=== PATIENT | female | born 1985 | race Caucasian/White ===

== ENCOUNTER 2020-10-01 13:55 | Emergency (ER) | payer OTHER, SELFPAY ==
[2020-10-01 14:04] VITALS: BP 128/82; BP 140/82; PULSE 55; PULSE 62; RESP 16; TEMP 35.9; O2SAT 95; O2SAT 99; BMI 20.3
--- NOTE | 2020-10-01 14:16 | ED.GENADULT ---
HPI - General Adult General Chief complaint: ETOH/Substance Use Stated complaint: OVERDOSE Time Seen by Provider: 10/01/20 14:10 Source: patient and EMS Mode of arrival: EMS Limitations: no limitations History of Present Illness HPI narrative: 35-year-old female came in by ambulance for evaluation of overdose. 35-year-old female with known history of IV drug abuser, patient used 4 bags of heroin last night IV, felt nauseous and started vomiting, patient was found in the street vomiting brought to the emergency department. Patient's think she is vomiting because something she has injected in her IV. Related Data Allergies Allergy/AdvReac Type Severity Reaction Status Date / Time Penicillins [PENICILLINS] Allergy Mild THROAT Unverified 11/21/19 18:32 DANIEL Review of Systems Review of Systems: All other systems are reviewed and are negative Constitutional: Reports as per HPI and Reports no additional constitutional complaints Eyes: Reports as per HPI and Reports no additional eye complaints Reports system reviewed and no additional complaints, except as documented Cardiovascular: Reports as per HPI and Reports no additional cardiovascular complaints Respiratory: Reports as per HPI and Reports no additional respiratory complaints Gastrointestinal: Reports as per HPI and Reports no additional gastrointestinal complaints Genitourinary: Reports no additional female genitourinary complaints Musculoskeletal: Reports no additional musculoskeletal complaints Skin/Breast: Reports system reviewed and no additional complaints, except as docu Psychiatric: Reports no additional psychiatric complaints Endocrine: Reports no additional endocrine complaints Hematologic/Lymphatic: Reports no additional hematologic/lymphatic complaints Allergic/Immunologic: Reports no additional allergic/immunologic complaints Reports system reviewed and no additional complaints, except as documented and Reports Abnormal speech present [facility] Social History Social History Advance Directives: No Advance Directives Information Provided: Yes Physical Exam Vital Signs: Vital Signs: Last Vital Signs Temp 96.7 F L 10/01/20 14:04 Pulse 55 10/01/20 14:04 Resp 16 10/01/20 14:04 BP 128/82 10/01/20 14:04 Pulse Ox 99 10/01/20 14:04 Body Mass Index 20.3 Vital signs have been reviewed as appeared to be correct. Blood pressure normal. Heart rate normal. Respiration rate normal. Temperature normal. Oxygen saturation normal. Appearance: Alert. Oriented X3. No acute distress. Head: Normal external exam. Normocephalic. Atraumatic. No Andrews signs noted. No raccoon eyes noted Eyes: PERRLA. EOMI. Conjunctiva and sclera normal. Eyelids normal. ENT: TM's Normal. Pharynx normal. Uvula midline. Moist mucous membranes. No trismus noted. No drooling noted. No muffled voice noted. Neck: Normal inspection. Neck supple. FROM. No adenopathy. Thyroid Normal. No meningeal signs. No neck mass noted. CVS: Normal heart rate and rhythm. Heart sound normal. No murmurs noted. Pulses normal throughout. Respiratory: No respiratory distress. Painless inspiration. Breath sounds normal. No wheezes/rales/rhonchi noted. Chest nontender. No accessory muscle usage noted or decreased air movement noted. Abdomen: Soft and nontender. Bowel sounds normal in all 4 quadrants. No distention noted. No organomegaly noted. No visible injury noted. Back: No CVA tenderness. Full range of motion noted. Skin: Skin warm and dry. Normal skin color. Normal skin turgor. No rashes/lesions/lacerations noted. Extremities: No lower extremity edema. Extremities exhibit normal range of motion. Extremities nontender. Neuro: Oriented X 3. No motor deficit. No sensory deficit. Reflexes normal. Course Course Course Narrative: Assessment and plan. IV drug abuser came in with nausea and vomiting, no abdominal pain, patient refuse labs or IV access to give fluids and hydration and control her symptoms, patient was given sublingual 1 dose of Zofran and felt better able to tolerate p.o. intake. Will discharge. Discharge Plan Discharge Clinical Impression: Substance abuse Patient Disposition: Home, Self-Care Instructions: Polysubstance Abuse (ED) Additional Instructions: Follow-up with your PCP in 1 week.
[2020-10-01] MEDS: Ondansetron ODT 4 MG TAB.RAPDIS TRANSLINGU (14:28)
--- NOTE | 2020-10-01 16:00 | PC.NURSE ---
Patient reporting she does not want to leave she still feels sick. MD reports let patient sleep some more before attempting another D/C.
[2020-10-01 17:45] VITALS: BP 119/65; PULSE 75; RESP 16; O2SAT 99
--- NOTE | 2020-10-01 17:52 | MHC.RECOVSUP ---
? Reason for consult [facility] Support [facility] Identified substance use concern: Heroin - Withdrawal - Seeking ATS (detox) - Support ? Intervention: o ATS bed search started 5:20pm/completed 5;45pm o Community resources provided o Harm reduction discussion ? Plan: <del>o</del> <del>Referral</del> <del>to</del> <del>[facility]</del> <del>o</del> <del>Bed</del> <del>search</del> <del>in</del> <del>progress</del> <del>to</del> <del>o</del> <del>Follow</del> <del>up</del> <del>tomorrow</del> <del>o</del> <del>Patient</del> <del>awaiting</del> <del>crisis</del> <del>evaluation</del> o Patient to follow up with [facility] after discharge ? Additional information: Patient is seeking detox.. There was no beds anywhere.. Was able to find space for patient at the living room.. Patient was suggest to call [facility] in the morning for assistance to go to detox..
[2020-10-01 17:55] VITALS: BP 104/67; PULSE 90; RESP 16; TEMP 37.2; O2SAT 97
== END 2020-10-01 18:28 | disposition home or self-care (01) ==
PROVIDERS: Emergency Provider Emergency Medicine
DX: T40.1X1A Poisoning by heroin, accidental (unintentional), initial encounter (principal); R11.2 Nausea with vomiting, unspecified; F11.10 Opioid abuse, uncomplicated; Y92.9 Unspecified place or not applicable
CPT/HCPCS: 99284

== ENCOUNTER 2020-12-12 11:32 | Inpatient (IN) | payer OTHER, SELFPAY ==
--- NOTE | ~2020-12-12 | XR_ITS ---
EXAMINATION: XR KNEE, RIGHT CLINICAL INFORMATION: Pain and swelling COMPARISON: None TECHNIQUE: Four views of the right knee. FINDINGS: Bone alignment is normal. No fracture or dislocation is seen. Joint spaces are normal. There is a joint effusion. Soft tissues are otherwise normal. XR/XR knee RT 4V IMPRESSION: Joint effusion otherwise unremarkable exam.
[2020-12-12 12:25] VITALS: BP 98/67; PULSE 70; RESP 16; TEMP 37; O2SAT 98; BMI 21.9
--- NOTE | 2020-12-12 13:20 | ED.EXTPRO ---
HPI - Extremity Problem General Chief complaint: Extremity Problem Stated complaint: R Knee Pain No Injury Time Seen by Provider: 12/12/20 13:18 History of Present Illness HPI Narrative: Patient is a 35-year-old female with a history of IV heroin abuse. Presents today with having pain to the right knee. No trauma. The pain is worse with movement. Patient denies any fever chills. Just used heroin prior to arrival. No coughing or congestion or upper respiratory symptoms no diaphoresis. Related Data Allergies Allergy/AdvReac Type Severity Reaction Status Date / Time Penicillins [PENICILLINS] Allergy Mild THROAT Unverified 11/21/19 18:32 SWELLS Review of Systems Review of Systems: No fever No chills Positive heroin abuse Positive pain to the right knee PMFSH Past Medical History Attestation statement: The following information was validated with the patient. Medical History Hepatitis C Social History Social History Advance Directives: No Advance Directives Information Provided: No Patient : No Physical Exam Vital Signs: Vital Signs: Last Vital Signs Temp 98.6 F 12/12/20 12:25 Pulse 70 12/12/20 12:25 Resp 16 12/12/20 12:25 BP 98/67 12/12/20 12:25 Pulse Ox 98 12/12/20 12:25 Body Mass Index 21.9 Appearance: Alert. Oriented X3. No acute distress. Eyes: Pupils equal, round and reactive to light. ENT: Pharynx normal. Neck: Normal inspection. Neck supple. No lymph nodes noted. No crepitus CVS: Normal heart rate and rhythm. Pulses normal. Normal S1 and S2 Respiratory: No respiratory distress. Breath sounds normal. No Wheezing. No rales Abdomen: Soft and nontender. No rigidity. No distention. good BS x4 Skin: Skin warm and dry. Normal skin color. Normal skin turgor. Extremities: Extremity casey of the right knee showed large amount of joint effusion. There is no redness. Pulses is 2+. Sensation over the foot intact. Skin grossly intact. Neuro: Oriented X 3. No motor deficit. No sensory deficit. Moving all extermities. No slurred speech MDM - Extremity (Nontraumatic) MDM Narrative Medical decision making narrative: Given history of IV drug use will go ahead and tap the joint fluid. We will go ahead and get labs. Monitor carefully. Patient's knee was tapped. Over 40 cc of purulence material was removed. The tap material showed 52,000 polys. The finding was discussed with Orthopedic along with having a white count of [address] Lema wants patient to be admitted for washout tomorrow. Did not want antibiotic at this time. Patient is to be admitted to the orthopedic service. Lab Data Result diagrams: 12/12/20 14:00 12/12/20 14:00 Labs: Lab Results 12/12/20 12/12/20 12/12/20 Range/Units 14:00 14:00 14:00 WBC 14.0 H (4.8-10.8) X10*3/uL RBC 4.86 (4.20-5.50) X10*6/uL Hgb 12.8 (12.0-16.0) g/dl Hct 40.1 (37-47) % MCV 82.5 (80-98) fL MCH 26.3 L (27.0-33.0) pg MCHC 31.9 (31.0-35.0) g/dl RDW 14.4 (11.0-16.0) % Plt Count 225 (160-400) X10*3/uL MPV 11.1 (9.4-12.3) fL Immature Gran % (Auto) 0.4 (0.0-0.4) % Neut % (Auto) 75.3 H (45-73) % Lymph % (Auto) 18.1 L (20-40) % Doddridge % (Auto) 5.9 (2-11) % Eos % (Auto) 0.1 (0-4) % Baso % (Auto) 0.2 (0-2) % Lymph # (Auto) 2.5 (1.2-4.9) X10*3/uL Doddridge # (Auto) 0.8 (0.1-1.2) X10*3/uL Eos # (Auto) 0.0 (0.0-0.4) X10*3/uL Baso # (Auto) 0.0 (0.0-0.2) X10*3/uL Abs Immat Gran (auto) 0.06 H (0.00-0.03) X10*3/uL Absolute Neuts (auto) 10.6 H (2.0-8.3) X10*3/uL Absolute Nucleated RBC 0.000 (0.0-0.012) X10*3/uL Nucleated RBC % (auto) 0.0 (0.0-0.2) /100WBC ESR (0-20) MM/HR Sodium 137 (135-145) mmol/L Potassium 4.5 (3.3-5.1) mmol/L Chloride 99 (96-108) mmol/L Carbon Dioxide 30 H (22-29) mmol/L Anion Gap 13 (12-20) BUN 15 (9-16) mg/dL Creatinine 0.80 (0.5-1.4) mg/dL Estim Creat Clear Calc 77.6 Estimated GFR > 60 Random Glucose 113 (60-115) mg/dL Lactic Acid 1.1 (0.5-2.0) mmol/L Calcium 10.0 (8.4-10.2) mg/dL C-Reactive Protein (< or = 0.50) mg/dL Beta HCG, Quant < 2 mIU/mL Synovial Source Synovial WBC X10*3/uL Synovial RBC X10*6/uL Synovial Neutrophils % Synovial Lymphocytes % Synovial Monocytes % Synovial Basophils % Synovial Eosinophils % Synovial Other Cells 12/12/20 12/12/20 12/12/20 Range/Units 14:00 14:00 14:40 WBC (4.8-10.8) X10*3/uL RBC (4.20-5.50) X10*6/uL Hgb (12.0-16.0) g/dl Hct (37-47) % MCV (80-98) fL MCH (27.0-33.0) pg MCHC (31.0-35.0) g/dl RDW (11.0-16.0) % Plt Count (160-400) X10*3/uL MPV (9.4-12.3) fL Immature Gran % (Auto) (0.0-0.4) % Neut % (Auto) (45-73) % Lymph % (Auto) (20-40) % Doddridge % (Auto) (2-11) % Eos % (Auto) (0-4) % Baso % (Auto) (0-2) % Lymph # (Auto) (1.2-4.9) X10*3/uL Doddridge # (Auto) (0.1-1.2) X10*3/uL Eos # (Auto) (0.0-0.4) X10*3/uL Baso # (Auto) (0.0-0.2) X10*3/uL Abs Immat Gran (auto) (0.00-0.03) X10*3/uL Absolute Neuts (auto) (2.0-8.3) X10*3/uL Absolute Nucleated RBC (0.0-0.012) X10*3/uL Nucleated RBC % (auto) (0.0-0.2) /100WBC ESR 65 H (0-20) MM/HR Sodium (135-145) mmol/L Potassium (3.3-5.1) mmol/L Chloride (96-108) mmol/L Carbon Dioxide (22-29) mmol/L Anion Gap (12-20) BUN (9-16) mg/dL Creatinine (0.5-1.4) mg/dL Estim Creat Clear Calc Estimated GFR Random Glucose (60-115) mg/dL Lactic Acid (0.5-2.0) mmol/L Calcium (8.4-10.2) mg/dL C-Reactive Protein (< or = 0.50) mg/dL Beta HCG, Quant Cancelled mIU/mL Synovial Source right knee Synovial WBC 52.290 X10*3/uL Synovial RBC < 0.002 X10*6/uL Synovial Neutrophils 68 % Synovial Lymphocytes 1 % Synovial Monocytes 31 % Synovial Basophils 0 % Synovial Eosinophils 0 % Synovial Other Cells 0 12/12/20 12/12/20 Range/Units 15:16 15:16 WBC (4.8-10.8) X10*3/uL RBC (4.20-5.50) X10*6/uL Hgb (12.0-16.0) g/dl Hct (37-47) % MCV (80-98) fL MCH (27.0-33.0) pg MCHC (31.0-35.0) g/dl RDW (11.0-16.0) % Plt Count (160-400) X10*3/uL MPV (9.4-12.3) fL Immature Gran % (Auto) (0.0-0.4) % Neut % (Auto) (45-73) % Lymph % (Auto) (20-40) % Doddridge % (Auto) (2-11) % Eos % (Auto) (0-4) % Baso % (Auto) (0-2) % Lymph # (Auto) (1.2-4.9) X10*3/uL Doddridge # (Auto) (0.1-1.2) X10*3/uL Eos # (Auto) (0.0-0.4) X10*3/uL Baso # (Auto) (0.0-0.2) X10*3/uL Abs Immat Gran (auto) (0.00-0.03) X10*3/uL Absolute Neuts (auto) (2.0-8.3) X10*3/uL Absolute Nucleated RBC (0.0-0.012) X10*3/uL Nucleated RBC % (auto) (0.0-0.2) /100WBC ESR (0-20) MM/HR Sodium (135-145) mmol/L Potassium (3.3-5.1) mmol/L Chloride (96-108) mmol/L Carbon Dioxide (22-29) mmol/L Anion Gap (12-20) BUN (9-16) mg/dL Creatinine (0.5-1.4) mg/dL Estim Creat Clear Calc Estimated GFR Random Glucose (60-115) mg/dL Lactic Acid 1.4 (0.5-2.0) mmol/L Calcium (8.4-10.2) mg/dL C-Reactive Protein 5.33 H (< or = 0.50) mg/dL Beta HCG, Quant mIU/mL Synovial Source Synovial WBC X10*3/uL Synovial RBC X10*6/uL Synovial Neutrophils % Synovial Lymphocytes % Synovial Monocytes % Synovial Basophils % Synovial Eosinophils % Synovial Other Cells Procedures Joint Aspiration/Injection Joint Asp./Inject. 1: Time Out Performed: Yes Side of body: right Joint Aspirated: knee Ultrasound Guidance: No Skin Prep: Povidone-Iodine1% Needle Size Used: 18G Fluid Obtained: turbid Total fluid obtained (mL): 40 Patient Tolerated Procedure: well and no complications Complications: none Discharge Plan Discharge Clinical Impression: Septic joint Patient Disposition: Admitted As Inpatient
[2020-12-12 14:05] LABS: MANUAL DIFF FLAG NO
[2020-12-12 14:06] LABS: Basophils Percent Auto 0.2 % (0-2); Eosinophils Percent Auto 0.1 % (0-4); Hematocrit 40.1 % (37-47); Hemoglobin 12.8 g/dl (12.0-16.0); Imm Gran Abs Auto 0.06 X10*3/uL (0.00-0.03); Imm Gran Pct Auto 0.4 % (0.0-0.4); Lymphocytes Absolute Auto 2.5 X10*3/uL (1.2-4.9); Lymphocytes Percent Auto 18.1 % (20-40); Mean Corpuscular HGB Conc 31.9 g/dl (31.0-35.0); Mean Corpuscular Hemoglobin 26.3 pg (27.0-33.0); Mean Corpuscular Volume 82.5 fL (80-98); Mean Platelet Volume 11.1 fL (9.4-12.3); Monocytes Absolute Auto 0.8 X10*3/uL (0.1-1.2); Monocytes Percent Auto 5.9 % (2-11); Neutrophils Absolute Auto 10.6 X10*3/uL (2.0-8.3); Neutrophils Percent Auto 75.3 % (45-73); Platelet Count 225 X10*3/uL (160-400); Red Blood Count 4.86 X10*6/uL (4.20-5.50); Red Cell Distribution Width 14.4 % (11.0-16.0)
[2020-12-12 14:19] LABS: Lactic Acid 1.1 mmol/L (0.5-2.0)
[2020-12-12 14:23] LABS: Anion Gap 13 (12-20); Blood Urea Nitrogen 15 mg/dL (9-16); Carbon Dioxide 30 mmol/L (22-29); Chloride 99 mmol/L (96-108); Creatinine Clr Calc Pharmacy 77.6; Estimated Glomerular Filt Rate > 60; Glucose Random 113 mg/dL (60-115); Potassium 4.5 mmol/L (3.3-5.1); Sodium 137 mmol/L (135-145)
[2020-12-12 14:35] LABS: HCG Quantitative < 2 mIU/mL
[2020-12-12 14:51] LABS: Source Synovial Fluid right knee
[2020-12-12 15:14] LABS: MN% 17.4 %; PMN% 82.6 %
[2020-12-12 15:31] LABS: RBC Synovial Fluid < 0.002 X10*6/uL
[2020-12-12 15:36] LABS: C Reactive Protein 5.33 mg/dL (< or = 0.50)
[2020-12-12 15:38] LABS: Lactic Acid 1.4 mmol/L (0.5-2.0)
[2020-12-12 15:40] LABS: Neutrophils Synovial Fluid 68 %
[2020-12-12 15:41] LABS: BF Shift QC OK YES; Basophils Synovial Fluid 0 %; Eosinophils Synovial Fluid 0 %; Lymphocytes Synovial Fluid 1 %; Man Diluent Bkgrd OK YES; Monocytes Synovial Fluid 31 %; Other Cells Synovial Fluid 0
[2020-12-12 15:47] LABS: Erythrocyte Sedimentation Rate 65 MM/HR (0-20)
--- NOTE | 2020-12-12 17:10 | PC.NURSE ---
pt c/o pain to the right knee, she denies trauma. pt states the pain is worse with movement. she denies any fever/chills/headache/dizziness/sob. no other symptoms reported. pt is an iv drug user and states she used heroin prior to arrival to the ed. Pt's right knee red, edematous, and tender to touch. Dr. Blanton at bedside.
--- NOTE | 2020-12-12 18:13 | PM.HPOR ---
History of Present Illness History of Present Illness Date of Service: 12/12/20 Chief complaint: Right Knee septic joint Narrative: Maggie Rosa is a 35 year old female who presented to the emergency department today for right knee pain. Patient has a history of IV heroin use. The last time that she used IV heroin was this morning. She states that she woke up with right knee pain that progressively got worse. While in the emergency department x-rays were obtained and were negative for any acute fracture dislocation. A right knee aspiration was performed and sent for analysis. Synovial white blood cell count was 52.290 and PMN's 68. Negative for crystals. Orthopedics was then consulted for further evaluation and treatment. Review of Systems Review of Systems: Yes all other systems are reviewed and are negative PMFSH Past Medical History Medical History Hepatitis C Social History Social History Advance Directives: No Advance Directives Information Provided: No Patient : No Meds Allergies Allergy/AdvReac Type Severity Reaction Status Date / Time Penicillins [PENICILLINS] Allergy Mild THROAT Unverified 11/21/19 18:32 SWELLS Physical Exam Vital Signs: Vital Signs: Last Vital Signs Temp 98.6 F 12/12/20 12:25 Pulse 70 12/12/20 12:25 Resp 16 12/12/20 12:25 BP 98/67 12/12/20 12:25 Pulse Ox 98 12/12/20 12:25 Body Mass Index 21.9 Const: General: cooperative, healthy appearing and no acute distress Resp: Effort & Inspection: normal respiratory effort and able to speak in complete sentences Cardio: Rate: regular rate Peripheral pulses: Peripheral pulses 2+ throughout GI: Palpation (GI): Soft to palpation Skin: Lesions: no lesions Rashes: no rashes Extrem: Other: Right knee mild edema. No ecchymosis or erythema. Patient is able to flex and extend the knee with mild discomfort. She is able to perform a straight leg raise. Tenderness to palpation of all anatomical landmarks about the right knee. Sensation is intact. Pedal pulse intact. Results Labs Result Diagrams: 12/12/20 14:00 12/12/20 14:00 Labs: Abnormal lab results 12/12/20 12/12/20 12/12/20 Range/Units 14:00 14:00 14:00 WBC 14.0 H (4.8-10.8) X10*3/uL MCH 26.3 L (27.0-33.0) pg Neut % (Auto) 75.3 H (45-73) % Lymph % (Auto) 18.1 L (20-40) % Abs Immat Gran (auto) 0.06 H (0.00-0.03) X10*3/uL Absolute Neuts (auto) 10.6 H (2.0-8.3) X10*3/uL ESR 65 H (0-20) MM/HR Carbon Dioxide 30 H (22-29) mmol/L C-Reactive Protein (< or = 0.50) mg/dL 12/12/20 Range/Units 15:16 WBC (4.8-10.8) X10*3/uL MCH (27.0-33.0) pg Neut % (Auto) (45-73) % Lymph % (Auto) (20-40) % Abs Immat Gran (auto) (0.00-0.03) X10*3/uL Absolute Neuts (auto) (2.0-8.3) X10*3/uL ESR (0-20) MM/HR Carbon Dioxide (22-29) mmol/L C-Reactive Protein 5.33 H (< or = 0.50) mg/dL H & H 12/12/20 Range/Units 14:00 Hgb 12.8 (12.0-16.0) g/dl Hct 40.1 (37-47) % All other labs normal. Assessment and Plan (1) Septic joint: Status: Acute Maggie Rosa is a 35 year old female who presented to the emergency department today for right knee pain. Patient has a history of IV heroin use. The last time that she used IV heroin was this morning. She states that she woke up with right knee pain that progressively got worse. While in the emergency department x-rays were obtained and were negative for any acute fracture dislocation. A right knee aspiration was performed and sent for analysis. Synovial white blood cell count was 52.290 and PMN's 68. Negative for crystals. Orthopedics was then consulted for further evaluation and treatment in which the orthopedic service has admitted the patient to the hospital. I discussed the case with Dr. Escalera explained the extent of a septic right knee to the patient and options available which include surgical intervention. I explained the procedure in detail along with the length of recovery and rehab course. I explained the risk, benefits and alternatives. Risk including, but not limited to infection, blood clots, bleeding,and nerve/tissue damage to surrounding areas. I answered all their questions and with their understanding they have consented to move forward with a right knee arthroscopic I&D, med clearance obtained and the patient will be NPO after midnight. Patient is tentatively on the OR schedule for 9:00 a.m. tomorrow morning for washout. Quality Stroke Does the patient have a stroke diagnosis?: No VTE Prior VTE?: No VTE Risk Level:: Surgical - high VTE Device Contraindication: N/A - Device Ordered VTE Drug Contraindication: N/A - Med Ordered Procedures Date of Service Date of Service: 12/12/20
[2020-12-12 19:20] VITALS: BP 103/63; PULSE 86; RESP 12; O2SAT 94
--- NOTE | 2020-12-12 19:33 | PC.NURSE ---
nurse to nurse report given to Yadira BA
[2020-12-12 19:51] VITALS: BMI 21.9
[2020-12-12 20:00] VITALS: BP 123/76; PULSE 100; RESP 18; TEMP 36.6; O2SAT 95
[2020-12-12] MEDS: Dextrose 5 % and 0.45 % NaCl 1,000 ML 80 ML IVCONT (21:16)
[2020-12-12] MEDS: Docusate Sodium 100 MG CAPSULE PO (21:17)
[2020-12-12] MEDS: oxyCODONE HCl ER 10 MG TAB.ER.12H PO (21:17)
[2020-12-12] MEDS: 0.9 % Sodium Chloride Flush 3 ML SYRINGE IVFLUSH (21:19)
[2020-12-12 23:32] VITALS: BP 115/58; PULSE 85; RESP 17; TEMP 37.2; O2SAT 95
[2020-12-13] VITALS (17 sets, daily range): BP systolic 100–139; BP diastolic 55–95; PULSE 68–89; RESP 16–20; TEMP 36.1–36.9; O2SAT 92–100
[2020-12-13 05:57] LABS: MANUAL DIFF FLAG NO
[2020-12-13 06:28] LABS: Basophils Percent Auto 0.2 % (0-2); Eosinophils Absolute Auto 0.1 X10*3/uL (0.0-0.4); Eosinophils Percent Auto 0.4 % (0-4); Hematocrit 35.9 % (37-47); Hemoglobin 11.6 g/dl (12.0-16.0); Imm Gran Abs Auto 0.03 X10*3/uL (0.00-0.03); Imm Gran Pct Auto 0.3 % (0.0-0.4); Lymphocytes Absolute Auto 3.7 X10*3/uL (1.2-4.9); Lymphocytes Percent Auto 31.8 % (20-40); Mean Corpuscular HGB Conc 32.3 g/dl (31.0-35.0); Mean Corpuscular Hemoglobin 26.6 pg (27.0-33.0); Mean Corpuscular Volume 82.3 fL (80-98); Mean Platelet Volume 11.6 fL (9.4-12.3); Monocytes Absolute Auto 1.3 X10*3/uL (0.1-1.2); Monocytes Percent Auto 10.9 % (2-11); Neutrophils Absolute Auto 6.6 X10*3/uL (2.0-8.3); Neutrophils Percent Auto 56.4 % (45-73); Platelet Count 209 X10*3/uL (160-400); Red Blood Count 4.36 X10*6/uL (4.20-5.50); Red Cell Distribution Width 14.5 % (11.0-16.0); White Blood Count 11.6 X10*3/uL (4.8-10.8)
[2020-12-13 06:43] LABS: Anion Gap 11 (12-20); Blood Urea Nitrogen 14 mg/dL (9-16); Calcium 9.1 mg/dL (8.4-10.2); Carbon Dioxide 26 mmol/L (22-29); Chloride 105 mmol/L (96-108); Creatinine Clr Calc Pharmacy 83.9; Estimated Glomerular Filt Rate > 60; Glucose Fasting 122 mg/dL (60-99); Potassium 4.3 mmol/L (3.3-5.1); Sodium 138 mmol/L (135-145)
[2020-12-13] MEDS: Docusate Sodium 100 MG CAPSULE PO ×2 (08:43→22:03)
[2020-12-13] MEDS: Dextrose 5 % and 0.45 % NaCl 1,000 ML 80 ML IVCONT (08:43)
[2020-12-13] MEDS: oxyCODONE HCl ER 10 MG TAB.ER.12H PO ×2 (08:43→22:03)
[2020-12-13] MEDS: HYDROmorphone HCl 0.5 MG/0.5 ML SYRINGE 0.25 MG IVPUSH ×2 (08:58→15:48)
--- NOTE | 2020-12-13 09:14 | MHC.SHP ---
Pre-Procedural Eval Section A Date of Service: 12/13/20 The patient is an INPATIENT: Yes Changes since office visit: No Cold of Flu in the past 2 weeks, No New Medical Problems, No Changes in Medication and No Patient answered all questions The History & Physical has been completed within 30 days and I have reviewed it.: Yes Section B Chief Complaint: Right Knee septic joint Allergies: Allergies Allergy/AdvReac Type Severity Reaction Status Date / Time Penicillins [PENICILLINS] Allergy Mild THROAT Unverified 11/21/19 18:32 DANIEL Plan I have reviewed the history and physical and performed a pertinent physical examination on my patient. No changes have occurred unless specified.
[2020-12-13 09:32] LABS: COVID-19 Test Negative (Negative)
--- NOTE | 2020-12-13 10:11 | MHC.CM.PN ---
CM ATTEMPTED TO SEE PT WHO WAS OFF UNIT
--- NOTE | 2020-12-13 10:31 | PM.IMCN ---
History of Present Illness Data of Consult Service Date: 12/13/20 Requesting physician: Nancy Gonzalez Primary Care Provider: None Physician HPI Reason for consult: Routine medical management This is a 35-year-old female presents to the emergency department with right knee pain. The pain started yesterday and got progressively worse throughout the day. She presented to the emergency department and had aspiration of right knee joint done which was concerning for infection. She was admitted to the orthopedic service for septic arthritis. The plan is for her to go to the OR this morning for washout. She reports to me that she feels like she is withdrawing, feels sweaty, shaky, anxious. She denies any abdominal pain or diarrhea at this time. She uses 1-2 bundles of heroin daily with her yet last use prior to coming to the emergency room. She has been on both methadone and Suboxone in the past. She reports ongoing pain in her right knee. Review of Systems Review of Systems: Yes all other systems are reviewed and are negative Constitutional: Constitutional: Denies chills and Denies fever(s) Cardiovascular: Cardiovascular: Denies chest pain Respiratory: Respiratory: Denies cough Gastrointestinal: Gastrointestinal: Denies abdominal pain [facility] Medical History Hepatitis C Functional capacity: independent ambulation Pertinent family history: no known h/o CAD Social History Household Members: None Housing: Homeless Do you presently have visiting nurse or other home services: No Patient Tobacco Use Status: Current everyday Tobacco user Tobacco use type: Cigarette Cigarette Packs Per Day: 1 Cigarettes Per Day: 20.0 Substance Use Type: Heroin Meds Allergies Allergy/AdvReac Type Severity Reaction Status Date / Time Penicillins [PENICILLINS] Allergy Mild THROAT Verified 12/13/20 11:08 SWELLS Active Medications: Current Medications Acetaminophen (Acetaminophen 325 Mg Tablet) 650 mg PO Q6H PRN PRN Reason: Pain, Mild (Pain Scale 1-3) Docusate Sodium (Docusate Sodium 100 Mg Capsule) 100 mg PO BID [facility] Last Admin: 12/13/20 08:43 Dose: 100 mg Documented by: Hydromorphone HCl (Hydromorphone Hcl 0.5 Mg/0.5 Ml Syringe) 0.25 mg IVPUSH Q4H PRN; Protocol PRN Reason: Pain, Severe (Pain Scale 7-10) Last Admin: 12/13/20 08:58 Dose: 0.25 mg Documented by: Dextrose/Sodium Chloride (D51/2ns) 1,000 mls @ 80 mls/hr IVCONT .[id number] [facility] Last Infusion: 12/13/20 09:57 Dose: 0 mls/hr Documented by: Nicotine (Nicotine 21 Mg Patch.Td24) 21 mg TRANSDERMA DAILY [facility] Last Admin: 12/13/20 09:02 Dose: Not Given Documented by: Ondansetron HCl (Ondansetron Hcl 4 Mg/2 Ml Vial) 4 mg IVPUSH Q8H PRN PRN Reason: Nausea and Vomiting Oxycodone HCl (Oxycodone Hcl Immed Release 5 Mg Tablet) 10 mg PO Q4H PRN PRN Reason: Pain, Moderate (Pain Scale 4-6 Oxycodone HCl (Oxycodone Hcl Er 10 Mg Tab.Er.12h) 10 mg PO BID [facility] Last Admin: 12/13/20 08:43 Dose: 10 mg Documented by: Sodium Chloride (0.9 % Sodium Chloride Flush 3 Ml Syringe) 3 ml IVFLUSH QSHIFT [facility] Last Admin: 12/13/20 07:03 Dose: Not Given Documented by: Physical Exam Vital Signs and Narrative: Vital Signs: Last Vital Signs Temp 98.3 F 12/13/20 08:00 Pulse 83 12/13/20 08:00 Resp 17 12/13/20 08:58 BP 115/70 12/13/20 08:00 Pulse Ox 96 12/13/20 08:00 Body Mass Index 21.9 Const: General: alert, awake and ill appearing Nutritional Appearance: thin Orientation/consciousness: patient oriented x3 HENMT: Head: Yes normocephalic and Yes atraumatic Eyes: Sclerae: sclerae normal Chest: Chest palpation & inspection: normal inspection of the chest Resp: Effort & Inspection: normal respiratory effort and no respiratory distress Auscultation: clear to auscultation bilaterally Cardio: Rate: regular rate Rhythm: regular rhythm GI: Palpation (GI): Soft to palpation and nontender Neuro: General: patient oriented x3 Cranial nerves: Yes CN's II-XII intact bilaterally and Yes Bilaterally intact EOM present Extrem: Other: right knee wrapped in wayne bandage Results Labs CBC and Chem 7: 12/13/20 05:35 12/13/20 05:35 Labs: Laboratory Results - last 24 hr 12/12/20 12/12/20 12/12/20 14:00 14:00 14:00 MCV 82.5 MCH 26.3 L MCHC 31.9 RDW 14.4 Plt Count 225 MPV 11.1 Immature Gran % (Auto) 0.4 Neut % (Auto) 75.3 H Lymph % (Auto) 18.1 L [place] % (Auto) 5.9 Eos % (Auto) 0.1 Baso % (Auto) 0.2 Lymph # (Auto) 2.5 [place] # (Auto) 0.8 Eos # (Auto) 0.0 Baso # (Auto) 0.0 Abs Immat Gran (auto) 0.06 H Absolute Neuts (auto) 10.6 H Absolute Nucleated RBC 0.000 Nucleated RBC % (auto) 0.0 ESR Anion Gap 13 Estim Creat Clear Calc 77.6 Estimated GFR > 60 Random Glucose 113 Fasting Glucose Lactic Acid 1.1 Calcium 10.0 C-Reactive Protein Beta HCG, Quant < 2 Synovial Source Synovial WBC Synovial RBC Synovial Neutrophils Synovial Lymphocytes Synovial Monocytes Synovial Basophils Synovial Eosinophils Synovial Other Cells COVID-19 (FRED) [employer] 12/12/20 12/12/20 12/12/20 14:00 14:00 14:40 MCV MCH MCHC RDW Plt Count MPV Immature Gran % (Auto) Neut % (Auto) Lymph % (Auto) [place] % (Auto) Eos % (Auto) Baso % (Auto) Lymph # (Auto) [place] # (Auto) Eos # (Auto) Baso # (Auto) Abs Immat Gran (auto) Absolute Neuts (auto) Absolute Nucleated RBC Nucleated RBC % (auto) ESR 65 H Anion Gap Estim Creat Clear Calc Estimated GFR Random Glucose Fasting Glucose Lactic Acid Calcium C-Reactive Protein Beta HCG, Quant Cancelled Synovial Source right knee Synovial WBC 52.290 Synovial RBC < 0.002 Synovial Neutrophils 68 Synovial Lymphocytes 1 Synovial Monocytes 31 Synovial Basophils 0 Synovial Eosinophils 0 Synovial Other Cells 0 COVID-19 (FRED) COVID-19 [employer] 12/12/20 12/12/20 12/13/20 15:16 15:16 05:35 MCV 82.3 MCH 26.6 L MCHC 32.3 RDW 14.5 Plt Count 209 MPV 11.6 Immature Gran % (Auto) 0.3 Neut % (Auto) 56.4 Lymph % (Auto) 31.8 [place] % (Auto) 10.9 Eos % (Auto) 0.4 Baso % (Auto) 0.2 Lymph # (Auto) 3.7 [place] # (Auto) 1.3 H Eos # (Auto) 0.1 Baso # (Auto) 0.0 Abs Immat Gran (auto) 0.03 Absolute Neuts (auto) 6.6 Absolute Nucleated RBC 0.000 Nucleated RBC % (auto) 0.0 ESR Anion Gap Estim Creat Clear Calc Estimated GFR Random Glucose Fasting Glucose Lactic Acid 1.4 Calcium C-Reactive Protein 5.33 H Beta HCG, Quant Synovial Source Synovial WBC Synovial RBC Synovial Neutrophils Synovial Lymphocytes Synovial Monocytes Synovial Basophils Synovial Eosinophils Synovial Other Cells COVID-19 (FRED) COVID-19 [employer] 12/13/20 12/13/20 05:35 09:07 MCV MCH MCHC RDW Plt Count MPV Immature Gran % (Auto) Neut % (Auto) Lymph % (Auto) [place] % (Auto) Eos % (Auto) Baso % (Auto) Lymph # (Auto) [place] # (Auto) Eos # (Auto) Baso # (Auto) Abs Immat Gran (auto) Absolute Neuts (auto) Absolute Nucleated RBC Nucleated RBC % (auto) ESR Anion Gap 11 L Estim Creat Clear Calc 83.9 Estimated GFR > 60 Random Glucose Fasting Glucose 122 H Lactic Acid Calcium 9.1 D C-Reactive Protein Beta HCG, Quant Synovial Source Synovial WBC Synovial RBC Synovial Neutrophils Synovial Lymphocytes Synovial Monocytes Synovial Basophils Synovial Eosinophils Synovial Other Cells COVID-19 (FRED) Negative COVID-19 Clin Com See Note Imaging Radiologist's Impressions: Impressions Knee X-Ray 12/12/20 12:49 IMPRESSION: Joint effusion otherwise unremarkable exam. Assessment and Plan (1) Septic joint: Status: Acute (2) Opiate dependence: Status: Acute (3) Tobacco dependence: Status: Acute This is a 35-year-old female with history of OUD who presents to the ED with right knee pain found to have septic joint admitted to the orthopedic service for further management Right knee septic joint Plan for OR wash out this am IV abx per orthopedic team Blood cultures pending OUD Receiving pain medication for knee will add prn clonidine, atarax addiction medicine consult Tobacco dependence Smoking cessation advised NRT Thank you for allowing us to participate in the care of this patient. We will follow along with you Attending-Dr. Oakley
--- NOTE | 2020-12-13 10:34 | P.BOP_ITS ---
Brief Operative Note Date of Service: 12/13/20 Pre-op diagnosis: septic right knee Post-op diagnosis: same Procedure: arthroscopic lavage right knee Surgeon: Adrian Lema MD Anesthesia: GETA and local Was an Victorian Literature Professor used for this Procedure?: No Estimated blood loss (mL): 5 Tourniquet time (min): 29 IV fluids (mL): 600 Pathology: other Condition: stable Disposition: PACU
--- NOTE | 2020-12-13 10:34 | P.CONAN_ITS ---
FORM[facility]LY [facility], [facility] Active Problems Active Problems: All Active Problems (Updated 12/12/20 @ 16:38 by Joy Blanton MD) Septic joint (Acute) Past Medical History Medical History Hepatitis C Social History Social History Household Members: None Housing: Homeless Do you presently have visiting nurse or other home services: No Patient Tobacco Use Status: Current everyday Tobacco user Tobacco use type: Cigarette Cigarette Packs Per Day: 1 Cigarettes Per Day: 20.0 Substance Use Type: Heroin Meds Allergies Allergy/AdvReac Type Severity Reaction Status Date / Time Penicillins [PENICILLINS] Allergy Mild THROAT Unverified 11/21/19 18:32 SWELLS Active Medications: Current Medications Acetaminophen (Acetaminophen 325 Mg Tablet) 650 mg PO Q6H PRN PRN Reason: Pain, Mild (Pain Scale 1-3) Docusate Sodium (Docusate Sodium 100 Mg Capsule) 100 mg PO BID [facility] Last Admin: 12/13/20 08:43 Dose: 100 mg Documented by: Hydromorphone HCl (Hydromorphone Hcl 0.5 Mg/0.5 Ml Syringe) 0.25 mg IVPUSH Q4H PRN; Protocol PRN Reason: Pain, Severe (Pain Scale 7-10) Last Admin: 12/13/20 08:58 Dose: 0.25 mg Documented by: Dextrose/Sodium Chloride (D51/2ns) 1,000 mls @ 80 mls/hr IVCONT .[id number] [facility] Last Infusion: 12/13/20 09:57 Dose: 0 mls/hr Documented by: Nicotine (Nicotine 21 Mg Patch.Td24) 21 mg TRANSDERMA DAILY [facility] Last Admin: 12/13/20 09:02 Dose: Not Given Documented by: Ondansetron HCl (Ondansetron Hcl 4 Mg/2 Ml Vial) 4 mg IVPUSH Q8H PRN PRN Reason: Nausea and Vomiting Oxycodone HCl (Oxycodone Hcl Immed Release 5 Mg Tablet) 10 mg PO Q4H PRN PRN Reason: Pain, Moderate (Pain Scale 4-6 Oxycodone HCl (Oxycodone Hcl Er 10 Mg Tab.Er.12h) 10 mg PO BID [facility] Last Admin: 12/13/20 08:43 Dose: 10 mg Documented by: Sodium Chloride (0.9 % Sodium Chloride Flush 3 Ml Syringe) 3 ml IVFLUSH QSHIFT [facility] Last Admin: 12/13/20 07:03 Dose: Not Given Documented by: Exam Exam Date and Time: December 13, 2020 1034 Height,Weight and Vital Signs: Height 5 ft 2 in Weight 54.3 kg Last Vital Signs Temp 98.3 F 12/13/20 08:00 Pulse 83 12/13/20 08:00 Resp 17 12/13/20 08:58 BP 115/70 12/13/20 08:00 Pulse Ox 96 12/13/20 08:00 Pertinent Lab Results Pertinent Lab Results: Laboratory Tests 12/12/20 12/12/20 12/12/20 14:00 14:00 14:00 WBC 14.0 H RBC 4.86 Hgb 12.8 Hct 40.1 MCV 82.5 MCH 26.3 L MCHC 31.9 RDW 14.4 Plt Count 225 MPV 11.1 Immature Gran % (Auto) 0.4 Neut % (Auto) 75.3 H Lymph % (Auto) 18.1 L [place] % (Auto) 5.9 Eos % (Auto) 0.1 Baso % (Auto) 0.2 Lymph # (Auto) 2.5 [place] # (Auto) 0.8 Eos # (Auto) 0.0 Baso # (Auto) 0.0 Abs Immat Gran (auto) 0.06 H Absolute Neuts (auto) 10.6 H Absolute Nucleated RBC 0.000 Nucleated RBC % (auto) 0.0 ESR Sodium 137 Potassium 4.5 Chloride 99 Carbon Dioxide 30 H Anion Gap 13 BUN 15 Creatinine 0.80 Estim Creat Clear Calc 77.6 Estimated GFR > 60 Random Glucose 113 Fasting Glucose Lactic Acid 1.1 Calcium 10.0 C-Reactive Protein Beta HCG, Quant < 2 Synovial Source Synovial WBC Synovial RBC Synovial Neutrophils Synovial Lymphocytes Synovial Monocytes Synovial Basophils Synovial Eosinophils Synovial Other Cells COVID-19 (FRED) COVID-19 Clin Com 12/12/20 12/12/20 12/12/20 14:00 14:00 14:40 WBC RBC Hgb Hct MCV MCH MCHC RDW Plt Count MPV Immature Gran % (Auto) Neut % (Auto) Lymph % (Auto) [place] % (Auto) Eos % (Auto) Baso % (Auto) Lymph # (Auto) [place] # (Auto) Eos # (Auto) Baso # (Auto) Abs Immat Gran (auto) Absolute Neuts (auto) Absolute Nucleated RBC Nucleated RBC % (auto) ESR 65 H Sodium Potassium Chloride Carbon Dioxide Anion Gap BUN Creatinine Estim Creat Clear Calc Estimated GFR Random Glucose Fasting Glucose Lactic Acid Calcium C-Reactive Protein Beta HCG, Quant Cancelled Synovial Source right knee Synovial WBC 52.290 Synovial RBC < 0.002 Synovial Neutrophils 68 Synovial Lymphocytes 1 Synovial Monocytes 31 Synovial Basophils 0 Synovial Eosinophils 0 Synovial Other Cells 0 COVID-19 (FRED) COVID-19 [employer] 12/12/20 12/12/20 12/13/20 15:16 15:16 05:35 WBC 11.6 H RBC 4.36 Hgb 11.6 L Hct 35.9 L MCV 82.3 MCH 26.6 L MCHC 32.3 RDW 14.5 Plt Count 209 MPV 11.6 Immature Gran % (Auto) 0.3 Neut % (Auto) 56.4 Lymph % (Auto) 31.8 [place] % (Auto) 10.9 Eos % (Auto) 0.4 Baso % (Auto) 0.2 Lymph # (Auto) 3.7 [place] # (Auto) 1.3 H Eos # (Auto) 0.1 Baso # (Auto) 0.0 Abs Immat Gran (auto) 0.03 Absolute Neuts (auto) 6.6 Absolute Nucleated RBC 0.000 Nucleated RBC % (auto) 0.0 ESR Sodium Potassium Chloride Carbon Dioxide Anion Gap BUN Creatinine Estim Creat Clear Calc Estimated GFR Random Glucose Fasting Glucose Lactic Acid 1.4 Calcium C-Reactive Protein 5.33 H Beta HCG, Quant Synovial Source Synovial WBC Synovial RBC Synovial Neutrophils Synovial Lymphocytes Synovial Monocytes Synovial Basophils Synovial Eosinophils Synovial Other Cells COVID-19 (FRED) COVID-19 [employer] 12/13/20 12/13/20 05:35 09:07 WBC RBC Hgb Hct MCV MCH MCHC RDW Plt Count MPV Immature Gran % (Auto) Neut % (Auto) Lymph % (Auto) [place] % (Auto) Eos % (Auto) Baso % (Auto) Lymph # (Auto) [place] # (Auto) Eos # (Auto) Baso # (Auto) Abs Immat Gran (auto) Absolute Neuts (auto) Absolute Nucleated RBC Nucleated RBC % (auto) ESR Sodium 138 Potassium 4.3 Chloride 105 Carbon Dioxide 26 Anion Gap 11 L BUN 14 Creatinine 0.74 Estim Creat Clear Calc 83.9 Estimated GFR > 60 Random Glucose Fasting Glucose 122 H Lactic Acid Calcium 9.1 D C-Reactive Protein Beta HCG, Quant Synovial Source Synovial WBC Synovial RBC Synovial Neutrophils Synovial Lymphocytes Synovial Monocytes Synovial Basophils Synovial Eosinophils Synovial Other Cells COVID-19 (FRED) Negative COVID-19 Clin Com See Note Airway Mallampati Class: II TM Dist: >3cm Neck ROM: Full
[2020-12-13 11:11] LABS: Source Synovial Fluid right knee
[2020-12-13] MEDS: HYDROmorphone HCl 0.5 MG/0.5 ML SYRINGE IVPUSH ×2 (11:17→11:27)
[2020-12-13] MEDS: Lactated Ringers 1,000 ML 100 ML IVCONT (11:45)
[2020-12-13 11:52] LABS: BF Shift QC OK YES; Lymphocytes Synovial Fluid 5 %; MN% 15.7 %; Man Diluent Bkgrd OK YES; Monocytes Synovial Fluid 2 %; Neutrophils Synovial Fluid 92 %; PMN% 84.3 %
[2020-12-13] MEDS: oxyCODONE HCl Immed Release 5 MG TABLET 10 MG PO ×2 (12:28→18:37)
[2020-12-13] MEDS: hydrOXYzine HCL 25 MG TABLET PO ×2 (12:28→18:37)
[2020-12-13] MEDS: Acetaminophen 325 MG TABLET 650 MG PO (12:28)
[2020-12-13] MEDS: cloNIDine HCL 0.1 MG TABLET PO (15:48)
--- NOTE | 2020-12-13 17:40 | MHC.RECOVSUP ---
Recovery Support note: Patient is a 35 year old Latvian speaking female who presented to [facility] ED due to knee swelling and was medically admitted. This teletypewriter installer met with patient in to discuss her substance use and withdrawal. Patient reports using two bundles daily and that she is experiencing withdrawal symptoms at this time including sweating, body aches and feeling uncomfortable. Patient reports the pain medications have not helped to treat the withdrawal. Discussed methadone with patient. Patient is interested in starting methadone while in the hospital if possible. Patient reports she was previously established with a local clinic for methadone maintenance however states it was a long time ago. Patient reports she does not have an ID at this time or any form of identification that includes a picture. Explained to patient that an ID is necessary for all methadone programs and that she will be unable to continue with methadone maintenance after discharge without an ID. Patient acknowledged. Discussed case with Aviva Hernández NP.
[2020-12-13] MEDS: ceFAZolin Sodium/Dextrose,Iso 2 GM/50 ML PIGGYBACK IV (18:36)
[2020-12-14] VITALS (8 sets, daily range): BP systolic 98–120; BP diastolic 55–65; PULSE 68–84; RESP 16–18; TEMP 36.3–37.4; O2SAT 96–98
--- NOTE | 2020-12-14 | ECG_ITS ---
Test Reason : methadone titration Blood Pressure : / mmHG Vent. Rate : 075 BPM Atrial Rate : 075 BPM P-R Int : 144 ms QRS Dur : 082 ms QT Int : 378 ms P-R-T Axes : 033 060 013 degrees QTc Int : 422 ms Normal sinus rhythm Normal ECG No previous ECGs available Referred By: Aviva Hernández Electronically Signed By:TREVOR VAUGHN MD
[2020-12-14] MEDS: Dextrose 5 % and 0.45 % NaCl 1,000 ML 80 ML IVCONT ×2 (00:37→13:21)
[2020-12-14] MEDS: ceFAZolin Sodium/Dextrose,Iso 2 GM/50 ML PIGGYBACK IV ×2 (01:35→10:35)
[2020-12-14] MEDS: oxyCODONE HCl Immed Release 5 MG TABLET 10 MG PO ×4 (01:40→15:11)
[2020-12-14] MEDS: cloNIDine HCL 0.1 MG TABLET PO ×2 (01:44→15:12)
[2020-12-14] MEDS: hydrOXYzine HCL 25 MG TABLET PO ×2 (04:04→11:15)
[2020-12-14] MEDS: HYDROmorphone HCl 0.5 MG/0.5 ML SYRINGE 0.25 MG IVPUSH ×3 (04:04→13:21)
[2020-12-14 05:30] LABS: MANUAL DIFF FLAG NO
[2020-12-14 05:33] LABS: Basophils Percent Auto 0.1 % (0-2); Eosinophils Percent Auto 0.1 % (0-4); Hemoglobin 11.4 g/dl (12.0-16.0); Imm Gran Abs Auto 0.04 X10*3/uL (0.00-0.03); Imm Gran Pct Auto 0.3 % (0.0-0.4); Lymphocytes Absolute Auto 3.1 X10*3/uL (1.2-4.9); Lymphocytes Percent Auto 25.1 % (20-40); Mean Corpuscular HGB Conc 32.6 g/dl (31.0-35.0); Mean Corpuscular Hemoglobin 26.5 pg (27.0-33.0); Mean Corpuscular Volume 81.4 fL (80-98); Mean Platelet Volume 11.6 fL (9.4-12.3); Monocytes Absolute Auto 0.9 X10*3/uL (0.1-1.2); Monocytes Percent Auto 7.2 % (2-11); Neutrophils Absolute Auto 8.2 X10*3/uL (2.0-8.3); Neutrophils Percent Auto 67.2 % (45-73); Platelet Count 207 X10*3/uL (160-400); Red Cell Distribution Width 14.4 % (11.0-16.0); White Blood Count 12.1 X10*3/uL (4.8-10.8)
[2020-12-14 05:50] LABS: Anion Gap 11 (12-20); Blood Urea Nitrogen 11 mg/dL (9-16); Calcium 8.8 mg/dL (8.4-10.2); Carbon Dioxide 24 mmol/L (22-29); Chloride 110 mmol/L (96-108); Creatinine Clr Calc Pharmacy 95.5; Estimated Glomerular Filt Rate > 60; Glucose Fasting 153 mg/dL (60-99); Potassium 3.6 mmol/L (3.3-5.1); Sodium 141 mmol/L (135-145)
[2020-12-14] MEDS: Docusate Sodium 100 MG CAPSULE PO (08:55)
[2020-12-14] MEDS: oxyCODONE HCl ER 10 MG TAB.ER.12H PO (08:56)
--- NOTE | 2020-12-14 09:26 | HO.ADDICTCON ---
History of Present Illness Date of Service: 12/14/2020 Chief Complaint: Right Knee septic joint Reason for Consult: OUD --acute withdrawal Requesting physician: Jane Lee Discussed with referring provider: Yes Sources of Information: patient interviewed and chart reviewed HPI Narrative: Patient is a 35 year old female currently medically admitted with septic arthritis Reporting active opioid use and requesting medications for withdrawal Patient seen in room 354, awake, alert and engaged in interview. Visibly experiencing withdrawal sx--diaphoretic, chills, restless, anxious, yawning. Also reporting nausea, loose stools She reports using 2 bundles of heroin QD IV. She has been using on and off for over 10 years She does report history of MOUD --both methadone and suboxone Reports it has been a few years since any type of treatment admission, including ATS Denies any history of OD Currently experiencing homelessness Requesting assistance with admission to [facility] archanaing d/c from [facility] Review of Systems Review of Systems as reported in HPI Diagnostics Vital Signs (24Hr): Vital Signs - 24 hr 12/13/20 10:56 12/13/20 11:00 12/13/20 11:05 Temperature 98.3 F Pulse Rate 85 81 81 Respiratory Rate 17 16 16 Blood Pressure 122/73 115/70 128/66 Pulse Oximetry 100 92 92 12/13/20 11:10 12/13/20 11:16 12/13/20 11:17 Temperature Pulse Rate 74 82 Respiratory Rate 16 16 16 Blood Pressure 127/95 H 134/88 Pulse Oximetry 96 97 12/13/20 11:23 12/13/20 11:26 12/13/20 11:27 Temperature 98.0 F Pulse Rate 72 82 Respiratory Rate 16 16 16 Blood Pressure 132/87 139/89 Pulse Oximetry 12/13/20 11:32 12/13/20 11:39 12/13/20 15:02 Temperature 97.4 F 97.0 F Pulse Rate 79 68 78 Respiratory Rate 16 18 16 Blood Pressure 126/74 139/92 H 119/63 Pulse Oximetry 100 97 100 12/13/20 15:48 12/13/20 19:14 12/14/20 00:00 Temperature 97.1 F 98.5 F Pulse Rate 89 78 Respiratory Rate 17 18 17 Blood Pressure 100/55 L 100/55 L Pulse Oximetry 96 98 12/14/20 01:44 12/14/20 04:00 12/14/20 07:23 Temperature 97.5 F 97.4 F Pulse Rate 78 69 68 Respiratory Rate 17 18 Blood Pressure 100/55 L 111/58 L 98/57 L Pulse Oximetry 97 98 12/14/20 08:56 Temperature Pulse Rate Respiratory Rate 16 Blood Pressure Pulse Oximetry Body Mass Index 21.9 Labs Results: 12/14/20 05:18 12/14/20 05:18 Labs: Laboratory Results - last 48 hr 12/12/20 12/12/20 12/12/20 14:00 14:00 14:00 WBC 14.0 H RBC 4.86 Hgb 12.8 Hct 40.1 MCV 82.5 MCH 26.3 L MCHC 31.9 RDW 14.4 Plt Count 225 MPV 11.1 Immature Gran % (Auto) 0.4 Neut % (Auto) 75.3 H Lymph % (Auto) 18.1 L Dillon % (Auto) 5.9 Eos % (Auto) 0.1 Baso % (Auto) 0.2 Lymph # (Auto) 2.5 Dillon # (Auto) 0.8 Eos # (Auto) 0.0 Baso # (Auto) 0.0 Abs Immat Gran (auto) 0.06 H Absolute Neuts (auto) 10.6 H Absolute Nucleated RBC 0.000 Nucleated RBC % (auto) 0.0 ESR Sodium 137 Potassium 4.5 Chloride 99 Carbon Dioxide 30 H Anion Gap 13 BUN 15 Creatinine 0.80 Estim Creat Clear Calc 77.6 Estimated GFR > 60 Random Glucose 113 Fasting Glucose Lactic Acid 1.1 Calcium 10.0 C-Reactive Protein Beta HCG, Quant < 2 Synovial Source Synovial WBC Synovial RBC Synovial Neutrophils Synovial Lymphocytes Synovial Monocytes Synovial Basophils Synovial Eosinophils Synovial Other Cells COVID-19 (FRED) COVID-19 Clin Com 12/12/20 12/12/20 12/12/20 14:00 14:00 14:40 WBC RBC Hgb Hct MCV MCH MCHC RDW Plt Count MPV Immature Gran % (Auto) Neut % (Auto) Lymph % (Auto) Dillon % (Auto) Eos % (Auto) Baso % (Auto) Lymph # (Auto) Dillon # (Auto) Eos # (Auto) Baso # (Auto) Abs Immat Gran (auto) Absolute Neuts (auto) Absolute Nucleated RBC Nucleated RBC % (auto) ESR 65 H Sodium Potassium Chloride Carbon Dioxide Anion Gap BUN Creatinine Estim Creat Clear Calc Estimated GFR Random Glucose Fasting Glucose Lactic Acid Calcium C-Reactive Protein Beta HCG, Quant Cancelled Synovial Source right knee Synovial WBC 52.290 Synovial RBC < 0.002 Synovial Neutrophils 68 Synovial Lymphocytes 1 Synovial Monocytes 31 Synovial Basophils 0 Synovial Eosinophils 0 Synovial Other Cells 0 COVID-19 (FRED) COVID-19 Clin Com 12/12/20 12/12/20 12/13/20 15:16 15:16 05:35 WBC 11.6 H RBC 4.36 Hgb 11.6 L Hct 35.9 L MCV 82.3 MCH 26.6 L MCHC 32.3 RDW 14.5 Plt Count 209 MPV 11.6 Immature Gran % (Auto) 0.3 Neut % (Auto) 56.4 Lymph % (Auto) 31.8 Dillon % (Auto) 10.9 Eos % (Auto) 0.4 Baso % (Auto) 0.2 Lymph # (Auto) 3.7 Dillon # (Auto) 1.3 H Eos # (Auto) 0.1 Baso # (Auto) 0.0 Abs Immat Gran (auto) 0.03 Absolute Neuts (auto) 6.6 Absolute Nucleated RBC 0.000 Nucleated RBC % (auto) 0.0 ESR Sodium Potassium Chloride Carbon Dioxide Anion Gap BUN Creatinine Estim Creat Clear Calc Estimated GFR Random Glucose Fasting Glucose Lactic Acid 1.4 Calcium C-Reactive Protein 5.33 H Beta HCG, Quant Synovial Source Synovial WBC Synovial RBC Synovial Neutrophils Synovial Lymphocytes Synovial Monocytes Synovial Basophils Synovial Eosinophils Synovial Other Cells COVID-19 (FRED) COVID-19 Clin Com 12/13/20 12/13/20 12/13/20 05:35 09:07 10:45 WBC RBC Hgb Hct MCV MCH MCHC RDW Plt Count MPV Immature Gran % (Auto) Neut % (Auto) Lymph % (Auto) Dillon % (Auto) Eos % (Auto) Baso % (Auto) Lymph # (Auto) Dillon # (Auto) Eos # (Auto) Baso # (Auto) Abs Immat Gran (auto) Absolute Neuts (auto) Absolute Nucleated RBC Nucleated RBC % (auto) ESR Sodium 138 Potassium 4.3 Chloride 105 Carbon Dioxide 26 Anion Gap 11 L BUN 14 Creatinine 0.74 Estim Creat Clear Calc 83.9 Estimated GFR > 60 Random Glucose Fasting Glucose 122 H Lactic Acid Calcium 9.1 D C-Reactive Protein Beta HCG, Quant Synovial Source right knee Synovial WBC 54.760 Synovial RBC 0.030 Synovial Neutrophils 92 Synovial Lymphocytes 5 Synovial Monocytes 2 Synovial Basophils Synovial Eosinophils Synovial Other Cells COVID-19 (FRED) Negative COVID-19 Clin Com See Note 12/14/20 12/14/20 05:18 05:18 WBC 12.1 H RBC 4.30 Hgb 11.4 L Hct 35.0 L MCV 81.4 MCH 26.5 L MCHC 32.6 RDW 14.4 Plt Count 207 MPV 11.6 Immature Gran % (Auto) 0.3 Neut % (Auto) 67.2 Lymph % (Auto) 25.1 Dillon % (Auto) 7.2 Eos % (Auto) 0.1 Baso % (Auto) 0.1 Lymph # (Auto) 3.1 Dillon # (Auto) 0.9 Eos # (Auto) 0.0 Baso # (Auto) 0.0 Abs Immat Gran (auto) 0.04 H Absolute Neuts (auto) 8.2 Absolute Nucleated RBC 0.000 Nucleated RBC % (auto) 0.0 ESR Sodium 141 Potassium 3.6 Chloride 110 H Carbon Dioxide 24 Anion Gap 11 L BUN 11 Creatinine 0.65 Estim Creat Clear Calc 95.5 Estimated GFR > 60 Random Glucose Fasting Glucose 153 H Lactic Acid Calcium 8.8 C-Reactive Protein Beta HCG, Quant Synovial Source Synovial WBC Synovial RBC Synovial Neutrophils Synovial Lymphocytes Synovial Monocytes Synovial Basophils Synovial Eosinophils Synovial Other Cells COVID-19 (FRED) COVID-19 Clin Com Imaging Radiology Impressions: ITS Impressions Knee X-Ray 12/12/20 12:49 IMPRESSION: Joint effusion otherwise unremarkable exam. Mental Status Exam Mental Status Exam Patient Appearance: Perspiring Patient Orientation: Person, Place, Time and Situation Level of Consciousness: Awake and Appropriate Patient Behavior: Appropriate Mood Description: Calm Affect Description: Anxious Patient Cognition Impaired: No Speech Pattern: Clear Thought Process: Intact and Goal Oriented Thought Content: positive for Intact Judgement: Fair Medications Medications Current Medications Acetaminophen (Acetaminophen 325 Mg Tablet) 650 mg PO Q6H PRN PRN Reason: Pain, Mild (Pain Scale 1-3) Last Admin: 12/13/20 12:28 Dose: 650 mg Documented by: Clonidine HCl (Clonidine Hcl 0.1 Mg Tablet) 0.1 mg PO BID PRN; Protocol PRN Reason: withdrawal Last Admin: 12/14/20 01:44 Dose: 0.1 mg Documented by: Docusate Sodium (Docusate Sodium 100 Mg Capsule) 100 mg PO BID [facility] Last Admin: 12/14/20 08:55 Dose: 100 mg Documented by: Hydromorphone HCl (Hydromorphone Hcl 0.5 Mg/0.5 Ml Syringe) 0.25 mg IVPUSH Q4H PRN; Protocol PRN Reason: Pain, Severe (Pain Scale 7-10) Last Admin: 12/14/20 08:56 Dose: 0.25 mg Documented by: Hydromorphone HCl (Hydromorphone Hcl 0.5 Mg/0.5 Ml Syringe) 0.5 mg IVPUSH Q5M PRN; Protocol PRN Reason: Pain, Severe (Pain Scale 7-10) Last Admin: 12/13/20 11:27 Dose: 0.5 mg Documented by: Hydroxyzine HCl (Hydroxyzine Hcl 25 Mg Tablet) 25 mg PO Q6H PRN PRN Reason: withdrawal Last Admin: 12/14/20 04:04 Dose: 25 mg Documented by: Dextrose/Sodium Chloride (D51/2ns) 1,000 mls @ 80 mls/hr IVCONT .[id number] [facility] Last Admin: 12/14/20 08:45 Dose: Not Given Documented by: Cefazolin Sodium/Dextrose (Ancef) 2 gm in 50 mls @ 100 mls/hr IV Q8H [facility] Last Infusion: 12/14/20 02:06 Dose: Infused Documented by: Methadone HCl (Methadone Hcl 20 Mg/2 Ml Oral.Conc) 30 mg PO DAILY [facility] Nicotine (Nicotine 21 Mg Patch.Td24) 21 mg TRANSDERMA DAILY [facility] Last Admin: 12/14/20 08:55 Dose: Not Given Documented by: Ondansetron HCl (Ondansetron Hcl 4 Mg/2 Ml Vial) 4 mg IVPUSH Q8H PRN PRN Reason: Nausea and Vomiting Ondansetron HCl (Ondansetron Hcl 4 Mg/2 Ml Vial) 4 mg IVPUSH ONCE PRN PRN Reason: Nausea and Vomiting Oxycodone HCl (Oxycodone Hcl Immed Release 5 Mg Tablet) 10 mg PO Q4H PRN PRN Reason: Pain, Moderate (Pain Scale 4-6 Last Admin: 12/14/20 05:45 Dose: 10 mg Documented by: Oxycodone HCl (Oxycodone Hcl Er 10 Mg Tab.Er.12h) 10 mg PO BID [facility] Last Admin: 12/14/20 08:56 Dose: 10 mg Documented by: Sodium Chloride (0.9 % Sodium Chloride Flush 3 Ml Syringe) 3 ml IVFLUSH QSHIFT [facility] Last Admin: 12/14/20 08:45 Dose: Not Given Documented by: Allergies Allergies Allergy/AdvReac Type Severity Reaction Status Date / Time Penicillins [PENICILLINS] Allergy Mild THROAT Verified 12/13/20 11:08 [place] Assessment & Plan Assessment & Plan (1) Opioid use disorder: Status: Acute Code(s): F11.90 - Opioid use, unspecified, uncomplicated Assessment and Plan: methadone 30mg QD started will re-assess in AM and titrate as necessary please continue to manage pain as necessary monitor for over-sedation recovery support team to follow up in AM and assist with CSS referral if patient still interested in this baseline EKG ordered Greater than 50% of the session was spent on counseling and/or coordination of care PMFSH Past Medical History Medical History Hepatitis C Social History Social History Household Members: None Housing: Homeless Do you presently have visiting nurse or other home services: No Patient Tobacco Use Status: Current everyday Tobacco user Tobacco use type: Cigarette Cigarette Packs Per Day: 1 Cigarettes Per Day: 20.0 Substance Use Type: Heroin
--- NOTE | 2020-12-14 09:32 | P.PNOP_ITS ---
Subjective Subjective Date of Service: 12/14/20 Principal diagnosis: right septic knee Interval history: Feels improved from pre op but still with pain. 10 year history or IVDU Physical Exam Vital Signs: Vital Signs: Last Vital Signs Temp 97.4 F 12/14/20 07:23 Pulse 68 12/14/20 07:23 Resp 16 12/14/20 08:56 BP 98/57 L 12/14/20 07:23 Pulse Ox 98 12/14/20 07:23 Body Mass Index 21.9 Extrem: Other: dressing c/d/i SILT Able to straight leg raise Procedures Date of Service Date of Service: 12/14/20 Progress Note: A&P Assessment and plan (1) Septic joint: Status: Acute Assessment and Plan: POD#1 s/p right knee lavage Walking as tolerated with crutches PRN today Continue IV abx D/c tomorrow on PO abs cultures pending Will start Methadone today (2) Opiate dependence: Status: Acute Fall Risk Details Current Medications: Current Medications Acetaminophen (Acetaminophen 325 Mg Tablet) 650 mg PO Q6H PRN PRN Reason: Pain, Mild (Pain Scale 1-3) Last Admin: 12/13/20 12:28 Dose: 650 mg Documented by: Clonidine HCl (Clonidine Hcl 0.1 Mg Tablet) 0.1 mg PO BID PRN; Protocol PRN Reason: withdrawal Last Admin: 12/14/20 01:44 Dose: 0.1 mg Documented by: Docusate Sodium (Docusate Sodium 100 Mg Capsule) 100 mg PO BID [facility] Last Admin: 12/14/20 08:55 Dose: 100 mg Documented by: Hydromorphone HCl (Hydromorphone Hcl 0.5 Mg/0.5 Ml Syringe) 0.25 mg IVPUSH Q4H PRN; Protocol PRN Reason: Pain, Severe (Pain Scale 7-10) Last Admin: 12/14/20 08:56 Dose: 0.25 mg Documented by: Hydromorphone HCl (Hydromorphone Hcl 0.5 Mg/0.5 Ml Syringe) 0.5 mg IVPUSH Q5M PRN; Protocol PRN Reason: Pain, Severe (Pain Scale 7-10) Last Admin: 12/13/20 11:27 Dose: 0.5 mg Documented by: Hydroxyzine HCl (Hydroxyzine Hcl 25 Mg Tablet) 25 mg PO Q6H PRN PRN Reason: withdrawal Last Admin: 12/14/20 04:04 Dose: 25 mg Documented by: Dextrose/Sodium Chloride (D51/2ns) 1,000 mls @ 80 mls/hr IVCONT .[id number] [facility] Last Admin: 12/14/20 08:45 Dose: Not Given Documented by: Cefazolin Sodium/Dextrose (Ancef) 2 gm in 50 mls @ 100 mls/hr IV Q8H [facility] Last Infusion: 12/14/20 02:06 Dose: Infused Documented by: Methadone HCl (Methadone Hcl 20 Mg/2 Ml Oral.Conc) 30 mg PO DAILY [facility] Nicotine (Nicotine 21 Mg Patch.Td24) 21 mg TRANSDERMA DAILY [facility] Last Admin: 12/14/20 08:55 Dose: Not Given Documented by: Ondansetron HCl (Ondansetron Hcl 4 Mg/2 Ml Vial) 4 mg IVPUSH Q8H PRN PRN Reason: Nausea and Vomiting Ondansetron HCl (Ondansetron Hcl 4 Mg/2 Ml Vial) 4 mg IVPUSH ONCE PRN PRN Reason: Nausea and Vomiting Oxycodone HCl (Oxycodone Hcl Immed Release 5 Mg Tablet) 10 mg PO Q4H PRN PRN Reason: Pain, Moderate (Pain Scale 4-6 Last Admin: 12/14/20 05:45 Dose: 10 mg Documented by: Oxycodone HCl (Oxycodone Hcl Er 10 Mg Tab.Er.12h) 10 mg PO BID [facility] Last Admin: 12/14/20 08:56 Dose: 10 mg Documented by: Sodium Chloride (0.9 % Sodium Chloride Flush 3 Ml Syringe) 3 ml IVFLUSH QSHIFT [facility] Last Admin: 12/14/20 08:45 Dose: Not Given Documented by: Time Spent With Patient Time: Total time spent is greater than 50% in coordination of care (as documented) at patient's floor/unit and/or counseling patient: Time with patient: less than 15 minutes Quality Stroke Does the patient have a stroke diagnosis?: No VTE Prior VTE?: No VTE Risk Level:: Surgical - high VTE Device Contraindication: N/A - Device Ordered VTE Drug Contraindication: N/A - Med Ordered
[2020-12-14] MEDS: methADONE HCl 20 MG/2 ML ORAL.CONC 30 MG PO (09:34)
--- NOTE | 2020-12-14 09:42 | PM.IMPN ---
Progress Note: A&P (1) Opioid use disorder: Status: Acute (2) Tobacco dependence: Status: Acute Assessment and Plan: This is a 35-year-old female with history of OUD who presents to the ED with right knee pain found to have septic joint admitted to the orthopedic service for further management Right knee septic joint status post lavage IV abx per orthopedic team Blood cultures neg after 24hrs Drug abuse Receiving pain medication for knee will add prn clonidine, atarax addiction medicine started Methadone Tobacco dependence Smoking cessation advised NRT No acute medical complaints, will sign off. Attending Dr. Oakley Subjective Subjective Date of Service: 12/14/20 Review of Systems Follow up septic knee / status post Still having some pain Appetite good Physical Exam Vital Signs: Vital Signs: Last Vital Signs Temp 97.4 F 12/14/20 07:23 Pulse 68 12/14/20 07:23 Resp 16 12/14/20 08:56 BP 98/57 L 12/14/20 07:23 Pulse Ox 98 12/14/20 07:23 Body Mass Index 21.9 Appearing in no acute distress lung sounds are clear to auscultation heart regular rate rhythm, clear S1, S2 positive bowel sounds, abdomen is soft, nontender neuro patient is alert x3, no focal deficits Objective Data Current Medications Acetaminophen (Acetaminophen 325 Mg Tablet) 650 mg PO Q6H PRN PRN Reason: Pain, Mild (Pain Scale 1-3) Last Admin: 12/13/20 12:28 Dose: 650 mg Documented by: Clonidine HCl (Clonidine Hcl 0.1 Mg Tablet) 0.1 mg PO BID PRN; Protocol PRN Reason: withdrawal Last Admin: 12/14/20 01:44 Dose: 0.1 mg Documented by: Docusate Sodium (Docusate Sodium 100 Mg Capsule) 100 mg PO BID [facility] Last Admin: 12/14/20 08:55 Dose: 100 mg Documented by: Hydromorphone HCl (Hydromorphone Hcl 0.5 Mg/0.5 Ml Syringe) 0.25 mg IVPUSH Q4H PRN; Protocol PRN Reason: Pain, Severe (Pain Scale 7-10) Last Admin: 12/14/20 08:56 Dose: 0.25 mg Documented by: Hydromorphone HCl (Hydromorphone Hcl 0.5 Mg/0.5 Ml Syringe) 0.5 mg IVPUSH Q5M PRN; Protocol PRN Reason: Pain, Severe (Pain Scale 7-10) Last Admin: 12/13/20 11:27 Dose: 0.5 mg Documented by: Hydroxyzine HCl (Hydroxyzine Hcl 25 Mg Tablet) 25 mg PO Q6H PRN PRN Reason: withdrawal Last Admin: 12/14/20 04:04 Dose: 25 mg Documented by: Dextrose/Sodium Chloride (D51/2ns) 1,000 mls @ 80 mls/hr IVCONT .[id number] [facility] Last Admin: 12/14/20 08:45 Dose: Not Given Documented by: Cefazolin Sodium/Dextrose (Ancef) 2 gm in 50 mls @ 100 mls/hr IV Q8H [facility] Last Infusion: 12/14/20 02:06 Dose: Infused Documented by: Methadone HCl (Methadone Hcl 20 Mg/2 Ml Oral.Conc) 30 mg PO DAILY [facility] Last Admin: 12/14/20 09:34 Dose: 30 mg Documented by: Nicotine (Nicotine 21 Mg Patch.Td24) 21 mg TRANSDERMA DAILY [facility] Last Admin: 12/14/20 08:55 Dose: Not Given Documented by: Ondansetron HCl (Ondansetron Hcl 4 Mg/2 Ml Vial) 4 mg IVPUSH Q8H PRN PRN Reason: Nausea and Vomiting Ondansetron HCl (Ondansetron Hcl 4 Mg/2 Ml Vial) 4 mg IVPUSH ONCE PRN PRN Reason: Nausea and Vomiting Oxycodone HCl (Oxycodone Hcl Immed Release 5 Mg Tablet) 10 mg PO Q4H PRN PRN Reason: Pain, Moderate (Pain Scale 4-6 Last Admin: 12/14/20 05:45 Dose: 10 mg Documented by: Oxycodone HCl (Oxycodone Hcl Er 10 Mg Tab.Er.12h) 10 mg PO BID [facility] Last Admin: 12/14/20 08:56 Dose: 10 mg Documented by: Sodium Chloride (0.9 % Sodium Chloride Flush 3 Ml Syringe) 3 ml IVFLUSH QSHIFT [facility] Last Admin: 12/14/20 08:45 Dose: Not Given Documented by: Labs CBC & Chem 7: 12/14/20 05:18 12/14/20 05:18 Labs: Laboratory Results - last 24 hr 12/13/20 12/14/2012/14/21 10:45 05:18 05:18 MCV 81.4 MCH 26.5 L MCHC 32.6 RDW 14.4 Plt Count 207 MPV 11.6 Immature Gran % (Auto) 0.3 Neut % (Auto) 67.2 Lymph % (Auto) 25.1 Green % (Auto) 7.2 Eos % (Auto) 0.1 Baso % (Auto) 0.1 Lymph # (Auto) 3.1 Green # (Auto) 0.9 Eos # (Auto) 0.0 Baso # (Auto) 0.0 Abs Immat Gran (auto) 0.04 H Absolute Neuts (auto) 8.2 Absolute Nucleated RBC 0.000 Nucleated RBC % (auto) 0.0 Anion Gap 11 L Estim Creat Clear Calc 95.5 Estimated GFR > 60 Fasting Glucose 153 H Calcium 8.8 Synovial Source right knee Synovial WBC 54.760 Synovial RBC 0.030 Synovial Neutrophils 92 Synovial Lymphocytes 5 Synovial Monocytes 2 Microbiology Microbiology Results: Microbiology 12/13/20 10:45 Knee,Right Gram Stain - Final 12/13/20 10:45 Knee,Right Anaerobic Culture - Preliminary Culture in progress. 12/13/20 10:45 Knee,Right Joint Fluid Culture - Preliminary Culture in progress. 12/12/20 15:16 Blood - Venous Blood Culture - Preliminary No growth after 24 hours. 12/12/20 14:00 Blood - Venous Blood Culture - Preliminary No growth after 24 hours. 12/12/20 14:40 Knee aspirate Gram Stain - Final 12/12/20 14:40 Knee aspirate Anaerobic Culture - Preliminary No growth to date. 12/12/20 14:40 Knee aspirate Gross Specimen Examination - Final 12/12/20 14:40 Knee aspirate Fluid Crystals - Final 12/12/20 14:40 Knee aspirate Joint Fluid Culture - Preliminary No growth after 1 day Quality Stroke Does the patient have a stroke diagnosis?: No VTE Prior VTE?: No VTE Risk Level:: Surgical - high VTE Device Contraindication: N/A - Device Ordered VTE Drug Contraindication: N/A - Med Ordered
--- NOTE | 2020-12-14 10:17 | MHC.CM.PN ---
PATIENT IDENTIFIES HOMELESS AND STAYS ON THE STREET SHE STATES THAT SHE DOES NOT HAVE ANY ID, AND CANNOT GET INTO A HALFWAY. THIS REVENUE INSPECTOR TO ATTEMPT TO SECURE A HALFWAY PLACEMENT IF PATIENT WANTS THIS AT TIME OF DISCHARGE. NO PCP NO OUTSIDE SERVICES. PLAN IS FOR DISCHARGE TOMORROW (12/15/20)
--- NOTE | 2020-12-14 13:54 | MHC.CM.PN ---
Addendum entered by Alaina Ornelas 12/14/20 14:01: NO ANSWER AT [facility] ([phone]) TWO ATTEMPTS MADE TO SPEAK WITH STAFF MEMBER Original Note: CALL TO [facility] IN [place] ([phone]) IT IS A [facility] AND NOT FOR WOMEN ONLY. CALL TO [facility] @ [phone] - NO ANSWER AFTER THREE ATTEMPTS. CALL TO [facility] NUM[facility] ([phone]) AND NO ANSWER. CASE MANAGEMENT TO CONTINUE TO FOLLOW FOR DC PLAN.
--- NOTE | 2020-12-14 15:38 | MHC.CM.PN ---
PATIENT LEAVING AMA.
--- NOTE | 2020-12-14 16:09 | PC.NURSE ---
Patient expressed wanting to leave AMA. DR. Lema made aware and said patient was fine to leave AMA. Patient given risks of leaving AMA and verbally understood risks. AMA paperwork signed and leaving unaccompanied paperwork signed. IV removed.
--- NOTE | 2020-12-25 14:48 | P.OP_ITS ---
Operative Note Operative Note Date of Service: 12/13/20 Narrative: Pre-op diagnosis: septic right knee Post-op diagnosis: same Procedure: arthroscopic lavage right knee Surgeon: Adrian Lema MD Anesthesia: GETA and local Was an Valve And Regulator Repairer used for this Procedure?: No Estimated blood loss (mL): 5 Tourniquet time (min): 29 IV fluids (mL): 600 Pathology: other Condition: stable Disposition: PACU Procedure in detail: Patient brought the operating room placed supine on the operative table and prepped and draped in standard sterile fashion. A time-out was called to identify proper site proper procedure and proper surgeon and IV antibiotics per weight were administered. I began by insufflating the tourniquet turned 50 mm mercury. A stab incision was then made anterolaterally and my blunt trocar was placed into the patellofemoral joint. I then placed my 30 degree arthroscope and irrigated the knee. A sacha incision was made super 0 medially and I began clearing out the cloudy appearing fluid. There was synovitis and debris but this suprapatellar pouch was otherwise clean and the cartilaginous surfaces appeared on touched. I descended into the medial compartment where I made a medial portal under direct visualization. I examined the medial and lateral and notch and there was no cartilage destruction but there was cloudy appearing joint fluid and synovitis. I used a combination of shaver and cautery to remove as much as was possible arthroscopically. I then irrigated for approximately 10 minutes both lavage and with a shaver. Once I was satisfied that not complete debridement and irrigation had been performed I removed all instrumentation and closed the portals with nylon. Patient was then placed in sterile dressing extubated brought to recovery room stable condition there were no known complications
== END 2020-12-14 15:30 | disposition left against medical advice (07) | DRG 344 ==
LOC: HO.ED 16:38 → HO.EDOVER 16:47 → HO.S3 18:57
PROVIDERS: Orthopaedic Surgery; Physician Assistant Medical; Admitting Provider Physician Assistant; Emergency Provider Emergency Medicine Emergency Medical Services; Visit Provider Physician Assistant
PROC: 3E1U48Z Irrigation of Joints using Irrigating Substance, Percutaneous Endoscopic Approach (ICD-10-PCS; CPT 29870; principal; 2020-12-13 09:00)
DX: M00.9 Pyogenic arthritis, unspecified (principal); F11.23 Opioid dependence with withdrawal; F17.210 Nicotine dependence, cigarettes, uncomplicated; Z20.822 Contact with and (suspected) exposure to COVID-19; Z71.6 Tobacco abuse counseling; Z23 Encounter for immunization; Z88.0 Allergy status to penicillin; Z59.01 Sheltered homelessness
CPT/HCPCS: 36415; 73564; 80048; 83605; 84702; 85025; 85652; 86140; 87040; 87071; 87073; 87077; 87147; 87186; 87205; 87635; 89051; 89060; 90686; 93005; 99024; 99285; J0171; J0690; J1100; J1170; J1885; J2405; J3010

== ENCOUNTER 2020-12-23 17:34 | Emergency (ER) | payer OTHER, SELFPAY ==
[2020-12-23 17:46] VITALS: BP 147/74; PULSE 115; RESP 18; TEMP 38.9; O2SAT 97; BMI 21.9
== END 2020-12-23 18:48 | disposition left against medical advice (07) ==
LOC: HO.ED 18:43
PROVIDERS: Emergency Provider Emergency Medicine
DX: M25.561 Pain in right knee (principal)
CPT/HCPCS: 99281; 99282

== ENCOUNTER 2021-07-29 20:25 | Emergency (ER) | payer OTHER, SELFPAY ==
[2021-07-29 20:45] VITALS: BP 120/81; PULSE 108; RESP 18; TEMP 36.9; O2SAT 100; BMI 21.0
[2021-07-29 22:00] LABS: MANUAL DIFF FLAG NO
[2021-07-29 22:03] LABS: Basophils Percent Auto 0.3 % (0-2); Eosinophils Absolute Auto 0.2 X10*3/uL (0.0-0.4); Eosinophils Percent Auto 1.6 % (0-4); Hematocrit 36.7 % (37.0-47.0); Hemoglobin 11.9 g/dl (12.0-16.0); Imm Gran Abs Auto 0.08 X10*3/uL (0.00-0.03); Imm Gran Pct Auto 0.5 % (0.0-0.4); Lymphocytes Absolute Auto 3.7 X10*3/uL (1.2-4.9); Lymphocytes Percent Auto 25.2 % (20-40); Mean Corpuscular HGB Conc 32.4 g/dl (31.0-35.0); Mean Corpuscular Hemoglobin 26.6 pg (27.0-33.0); Mean Corpuscular Volume 81.9 fL (80.0-98.0); Mean Platelet Volume 11.3 fL (9.4-12.3); Monocytes Absolute Auto 1.2 X10*3/uL (0.1-1.2); Monocytes Percent Auto 8.2 % (2-11); Neutrophils Absolute Auto 9.5 x10*3/uL (2.0-8.3); Neutrophils Percent Auto 64.2 % (45-73); Platelet Count 229 X10*3/uL (160-400); Red Blood Count 4.48 X10*6/uL (4.20-5.50); Red Cell Distribution Width 14.8 % (11.0-16.0); White Blood Count 14.8 X10*3/uL (4.8-10.8)
[2021-07-29 22:19] LABS: Anion Gap 12 (12-20); Blood Urea Nitrogen 11 mg/dL (9-16); Calcium 9.2 mg/dL (8.4-10.2); Carbon Dioxide 27 mmol/L (22-29); Chloride 102 mmol/L (96-108); Estimated Glomerular Filt Rate > 60; Glucose Random 101 mg/dL (60-115); Potassium 4.1 mmol/L (3.3-5.1); Sodium 137 mmol/L (135-145)
== END 2021-07-29 23:36 | disposition left against medical advice (07) ==
PROVIDERS: Emergency Provider Emergency Medicine
DX: L02.413 Cutaneous abscess of right upper limb (principal); F17.200 Nicotine dependence, unspecified, uncomplicated; F11.20 Opioid dependence, uncomplicated
CPT/HCPCS: 36415; 80048; 85025; 99283

== ENCOUNTER 2022-05-08 07:03 | Emergency (ER) | payer OTHER, SELFPAY ==
[2022-05-08 07:12] VITALS: BP 113/68; PULSE 89; RESP 18; TEMP 36.9; O2SAT 98; BMI 20.1
--- NOTE | 2022-05-08 08:17 | ED_ITS ---
HPI - General Adult General Chief complaint: Skin/Abscess/Foreign Body Stated complaint: both hands swollen Time Seen by Provider: 05/08/22 07:54 Source: patient Mode of arrival: ambulatory Limitations: no limitations History of Present Illness HPI narrative: 36-year-old female extensive history of IV heroin abuse presented with bilateral wrist pain. Patient with history of skin abscess and skin infection due to patient's chronic condition of IV drug abuse, had a recent use into the veins in her breast, now complaining bilateral pain in the wrist with ulcerative lesions on both wrist. No fever, no chills, patient now is asking for detox place. No CP, and no SOB. Related Data Previous Rx's Medication Instructions Recorded sulfamethoxazole 800 1 tab PO BID 14 days #28 tabs 12/15/20 mg-trimethoprim 160 mg tablet (Bactrim DS) doxycycline hyclate 100 mg tablet 100 mg PO BID #20 tabs 05/08/22 Allergies Allergy/AdvReac Type Severity Reaction Status Date / Time Penicillins [PENICILLINS] Allergy Mild THROAT Verified 07/29/21 20:45 DANIEL Review of Systems Review of Systems: All other systems are reviewed and are negative Constitutional: Reports as per HPI and Reports no additional constitutional com plaints Eyes: Reports as per HPI and Reports no additional eye complaints Reports system reviewed and no additional complaints, except as documented Cardiovascular: Reports as per HPI and Reports no additional cardiovascular complaints Respiratory: Reports as per HPI and Reports no additional respiratory complaints Gastrointestinal: Reports as per HPI and Reports no additional gastrointestinal complaints Genitourinary: Reports no additional female genitourinary complaints Musculoskeletal: Reports no additional musculoskeletal complaints Skin/Breast: Reports system reviewed and no additional complaints, except as docu Psychiatric: Reports no additional psychiatric complaints Endocrine: Reports no additional endocrine complaints Hematologic/Lymphatic: Reports no additional hematologic/lymphatic complaints Allergic/Immunologic: Reports no additional allergic/immunologic complaints Reports system reviewed and no additional complaints, except as documented and Reports Abnormal speech present [facility] Past Medical History Medical History Hepatitis C Social History Social History Household Members: None Housing: Homeless Do you presently have visiting nurse or other home services: No Patient Tobacco Use Status: Current everyday Tobacco user Tobacco use type: Cigarette Cigarette Packs Per Day: 1 Cigarettes Per Day: 20.0 Substance Use Type: Heroin Advance Directives: No Advance Directives Information Provided: No service: No Current occupational status: unemployed Physical Exam ED Vital Signs: Vital Signs - 24 hr 05/08/22 07:12 05/08/22 12:36 Temperature 98.5 F 98.7 F Pulse Rate 89 91 Respiratory Rate 18 16 Blood Pressure 113/68 118/82 Pulse Oximetry 98 98 Oxygen Delivery Method Room Air Room Air BMI result Body Mass Index 20.1 Vital signs have been reviewed as appeared to be correct. Blood pressure norm al. Heart rate normal. Respiration rate normal. Temperature normal. Oxygen saturation normal. Appearance: Alert. Oriented X3. No acute distress. Head: Normal external exam. Normocephalic. Atraumatic. No Andrews signs noted. No raccoon eyes noted Eyes: PERRLA. EOMI. Conjunctiva and sclera normal. Eyelids normal. ENT: TM's Normal. Pharynx normal. Uvula midline. Moist mucous membranes. No trismus noted. No drooling noted. No muffled voice noted. Neck: Normal inspection. Neck supple. FROM. No adenopathy. Thyroid Normal. No meningeal signs. No neck mass noted. CVS: Normal heart rate and rhythm. Heart sound normal. No murmurs noted. Pulses normal throughout. Respiratory: No respiratory distress. Painless inspiration. Breath sounds normal. No wheezes/rales/rhonchi noted. Chest nontender. No accessory muscle usage noted or decreased air movement noted. Abdomen: Soft and nontender. Bowel sounds normal in all 4 quadrants. No distention noted. No organomegaly noted. No visible injury noted. Back: No CVA tenderness. Full range of motion noted. Skin: Skin warm and dry. Normal skin color. Normal skin turgor. No rashes/lesions/lacerations noted. Extremities: Bilateral ulcerative lesions on both rest with no fluctuation, no abscess, no drainage, mild tenderness to touch, no palpable foreign body. Neuro: Oriented X 3. Cranial nerve exam: II-XII are grossly intact No motor deficit. No sensory deficit. Reflexes normal. Course Course Course Narrative: 36-year-old female IV drug abuser came in with bilateral infected ulcerative lesion to both rest with no abscess, no sirs criteria, will start the patient on doxycycline, consult care team to help for detox. Reevaluation(s) Reevaluation #1: Patient was accepted to a detox or rehab in [facility]. Time: 15:08 Medications Administered Discontinued Medications Generic Name Dose Route Start Last Admin Trade Name Nicole PRN Reason Stop Dose Admin Doxycycline Monohydrate 100 mg 05/08/22 08:27 05/08/22 08:34 Doxycycline Monohydrate 100 Mg Capsule PO 05/08/22 08:28 100 mg ONCE ONE Administration Medical Decision Making Differential Diagnosis Differential Diagnoses: The differential diagnosis associated with the pr esentation includes (Cellulitis, abscess, drug detox.) Lab Data Labs: Lab Results 05/08/22 05/08/22 05/08/22 Range/Units 08:18 08:18 08:18 Urine Color Dark Yellow Urine Appearance Cloudy Urine pH 6.5 (5.0-9.0) Ur Specific [place] >= 1.030 H (1.005-1.025) Urine Protein 30 (1+) H (Neg-Trace) mg/dL Urine Glucose (UA) Negative (Negative) mg/dL Urine Ketones Trace (Negative) mg/dL Urine Blood Negative (Negative) Urine Nitrite Negative (Negative) Ur Leukocyte Esterase Negative (Negative) Urine RBC 3-5 H (0-2) /HPF Urine WBC 0-5 (0-5) /HPF Ur Squamous Epith Cells 11-20 (0-2) /HPF Calcium Oxalate Crystal Present Other Crystals Present Urine Bacteria None Seen (None Seen) Hyaline Casts 0-2 (0-2) /LPF Urine Test NEGATIVE (NEGATIVE) Urine Opiates Screen POSITIVE H (Not Detect) Urine Fentanyl Screen POSITIVE H (Not Detect) Ur Barbiturates Screen Not Detected (Not Detect) Ur Phencyclidine Scrn Not Detected (Not Detect) Ur Amphetamines Screen Not Detected (Not Detect) U Benzodiazepines Scrn Not Detected (Not Detect) Urine Cocaine Screen POSITIVE H (Not Detect) U Marijuana (THC) Screen POSITIVE H (Not Detect) COVID-19 (FRED) (Negative) COVID-19 Clin Com 05/08/22 Range/Units 08:39 Urine Color Urine Appearance Urine pH (5.0-9.0) Ur Specific [place] (1.005-1.025) Urine Protein (Neg-Trace) mg/dL Urine Glucose (UA) (Negative) mg/dL Urine Ketones (Negative) mg/dL Urine Blood (Negative) Urine Nitrite (Negative) Ur Leukocyte Esterase (Negative) Urine RBC (0-2) /HPF Urine WBC (0-5) /HPF Ur Squamous Epith Cells (0-2) /HPF Calcium Oxalate Crystal Other Crystals Urine Bacteria (None Seen) Hyaline Casts (0-2) /LPF Urine Test (NEGATIVE) Urine Opiates Screen (Not Detect) Urine Fentanyl Screen (Not Detect) Ur Barbiturates Screen (Not Detect) Ur Phencyclidine Scrn (Not Detect) Ur Amphetamines Screen (Not Detect) U Benzodiazepines Scrn (Not Detect) Urine Cocaine Screen (Not Detect) U Marijuana (THC) Screen (Not Detect) COVID-19 (FRED) Negative (Negative) COVID-19 Clin Com See Note Chronic Conditions Patient?s care impacted by: Other (Substance use disorder.) Social Determinants Patient?s care significantly limited by Social Determinants of Health including: Inadequate housing and Low income Discharge Plan Discharge Clinical Impression: Cellulitis Patient Disposition: Home, Self-Care Instructions: Cellulitis (ED) Prescriptions: New doxycycline hyclate 100 mg tablet 100 mg PO BID Qty: 20 0RF No Action sulfamethoxazole-trimethoprim [Bactrim DS] 800-160 mg tablet 1 tab PO BID 14 Days Qty: 28 0RF
[2022-05-08 08:32] LABS: Appearance Urine Cloudy; Color Urine Dark Yellow; Glucose Urine UA Negative (Negative); Leukocyte Esterase Urine Negative (Negative); Nitrite Urine Negative (Negative); PH 6.5 (5.0-9.0); Specific Gravity - Urine >= 1.030 (1.005-1.025); UMIC TRIGGER UACC YES; Urine Blood Negative (Negative); Urine Ketones Trace mg/dL (Negative); Urine Protein 30 (1+) mg/dL (Neg-Trace)
[2022-05-08] MEDS: Doxycycline Monohydrate 100 MG CAPSULE PO (08:34)
--- NOTE | 2022-05-08 08:34 | PC.NURSE ---
BENJY wounds to hands/wrists, placed xerofoam and non-stick pad. wrapped with wayne wraps, educated pt on keeping these wounds dry and clean. pts belongings locked in decon as she reported having drug paraphenalia in her back pac including broken pipes and needles. reached out to [facility] for for detox placement.
[2022-05-08 08:39] LABS: Amphetamine Screen Urine Not Detected (Not Detect); Barbiturates, Urine Not Detected (Not Detect); Benzodiazepines Screen Urine Not Detected (Not Detect); Cannabinoid Screen Urine POSITIVE (Not Detect); Cocaine Screen Urine POSITIVE (Not Detect); Fentanyl, urine POSITIVE (Not Detect); Opiate Screen Urine POSITIVE (Not Detect); Phencyclidine Screen Urine Not Detected (Not Detect)
[2022-05-08 08:42] LABS: Bacteria Urine None Seen (None Seen); Calcium Oxalate Crystals Urine Present; Hyaline Casts Urine 0-2 /LPF (0-2); Other Crystals Urine Present; WBC Urine 0-5 /HPF (0-5)
[2022-05-08 09:02] LABS: COVID-19 Test Negative (Negative); IDNOW Serial# 16C4AD1C
--- NOTE | 2022-05-08 09:23 | MHC.RECOVRN ---
Met with pt in [facility]. Pt somnolent but able to tell me she is interested in [facility]. Per RN, pt to be sent with PO antibiotic.
[2022-05-08 11:04] LABS: UPreg QC Valid YES; Urine Pregnancy NEGATIVE (NEGATIVE)
[2022-05-08 12:36] VITALS: BP 118/82; PULSE 91; RESP 16; TEMP 37.1; O2SAT 98
--- NOTE | 2022-05-08 13:33 | MHC.RECOVRN ---
Pt accepted to [facility] pending phone intake. Pt on phone with student records coordinator, falling asleep, unable to complete. T/w will assist phone call around 2PM.
--- NOTE | 2022-05-08 13:45 | PC.NURSE ---
PT AWAKE, EATING LUNCH.
--- NOTE | 2022-05-08 14:45 | MHC.RECOVRN ---
Completed phone intake with [facility]. Accepted and will be transported via [facility].
== END 2022-05-08 15:54 | disposition home or self-care (01) ==
PROVIDERS: Emergency Provider Emergency Medicine
DX: L03.113 Cellulitis of right upper limb (principal); L03.114 Cellulitis of left upper limb; F11.10 Opioid abuse, uncomplicated; Z79.899 Other long term (current) drug therapy; F17.210 Nicotine dependence, cigarettes, uncomplicated; Z71.6 Tobacco abuse counseling; Z20.822 Contact with and (suspected) exposure to COVID-19; Z20.828 Contact with and (suspected) exposure to other viral communicable diseases
CPT/HCPCS: 80307; 81001; 81025; 87635; 99283

== ENCOUNTER 2022-08-24 05:51 | Inpatient (IN) | payer MEDICAID, SELFPAY ==
[2022-08-24] VITALS (11 sets, daily range): BP systolic 104–138; BP diastolic 54–84; PULSE 81–110; RESP 16–28; TEMP 36.2–39.1; O2SAT 92–98; BMI 21.0
--- NOTE | 2022-08-24 | ECG_ITS ---
Test Reason : ABD PAIN AFTER DRUG USE Blood Pressure : / mmHG Vent. Rate : 104 BPM Atrial Rate : 104 BPM P-R Int : 126 ms QRS Dur : 070 ms QT Int : 320 ms P-R-T Axes : 048 051 002 degrees QTc Int : 420 ms Sinus tachycardia Left atrial enlargement Cannot rule out Anterior infarct , age undetermined T wave abnormality, consider inferolateral ischemia Abnormal ECG When compared with ECG of 14-DEC-2020 09:57, T wave inversion now evident in Lateral leads Referred By: Generic ED Physician Electronically Signed By:BARTOLO CHAIREZ
--- NOTE | ~2022-08-24 | MR_ITS ---
EXAMINATION: MR LUMBAR SPINE WITHOUT CONTRAST CLINICAL INFORMATION: Bacteremic with back pain COMPARISON: Lumbar spine radiographs 07/27/2012 TECHNIQUE: Limited MRI of the lumbar spine was obtained utilizing only localizer and sagittal sequences without axial sequences performed. Patient was unable to tolerate the examination to completion. FINDINGS: Normal lumbar lordosis is preserved. No significant spondylolisthesis. Vertebral body heights are maintained. There is no suspicious osseous lesion. The intervertebral disc space heights are normal. No findings to suggest discitis osteomyelitis. No epidural abscess. No marrow edema associated with the facet joints. The conus medullaris terminates at the level of L1. The distal spinal cord is normal in appearance. Trace annular disc bulge at L4-L5. No significant spinal canal or neural foraminal stenosis at any level. No significant abnormalities of the paraspinal musculature. Limited evaluation of the intra-abdominal structures without significant abnormalities. MR/MR lumbar spine wo con IMPRESSION: The patient was unable to tolerate the exam to completion and only sagittal sequences were obtained. No findings to suggest discitis-osteomyelitis. No epidural abscess. No marrow edema associated with the facet joints. No significant spinal canal or neural foraminal stenosis at any level.
--- NOTE | ~2022-08-24 | XR_ITS ---
EXAMINATION: XR CHEST CLINICAL INFORMATION: Post right chest tube placement COMPARISON: Previous chest x-ray yesterday TECHNIQUE: Frontal view of the chest was obtained. FINDINGS: The cardiac and mediastinal contours are stable. There is a large right pleural effusion. This is slightly decreased in size from yesterday's exam. There is atelectasis or airspace disease in the right lung base. There is a new right lateral pigtail chest tube. There is no pneumothorax. The left lung is clear. There is no left pleural effusion. Bony structures are unremarkable. XR/XR chest 1V IMPRESSION: New right lateral pigtail chest tube. Moderate to large right pleural effusion minimally decreased in size from yesterday's exam.
--- NOTE | ~2022-08-24 | XR_ITS ---
EXAMINATION: XR CHEST CLINICAL INFORMATION: SOB COMPARISON: None available. TECHNIQUE: Frontal view of the chest was obtained. FINDINGS: The lungs are hypoexpanded with mild blunting of right CP angle question pleural effusion versus thickening. No acute consolidation seen. Mild increase interstitial markings are seen in bilateral parietal region, question interstitial pneumonitis. No gross bony abnormality. XR/XR chest 1V IMPRESSION: 1. Mild blunting of right CP angle question pleural effusion versus thickening. 2. Mild increase interstitial markings in bilateral perihilar region, question interstitial pneumonitis.
--- NOTE | ~2022-08-24 | CT_ITS ---
EXAMINATION: CT ANGIOGRAM OF THE CHEST WITH AND WITHOUT CONTRAST (CT PULMONARY ANGIOGRAM FOR PE) CLINICAL INFORMATION: Reason for Exam fever, cp, sob, r.o pe COMPARISON: Chest radiograph earlier today TECHNIQUE: Prior to contrast administration, noncontrast localization images were obtained. Subsequently, multidetector volumetric imaging was performed from the thoracic inlet to below the diaphragms following the administration of 65 mL Omnipaque 350 intravenous contrast. No contrast reaction reported Sagittal, coronal, and MIP oblique sagittal reformatted images were obtained on the CT workstation, uploaded to PACS, and reviewed. This CT examination was performed using dose optimization techniques as appropriate, variously including the following: *Automated exposure control *Adjustment of mA and/or kV according to patient size (this includes techniques or standardized protocols for targeted exams where dose is matched to indication/reason for exam; i.e. extremities or head) *Use of iterative reconstruction technique Total exam dose-length product 170 mGy-cm FINDINGS: QUALITY OF STUDY/CONTRAST BOLUS: The bolus is adequate but significant motion artifact is present limiting diagnostic quality PULMONARY ARTERIES: No central or large segmental pulmonary emboli. THORACIC AORTA: No aneurysm. LUNGS AND PLEURA: A small right pleural effusion is present along with right lower lobe infiltrate/atelectasis. MEDIASTINUM: Heart size upper limits of normal. No pericardial effusion. There is a prominent right infrahilar lymph node present 1.2 x 1.9 x 1.7 cm. No gross hilar or mediastinal lymphadenopathy. No evidence of septal bowing or right heart strain. CORONARY ARTERY CALCIFICATION: None visualized on this study. CHEST WALL/AXILLA: No axillary or internal mammary lymphadenopathy. OSSEOUS STRUCTURES: No acute or suspicious osseous abnormality. UPPER ABDOMEN: I suspect the liver is enlarged and there is decreased attenuation consistent with hepatic steatosis. There is mild prominence of the spleen. No reflux of contrast into the hepatic veins to suggest elevated right heart pressures. CT/CT angio chest PE protocol IMPRESSION: 1. No evidence of pulmonary emboli. 2. Right lower lobe infiltrate/atelectasis with small right pleural effusion with prominent right infrahilar lymph node, probably reactive. Findings would be compatible with pneumonia. 3. Probable enlarged fatty liver and mild splenomegaly. VTE: negative
--- NOTE | ~2022-08-24 | XR_ITS ---
XR/XR chest 1V IMPRESSION: 1. Small right hydropneumothorax, previously there was a moderate sized pleural effusion. 2. Right basilar atelectasis. EXAMINATION: XR CHEST CLINICAL INFORMATION: Shortness of breath, chest tube COMPARISON: Chest x-ray on 09/02/2022 TECHNIQUE: Frontal view of the chest was obtained. FINDINGS: There is a right lower chest pigtail catheter in position. There is a small hydropneumothorax, previously there was a moderate sized pleural effusion. The cardiac mediastinal silhouette is stable. There is linear atelectasis of the right lung base.
--- NOTE | ~2022-08-24 | US_ITS ---
EXAMINATION: Ultrasound drain thoracentesis with imaging CLINICAL INFORMATION: Right pleural effusion COMPARISON: Previous chest x-ray from yesterday and chest CTA 08/24/2022 TECHNIQUE: Procedure and risks and benefits including bleeding infection and pneumothorax were discussed with the patient and informed consent was obtained. The right posterior lateral chest was prepped and draped in the usual sterile fashion. The skin and soft tissues were anesthetized with 1% lidocaine plain. Using ultrasound guidance and a 4 Iranian one-step system, access to the right pleural effusion was obtained. Scant clear yellow/slightly serosanguineous fluid was aspirated. Findings were discussed with Dr. Crisostomo. Over an 035 guidewire and following serial dilatation a 10.2 Iranian pigtail chest tube was placed. This was attached to a Pleur-evac. Diagnostic specimen was sent as requested by the ordering physician. FINDINGS: There is a large complex multiloculated right pleural effusion with multiple septations. US/US drain thoracentesis w image IMPRESSION: Ultrasound-guided right 10.2 Iranian chest tube placement.
--- NOTE | ~2022-08-24 | XR_ITS ---
EXAMINATION: XR CHEST CLINICAL INFORMATION: Right-sided rib cage pain. COMPARISON: 08/24/2022 chest radiograph. TECHNIQUE: Frontal view of the chest was obtained. FINDINGS: Interval development of moderate right pleural effusion. The left lung is clear. The heart and mediastinal structures are unremarkable. XR/XR chest 1V IMPRESSION: Moderate right pleural effusion representing significant interval increase from the previous study.
--- NOTE | 2022-08-24 06:26 | MHC.EDTECH ---
Patient was changed into hospital attire, EKG obtained pt placed on strain technician,Labs,covid,and blood cultures drawn. Patient's belongings placed into decon. Call pina within reach
[2022-08-24 06:28] LABS: Hematocrit 38.3 % (37.0-47.0); Hemoglobin 12.2 g/dl (12.0-16.0); Mean Corpuscular HGB Conc 31.9 g/dl (31.0-35.0); Mean Corpuscular Hemoglobin 26.8 pg (27.0-33.0); Mean Platelet Volume 10.5 fL (9.4-12.3); Platelet Count 218 X10*3/uL (160-400); Red Blood Count 4.56 X10*6/uL (4.20-5.50); Red Cell Distribution Width 14.6 % (11.0-16.0); White Blood Count 20.5 X10*3/uL (4.8-10.8)
--- NOTE | 2022-08-24 06:28 | PC.NURSE ---
patient received in the ER patient complaining of having right sided pain in the abdomen patient stated the pain was a 6/10 patient is a substance abuser patient also has Hep C patient is homeless and patient was able to have all labs to be drawn security was called to come and do the property belongings patient is a frequent flyer patient is AAOX4 patient has a allergy to PCN patient is a difficult stick so saline lock was not administered doctor is aware patient was able to tolerate a EKG and patient was placed on the monitor patient is waiting to be seen by the doctor patient will continue to be monitored for safety until further care.
--- NOTE | 2022-08-24 06:30 | PC.NURSE ---
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 Notified JESENIA strickland. Pt placed on O2 due to stating in the low 90's.
[2022-08-24 06:38] LABS: Lactic Acid 1.8 mmol/L (0.5-2.0)
[2022-08-24 06:42] LABS: COVID-19 Test Negative (Negative); IDNOW Serial# BCCEAD1C
[2022-08-24 06:43] LABS: Alanine Aminotransferase 31 U/L (0-31); Albumin Level 3.6 g/dL (3.5-5.0); Alkaline Phosphatase 98 U/L (39-117); Anion Gap 13 (12-20); Aspartate Amino Transferase 24 U/L (5-31); Bilirubin Total 0.6 mg/dL (0.0-1.0); Blood Urea Nitrogen 14 mg/dL (9-16); Calcium 9.8 mg/dL (8.4-10.2); Carbon Dioxide 27 mmol/L (22-29); Chloride 98 mmol/L (96-108); Creatinine Clr Calc Pharmacy 77.1; Estimated Glomerular Filt Rate > 60; Glucose Random 196 mg/dL (60-115); Lipase 5 U/L (8-78); Potassium 3.9 mmol/L (3.3-5.1); Sodium 134 mmol/L (135-145); Total Protein 8.1 g/dL (6.5-8.0)
--- NOTE | 2022-08-24 06:45 | ED_ITS ---
HPI - SOB/Dyspnea General Chief Complaint: Abdominal Pain Stated Complaint: abd pain Time Seen by Provider: 08/24/22 06:32 Source: patient Mode of arrival: ambulatory Limitations: no limitations History of Present Illness HPI Narrative: 37-year-old female with a history of polysubstance use presents to the ER with complaints of shortness of breath for 2 days with cough and subjective fevers and chills. Patient also complaining of chest discomfort with coughing and breathing. Patient denies abdominal pain, nausea, vomiting, diarrhea, leg swelling, leg pain, neck pain, headache, skin rash. Patient uses heroin and cocaine daily. Patient injects. Patient is interested in detox resources Related Data Home Medications Medication Instructions Recorded Confirmed No Known Home Meds 08/24/22 08/24/22 Allergies Allergy/AdvReac Type Severity Reaction Status Date / Time Penicillins [PENICILLINS] Allergy Mild THROAT Verified 07/29/21 20:45 DANIEL Review of Systems Review of Systems: Yes all other systems are reviewed and are negative Constitutional: Constitutional: Reports no additional constitutional complaints, Denies body ache(s), Reports chills, Reports fever(s), Denies headache(s) and Denies weakness Eyes: Eyes: Reports no additional eye complaints and Denies change in vision ENT: Reports system reviewed and no additional complaints, except as documented, Denies dizziness, Denies headache(s), Denies nasal congestion, Denies nasal discharge and Denies neck pain Cardiovascular: Cardiovascular: Reports no additional cardiovascular complaints, Reports chest pain, Denies leg edema and Reports dyspnea Respiratory: Respiratory: Reports no additional respiratory complaints, Reports cough and Reports dyspnea Gastrointestinal: Gastrointestinal: Reports no additional gastrointestinal complaints, Denies abdominal pain, Denies diarrhea, Denies nausea and Denies vomiting Genitourinary: Genitourinary: Reports no additional female genitourinary complaints and Denies urinary incontinence Musculoskeletal: Musculoskeletal: Reports no additional musculoskeletal complaints, Denies back pain, Denies arthralgias, Denies joint swelling, Denies neck pain, Denies numbness and Denies tingling Integumentary/Breasts: Skin/Breast: Reports system reviewed and no additional complaints, except as docu and Denies rash Neurologic: Reports system reviewed and no additional complaints, except as documented, Denies Abnormal speech present, Denies dizziness, Denies headache(s), Denies numbness, Denies tingling and Denies weakness PMF Past Medical History Attestation statement: The following information was validated with the patient. Source: old records reviewed and nursing notes reviewed Medical History (Updated 08/24/22 @ 10:38 by MARY Ohara) Hepatitis C Opioid use disorder Tobacco dependence Social History Social History Household Members: None Housing: Homeless Do you presently have visiting nurse or other home services: No Alcohol intake: current Alcohol intake frequency: holidays/special occasions only Patient Tobacco Use Status: Current everyday Tobacco user Tobacco use type: Cigarette Cigarette Packs Per Day: 1 Cigarettes Per Day: 20.0 Smoked in Last 30 Days: Yes Use of substances other than those prescribed or required for medical reasons: Yes Substance Use Type: Heroin and IV Drugs Substance Use Frequency: Chronic Longstanding Last Used Substance: Just Prior to Admission Any prior treatment program specific to substance use: No Advance Directives: No Advance Directives Information Provided: Yes Patient : No service: No Current occupational status: unemployed Physical Exam Vital Signs: Vital Signs: Last Vital Signs Temp 100.8 F H 08/24/22 13:19 Pulse 100 08/24/22 12:00 Resp 28 H 08/24/22 12:00 BP 123/71 08/24/22 12:00 Pulse Ox 94 08/24/22 12:00 O2 Del Method Nasal Cannula 08/24/22 12:00 O2 Flow Rate 2 08/24/22 12:00 BMI result Body Mass Index 21.0 Const: Other: Restless, anxious, and pain Disheveled appears General: alert Orientation/consciousness: patient oriented x3 Limitations: no limitations HEENT: Head: Yes normal to inspection Ears: hearing grossly normal bilaterally General nose exam: Normal external nose present Face and sinus: Yes normal facial exam Mouth: Normal oral and palatal mucosa present Throat: Yes posterior oropharynx normal Eyes: General: appearance normal, both eyes and all related structures Pupils: Equal, round and reactive pupils present Neck: Neck: Yes normal visual inspection Chest: Other: Chest discomfort to palpation Chest palpation & inspection: normal inspection of the chest Resp: Other: Tachypneic, diminished breath sounds bilateral Cardio: Rate: regular rate Rhythm: regular rhythm Peripheral pulses: Peripheral pulses 2+ throughout GI: Inspection: Yes normal to inspection Palpation (GI): Soft to palpation and nontender Auscultation: normal bowel sounds Back/Spine/Pelvis: Thoracic/Lumbar Spine: thoracic and lumbar spine normal to inspection Skin: General skin exam: no rashes or lesions noted Neuro: General: patient oriented x3, no focal motor deficits and normal sensation to monofilament Cranial nerves: Yes Equal, round and reactive pupils present Cognition (Neuro): normal cognition Speech: No Abnormal speech present Gait exam (Neuro): Normal gait present Motor exam (neuro): 5/5 motor strength present throughout Extrem: General: Yes normal to inspection, Yes no pedal edema and Yes no calf tenderness Course Course Course Narrative: CTA consistent with pneumonia. Plan for admission as patient has leukocytosis, meeting SIRS criteria Medications Administered Generic Name Dose Route Start Last Admin Trade Name Freq PRN Reason Stop Dose Admin Acetaminophen 650 mg 08/24/22 10:25 08/24/22 11:55 Acetaminophen 325 Mg Tablet PO 650 mg Q6H PRN Administration Pain, Mild, fever Enoxaparin Sodium 40 mg 08/24/22 10:30 08/24/22 11:55 Enoxaparin Sodium 40 Mg/0.4 Ml Syringe SUBCUT 40 mg Q24H GILDARDO Administration Methylprednisolone Sodium Succinate 40 mg 08/24/22 10:45 08/24/22 11:55 Methylprednisolone Sod Succ 40 Mg/Ml Vial IVPUSH 40 mg Q12H GILDARDO Administration Nicotine 21 mg 08/24/22 10:30 08/24/22 11:55 Nicotine 21 Mg Patch.Td24 TRANSDERMA 21 mg DAILY GILDARDO Administration Discontinued Medications Generic Name Dose Route Start Last Admin Trade Name Freq PRN Reason Stop Dose Admin Vancomycin HCl 1,250 mg/ 250 mls @ 166.667 mls/hr 08/24/22 06:41 08/24/22 10:47 Sodium Chloride IV 08/24/22 08:10 Infused ONCE ONE Infusion Cefepime HCl 2 gm/ Sodium 50 mls @ 100 mls/hr 08/24/22 06:41 08/24/22 08:04 Chloride IV 08/24/22 07:10 Infused ONCE ONE Infusion Sodium Chloride 1,000 mls @ 999 mls/hr 08/24/22 06:42 08/24/22 08:17 Ns IV 08/24/22 07:42 Infused .Q1H1M STA Infusion Iohexol 65 ml 08/24/22 08:56 08/24/22 08:57 Iohexol 350 Mg/Ml 100 Ml Infus..Btl IV 08/24/22 08:57 65 ml ONCE ONE Administration Ketorolac Tromethamine 30 mg 08/24/22 06:39 08/24/22 07:06 Ketorolac Tromethamine 30 Mg/Ml Vial IVPUSH 08/24/22 06:40 30 mg ONCE ONE Administration Lorazepam 1 mg 08/24/22 06:39 08/24/22 07:06 Lorazepam 2 Mg/Ml Vial IVPUSH 08/24/22 06:40 1 mg STAT STA Administration Methadone HCl 20 mg 08/24/22 06:39 08/24/22 07:06 Methadone Hcl 20 Mg/2 Ml Oral.Conc PO 08/24/22 06:40 20 mg ONCE ONE Administration Morphine Sulfate 4 mg 08/24/22 10:23 08/24/22 11:55 Morphine Sulfate 4 Mg/Ml Cartridge IVPUSH 08/24/22 10:24 4 mg ONCE ONE Administration Protocol Medical Decision Making Medical Decision Making [facility] Narrative: 0640-This is a 37-year-old female with a history of polysubstance abuse who presents to the ER with complaints of shortness of breath, cough, subjective fevers and chills and chest pain for 2 days. On arrival patient is tachypneic, tachycardic, febrile Patient will need labs including blood cultures lactic acid, chest x-ray, EKG, COVID screen At this time infection is suspected. Antibiotics ordered. Fluids ordered. Patient is interested in detox resources and so I will give her 20 mg of methadone Anticipate admission Differential Diagnosis Differential Diagnoses: The differential diagnosis associated with the presentation includes Endocarditis, pneumonia, PE Consult Healthcare Provider Management of the patient was discussed with: Hospitalist Spoke to Dr. Marie who accepted admission Lab Data [facility] Lab Attestation statement: I reviewed the patient's lab results. 08/24/22 06:20 08/24/22 06:20 Labs: Lab Results 08/24/22 08/24/22 08/24/22 Range/Units 06:16 06:20 06:20 WBC 20.5 H (4.8-10.8) X10*3/uL RBC 4.56 (4.20-5.50) X10*6/uL Hgb 12.2 (12.0-16.0) g/dl Hct 38.3 (37.0-47.0) % MCV 84.0 (80.0-98.0) fL MCH 26.8 L (27.0-33.0) pg MCHC 31.9 (31.0-35.0) g/dl RDW 14.6 (11.0-16.0) % Plt Count 218 (160-400) X10*3/uL MPV 10.5 (9.4-12.3) fL Absolute Nucleated RBC 0.000 (0.0-0.012) X10*3/uL Nucleated RBC % (auto) 0.0 (0.0-0.2) /100WBC Sodium 134 L (135-145) mmol/L Potassium 3.9 (3.3-5.1) mmol/L Chloride 98 (96-108) mmol/L Carbon Dioxide 27 (22-29) mmol/L Anion Gap 13 (12-20) BUN 14 (9-16) mg/dL Creatinine 0.79 (0.5-1.4) mg/dL Estim Creat Clear Calc 77.1 Estimated GFR > 60 Random Glucose 196 H (60-115) mg/dL Lactic Acid (0.5-2.0) mmol/L Calcium 9.8 D (8.4-10.2) mg/dL Total Bilirubin 0.6 (0.0-1.0) mg/dL AST 24 (5-31) U/L ALT 31 (0-31) U/L Alkaline Phosphatase 98 (39-117) U/L Total Creatine Kinase 31 (26-140) U/L Troponin I High Sens (<3.5-17.0) ng/L Total Protein 8.1 H (6.5-8.0) g/dL Albumin 3.6 (3.5-5.0) g/dL Lipase 5 L (8-78) U/L Beta HCG, Quant mIU/mL COVID-19 (FRED) Negative (Negative) COVID-19 Clin Com See Note 08/24/22 08/24/22 08/24/22 Range/Units 06:22 06:22 07:50 WBC (4.8-10.8) X10*3/uL RBC (4.20-5.50) X10*6/uL Hgb (12.0-16.0) g/dl Hct (37.0-47.0) % MCV (80.0-98.0) fL MCH (27.0-33.0) pg MCHC (31.0-35.0) g/dl RDW (11.0-16.0) % Plt Count (160-400) X10*3/uL MPV (9.4-12.3) fL Absolute Nucleated RBC (0.0-0.012) X10*3/uL Nucleated RBC % (auto) (0.0-0.2) /100WBC Sodium (135-145) mmol/L Potassium (3.3-5.1) mmol/L Chloride (96-108) mmol/L Carbon Dioxide (22-29) mmol/L Anion Gap (12-20) BUN (9-16) mg/dL Creatinine (0.5-1.4) mg/dL Estim Creat Clear Calc Estimated GFR Random Glucose (60-115) mg/dL Lactic Acid 1.8 (0.5-2.0) mmol/L Calcium (8.4-10.2) mg/dL Total Bilirubin (0.0-1.0) mg/dL AST (5-31) U/L ALT (0-31) U/L Alkaline Phosphatase (39-117) U/L Total Creatine Kinase (26-140) U/L Troponin I High Sens < 2.7 (<3.5-17.0) ng/L Total Protein (6.5-8.0) g/dL Albumin (3.5-5.0) g/dL Lipase (8-78) U/L Beta HCG, Quant < 2 mIU/mL COVID-19 (FRED) (Negative) COVID-19 Clin Com Independent Interpretation I performed an independent interpretation of an: EKG and Plain X-Ray Interpretation: I independently reviewed the x-ray and agree with the radiologist's report I independently reviewed the EKG which showed sinus tachycardia with a rate of 104, normal CT, normal QRS, nonspecific ST changes in leads 3, V5 and V6 Radiology Impression Discussion of test interpretation with radiology: I have reviewed the radio logist's reading. Radiologist Impression: [address] [address] XRay Report Signed Patient: Maggie Rosa MR#: [id number] : 1985 Acct:[id number] Age/Sex: 37 / F ADM Date: 08/24/22 Loc: HO.ED Attending Dr: Ordering Physician: Kwabena Grande MD Date of Service: 08/24/22 Procedure(s): XR chest 1V Accession Number(s): [id number] cc: Kwabena Grande MD~ EXAMINATION: XR CHEST CLINICAL INFORMATION: SOB COMPARISON: None available. TECHNIQUE: Frontal view of the chest was obtained. FINDINGS: The lungs are hypoexpanded with mild blunting of right CP angle question pleural effusion versus thickening. No acute consolidation seen. Mild increase interstitial markings are seen in bilateral parietal region, question interstitial pneumonitis. No gross bony abnormality. XR/XR chest 1V IMPRESSION: 1.? Mild blunting of right CP angle question pleural effusion versus thickening. 2.? Mild increase interstitial markings in bilateral perihilar region, question interstitial pneumonitis. ? [place] [address] CT Scan Report Signed Patient: Maggie Rosa MR#: [id number] : 1985 Acct:[id number] Age/Sex: 37 / F ADM Date: 08/24/22 Loc: .ED Attending Dr: Ordering Physician: Shruthi Veloz NP Date of Service: 08/24/22 Procedure(s): CT angio chest PE protocol Accession Number(s): [id number] cc: Shruthi Veloz NP~ EXAMINATION: CT ANGIOGRAM OF THE CHEST WITH AND WITHOUT CONTRAST (CT PULMONARY ANGIOGRAM FOR PE) CLINICAL INFORMATION: Reason for Exam fever, cp, sob, r.o pe COMPARISON: Chest radiograph earlier today? ? TECHNIQUE: Prior to contrast administration, noncontrast localization images were obtained. ? Subsequently, multidetector volumetric imaging was performed from the thoracic inlet to below the diaphragms following the administration of 65 mL Omnipaque 350 intravenous contrast. No contrast reaction reported Sagittal, coronal, and MIP oblique sagittal reformatted images were obtained on the CT workstation, uploaded to PACS, and reviewed. This CT examination was performed using dose optimization techniques as appropriate, variously including the following: *Automated exposure control *Adjustment of mA and/or kV according to patient size (this includes techniques or standardized protocols for targeted exams where dose is matched to indication/reason for exam; i.e. extremities or head) *Use of iterative reconstruction technique Total exam dose-length product 170 mGy-cm FINDINGS: QUALITY OF STUDY/CONTRAST BOLUS: The bolus is adequate but significant motion artifact is present limiting diagnostic quality PULMONARY ARTERIES: No central or large segmental pulmonary emboli.? THORACIC AORTA: No aneurysm. LUNGS AND PLEURA: A small right pleural effusion is present along with right lower lobe infiltrate/atelectasis. MEDIASTINUM: Heart size upper limits of normal.? No pericardial effusion. There is a prominent right infrahilar lymph node present 1.2 x 1.9 x 1.7 cm. No gross hilar or mediastinal lymphadenopathy.? No evidence of septal bowing or right heart strain. CORONARY ARTERY CALCIFICATION: None visualized on this study. CHEST WALL/AXILLA: No axillary or internal mammary lymphadenopathy. OSSEOUS STRUCTURES: No acute or suspicious osseous abnormality.? UPPER ABDOMEN: I suspect the liver is enlarged and there is decreased attenuation consistent with hepatic steatosis. There is mild prominence of the spleen.? No reflux of contrast into the hepatic veins to suggest elevated right heart pressures. CT/CT angio chest PE protocol IMPRESSION: 1.? No evidence of pulmonary emboli. 2.? Right lower lobe infiltrate/atelectasis with small right pleural effusion with prominent right infrahilar lymph node, probably reactive. Findings would be compatible with pneumonia. 3.? Probable enlarged fatty liver and mild splenomegaly. ? VTE: negative Discharge Plan Discharge Clinical Impression: Pneumonia, Leukocytosis Patient Disposition: Admitted As Inpatient Interventions: Admission Worksheet (ED) Last Done: 08/24/22 13:38 Discharge Date/Time: 08/24/22 13:39
[2022-08-24] MEDS: 0.9 % Sodium Chloride 1,000 ML 999 ML IV (07:06)
[2022-08-24] MEDS: cefEPime HCl 2 GM in 0.9 % Sodium Chloride 50 ML IV ×2 (07:06→17:14)
[2022-08-24] MEDS: methADONE HCl 20 MG/2 ML ORAL.CONC PO (07:06)
[2022-08-24] MEDS: LORazepam 2 MG/ML VIAL 1 MG IVPUSH (07:06)
[2022-08-24] MEDS: Ketorolac Tromethamine 30 MG/ML VIAL IVPUSH ×2 (07:06→21:27)
[2022-08-24 07:07] LABS: Troponin-I High Sensitivity < 2.7 ng/L (<3.5-17.0)
--- NOTE | 2022-08-24 07:17 | PC.NURSE ---
ultrasound iv obtained via provider, medicated per the mar.
[2022-08-24] MEDS: vancomycin HCL 1,250 MG in 0.9 % Sodium Chloride 250 ML 166.67 MG IV (08:11)
--- NOTE | 2022-08-24 08:20 | PC.NURSE ---
pt appears more comfortable, sleeping in bed. room air - 98%. awaiting ct scan
[2022-08-24 08:21] LABS: HCG Quantitative < 2 mIU/mL
[2022-08-24] MEDS: iohexoL 350 MG/ML 100 ML INFUS..BTL 65 ML IV (08:57)
--- NOTE | 2022-08-24 09:31 | PHA.MEDREC ---
Pharmacy Consult ? Medication Reconciliation Pharmacy has completed the medication reconciliation. Patient was very hard to arouse
--- NOTE | 2022-08-24 10:31 | PM.IMHP ---
History of Present Illness Date of Service: 08/24/22 Attending physician on admission: Kem Marie Chief Complaint: sob, cough 37-year-old female with history of polysubstance abuse, history septic joint who is a current everyday smoker presented to the ED earlier today for evaluation of shortness of breath and productive cough ongoing for 2 days. She also reports subjective fevers and chills. She has limited historian at the time of my interview and history is obtained from ED staff and note. Her last IV heroin use was early this morning prior to arrival, patient febrile to 100.7, tachycardic to 110, and tachypneic to 28 on exam. Blood pressure is soft but no hypotension. There is no hypoxia. There is a leukocytosis of 20.5. Renal function normal, electrolyte levels normal except for mild hyponatremia of 134. Glucose 196. Lactic acid normal at 1.8. Hepatic function normal. CXR shows mild blunting of the right costophrenic angle question pleural effusion versus thickening and there are also mild increased interstitial markings in bilateral perihilar region with question of interstitial pneumonitis. CTA chest was negative for any PE but did show right lower lobe infiltrate versus atelectasis with small right pleural effusion with prominent right infrahilar lymph node likely reactive. In the ED, treated with IV cefepime and vancomycin as well as 1 L IVF, 1 mg Ativan, 30 mg ketorolac, and initiated on 20 mg methadone. Patient is desiring detox. Review of Systems Review of Systems: Yes Unobtainable due to mental condition [facility] Medical History (Updated 08/24/22 @ 10:38 by MARY Ohara) Hepatitis C Opioid use disorder Tobacco dependence Social History Household Members: None Housing: Homeless Do you presently have visiting nurse or other home services: No Alcohol intake: current Alcohol intake frequency: holidays/special occasions only Patient Tobacco Use Status: Current everyday Tobacco user Tobacco use type: Cigarette Cigarette Packs Per Day: 1 Cigarettes Per Day: 20.0 Smoked in Last 30 Days: Yes Use of substances other than those prescribed or required for medical reasons: Yes Substance Use Type: Heroin and IV Drugs Substance Use Frequency: Chronic Longstanding Last Used Substance: Just Prior to Admission Any prior treatment program specific to substance use: No Advance Directives: No Advance Directives Information Provided: Yes Patient : No service: No Current occupational status: unemployed Meds Allergies Allergy/AdvReac Type Severity Reaction Status Date / Time Penicillins [PENICILLINS] Allergy Mild THROAT Verified 07/29/21 20:45 SWELLS Active Medications: Current Medications Acetaminophen (Acetaminophen 325 Mg Tablet) 650 mg PO Q6H PRN PRN Reason: Pain, Mild, fever Docusate Sodium (Docusate Sodium 100 Mg Capsule) 100 mg PO BID GILDARDO Enoxaparin Sodium (Enoxaparin Sodium 40 Mg/0.4 Ml Syringe) 40 mg SUBCUT Q24H GILDARDO Cefepime HCl 2 gm/ Sodium (Chloride) 50 mls @ 100 mls/hr IV Q8H GILDARDO Nicotine (Nicotine 21 Mg Patch.Td24) 21 mg TRANSDERMA DAILY GILDARDO Ondansetron HCl (Ondansetron Hcl 4 Mg/2 Ml Vial) 4 mg IVPUSH Q8H PRN PRN Reason: Nausea and Vomiting Pharmacy Consult (Consult Rx Perform Med Rec) 1 each MISCELLANE ONCE PRN PRN Reason: Consult order Pharmacy Consult (Consult Rx Vancomycin Dosing) 1 each MISCELLANE DAILY PRN PRN Reason: Consult order Sodium Chloride (0.9 % Sodium Chloride Flush 3 Ml Syringe) 3 ml IVFLUSH QSHIFT [facility] Home Medications Medication Instructions Recorded Confirmed Last Taken Type No Known Home Meds 08/24/22 08/24/22 Unknown History Physical Exam Vital Signs and Narrative: Vital Signs: Last Vital Signs Temp 97.7 F 08/24/22 06:17 Pulse 99 08/24/22 08:35 Resp 18 08/24/22 08:35 BP 106/54 L 08/24/22 08:35 Pulse Ox 97 08/24/22 08:35 O2 Del Method Room Air 08/24/22 08:35 O2 Flow Rate 2 08/24/22 07:53 BMI result Body Mass Index 21.0 Constitutional - somnolent but arousable, No apparent distress Eyes - PERRLA, EOMI Cardiovascular - S1S2, RRR, No edema Respiratory - Normal lung expansion, mild respiratory distress with increased work of breathing, expiratory wheezing bilaterally, rhonchi RLL Gastrointestinal - NT / ND; +BS; No rebound or guarding Extremities - no calf tenderness bilaterally, no swelling Skin - Warm/Dry. Track alves BUE, primarily left forearm. No surrounding erythema, fluctuance, induration Neurological - somnolent but arousable, oriented x3, unable to participate in further neuro exam Psychological - Appropriate affect Results Labs 08/24/22 06:20 08/24/22 06:20 Labs: Laboratory Results - last 24 hr 08/24/22 08/24/22 08/24/22 06:16 06:20 06:20 MCV 84.0 MCH 26.8 L MCHC 31.9 RDW 14.6 Plt Count 218 MPV 10.5 Absolute Nucleated RBC 0.000 Nucleated RBC % (auto) 0.0 Anion Gap 13 Estim Creat Clear Calc 77.1 Estimated GFR > 60 Random Glucose 196 H Lactic Acid Calcium 9.8 D Total Bilirubin 0.6 AST 24 ALT 31 Alkaline Phosphatase 98 Total Creatine Kinase 31 Troponin I High Sens Total Protein 8.1 H Albumin 3.6 Lipase 5 L Beta HCG, Quant COVID-19 (FRED) Negative COVID-19 Clin Com See Note 08/24/22 08/24/22 08/24/22 06:22 06:22 07:50 MCV MCH MCHC RDW Plt Count MPV Absolute Nucleated RBC Nucleated RBC % (auto) Anion Gap Estim Creat Clear Calc Estimated GFR Random Glucose Lactic Acid 1.8 Calcium Total Bilirubin AST ALT Alkaline Phosphatase Total Creatine Kinase Troponin I High Sens < 2.7 Total Protein Albumin Lipase Beta HCG, Quant < 2 COVID-19 (FRED) COVID-19 Clin Com Imaging Radiologist's Impressions: Impressions Chest X-Ray 08/24/22 06:34 IMPRESSION: 1. Mild blunting of right CP angle question pleural effusion versus thickening. 2. Mild increase interstitial markings in bilateral perihilar region, question interstitial pneumonitis. Chest CTA 08/24/22 08:55 IMPRESSION: 1. No evidence of pulmonary emboli. 2. Right lower lobe infiltrate/atelectasis with small right pleural effusion with prominent right infrahilar lymph node, probably reactive. Findings would be compatible with pneumonia. 3. Probable enlarged fatty liver and mild splenomegaly. VTE: negative Assessment and Plan (1) Pneumonia: Status: Acute (2) Sepsis: Status: Acute Plan 37-year-old female with history of polysubstance abuse, history septic joint who is a current everyday smoker admitted for RLL pneumonia with sepsis. #Acute RLL pneumonia with sepsis -WBC 20.5, febrile to 100.7, tachycardic to 110, tachypneic to 28. Lactic acid normal. No severe sepsis/shock -CTA chest showing right lower lobe pneumonia with right-sided pleural effusion. Reactive right infrahilar lymphnode. Increased interstitial markings in bilateral parahilar region with question of interstitial pneumonitis -IV cefepime and vancomycin -IV methylprednisolone 40 mg b.i.d. -albuterol p.r.n. -Sputum culture, Legionella antigen, strep antigen -Follow CBC #Acute toxic metabolic encephalopathy -likely r/t infection as well as substance use -Monitor mentation -aspiration precautions #Polysubstance abuse- IV heroin, cocaine, oxycodone -Methadone 20mg initiated -Addiction med consult -tox screen #Nicotine dependence -Patches for NRT DVT prophylaxis-Lovenox Full code Patient requires inpatient stay at least 2 midnights for management of pneumonia with sepsis and acute toxic metabolic encephalopathy requiring close monitoring of mentation and vitals to prevent decompensation as well as management with IV antibiotics. Time Spent With Patient Time: Total time managing care of this patient today ____ minutes. Quality Stroke Does the patient have a stroke diagnosis?: No VTE Prior VTE?: No VTE Risk Level:: Medical - moderate - high VTE Device Contraindication: Treatment Not Indicated VTE Drug Contraindication: N/A - Med Ordered
[2022-08-24] MEDS: Enoxaparin Sodium 40 MG/0.4 ML SYRINGE SUBCUT (11:55)
[2022-08-24] MEDS: Morphine Sulfate 4 MG/ML CARTRIDGE IVPUSH ×2 (11:55→14:48)
[2022-08-24] MEDS: methylPREDNISolone Sod Succ 40 MG/ML VIAL IVPUSH ×2 (11:55→21:16)
[2022-08-24] MEDS: Nicotine 21 MG PATCH.TD24 TRANSDERMA (11:55)
[2022-08-24] MEDS: Acetaminophen 325 MG TABLET 650 MG PO ×2 (11:55→18:15)
--- NOTE | 2022-08-24 12:12 | PC.NURSE ---
pt medicated with tylenol for the fever, continues resting in bed
[2022-08-24] MEDS: Ibuprofen 600 MG TABLET PO (14:48)
[2022-08-24] MEDS: Acetaminophen 325 MG TABLET PO (14:48)
--- NOTE | 2022-08-24 16:58 | HO.ADDICT_ITS ---
History of Present Illness Date of Service: 08/24/22 Chief Complaint: sepsis, pneumonia Reason for Consult: substance use Sources of Information: patient interviewed and chart reviewed HPI Narrative: Patient is a 37 year old female medically admitted with pneumonia and sepsis. Consult requested as patient reports using opiates and cocaine--methadone 20mg administered in ED. Patient seen in room 471 with master control operator. Sitting up in bed, very drowsy, but able to participate in interview. She reports using 1-2 bundles of heroin/fentatanyl IV QD. Denies any history of overdose Reports she was in [facility] facility [facility] one month ago. History of Hepatitis C, denies HIV Expreiencing homelessness Denies any withdrawal sx, and does not appear to be experiencing any. Eyes closing frequently during interview. Discussed medications for OUD, patient states she wants to transition to suboxone with the goal of getting Sublocade. Reviewed process for transitioning over while taking methadone, patient agreeable. Review of Systems Constitutional: Reports as per HPI and Reports no additional constitutional complaints Diagnostics Vital Signs (24Hr): Vital Signs - 24 hr 08/24/22 06:01 08/24/22 06:17 08/24/22 07:53 Temperature 100.7 F H 97.7 F Pulse Rate 107 H 110 H 99 Respiratory Rate 16 20 18 Blood Pressure 125/80 138/84 104/55 L Pulse Oximetry 92 94 97 Oxygen Delivery Method Room Air Room Air Nasal Cannula Oxygen Flow Rate 2 08/24/22 08:20 08/24/22 08:35 08/24/22 12:00 Temperature 102.3 F H Pulse Rate 99 100 Respiratory Rate 18 28 H Blood Pressure 106/54 L 123/71 Pulse Oximetry 98 97 94 Oxygen Delivery Method Room Air Room Air Nasal Cannula Oxygen Flow Rate 2 08/24/22 13:19 08/24/22 15:21 Temperature 100.8 F H 98.0 F Pulse Rate 87 Respiratory Rate 18 Blood Pressure 112/58 L Pulse Oximetry 93 Oxygen Delivery Method Nasal Cannula Oxygen Flow Rate 2 BMI result Body Mass Index 21.0 Labs 08/24/22 06:20 08/24/22 06:20 Labs: Laboratory Results - last 48 hr 08/24/22 08/24/22 08/24/22 06:16 06:20 06:20 WBC 20.5 H RBC 4.56 Hgb 12.2 Hct 38.3 MCV 84.0 MCH 26.8 L MCHC 31.9 RDW 14.6 Plt Count 218 MPV 10.5 Absolute Nucleated RBC 0.000 Nucleated RBC % (auto) 0.0 Sodium 134 L Potassium 3.9 Chloride 98 Carbon Dioxide 27 Anion Gap 13 BUN 14 Creatinine 0.79 Estim Creat Clear Calc 77.1 Estimated GFR > 60 Random Glucose 196 H Lactic Acid Calcium 9.8 D Total Bilirubin 0.6 AST 24 ALT 31 Alkaline Phosphatase 98 Total Creatine Kinase 31 Troponin I High Sens Total Protein 8.1 H Albumin 3.6 Lipase 5 L Beta HCG, Quant COVID-19 ([facility]ED) Negative COVID-19 Clin Com See Note 08/24/22 08/24/22 08/24/22 06:22 06:22 07:50 WBC RBC Hgb Hct MCV MCH MCHC RDW Plt Count MPV Absolute Nucleated RBC Nucleated RBC % (auto) Sodium Potassium Chloride Carbon Dioxide Anion Gap BUN Creatinine Estim Creat Clear Calc Estimated GFR Random Glucose Lactic Acid 1.8 Calcium Total Bilirubin AST ALT Alkaline Phosphatase Total Creatine Kinase Troponin I High Sens < 2.7 Total Protein Albumin Lipase Beta HCG, Quant < 2 COVID-19 ([facility]) COVID-19 Clin Com Imaging Radiology Impressions: ITS Impressions Chest X-Ray 08/24/22 06:34 IMPRESSION: 1. Mild blunting of right CP angle question pleural effusion versus thickening. 2. Mild increase interstitial markings in bilateral perihilar region, question interstitial pneumonitis. Chest CTA 08/24/22 08:55 IMPRESSION: 1. No evidence of pulmonary emboli. 2. Right lower lobe infiltrate/atelectasis with small right pleural effusion with prominent right infrahilar lymph node, probably reactive. Findings would be compatible with pneumonia. 3. Probable enlarged fatty liver and mild splenomegaly. VTE: negative Mental Status Exam Mental Status Exam Patient Appearance: Disheveled Level of Consciousness: Drowsy Patient Behavior: Cooperative Judgement: Fair Medications Medications Current Medications Acetaminophen (Acetaminophen 325 Mg Tablet) 650 mg PO Q6H PRN PRN Reason: Pain, Mild, fever Last Admin: 08/24/22 11:55 Dose: 650 mg Albuterol Sulfate (Albuterol Sulfate (0.083%) 2.5 Mg/3 Ml Vial.Neb) 2.5 mg INHALE Q4H PRN PRN Reason: shortness of breath/wheezing Docusate Sodium (Docusate Sodium 100 Mg Capsule) 100 mg PO BID [facility] Enoxaparin Sodium (Enoxaparin Sodium 40 Mg/0.4 Ml Syringe) 40 mg SUBCUT Q24H [facility] Last Admin: 08/24/22 11:55 Dose: 40 mg Cefepime HCl 2 gm/ Sodium (Chloride) 50 mls @ 100 mls/hr IV Q8H [facility] Vancomycin HCl 1,000 mg/ (Sodium Chloride) 270 mls @ 270 mls/hr IV Q12H [facility] Methadone HCl (Methadone Hcl 20 Mg/2 Ml Oral.Conc) 10 mg PO DAILY PRN PRN Reason: Opiate Withdrawal Methylprednisolone Sodium Succinate (Methylprednisolone Sod Succ 40 Mg/Ml Vial) 40 mg IVPUSH Q12H [facility] Last Admin: 08/24/22 11:55 Dose: 40 mg Nicotine (Nicotine 21 Mg Patch.Td24) 21 mg TRANSDERMA DAILY [facility] Last Admin: 08/24/22 11:55 Dose: 21 mg Ondansetron HCl (Ondansetron Hcl 4 Mg/2 Ml Vial) 4 mg IVPUSH Q8H PRN PRN Reason: Nausea and Vomiting Pharmacy Consult (Consult Rx Perform Med Rec) 1 each MISCELLANE ONCE PRN PRN Reason: Consult order Pharmacy Consult (Consult Rx Vancomycin Dosing) 1 each MISCELLANE DAILY PRN PRN Reason: Consult order Sodium Chloride (0.9 % Sodium Chloride Flush 3 Ml Syringe) 3 ml IVFLUSH QSHIFT [facility] Allergies Allergies Allergy/AdvReac Type Severity Reaction Status Date / Time Penicillins [PENICILLINS] Allergy Mild THROAT Verified 07/29/21 20:45 [facility] Assessment & Plan Assessment & Plan (1) Opioid use disorder: Status: Acute Code(s): F11.90 - Opioid use, unspecified, uncomplicated Assessment and Plan: * methadone 10mg PRN ordered as patient was quite drowsy during interview * will follow up in the morning and adjust dosing --morning dose of 20mg ordered * HIV screen Total time managing care of this patient today __30__ minutes. PMFSH Past Medical History Medical History (Updated 08/24/22 @ 10:38 by MARY Ohara) Hepatitis C Opioid use disorder Tobacco dependence Social History Social History Household Members: None Housing: Homeless Do you presently have visiting nurse or other home services: No Alcohol intake: current Alcohol intake frequency: holidays/special occasions only Patient Tobacco Use Status: Current everyday Tobacco user Tobacco use type: Cigarette Cigarette Packs Per Day: 1 Cigarettes Per Day: 20.0 Smoked in Last 30 Days: Yes Patient Interested in Nicotine Replacement: Yes Use of substances other than those prescribed or required for medical reasons: Yes Substance Use Type: Crack/Cocaine and Heroin Substance Use Frequency: Chronic Longstanding Last Used Substance: Just Prior to Admission Currently Displaying Signs/Symptoms of Drug Intoxication Withdrawal: No Any prior treatment program specific to substance use: Yes ([facility]) Have you been hit, kicked, punched, or otherwise hurt by someone within the past year? If so, by whom?: No Do you feel safe in your current relationship?: Yes Is there a partner from a previous relationship who is making you feel unsafe now?: No Are you made to feel afraid or neglected: No Advance Directives: No Advance Directives Information Provided: Yes Do you have thoughts of harming others: None Do you have a plan to hurt others: No Plan Recently lost weight without trying: Yes How much weight loss: 2-13 pounds Eating poorly because of decreased appetite: Yes Nutrition screen score: 4 Patient : No : No Poor oral hygiene: No service: No Current occupational status: unemployed
[2022-08-24] MEDS: 0.9 % Sodium Chloride Flush 3 ML SYRINGE IVFLUSH ×2 (17:14→20:52)
[2022-08-24] MEDS: vancomycin HCL 1,000 MG in 0.9 % Sodium Chloride 250 ML 270 MG IV (20:51)
[2022-08-24] MEDS: Docusate Sodium 100 MG CAPSULE PO (20:51)
[2022-08-24 23:12] LABS: Appearance Urine Clear; Color Urine Yellow; Glucose Urine UA >=1000 mg/dL (Negative); Leukocyte Esterase Urine Negative (Negative); Nitrite Urine Negative (Negative); PH 6.5 (5.0-9.0); Specific Gravity - Urine >= 1.030 (1.005-1.025); UMIC TRIGGER UACC YES; Urine Blood Negative (Negative); Urine Ketones Negative (Negative); Urine Protein Negative (Neg-Trace)
[2022-08-24 23:45] LABS: Bacteria Urine None Seen (None Seen); RBC Urine 0-2 /HPF (0-2); Squamous Epithelial Cell Urine 0-2 /HPF (0-2); WBC Urine 0-5 /HPF (0-5)
[2022-08-24 23:46] LABS: UPreg QC Valid YES; Urine Pregnancy NEGATIVE (NEGATIVE)
[2022-08-24 23:59] LABS: Amphetamine Screen Urine Not Detected (Not Detect); Barbiturates, Urine Not Detected (Not Detect); Benzodiazepines Screen Urine Not Detected (Not Detect); Cannabinoid Screen Urine Not Detected (Not Detect); Cocaine Screen Urine POSITIVE (Not Detect); Fentanyl, urine POSITIVE (Not Detect); Opiate Screen Urine POSITIVE (Not Detect); Phencyclidine Screen Urine Not Detected (Not Detect)
[2022-08-25] VITALS (7 sets, daily range): BP systolic 113–128; BP diastolic 60–79; PULSE 77–97; RESP 14–20; TEMP 36.2–37.1; O2SAT 93–97
[2022-08-25] MEDS: cefEPime HCl 2 GM in 0.9 % Sodium Chloride 50 ML IV ×3 (00:54→17:58)
[2022-08-25] MEDS: Acetaminophen 325 MG TABLET 650 MG PO (05:53)
[2022-08-25 06:32] LABS: Basophils Absolute Auto 0.1 X10*3/uL (0.0-0.2); Basophils Percent Auto 0.3 % (0-2); Hematocrit 38.7 % (37.0-47.0); Hemoglobin 12.1 g/dl (12.0-16.0); Imm Gran Abs Auto 0.82 X10*3/uL (0.00-0.03); Imm Gran Pct Auto 2.3 % (0.0-0.4); Lymphocytes Absolute Auto 1.5 X10*3/uL (1.2-4.9); Lymphocytes Percent Auto 4.1 % (20-40); MANUAL DIFF FLAG SCAN; Mean Corpuscular HGB Conc 31.3 g/dl (31.0-35.0); Mean Corpuscular Hemoglobin 26.5 pg (27.0-33.0); Mean Corpuscular Volume 84.9 fL (80.0-98.0); Mean Platelet Volume 11.2 fL (9.4-12.3); Monocytes Absolute Auto 1.6 X10*3/uL (0.1-1.2); Monocytes Percent Auto 4.3 % (2-11); Neutrophils Absolute Auto 32.4 x10*3/uL (2.0-8.3); Platelet Count 240 X10*3/uL (160-400); Red Blood Count 4.56 X10*6/uL (4.20-5.50); SCAN SMEAR FLAG 1
[2022-08-25 06:44] LABS: Vancomycin Random 5.9 mcg/mL (15-20)
[2022-08-25 06:46] LABS: Anion Gap 12 (12-20); Blood Urea Nitrogen 14 mg/dL (9-16); Calcium 10.6 mg/dL (8.4-10.2); Carbon Dioxide 25 mmol/L (22-29); Chloride 105 mmol/L (96-108); Estimated Glomerular Filt Rate > 60; Glucose Random 270 mg/dL (60-115); Potassium 3.9 mmol/L (3.3-5.1); Sodium 138 mmol/L (135-145)
--- NOTE | 2022-08-25 07:02 | HE.PHANOTE ---
RE: VANCO patients level came back this morning at 5.9 mg/L. Patient recieved a load of 1250 mg and 1 dose of 1000 mg at this time. Level is very low. Changed dose to 1000 mg Q8H as 1250 mg Q12H would have been higher than 20 mg/kg. Next draw is 04/28 @0600
[2022-08-25 07:09] LABS: White Blood Count 36.4 X10*3/uL (4.8-10.8)
[2022-08-25 07:13] LABS: SLIDE REVIEW VERIFIED
[2022-08-25] MEDS: methADONE HCl 20 MG/2 ML ORAL.CONC PO (09:03)
[2022-08-25] MEDS: Docusate Sodium 100 MG CAPSULE PO (09:03)
[2022-08-25] MEDS: vancomycin HCL 1,000 MG in 0.9 % Sodium Chloride 250 ML 270 MG IV ×2 (09:05→16:35)
[2022-08-25] MEDS: 0.9 % Sodium Chloride Flush 3 ML SYRINGE IVFLUSH ×2 (09:06→17:58)
[2022-08-25] MEDS: methylPREDNISolone Sod Succ 40 MG/ML VIAL IVPUSH ×2 (09:45→23:09)
--- NOTE | 2022-08-25 10:39 | HO.PM.IMPN ---
Subjective Subjective Date of Service: 08/25/22 Interval History: seen and examined this morning follow up for sepsis, pneumonia reporting sweats, pleuritic pain, productive cough no sob Review of Systems Review of Systems: Yes all other systems are reviewed and are negative Constitutional Constitutional: Reports chills ENT Ears, Nose, Mouth, and Throat: Denies dizziness Respiratory Respiratory: Reports cough, Denies hemoptysis, Reports pain on inspiration and Reports pain with cough Gastrointestinal Gastrointestinal: Denies abdominal pain Neurologic Neurologic: Denies dizziness Physical Exam Vital Signs: Vital Signs: Last Vital Signs Temp 98.5 F 08/25/22 07:03 Pulse 97 08/25/22 07:03 Resp 20 08/25/22 07:03 BP 113/60 08/25/22 07:03 Pulse Ox 93 08/25/22 07:03 O2 Del Method Nasal Cannula 08/25/22 07:03 O2 Flow Rate 2 08/25/22 07:03 BMI result Body Mass Index 21.0 Const: General: comfortable, no acute distress, alert and awake Nutritional Appearance: average body habitus Orientation/consciousness: patient oriented x3 Resp: Other: decreased respiratory effort Effort & Inspection: no respiratory distress and no use of accessory muscles Cardio: Rate: regular rate Heart sounds: S1 normal heart sound present and S2 normal heart sound present GI: Inspection: No distended Palpation (GI): Soft to palpation and nontender Neuro: General: patient oriented x3, moves all extremities and CN's II-XI intact bilaterally Extrem: General: Yes no pedal edema Objective Data Active Medications Acetaminophen (Acetaminophen 325 Mg Tablet) 650 mg PO Q6H PRN PRN Reason: Pain, Mild, fever Last Admin: 08/25/22 05:53 Dose: 650 mg Documented By: RAMO Albuterol Sulfate (Albuterol Sulfate (0.083%) 2.5 Mg/3 Ml Vial.Neb) 2.5 mg INHALE Q4H PRN PRN Reason: shortness of breath/wheezing Docusate Sodium (Docusate Sodium 100 Mg Capsule) 100 mg PO BID [facility] Last Admin: 08/25/22 09:03 Dose: 100 mg Documented By: GUILLE Enoxaparin Sodium (Enoxaparin Sodium 40 Mg/0.4 Ml Syringe) 40 mg SUBCUT Q24H [facility] Last Admin: 08/25/22 09:04 Dose: Not Given Documented By: GUILLE Non-Admin Reason: Patient Refused Cefepime HCl 2 gm/ Sodium (Chloride) 50 mls @ 100 mls/hr IV Q8H [facility] Last Infusion: 08/25/22 09:45 Dose: 0 mls/hr Documented By: GUILLE Vancomycin HCl 1,000 mg/ (Sodium Chloride) 270 mls @ 270 mls/hr IV Q8H [facility] Last Infusion: 08/25/22 09:45 Dose: 270 mls/hr Documented By: GUILLE Methadone HCl (Methadone Hcl 20 Mg/2 Ml Oral.Conc) 10 mg PO DAILY PRN PRN Reason: Opiate Withdrawal Methadone HCl (Methadone Hcl 20 Mg/2 Ml Oral.Conc) 20 mg PO DAILY [facility] Last Admin: 08/25/22 09:03 Dose: 20 mg Documented By: GUILLE Methylprednisolone Sodium Succinate (Methylprednisolone Sod Succ 40 Mg/Ml Vial) 40 mg IVPUSH Q12H [facility] Last Admin: 08/25/22 09:45 Dose: 40 mg Documented By: GUILLE Nicotine (Nicotine 21 Mg Patch.Td24) 21 mg TRANSDERMA DAILY [facility] Last Admin: 08/25/22 09:04 Dose: Not Given Documented By: GUILLE Non-Admin Reason: Patient Refused Ondansetron HCl (Ondansetron Hcl 4 Mg/2 Ml Vial) 4 mg IVPUSH Q8H PRN PRN Reason: Nausea and Vomiting Pharmacy Consult (Consult Rx Perform Med Rec) 1 each MISCELLANE ONCE PRN PRN Reason: Consult order Pharmacy Consult (Consult Rx Vancomycin Dosing) 1 each MISCELLANE DAILY PRN PRN Reason: Consult order Sodium Chloride (0.9 % Sodium Chloride Flush 3 Ml Syringe) 3 ml IVFLUSH QSHIFT [facility] Last Admin: 08/25/22 09:06 Dose: 3 ml Documented By: GUILLE Labs 08/25/22 06:09 08/25/22 06:09 Labs: Laboratory Results - last 24 hr 08/24/22 08/24/22 08/24/22 22:50 22:50 22:50 MCV MCH MCHC RDW Plt Count MPV Immature Gran % (Auto) Neut % (Auto) Lymph % (Auto) [place] % (Auto) Eos % (Auto) Baso % (Auto) Lymph # (Auto) [place] # (Auto) Eos # (Auto) Baso # (Auto) Abs Immat Gran (auto) Absolute Neuts (auto) Absolute Nucleated RBC Nucleated RBC % (auto) Smear Tech's Comments Anion Gap Estim Creat Clear Calc Estimated GFR Random Glucose Calcium Urine Color Yellow Urine Appearance Clear Urine pH 6.5 Ur Specific [place] >= 1.030 H Urine Protein Negative Urine Glucose (UA) >=1000 H Urine Ketones Negative Urine Blood Negative Urine Nitrite Negative Ur Leukocyte Esterase Negative Urine RBC 0-2 Urine WBC 0-5 Ur Squamous Epith Cells 0-2 Urine Bacteria None Seen Hyaline Casts 6-10 Urine Test NEGATIVE Random Vancomycin Urine Opiates Screen POSITIVE H Urine Fentanyl Screen POSITIVE H Ur Barbiturates Screen Not Detected Ur Phencyclidine Scrn Not Detected Ur Amphetamines Screen Not Detected U Benzodiazepines Scrn Not Detected Urine Cocaine Screen POSITIVE H U Marijuana (THC) Screen Not Detected 08/25/22 08/25/22 08/25/22 06:09 06:09 06:09 MCV 84.9 MCH 26.5 L MCHC 31.3 RDW 15.0 Plt Count 240 MPV 11.2 Immature Gran % (Auto) 2.3 H Neut % (Auto) 89.0 H Lymph % (Auto) 4.1 L [place] % (Auto) 4.3 Eos % (Auto) 0.0 Baso % (Auto) 0.3 Lymph # (Auto) 1.5 [place] # (Auto) 1.6 H Eos # (Auto) 0.0 Baso # (Auto) 0.1 Abs Immat Gran (auto) 0.82 H Absolute Neuts (auto) 32.4 H Absolute Nucleated RBC 0.000 Nucleated RBC % (auto) 0.0 Smear Tech's Comments VERIFIED Anion Gap 12 Estim Creat Clear Calc 78.0 Estimated GFR > 60 Random Glucose 270 H Calcium 10.6 H D Urine Color Urine Appearance Urine pH Ur Specific [place] Urine Protein Urine Glucose (UA) Urine Ketones Urine Blood Urine Nitrite Ur Leukocyte Esterase Urine RBC Urine WBC Ur Squamous Epith Cells Urine Bacteria Hyaline Casts Urine Test Random Vancomycin 5.9 L Urine Opiates Screen Urine Fentanyl Screen Ur Barbiturates Screen Ur Phencyclidine Scrn Ur Amphetamines Screen U Benzodiazepines Scrn Urine Cocaine Screen U Marijuana (THC) Screen Microbiology Microbiology Results: Microbiology 08/24/22 06:21 Blood Culture - Preliminary Blood - Venous Prelim: GPC Gram Stain only 08/24/22 06:19 Blood Culture - Preliminary Blood - Venous Prelim: GPC Gram Stain only 08/24/22 21:10 Gram Stain - Final Sputum - Expectorated Assessment and Plan (1) Sepsis: Status: Acute (2) Pneumonia: Status: Acute (3) Bacteremia: Status: Acute Plan 37-year-old female with history of polysubstance abuse, history septic joint who is a current everyday smoker admitted for RLL pneumonia with sepsis. Sepsis secondary to RLL pneumonia and GPC bacteremia met criteria with WBC 20.5, tachycardia to 110, tachypneia to 28. Lactic acid normal. No severe sepsis. wbc trending up to 36.4 likely in part related to steroids CTA chest showing RLL pneumonia with right-sided pleural effusion. Reactive right infrahilar lymph node. Increased interstitial markings in bilateral parahilar region with question of interstitial pneumonitis blood cultures growing 2/2 GPC - follow final culture results, repeat Blood cultures in am -continue IV cefepime and vancomycin -IV solu-medrol 40 mg b.i.d. -albuterol p.r.n. -Sputum culture, Legionella antigen, strep antigen pending -ID consult pending Acute respiratory failure with hypoxia r/t above pneumonia wean oxygen as tolerated Acute toxic metabolic encephalopathy likely r/t infection as well as substance use. resolved, awake and alert this am Polysubstance abuse tox screen + for cocaine, fentanyl, optiates h/o HCV, HIV screen pending seen by addiction medicine, started on methadone Nicotine dependence NRT replacement smoking cessation advised DVT prophylaxis-Lovenox attending - dr. stevenson Full code Patient requires inpatient stay at least 2 midnights for management of pneumonia with sepsis and acute toxic metabolic encephalopathy requiring close monitoring of mentation and vitals to prevent decompensation as well as management with IV antibiotics. Time Spent With Patient Time: Total time managing care of this patient today ____ minutes. Quality Stroke Does the patient have a stroke diagnosis?: No VTE Prior VTE?: No VTE Risk Level:: Medical - moderate - high VTE Device Contraindication: Treatment Not Indicated VTE Drug Contraindication: N/A - Med Ordered
--- NOTE | 2022-08-25 11:21 | MHC.RECOVRN ---
Addendum entered by Aury Perez RN 08/25/22 15:23: This card writer hand returned to check in on patient, sedation improved. Pt awake, alert, sitting up in recliner. Pt reports mild cold/hot flashes, pt states unclear if its withdrawal or infection. Pt states no withdrawal, no cravings currently. Pt reports would like to be able to request MTD PRN tonite, if starts to feel withdrawal. Reviewed with Provider Aviva Hernández. Original Note: This card writer hand met with patient, patient was asleep in dim lit room when entered the room. Pt awake to verbal stimulation, sedated, eyes mostly closed during assessment. This card writer hand asked about MTD dose. Pt reports feels tired. Pt reminded that [facility] offered to shower/bathe, this card writer hand provided hygiene products and new socks. Pt agreeable. Results reviewed with Provider Aviva Hernández.
--- NOTE | 2022-08-25 14:25 | MHC.CM.PN ---
Pt admitted with sepsis, pneumonia. Pt reports being homeless for the past [address] She states she has no one, and her mom is , and her dad shot himself months ago. Pt does not have a PCP. This CM provided resources for the pt on PCP, shelters, 413 cares, and pt states she would like help with finding a homeless half-way.
[2022-08-25] MEDS: methADONE HCl 20 MG/2 ML ORAL.CONC 10 MG PO (15:44)
--- NOTE | 2022-08-25 16:39 | P.PNADD_ITS ---
Subjective Subjective Date of Service: 08/25/22 Reason For Visit: sepsis, pneumonia Interim History: Patient seen in follow up Awake, alert and engaged in interview today. Appearing weak, gordon when speaking. Reporting generalized body aches, some anxiety. Denies GI sx. Received methadone 20mg this morning, finds it helpful and would like to increase dose. Discussed transition to buprenorphine, patient would still like to move forward with this. Nervous about precipitated withdrawal. Educated patient regarding low dose cross titration and minimal risk of precipitated withdrawal. Patient verbalized understanding. Review of Systems Constitutional: Reports as per HPI Mental Status Exam Mental Status Exam Patient Appearance: Well Grooomed and Fatigued Patient Orientation: Person, Place, Time and Situation Level of Consciousness: Awake, Appropriate, Alert and Lethargic Diagnostics Vital Signs (24Hr): Vital Signs - 24 hr 08/24/22 19:39 08/24/22 22:45 08/24/22 22:52 Temperature 98.7 F 97.2 F 97.3 F Pulse Rate 89 81 82 Respiratory Rate 18 20 20 Blood Pressure 107/56 L 116/66 116/66 Pulse Oximetry 98 95 95 Oxygen Delivery Method Room Air Nasal Cannula Nasal Cannula Oxygen Flow Rate 2 2 08/25/22 03:15 08/25/22 04:00 08/25/22 07:03 Temperature 97.7 F 97.7 F 98.5 F Pulse Rate 79 79 97 Respiratory Rate 14 16 20 Blood Pressure 116/68 116/68 113/60 Pulse Oximetry 95 95 93 Oxygen Delivery Method Nasal Cannula Nasal Cannula Nasal Cannula Oxygen Flow Rate 2 08/25/22 11:38 08/25/22 11:41 08/25/22 15:44 Temperature 97.2 F 97.2 F 98.7 F Pulse Rate 77 77 89 Respiratory Rate 20 20 18 Blood Pressure 114/68 114/68 124/70 Pulse Oximetry 93 93 97 Oxygen Delivery Method Nasal Cannula Nasal Cannula Nasal Cannula Oxygen Flow Rate 2 2 2 BMI result Body Mass Index 21.0 Labs 08/25/22 06:09 08/25/22 06:09 Labs: Laboratory Results - last 48 hr 08/24/22 08/24/22 08/24/22 06:16 06:20 06:20 WBC 20.5 H RBC 4.56 Hgb 12.2 Hct 38.3 MCV 84.0 MCH 26.8 L MCHC 31.9 RDW 14.6 Plt Count 218 MPV 10.5 Immature Gran % (Auto) Neut % (Auto) Lymph % (Auto) [place] % (Auto) Eos % (Auto) Baso % (Auto) Lymph # (Auto) [place] # (Auto) Eos # (Auto) Baso # (Auto) Abs Immat Gran (auto) Absolute Neuts (auto) Absolute Nucleated RBC 0.000 Nucleated RBC % (auto) 0.0 Smear Tech's Comments Sodium 134 L Potassium 3.9 Chloride 98 Carbon Dioxide 27 Anion Gap 13 BUN 14 Creatinine 0.79 Estim Creat Clear Calc 77.1 Estimated GFR > 60 Random Glucose 196 H Lactic Acid Calcium 9.8 D Total Bilirubin 0.6 AST 24 ALT 31 Alkaline Phosphatase 98 Total Creatine Kinase 31 Troponin I High Sens Total Protein 8.1 H Albumin 3.6 Lipase 5 L Beta HCG, Quant Urine Color Urine Appearance Urine pH Ur Specific [place] Urine Protein Urine Glucose (UA) Urine Ketones Urine Blood Urine Nitrite Ur Leukocyte Esterase Urine RBC Urine WBC Ur Squamous Epith Cells Urine Bacteria Hyaline Casts Urine Test Random Vancomycin Urine Opiates Screen Urine Fentanyl Screen Ur Barbiturates Screen Ur Phencyclidine Scrn Ur Amphetamines Screen U Benzodiazepines Scrn Urine Cocaine Screen U Marijuana (THC) Screen COVID-19 (FRED) Negative COVID-19 Clin Com See Note 08/24/22 08/24/22 08/24/22 06:22 06:22 07:50 WBC RBC Hgb Hct MCV MCH MCHC RDW Plt Count MPV Immature Gran % (Auto) Neut % (Auto) Lymph % (Auto) [place] % (Auto) Eos % (Auto) Baso % (Auto) Lymph # (Auto) [place] # (Auto) Eos # (Auto) Baso # (Auto) Abs Immat Gran (auto) Absolute Neuts (auto) Absolute Nucleated RBC Nucleated RBC % (auto) Smear Tech's Comments Sodium Potassium Chloride Carbon Dioxide Anion Gap BUN Creatinine Estim Creat Clear Calc Estimated GFR Random Glucose Lactic Acid 1.8 Calcium Total Bilirubin AST ALT Alkaline Phosphatase Total Creatine Kinase Troponin I High Sens < 2.7 Total Protein Albumin Lipase Beta HCG, Quant < 2 Urine Color Urine Appearance Urine pH Ur Specific [place] Urine Protein Urine Glucose (UA) Urine Ketones Urine Blood Urine Nitrite Ur Leukocyte Esterase Urine RBC Urine WBC Ur Squamous Epith Cells Urine Bacteria Hyaline Casts Urine Test Random Vancomycin Urine Opiates Screen Urine Fentanyl Screen Ur Barbiturates Screen Ur Phencyclidine Scrn Ur Amphetamines Screen U Benzodiazepines Scrn Urine Cocaine Screen U Marijuana (THC) Screen COVID-19 (FRED) COVID-19 [facility] Com 08/24/22 08/24/22 08/24/22 22:50 22:50 22:50 WBC RBC Hgb Hct MCV MCH MCHC RDW Plt Count MPV Immature Gran % (Auto) Neut % (Auto) Lymph % (Auto) [place] % (Auto) Eos % (Auto) Baso % (Auto) Lymph # (Auto) [place] # (Auto) Eos # (Auto) Baso # (Auto) Abs Immat Gran (auto) Absolute Neuts (auto) Absolute Nucleated RBC Nucleated RBC % (auto) Smear Tech's Comments Sodium Potassium Chloride Carbon Dioxide Anion Gap BUN Creatinine Estim Creat Clear Calc Estimated GFR Random Glucose Lactic Acid Calcium Total Bilirubin AST ALT Alkaline Phosphatase Total Creatine Kinase Troponin I High Sens Total Protein Albumin Lipase Beta HCG, Quant Urine Color Yellow Urine Appearance Clear Urine pH 6.5 Ur Specific [place] >= 1.030 H Urine Protein Negative Urine Glucose (UA) >=1000 H Urine Ketones Negative Urine Blood Negative Urine Nitrite Negative Ur Leukocyte Esterase Negative Urine RBC 0-2 Urine WBC 0-5 Ur Squamous Epith Cells 0-2 Urine Bacteria None Seen Hyaline Casts 6-10 Urine Test NEGATIVE Random Vancomycin Urine Opiates Screen POSITIVE H Urine Fentanyl Screen POSITIVE H Ur Barbiturates Screen Not Detected Ur Phencyclidine Scrn Not Detected Ur Amphetamines Screen Not Detected U Benzodiazepines Scrn Not Detected Urine Cocaine Screen POSITIVE H U Marijuana (THC) Screen Not Detected COVID-19 (FRED) COVID-19 [facility] 08/25/22 08/25/22 08/25/22 06:09 06:09 06:09 WBC 36.4 H* RBC 4.56 Hgb 12.1 Hct 38.7 MCV 84.9 MCH 26.5 L MCHC 31.3 RDW 15.0 Plt Count 240 MPV 11.2 Immature Gran % (Auto) 2.3 H Neut % (Auto) 89.0 H Lymph % (Auto) 4.1 L [place] % (Auto) 4.3 Eos % (Auto) 0.0 Baso % (Auto) 0.3 Lymph # (Auto) 1.5 [place] # (Auto) 1.6 H Eos # (Auto) 0.0 Baso # (Auto) 0.1 Abs Immat Gran (auto) 0.82 H Absolute Neuts (auto) 32.4 H Absolute Nucleated RBC 0.000 Nucleated RBC % (auto) 0.0 Smear Tech's Comments VERIFIED Sodium 138 Potassium 3.9 Chloride 105 Carbon Dioxide 25 Anion Gap 12 BUN 14 Creatinine 0.78 Estim Creat Clear Calc 78.0 Estimated GFR > 60 Random Glucose 270 H Lactic Acid Calcium 10.6 H D Total Bilirubin AST ALT Alkaline Phosphatase Total Creatine Kinase Troponin I High Sens Total Protein Albumin Lipase Beta HCG, Quant Urine Color Urine Appearance Urine pH Ur Specific [place] Urine Protein Urine Glucose (UA) Urine Ketones Urine Blood Urine Nitrite Ur Leukocyte Esterase Urine RBC Urine WBC Ur Squamous Epith Cells Urine Bacteria Hyaline Casts Urine Test Random Vancomycin 5.9 L Urine Opiates Screen Urine Fentanyl Screen Ur Barbiturates Screen Ur Phencyclidine Scrn Ur Amphetamines Screen U Benzodiazepines Scrn Urine Cocaine Screen U Marijuana (THC) Screen COVID-19 (FRED) COVID-19 Clin Com Imaging Radiology Impressions: ITS Impressions Chest X-Ray 08/24/22 06:34 IMPRESSION: 1. Mild blunting of right CP angle question pleural effusion versus thickening. 2. Mild increase interstitial markings in bilateral perihilar region, question interstitial pneumonitis. Chest CTA 08/24/22 08:55 IMPRESSION: 1. No evidence of pulmonary emboli. 2. Right lower lobe infiltrate/atelectasis with small right pleural effusion with prominent right infrahilar lymph node, probably reactive. Findings would be compatible with pneumonia. 3. Probable enlarged fatty liver and mild splenomegaly. VTE: negative Medications Medications Current Medications Acetaminophen (Acetaminophen 325 Mg Tablet) 650 mg PO Q6H PRN PRN Reason: Pain, Mild, fever Last Admin: 08/25/22 05:53 Dose: 650 mg Albuterol Sulfate (Albuterol Sulfate (0.083%) 2.5 Mg/3 Ml Vial.Neb) 2.5 mg INHALE Q4H PRN PRN Reason: shortness of breath/wheezing Buprenorphine/Naloxone (Buprenorphine/Naloxone 2/0.5mg Film) 0.25 film SUBLINGUAL ONCE ONE Stop: 08/26/22 13:01 Docusate Sodium (Docusate Sodium 100 Mg Capsule) 100 mg PO BID GILDARDO Last Admin: 08/25/22 09:03 Dose: 100 mg Enoxaparin Sodium (Enoxaparin Sodium 40 Mg/0.4 Ml Syringe) 40 mg SUBCUT Q24H [facility] Last Admin: 08/25/22 09:04 Dose: Not Given Cefepime HCl 2 gm/ Sodium (Chloride) 50 mls @ 100 mls/hr IV Q8H [facility] Last Infusion: 08/25/22 09:45 Dose: Infused Vancomycin HCl 1,000 mg/ (Sodium Chloride) 270 mls @ 270 mls/hr IV Q8H [facility] Last Admin: 08/25/22 16:35 Dose: 270 mls/hr Methadone HCl (Methadone Hcl 20 Mg/2 Ml Oral.Conc) 10 mg PO DAILY PRN PRN Reason: Opiate Withdrawal Last Admin: 08/25/22 15:44 Dose: 10 mg Methadone HCl (Methadone Hcl 20 Mg/2 Ml Oral.Conc) 30 mg PO DAILY [facility] Methylprednisolone Sodium Succinate (Methylprednisolone Sod Succ 40 Mg/Ml Vial) 40 mg IVPUSH Q12H [facility] Last Admin: 08/25/22 09:45 Dose: 40 mg Nicotine (Nicotine 21 Mg Patch.Td24) 21 mg TRANSDERMA DAILY [facility] Last Admin: 08/25/22 09:04 Dose: Not Given Ondansetron HCl (Ondansetron Hcl 4 Mg/2 Ml Vial) 4 mg IVPUSH Q8H PRN PRN Reason: Nausea and Vomiting Pharmacy Consult (Consult Rx Perform Med Rec) 1 each MISCELLANE ONCE PRN PRN Reason: Consult order Pharmacy Consult (Consult Rx Vancomycin Dosing) 1 each MISCELLANE DAILY PRN PRN Reason: Consult order Sodium Chloride (0.9 % Sodium Chloride Flush 3 Ml Syringe) 3 ml IVFLUSH QSHIFT [facility] Last Admin: 08/25/22 09:06 Dose: 3 ml Allergies Allergies Allergy/AdvReac Type Severity Reaction Status Date / Time Penicillins [PENICILLINS] Allergy Mild THROAT Verified 07/29/21 20:45 [facility] Assessment & Plan Assessment & Plan (1) Opioid use disorder: Status: Acute Code(s): F11.90 - Opioid use, unspecified, uncomplicated Assessment and Plan: * methadone increased to 30mg QD tomorrow AM 08/26 * suboxone 0.5mg (/ film) tomorrow as well. * will continue to follow and enter additional suboxone dosing for the wkend and next week. Total time managing care of this patient today _25___ minutes.
[2022-08-25] MEDS: Ketorolac Tromethamine 30 MG/ML VIAL IVPUSH (19:39)
[2022-08-26] VITALS (8 sets, daily range): BP systolic 120–141; BP diastolic 62–93; PULSE 53–87; RESP 18–20; TEMP 36–37.1; O2SAT 92–99
[2022-08-26] MEDS: vancomycin HCL 1,000 MG in 0.9 % Sodium Chloride 250 ML 270 MG IV (00:24)
[2022-08-26] MEDS: 0.9 % Sodium Chloride Flush 3 ML SYRINGE IVFLUSH ×4 (00:25→22:17)
[2022-08-26] MEDS: Acetaminophen 325 MG TABLET 650 MG PO (00:34)
[2022-08-26] MEDS: cefEPime HCl 2 GM in 0.9 % Sodium Chloride 50 ML IV ×2 (01:33→10:42)
[2022-08-26 05:51] LABS: HIV AB/AG Nonreactive (Nonreactive); HIV Num 1 0.07 S/CO (0.00-0.99)
[2022-08-26 06:36] LABS: Basophils Absolute Auto 0.1 X10*3/uL (0.0-0.2); Basophils Percent Auto 0.2 % (0-2); Hematocrit 32.8 % (37.0-47.0); Hemoglobin 10.5 g/dl (12.0-16.0); Imm Gran Abs Auto 0.24 X10*3/uL (0.00-0.03); Lymphocytes Absolute Auto 1.5 X10*3/uL (1.2-4.9); Lymphocytes Percent Auto 5.8 % (20-40); MANUAL DIFF FLAG SCAN; Mean Corpuscular Hemoglobin 26.6 pg (27.0-33.0); Mean Platelet Volume 11.4 fL (9.4-12.3); Monocytes Absolute Auto 0.7 X10*3/uL (0.1-1.2); Monocytes Percent Auto 2.8 % (2-11); Neutrophils Absolute Auto 22.6 x10*3/uL (2.0-8.3); Neutrophils Percent Auto 90.2 % (45-73); Platelet Count 271 X10*3/uL (160-400); Red Blood Count 3.95 X10*6/uL (4.20-5.50); SCAN SMEAR FLAG 1
[2022-08-26 06:48] LABS: Vancomycin Random 13.3 mcg/mL (15-20)
[2022-08-26 06:51] LABS: Anion Gap 10 (12-20); Blood Urea Nitrogen 18 mg/dL (9-16); Calcium 9.5 mg/dL (8.4-10.2); Carbon Dioxide 25 mmol/L (22-29); Chloride 106 mmol/L (96-108); Creatinine Clr Calc Pharmacy 98.2; Estimated Glomerular Filt Rate > 60; Glucose Random 262 mg/dL (60-115); Potassium 4.2 mmol/L (3.3-5.1); Sodium 137 mmol/L (135-145)
[2022-08-26 07:02] LABS: SLIDE REVIEW VERIFIED
[2022-08-26] MEDS: vancomycin HCL 1,250 MG in 0.9 % Sodium Chloride 250 ML 166.67 MG IV ×3 (08:16→23:15)
[2022-08-26] MEDS: methADONE HCl 20 MG/2 ML ORAL.CONC 30 MG PO (08:16)
--- NOTE | 2022-08-26 10:30 | MHC.CM.PN ---
Per ROUNDS discussion, Patient is not yet medically cleared for dc (final cultures are pending). R/T Patient's drug history and likely need for LT IVABT, [facility] SNF may be the only option in this area for dc. CM will follow.
[2022-08-26] MEDS: methylPREDNISolone Sod Succ 40 MG/ML VIAL IVPUSH ×2 (10:42→22:17)
--- NOTE | 2022-08-26 12:56 | HO.PM.IMPN ---
Subjective Subjective Date of Service: 08/26/22 Interval History: pt seen and examined at bedside. no cute complaint. no overnight events. sob improving. cough improving. no cp, no abd pain, no n/v, no urinary symptoms. Physical Exam Vital Signs: Vital Signs: Last Vital Signs Temp 98.3 F 08/26/22 11:12 Pulse 79 08/26/22 11:12 Resp 20 08/26/22 11:12 BP 128/73 08/26/22 11:12 Pulse Ox 92 08/26/22 11:12 O2 Del Method Room Air 08/26/22 11:12 O2 Flow Rate 2 08/26/22 07:06 BMI result Body Mass Index 21.0 Const: Other: alert and oriented x3 Resp: Other: mild crackles in the right lower lobe Cardio: Other: normal rate and rhythm GI: Other: abdomen is soft, nontender Extrem: Other: normal appearing, no pedal edema Objective Data Active Medications Acetaminophen (Acetaminophen 325 Mg Tablet) 650 mg PO Q6H PRN PRN Reason: Pain, Mild, fever Last Admin: 08/26/22 00:34 Dose: 650 mg Documented By: MANN Albuterol Sulfate (Albuterol Sulfate (0.083%) 2.5 Mg/3 Ml Vial.Neb) 2.5 mg INHALE Q4H PRN PRN Reason: shortness of breath/wheezing Buprenorphine/Naloxone (Buprenorphine/Naloxone 2/0.5mg Film) 0.25 film SUBLINGUAL ONCE ONE Stop: 08/26/22 13:01 Docusate Sodium (Docusate Sodium 100 Mg Capsule) 100 mg PO BID [facility] Last Admin: 08/26/22 07:58 Dose: Not Given Documented By: SANTIAGO Non-Admin Reason: Patient Refused Enoxaparin Sodium (Enoxaparin Sodium 40 Mg/0.4 Ml Syringe) 40 mg SUBCUT Q24H [facility] Last Admin: 08/26/22 07:58 Dose: Not Given Documented By: SANTIAGO Non-Admin Reason: Patient Refused Cefepime HCl 2 gm/ Sodium (Chloride) 50 mls @ 100 mls/hr IV Q8H [facility] Last Infusion: 08/26/22 11:37 Dose: 0 mls/hr Documented By: SANTIAGO Vancomycin HCl 1,250 mg/ (Sodium Chloride) 250 mls @ 166.667 mls/hr IV Q8H [facility] Last Infusion: 08/26/22 10:48 Dose: 0 mls/hr Documented By: SANTIAGO Methadone HCl (Methadone Hcl 20 Mg/2 Ml Oral.Conc) 10 mg PO DAILY PRN PRN Reason: Opiate Withdrawal Last Admin: 08/25/22 15:44 Dose: 10 mg Documented By: GUTIERREZ Methadone HCl (Methadone Hcl 20 Mg/2 Ml Oral.Conc) 30 mg PO DAILY [facility] Last Admin: 08/26/22 08:16 Dose: 30 mg Documented By: SANTIAGO Methylprednisolone Sodium Succinate (Methylprednisolone Sod Succ 40 Mg/Ml Vial) 40 mg IVPUSH Q12H [facility] Last Admin: 08/26/22 10:42 Dose: 40 mg Documented By: SANTIAGO Nicotine (Nicotine 21 Mg Patch.Td24) 21 mg TRANSDERMA DAILY [facility] Last Admin: 08/26/22 07:58 Dose: Not Given Documented By: SANTIAGO Non-Admin Reason: Patient Refused Ondansetron HCl (Ondansetron Hcl 4 Mg/2 Ml Vial) 4 mg IVPUSH Q8H PRN PRN Reason: Nausea and Vomiting Pharmacy Consult (Consult Rx Perform Med Rec) 1 each MISCELLANE ONCE PRN PRN Reason: Consult order Pharmacy Consult (Consult Rx Vancomycin Dosing) 1 each MISCELLANE DAILY PRN PRN Reason: Consult order Sodium Chloride (0.9 % Sodium Chloride Flush 3 Ml Syringe) 3 ml IVFLUSH QSHIFT [facility] Last Admin: 08/26/22 08:16 Dose: 3 ml Documented By: SANTIAGO Labs 08/26/22 06:19 08/26/22 06:19 Labs: Laboratory Results - last 24 hr 08/24/22 08/25/22 08/26/22 07:50 06:09 06:19 MCV MCH MCHC RDW Plt Count MPV Immature Gran % (Auto) Neut % (Auto) Lymph % (Auto) [place] % (Auto) Eos % (Auto) Baso % (Auto) Lymph # (Auto) [place] # (Auto) Eos # (Auto) Baso # (Auto) Abs Immat Gran (auto) Absolute Neuts (auto) Absolute Nucleated RBC Nucleated RBC % (auto) Smear Tech's Comments Smear Path Review SEE NOTE Anion Gap Estim Creat Clear Calc Estimated GFR Random Glucose Calcium Random Vancomycin 13.3 L HIV 1&2 Ab/P24 Ag 4thGn Nonreactive 08/26/22 08/26/22 06:19 06:19 MCV 83.0 MCH 26.6 L MCHC 32.0 RDW 15.0 Plt Count 271 MPV 11.4 Immature Gran % (Auto) 1.0 H Neut % (Auto) 90.2 H Lymph % (Auto) 5.8 L [place] % (Auto) 2.8 Eos % (Auto) 0.0 Baso % (Auto) 0.2 Lymph # (Auto) 1.5 [place] # (Auto) 0.7 Eos # (Auto) 0.0 Baso # (Auto) 0.1 Abs Immat Gran (auto) 0.24 H Absolute Neuts (auto) 22.6 H Absolute Nucleated RBC 0.000 Nucleated RBC % (auto) 0.0 Smear Tech's Comments VERIFIED Smear Path Review Anion Gap 10 L Estim Creat Clear Calc 98.2 Estimated GFR > 60 Random Glucose 262 H Calcium 9.5 D Random Vancomycin HIV 1&2 Ab/P24 Ag 4thGn Microbiology Microbiology Results: Microbiology 08/24/22 06:21 Blood Culture - Preliminary Blood - Venous Staphylococcus aureus 08/24/22 06:19 Blood Culture - Preliminary Blood - Venous Staphylococcus aureus 08/24/22 21:10 Gram Stain - Final Sputum - Expectorated Sputum Culture - Preliminary Assessment and Plan (1) Sepsis: Status: Acute (2) Pneumonia: Status: Acute (3) Opioid use disorder: Status: Acute (4) Leukocytosis: Status: Acute Plan 37-year-old female with history of polysubstance abuse, history septic joint who is a current everyday smoker admitted for RLL pneumonia with sepsis. # Sepsis secondary to RLL pneumonia and GPC bacteremia - resolving - WBC remains elevated likely due to steroids. No hypotension, no tachycardia or tachypnea - Secondary to right lower lobe pneumonia question of interstitial pneumonitis - blood cultures growing 2/2 GPC - pending final cultures - continue IV cefepime and vancomycin - IV solu-medrol 40 mg b.i.d. - albuterol p.r.n. - Sputum culture, Legionella antigen, strep antigen pending - ID consulted # Acute respiratory failure with hypoxia - improveing, on 2L of O2 at this time - r/t above pneumonia - wean oxygen off as tolerated # Acute toxic metabolic encephalopathy - likely r/t infection as well as substance use. resolved # Polysubstance abuse - tox screen + for cocaine, fentanyl, optiates - h/o HCV, HIV screen pending - seen by addiction medicine, started on methadone # Nicotine dependence - NRT replacement - smoking cessation advised DVT prophylaxis-Lovenox Full code Patient requires inpatient stay at least 2 midnights for management of pneumonia with sepsis and acute toxic metabolic encephalopathy requiring close monitoring of mentation and vitals to prevent decompensation as well as management with IV antibiotics. Time Spent With Patient Time: Total time managing care of this patient today ____ minutes. Quality Stroke Does the patient have a stroke diagnosis?: No VTE Prior VTE?: No VTE Risk Level:: Medical - moderate - high VTE Device Contraindication: Treatment Not Indicated VTE Drug Contraindication: N/A - Med Ordered
[2022-08-26] MEDS: Buprenorphine/Naloxone 2/0.5mg FILM 0.25 FILM SUBLINGUAL (13:17)
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
[2022-08-26] MEDS: Ketorolac Tromethamine 15 MG/ML VIAL IVPUSH (14:36)
[2022-08-26] MEDS: methADONE HCl 20 MG/2 ML ORAL.CONC 10 MG PO (15:07)
--- NOTE | 2022-08-26 17:15 | W.PM.IDCN ---
History of Present Illness Data of Consult Service Date: 08/26/22 Requesting physician: Flavio Edmond Primary Care Provider: Unknown Physician HPI Reason for consult: sepsis,MRSA possible She presents with weakness and fever and chills and mild abdominal discomfort for last two days. She has staph aureus blood cultures. She has had MRSA right knee in past. Review of Systems Review of Systems: Yes all other systems are reviewed and are negative PMFSH Past Medical History Medical History Hepatitis C Opiate dependence Opioid use disorder Tobacco dependence Family History Family history: reviewed and not pertinent Social History Social History Household Members: None Housing: Homeless Do you presently have visiting nurse or other home services: No Alcohol intake: current Alcohol intake frequency: holidays/special occasions only Patient Tobacco Use Status: Current everyday Tobacco user Tobacco use type: Cigarette Cigarette Packs Per Day: 1 Cigarettes Per Day: 20.0 Smoked in Last 30 Days: Yes Patient Interested in Nicotine Replacement: Yes Use of substances other than those prescribed or required for medical reasons: Yes Substance Use Type: Crack/Cocaine and Heroin Substance Use Frequency: Chronic Longstanding Last Used Substance: Just Prior to Admission Currently Displaying Signs/Symptoms of Drug Intoxication Withdrawal: No Any prior treatment program specific to substance use: Yes ([facility]) Have you been hit, kicked, punched, or otherwise hurt by someone within the past year? If so, by whom?: No Do you feel safe in your current relationship?: Yes Is there a partner from a previous relationship who is making you feel unsafe now?: No Are you made to feel afraid or neglected: No Advance Directives: No Advance Directives Information Provided: Yes Do you have thoughts of harming others: None Do you have a plan to hurt others: No Plan Recently lost weight without trying: Yes How much weight loss: 2-13 pounds Eating poorly because of decreased appetite: Yes Nutrition screen score: 4 Patient : No : No Poor oral hygiene: No service: No Current occupational status: unemployed Meds Allergies Allergy/AdvReac Type Severity Reaction Status Date / Time Penicillins [PENICILLINS] Allergy Mild THROAT Verified 07/29/21 20:45 SWELLS Active Medications: Current Medications Acetaminophen (Acetaminophen 325 Mg Tablet) 650 mg PO Q6H PRN PRN Reason: Pain, Mild, fever Last Admin: 08/26/22 00:34 Dose: 650 mg Albuterol Sulfate (Albuterol Sulfate (0.083%) 2.5 Mg/3 Ml Vial.Neb) 2.5 mg INHALE Q4H PRN PRN Reason: shortness of breath/wheezing Docusate Sodium (Docusate Sodium 100 Mg Capsule) 100 mg PO BID [facility] Last Admin: 08/26/22 07:58 Dose: Not Given Enoxaparin Sodium (Enoxaparin Sodium 40 Mg/0.4 Ml Syringe) 40 mg SUBCUT Q24H [facility] Last Admin: 08/26/22 07:58 Dose: Not Given Cefepime HCl 2 gm/ Sodium (Chloride) 50 mls @ 100 mls/hr IV Q8H [facility] Last Infusion: 08/26/22 11:37 Dose: Infused Vancomycin HCl 1,250 mg/ (Sodium Chloride) 250 mls @ 166.667 mls/hr IV Q8H [facility] Last Admin: 08/26/22 15:52 Dose: 166.67 mls/hr Methadone HCl (Methadone Hcl 20 Mg/2 Ml Oral.Conc) 10 mg PO DAILY PRN PRN Reason: Opiate Withdrawal Last Admin: 08/26/22 15:07 Dose: 10 mg Methadone HCl (Methadone Hcl 20 Mg/2 Ml Oral.Conc) 45 mg PO DAILY [facility] Methylprednisolone Sodium Succinate (Methylprednisolone Sod Succ 40 Mg/Ml Vial) 40 mg IVPUSH Q12H [facility] Last Admin: 08/26/22 10:42 Dose: 40 mg Nicotine (Nicotine 21 Mg Patch.Td24) 21 mg TRANSDERMA DAILY [facility] Last Admin: 08/26/22 07:58 Dose: Not Given Ondansetron HCl (Ondansetron Hcl 4 Mg/2 Ml Vial) 4 mg IVPUSH Q8H PRN PRN Reason: Nausea and Vomiting Pharmacy Consult (Consult Rx Perform Med Rec) 1 each MISCELLANE ONCE PRN PRN Reason: Consult order Pharmacy Consult (Consult Rx Vancomycin Dosing) 1 each MISCELLANE DAILY PRN PRN Reason: Consult order Sodium Chloride (0.9 % Sodium Chloride Flush 3 Ml Syringe) 3 ml IVFLUSH QSHIFT [facility] Last Admin: 08/26/22 14:37 Dose: 3 ml Home Medications Medication Instructions Recorded Confirmed Last Taken Type No Known Home Meds 08/24/22 08/24/22 Unknown History Physical Exam Vital Signs: Vital Signs: Last Vital Signs Temp 98.6 F 08/26/22 15:24 Pulse 73 08/26/22 15:24 Resp 18 08/26/22 15:24 BP 138/87 08/26/22 15:24 Pulse Ox 97 08/26/22 15:24 O2 Del Method Nasal Cannula 08/26/22 15:24 O2 Flow Rate 2 08/26/22 15:24 BMI result Body Mass Index 21.0 Const: General: cooperative HEENT: Head: Yes normal to inspection Face and sinus: Yes normal facial exam Mouth: Normal oral and palatal mucosa present Teeth and gingiva: dentition normal Eyes: General: appearance normal, both eyes and all related structures Pupils: Equal, round and reactive pupils present Resp: Effort & Inspection: normal respiratory effort Cardio: Other: 2/6 JV Rate: regular rate Rhythm: regular rhythm GI: Palpation (GI): Soft to palpation and nontender : General: Yes no CVA tenderness Back/Spine/Pelvis: Back: no CVA tenderness Skin: General skin exam: no rashes or lesions noted Neuro: General: moves all extremities Cranial nerves: Yes Equal, round and reactive pupils present Extrem: General: Yes normal to inspection Psych: Appearance: grossly normal Results Labs 08/26/22 06:19 08/26/22 06:19 Labs: Short CBC 08/26/22 Range/Units 06:19 WBC 25.0 H (4.8-10.8) X10*3/uL Hgb 10.5 L (12.0-16.0) g/dl Hct 32.8 L (37.0-47.0) % Plt Count 271 (160-400) X10*3/uL BMP 08/26/22 06:19 Sodium 137 Potassium 4.2 Chloride 106 Carbon Dioxide 25 BUN 18 H Creatinine 0.62 Calcium 9.5 D Microbiology Microbiology Results: Microbiology 08/24/22 06:21 Blood - Venous Blood Culture - Preliminary Staphylococcus aureus 08/24/22 06:19 Blood - Venous Blood Culture - Preliminary Staphylococcus aureus 08/24/22 21:10 Sputum - Expectorated Gram Stain - Final 08/24/22 21:10 Sputum - Expectorated Sputum Culture - Preliminary Assessment and Plan (1) Bacteremia: Status: Acute She has possible MRSA bacteremia Back pain may represent spine infection. She has Hepatitis C Plan Check HIV Vancomycin Check echo. MRI LS spine evaluate osteomyelitis. Time Spent With Patient Time: Total time managing care of this patient today ____ minutes.
[2022-08-26] MEDS: Morphine Sulfate 2 MG/ML CARTRIDGE IVPUSH (17:31)
[2022-08-26] MEDS: Docusate Sodium 100 MG CAPSULE PO (22:17)
[2022-08-27 03:07] VITALS: BP 138/79; PULSE 77; RESP 18; TEMP 37.1; O2SAT 97
[2022-08-27 07:21] VITALS: BP 143/83; PULSE 89; RESP 20; TEMP 37.2; O2SAT 95
[2022-08-27] MEDS: vancomycin HCL 1,250 MG in 0.9 % Sodium Chloride 250 ML 166.67 MG IV (07:48)
[2022-08-27] MEDS: 0.9 % Sodium Chloride Flush 3 ML SYRINGE IVFLUSH ×3 (07:49→21:58)
[2022-08-27 08:55] LABS: Creatinine Clr Calc Pharmacy 103.2; Estimated Glomerular Filt Rate > 60
[2022-08-27] MEDS: Acetaminophen 325 MG TABLET 650 MG PO (08:57)
[2022-08-27] MEDS: methADONE HCl 20 MG/2 ML ORAL.CONC 45 MG PO (08:58)
[2022-08-27] MEDS: Docusate Sodium 100 MG CAPSULE PO ×2 (08:59→21:57)
--- NOTE | 2022-08-27 11:12 | MHC.RECOVRN ---
Met with pt in 471 to assess for withdrawal and discuss MOUD plan. Pt laying in bed, eyes closed, wakes to voice, easily engages in conversation. Pt reports precipitated withdrawal occurred yesterday after Suboxone administration. Pt reports prior to Suboxone, was feeling well with methadone dose. Pt received 45 mg methadone this morning, denies withdrawal symptoms at this time. Pt would like to continue methadone and be connected to an OTP. Pt has EBT card with photo which will be accepted as ID for OTP. Plan to continue methadone and refer to OTP once dispo is finalized.
--- NOTE | 2022-08-27 11:16 | P.PNIM_ITS ---
Subjective Subjective Date of Service: 08/27/22 Interval History: Patient seen and examined at bedside. patient has been complaining of back pain since yesterday afternoon. She feels that he may be related to her laying in bed. No overnight events. Reports no nausea or vomiting, no abdominal pain, improving shortness of breath and cough, no overnight events Physical Exam Vital Signs: Vital Signs: Last Vital Signs Temp 98.9 F 08/27/22 07:21 Pulse 89 08/27/22 07:21 Resp 20 08/27/22 07:21 BP 143/83 H 08/27/22 07:21 Pulse Ox 95 08/27/22 07:21 O2 Del Method Nasal Cannula 08/27/22 07:21 O2 Flow Rate 2 08/27/22 07:21 BMI result Body Mass Index 21.0 Const: Other: Patient awake alert oriented x3 Resp: Other: Normal respiratory rate and effort Cardio: Other: Regular rate and rhythm GI: Other: Abdomen is soft, nontender no rebound or guarding Extrem: Other: Lower extremity edema No tenderness on back exam Objective Data Active Medications Acetaminophen (Acetaminophen 325 Mg Tablet) 650 mg PO Q6H PRN PRN Reason: Pain, Mild, fever Last Admin: 08/27/22 08:57 Dose: 650 mg Documented By: SIDNEY Albuterol Sulfate (Albuterol Sulfate (0.083%) 2.5 Mg/3 Ml Vial.Neb) 2.5 mg INHALE Q4H PRN PRN Reason: shortness of breath/wheezing Docusate Sodium (Docusate Sodium 100 Mg Capsule) 100 mg PO BID [facility] Last Admin: 08/27/22 08:59 Dose: 100 mg Documented By: SIDNEY Enoxaparin Sodium (Enoxaparin Sodium 40 Mg/0.4 Ml Syringe) 40 mg SUBCUT Q24H [facility] Last Admin: 08/27/22 10:59 Dose: Not Given Documented By: SIDNEY Non-Admin Reason: Patient Refused Vancomycin HCl 1,250 mg/ (Sodium Chloride) 250 mls @ 166.667 mls/hr IV Q8H [facility] Last Infusion: 08/27/22 09:36 Dose: 0 mls/hr Documented By: SIDNEY Methadone HCl (Methadone Hcl 20 Mg/2 Ml Oral.Conc) 10 mg PO DAILY PRN PRN Reason: Opiate Withdrawal Last Admin: 08/26/22 15:07 Dose: 10 mg Documented By: COTCHEYANNE Methadone HCl (Methadone Hcl 20 Mg/2 Ml Oral.Conc) 45 mg PO DAILY [facility] Last Admin: 08/27/22 08:58 Dose: 45 mg Documented By: SIDNEY Methylprednisolone Sodium Succinate (Methylprednisolone Sod Succ 40 Mg/Ml Vial) 40 mg IVPUSH Q12H [facility] Last Admin: 08/26/22 22:17 Dose: 40 mg Documented By: GILDA Nicotine (Nicotine 21 Mg Patch.Td24) 21 mg TRANSDERMA DAILY [facility] Last Admin: 08/27/22 08:59 Dose: Not Given Documented By: SIDNEY Non-Admin Reason: Patient Refused Ondansetron HCl (Ondansetron Hcl 4 Mg/2 Ml Vial) 4 mg IVPUSH Q8H PRN PRN Reason: Nausea and Vomiting Pharmacy Consult (Consult Rx Perform Med Rec) 1 each MISCELLANE ONCE PRN PRN Reason: Consult order Pharmacy Consult (Consult Rx Vancomycin Dosing) 1 each MISCELLANE DAILY PRN PRN Reason: Consult order Sodium Chloride (0.9 % Sodium Chloride Flush 3 Ml Syringe) 3 ml IVFLUSH QSHIFT [facility] Last Admin: 08/27/22 07:49 Dose: 3 ml Documented By: SIDNEY Labs 08/26/22 06:19 08/27/22 07:57 Labs: Laboratory Results - last 24 hr 08/25/22 08/27/22 06:09 07:57 Smear Path Review SEE NOTE Estim Creat Clear Calc 103.2 Estimated GFR > 60 Microbiology Microbiology Results: Microbiology 08/24/22 21:10 Gram Stain - Final Sputum - Expectorated Sputum Culture - Preliminary Streptococcus pyogenes (Grp A) 08/24/22 06:21 Blood Culture - Final Blood - Venous Methicillin Res Staph Aureus 08/24/22 06:19 Blood Culture - Final Blood - Venous Methicillin Res Staph Aureus Assessment and Plan (1) Back pain: Status: Acute (2) Bacteremia: Status: Acute (3) Pneumonia: Status: Acute (4) Sepsis: Status: Acute Plan 37-year-old female with history of polysubstance abuse, history septic joint who is a current everyday smoker admitted for RLL pneumonia with sepsis. # Sepsis secondary to RLL pneumonia and GPC bacteremia - sepsis resolving - continues to have leukocytosis. - Secondary to right lower lobe pneumonia question of interstitial pneumonitis - now with back pain- concerning for Osteomyelitis - Blood cultures growing MRSA, Sputum cultures shows strep pyogenes - continue IV cefepime and vancomycin - IV solu-medrol 40 mg b.i.d. - ID consulted - recommending HIV and MRI of LS - ordered # Acute respiratory failure with hypoxia - improving, on 2L of O2 at this time - r/t above pneumonia - wean oxygen off as tolerated # Acute toxic metabolic encephalopathy -resolved - likely r/t infection as well as substance use. resolved # Polysubstance abuse - tox screen + for cocaine, fentanyl, optiates - h/o HCV, HIV screen pending - seen by addiction medicine, started on methadone # Nicotine dependence - NRT replacement - smoking cessation advised DVT prophylaxis-Lovenox Full code Patient requires inpatient stay at least 2 midnights for management of jess teremia and need for IV abx Time Spent With Patient Time: Total time managing care of this patient today ____ minutes. Quality Stroke Does the patient have a stroke diagnosis?: No VTE Prior VTE?: No VTE Risk Level:: Medical - moderate - high VTE Device Contraindication: Treatment Not Indicated VTE Drug Contraindication: N/A - Med Ordered
[2022-08-27] MEDS: methylPREDNISolone Sod Succ 40 MG/ML VIAL IVPUSH ×2 (11:21→21:57)
[2022-08-27] MEDS: Ketorolac Tromethamine 15 MG/ML VIAL IVPUSH ×2 (12:46→18:13)
[2022-08-27 12:54] VITALS: BP 125/78; PULSE 86; RESP 20; TEMP 36.8; O2SAT 99
[2022-08-27 15:00] LABS: Vancomycin Random 18.9 mcg/mL (15-20)
--- NOTE | 2022-08-27 15:09 | HE.PHANOTE ---
Vancomycin Dosing Level jump to 18.9 today. Will decrease dose to vancomycin 1000 mg Q8h. Next level scheduled for 08/28 @ 1400. Christian GuthrieD
[2022-08-27 15:40] VITALS: BP 135/85; PULSE 89; RESP 20; TEMP 37.2; O2SAT 94
[2022-08-27] MEDS: vancomycin HCL 1,000 MG in 0.9 % Sodium Chloride 250 ML 270 MG IV (16:06)
[2022-08-27 19:53] VITALS: BP 144/84; PULSE 50; RESP 18; TEMP 36.2; O2SAT 96
[2022-08-27 23:33] VITALS: BP 148/93; PULSE 55; RESP 17; TEMP 36.3; O2SAT 95
[2022-08-28] MEDS: Ketorolac Tromethamine 15 MG/ML VIAL IVPUSH (00:08)
[2022-08-28] MEDS: vancomycin HCL 1,000 MG in 0.9 % Sodium Chloride 250 ML 270 MG IV ×2 (00:09→08:08)
[2022-08-28 03:31] VITALS: BP 133/84; PULSE 51; RESP 18; TEMP 36.3; O2SAT 97
[2022-08-28 07:01] LABS: Creatinine Clr Calc Pharmacy 93.7; Estimated Glomerular Filt Rate > 60
[2022-08-28 08:00] VITALS: BP 153/90; PULSE 57; RESP 19; TEMP 37.2; O2SAT 97
[2022-08-28] MEDS: methylPREDNISolone Sod Succ 40 MG/ML VIAL 20 MG IVPUSH ×2 (08:07→20:01)
[2022-08-28] MEDS: Docusate Sodium 100 MG CAPSULE PO (08:07)
[2022-08-28] MEDS: methADONE HCl 20 MG/2 ML ORAL.CONC 45 MG PO (08:08)
[2022-08-28] MEDS: 0.9 % Sodium Chloride Flush 3 ML SYRINGE IVFLUSH ×2 (08:08→20:01)
[2022-08-28 08:59] LABS: Hematocrit 36.1 % (37.0-47.0); Hemoglobin 11.7 g/dl (12.0-16.0); Mean Corpuscular HGB Conc 32.4 g/dl (31.0-35.0); Mean Corpuscular Hemoglobin 26.3 pg (27.0-33.0); Mean Corpuscular Volume 81.1 fL (80.0-98.0); Mean Platelet Volume 11.4 fL (9.4-12.3); Platelet Count 367 X10*3/uL (160-400); Red Blood Count 4.45 X10*6/uL (4.20-5.50); Red Cell Distribution Width 14.8 % (11.0-16.0); White Blood Count 12.9 X10*3/uL (4.8-10.8)
[2022-08-28] MEDS: traMADoL HCL 50 MG TABLET PO ×2 (09:54→14:15)
--- NOTE | 2022-08-28 10:06 | MHC.RECOVRN ---
OTP referral placed to [facility]. Once final dispo/STR is confirmed, referral will need to be sent to that OTP as well. Will continue to follow.
--- NOTE | 2022-08-28 11:13 | HO.PM.IMPN ---
Subjective Subjective Date of Service: 08/28/22 Interval History: Seen and evaluated Denies any fever or chills Has ribs pain, partially controlled Blood Cx growing MRSA no other overnight events Review of Systems Review of Systems: Yes all other systems are reviewed and are negative Physical Exam Vital Signs: Vital Signs: Last Vital Signs Temp 99.0 F 08/28/22 08:00 Pulse 57 08/28/22 08:00 Resp 19 08/28/22 08:00 BP 153/90 H 08/28/22 08:00 Pulse Ox 97 08/28/22 08:00 O2 Del Method Room Air 08/28/22 08:00 O2 Flow Rate 2 08/27/22 07:21 BMI result Body Mass Index 21.0 Const: Other: Constitutional : Awake, interactive, not in distress Neck : Normal inspection, Supple Cardiovascular : RRR, no JVP, no lower extremity edema Respiratory : good bilateral air entry, no crackles, wheezes or rhonchi Gastrointestinal: soft, lax, Normal bowel sounds, Non tender Skin : Warm, Dry Neurological : Alert & oriented x3, No focal deficit Objective Data Active Medications Acetaminophen (Acetaminophen 325 Mg Tablet) 650 mg PO Q6H PRN PRN Reason: Pain, Mild, fever Last Admin: 08/27/22 08:57 Dose: 650 mg Documented By: SIDNEY Albuterol Sulfate (Albuterol Sulfate (0.083%) 2.5 Mg/3 Ml Vial.Neb) 2.5 mg INHALE Q4H PRN PRN Reason: shortness of breath/wheezing Docusate Sodium (Docusate Sodium 100 Mg Capsule) 100 mg PO BID [facility] Last Admin: 08/28/22 08:07 Dose: 100 mg Documented By: SIDNEY Enoxaparin Sodium (Enoxaparin Sodium 40 Mg/0.4 Ml Syringe) 40 mg SUBCUT Q24H [facility] Last Admin: 08/28/22 10:55 Dose: Not Given Documented By: SIDNEY Non-Admin Reason: Patient Refused Guaifenesin/Dextromethorphan (Guaifenesin Dm 100/10/5 Ml 5 Ml Syrup) 5 ml PO Q4H PRN PRN Reason: cough Vancomycin HCl 1,000 mg/ (Sodium Chloride) 270 mls @ 270 mls/hr IV Q8H [facility] Last Infusion: 08/28/22 10:58 Dose: 0 mls/hr Documented By: SIDNEY Methadone HCl (Methadone Hcl 20 Mg/2 Ml Oral.Conc) 10 mg PO DAILY PRN PRN Reason: Opiate Withdrawal Last Admin: 08/26/22 15:07 Dose: 10 mg Documented By: COTEMA Methadone HCl (Methadone Hcl 20 Mg/2 Ml Oral.Conc) 45 mg PO DAILY [facility] Last Admin: 08/28/22 08:08 Dose: 45 mg Documented By: SIDNEY Methylprednisolone Sodium Succinate (Methylprednisolone Sod Succ 40 Mg/Ml Vial) 20 mg IVPUSH BID [facility] Last Admin: 08/28/22 08:07 Dose: 20 mg Documented By: SIDNEY Nicotine (Nicotine 21 Mg Patch.Td24) 21 mg TRANSDERMA DAILY [facility] Last Admin: 08/28/22 08:09 Dose: Not Given Documented By: SIDNEY Non-Admin Reason: Patient Refused Ondansetron HCl (Ondansetron Hcl 4 Mg/2 Ml Vial) 4 mg IVPUSH Q8H PRN PRN Reason: Nausea and Vomiting Pharmacy Consult (Consult Rx Perform Med Rec) 1 each MISCELLANE ONCE PRN PRN Reason: Consult order Pharmacy Consult (Consult Rx Vancomycin Dosing) 1 each MISCELLANE DAILY PRN PRN Reason: Consult order Sodium Chloride (0.9 % Sodium Chloride Flush 3 Ml Syringe) 3 ml IVFLUSH QSHIFT [facility] Last Admin: 08/28/22 08:08 Dose: 3 ml Documented By: SIDNEY Tramadol HCl (Tramadol Hcl 50 Mg Tablet) 50 mg PO Q4H PRN PRN Reason: Pain, Severe (Pain Scale 7-10) Last Admin: 08/28/22 09:54 Dose: 50 mg Documented By: SIDNEY Labs 08/28/22 07:37 08/28/22 06:39 Labs: Laboratory Results - last 24 hr 08/27/22 08/28/22 08/28/22 14:35 06:39 07:37 MCV 81.1 MCH 26.3 L MCHC 32.4 RDW 14.8 Plt Count 367 D MPV 11.4 Absolute Nucleated RBC 0.000 Nucleated RBC % (auto) 0.0 Estim Creat Clear Calc 93.7 Estimated GFR > 60 Random Vancomycin 18.9 Microbiology Microbiology Results: Microbiology 08/24/22 21:10 Gram Stain - Final Sputum - Expectorated Sputum Culture - Final Streptococcus pyogenes (Grp A) 08/24/22 06:19 Blood Culture - Preliminary Blood - Venous Methicillin Res Staph Aureus 08/24/22 06:21 Blood Culture - Final Blood - Venous Methicillin Res Staph Aureus Assessment and Plan (1) Bacteremia: Status: Acute (2) Pneumonia: Status: Acute (3) Sepsis: Status: Acute (4) Opioid use disorder: Status: Acute Plan 37-year-old female with history of polysubstance abuse, history septic joint who is a current everyday smoker admitted for RLL pneumonia with sepsis. # Sepsis secondary to RLL pneumonia and MRSA bacteremia sepsis resolved WBCs trending down reporting back pain- concerning for Osteomyelitis Blood cultures growing MRSA, Sputum cultures shows strep pyogenes repeat blood cultures continue IV vancomycin IV solu-medrol 20 mg b.i.d. ID consulted - recommending HIV and MRI of LS # Acute respiratory failure with hypoxia 2/2 PNA resolved # Acute toxic metabolic encephalopathy 2/2 Drugs and sepsis resolved # Polysubstance abuse tox screen + for cocaine, fentanyl, optiates h/o +ve HCV, HIV screen -ve seen by addiction medicine, started on methadone # Nicotine dependence NRT replacement smoking cessation advised DVT prophylaxis Lovenox Full code Patient requires inpatient stay overnight for management of bacteremia and need for IV abx Time Spent With Patient Time: Total time managing care of this patient today ____ minutes. Quality Stroke Does the patient have a stroke diagnosis?: No VTE Prior VTE?: No VTE Risk Level:: Medical - moderate - high VTE Device Contraindication: Treatment Not Indicated VTE Drug Contraindication: N/A - Med Ordered
[2022-08-28 11:23] VITALS: BP 141/89; PULSE 51; RESP 20; TEMP 36.9; O2SAT 97
[2022-08-28 15:45] VITALS: BP 132/81; PULSE 53; RESP 20; TEMP 36.6; O2SAT 97
--- NOTE | 2022-08-28 16:16 | HE.PHANOTE ---
Vancomycin Dosing Level decrease from 18.9 to 18 after decrease in dose. Due to the small decrease, will decrease dose to vancomycin 750 mg Q8H and get another trough in 24 hours. New expected AUC 434. Pharmacy will continue to monitor renal function daily. Maggie Lees, PharmD
[2022-08-28 19:32] VITALS: BP 109/59; PULSE 62; RESP 18; TEMP 37; O2SAT 98
[2022-08-28 23:00] VITALS: BP 121/82; PULSE 55; RESP 18; TEMP 36.4; O2SAT 96
[2022-08-29] MEDS: traMADoL HCL 50 MG TABLET PO ×3 (03:11→23:33)
[2022-08-29 03:36] VITALS: BP 108/76; PULSE 54; RESP 18; TEMP 36.7; O2SAT 98
--- NOTE | 2022-08-29 07:00 | CA_ITS ---
Transthoracic Echocardiogram Patient (Last, First, Middle): Maggie Rosa, Gender: Female Date of : 1985 Age: 37 Procedure Date: 08/29/2022 Procedure Type: Transthoracic Echocardiogram Location: [facility] [place] Height: 157.48 cm Weight: 52.16 kg BSA: 1.51 m2 Heart Rate: 64 bpm BP: 115 / 76 mmHg Director Digital Marketing: SB Referring MD: Maco Ayala MD Symptoms: MRSA Bacteremia, back pain, R O vegetations. Study Quality: Adequate ECG Rhythm: Sinus Conclusions: - The left ventricular systolic function is normal. The calculated ejection fraction is 57% by biplane method. - No obvious valvular pathology seen on this study. Findings Left Ventricle Normal left ventricular cavity size. There is normal left ventricular wall thickness. The left ventricular systolic function is normal. The calculated ejection fraction is 57% by biplane method. There is no evidence of regional wall motion abnormalities. Diastolic function is normal for age. LV peak GLS -16.5% (mildly reduced). Right Ventricle Normal right ventricular cavity size and systolic function. Atria Both atria are normal in size. Aortic Valve There is a normal trileaflet aortic valve. There is no aortic valve stenosis. There is no aortic valve regurgitation. Mitral Valve The mitral valve appears normal. There is no mitral valve regurgitation. There is no mitral valve stenosis. Pulmonic Valve The pulmonic valve is likely normal. Tricuspid Valve Normal tricuspid valve structure. There is trace tricuspid valve regurgitation. There is no evidence of pulmonary hypertension. Great Vessels The asc aorta is normal in size. Venous The inferior vena cava is normal in size and collapses greater than 50% with inspiration. Pericardium/Pleural There is a small loculated pericardial effusion overlying the right atrium. Prior Study Comparison No prior study available for comparison. Recommendations, Care & Conclusions No obvious valvular pathology seen on this study. Measurements 2D Linear Measurements IVSd: 0.80 0.6-0.9/0.6-1.0 cm LVIDd: 3.86 3.9-5.3/4.2-5.9 cm LVIDd Index: 2.56 2.4-3.2/2.2-3.1 cm/m2 LVIDs: 2.96 2.0-3.6 cm LVPWd: 0.72 0.7-1.1 cm LA Diam: 2.70 2.7-3.8/3.0-4.0 cm LAIDs Index: 1.79 1.5-2.3 cm/m2 LV Mass: 101.96 67-162/88-224 g LV Mass Index: 67.52 43-95/49-115 g/m2 LVOT Diam: 2.00 3.0+(-)1.3 cm 2D Systolic Function EF 4C: 56.70 >55% EF 2C: 58.50 >55% EF BiP: 56.50 >55% Mitral Valve MV Pk E: 0.59 MV PK A: 0.61 MV Decel Time: 213.00 E/A: 1.00 E'Lateral: 12.10 E'Medial: 8.70 E/E' Med: 6.80 E/E' Lat: 4.90 PHT: 62.00 MVA PHT: 3.55 Decel Routt: 2.76 Aortic Valve AoV Pk Nguyễn: 1.20 AoV Pk Grad: 6.00 FADY: 3.67 LVOT LVOT Pk Nguyễn: 1.26 LVOT Mn Nguyễn: 0.86 LVOT VTI: 0.23 LVOT Pk Grad: 6.00 LVOT Mn Grad: 3.00 LVOT Diam: 2.00 LVOT Area: 3.14 Diastolic Function MV Pk E: 0.59 MV Pk A: 0.61 E/A: 1.00 E'Medial: 8.70 E/E' Med: 6.80 E' Laterial: 12.10 E/E' Lat: 4.90 Right Ventricle TAPSE (mm): 17.80 TVS' Nguyễn: 11.90 Tricuspid Valve TR Pk Nguyễn: 2.14 TR Pk Grad: 18.00 RA Press: 3.00 RVSP: 21.00 Great Vessels Aorta Sinus of Valsalva: 2.60 2.0-3.5 cm Ao Asc: 2.50 2.1-3.4 cm Pulmonary Veins Pulm Vein S/D 1.30 Pulmonary Valve PV Pk Nguyễn: 1.05 Peak PV Grad: 4.00 Updated in Other Vendor System with Status of Final Rboert Alexandre MD electronically signed on 08/29/2022 4:51:29 PM with status of Final
[2022-08-29 07:11] VITALS: BP 115/76; PULSE 70; RESP 20; TEMP 36.2; O2SAT 97
[2022-08-29] MEDS: methADONE HCl 20 MG/2 ML ORAL.CONC 50 MG PO (08:18)
[2022-08-29] MEDS: methylPREDNISolone Sod Succ 40 MG/ML VIAL 20 MG IVPUSH (08:18)
[2022-08-29] MEDS: vancomycin HCL 750 MG in 0.9 % Sodium Chloride 250 ML 265 MG IV (08:19)
[2022-08-29 08:39] LABS: Creatinine Clr Calc Pharmacy 96.6; Estimated Glomerular Filt Rate > 60
[2022-08-29 10:05] LABS: HIV AB/AG Nonreactive (Nonreactive); HIV Num 1 0.07 S/CO (0.00-0.99)
[2022-08-29 11:21] VITALS: BP 111/76; PULSE 64; RESP 20; TEMP 36.5; O2SAT 96
--- NOTE | 2022-08-29 11:51 | MHC.RECOVRN ---
Notified by CM that pt will be transferring to [facility] on 08/31 or 09/01. OTP referral sent to [facility].
--- NOTE | 2022-08-29 12:38 | P.PNIM_ITS ---
Subjective Subjective Date of Service: 08/29/22 Interval History: Seen and evaluated Denies any fever or chills reporting right sided ribs pain Blood Cx growing MRSA no other overnight events Review of Systems Review of Systems: Yes all other systems are reviewed and are negative Physical Exam Vital Signs: Vital Signs: Last Vital Signs Temp 97.7 F 08/29/22 11:21 Pulse 64 08/29/22 11:21 Resp 20 08/29/22 11:21 BP 111/76 08/29/22 11:21 Pulse Ox 96 08/29/22 11:21 O2 Del Method Room Air 08/29/22 11:21 O2 Flow Rate 2 08/27/22 07:21 BMI result Body Mass Index 21.0 Const: Other: Constitutional : Awake, interactive, not in distress Neck : Normal inspection, Supple Cardiovascular : RRR, no JVP, no lower extremity edema Respiratory : good bilateral air entry, no crackles, wheezes or rhonchi Gastrointestinal: soft, lax, Normal bowel sounds, Non tender Skin : Warm, Dry Neurological : Alert & oriented x3, No focal deficit Objective Data Active Medications Acetaminophen (Acetaminophen 325 Mg Tablet) 650 mg PO Q6H PRN PRN Reason: Pain, Mild, fever Last Admin: 08/27/22 08:57 Dose: 650 mg Documented By: SIDNEY Albuterol Sulfate (Albuterol Sulfate (0.083%) 2.5 Mg/3 Ml Vial.Neb) 2.5 mg INHALE Q4H PRN PRN Reason: shortness of breath/wheezing Docusate Sodium (Docusate Sodium 100 Mg Capsule) 100 mg PO BID [facility] Last Admin: 08/29/22 08:18 Dose: Not Given Documented By: GUILLE Non-Admin Reason: Patient Refused Enoxaparin Sodium (Enoxaparin Sodium 40 Mg/0.4 Ml Syringe) 40 mg SUBCUT Q24H [facility] Last Admin: 08/29/22 09:16 Dose: Not Given Documented By: GUILLE Non-Admin Reason: Patient Refused Guaifenesin/Dextromethorphan (Guaifenesin Dm 100/10/5 Ml 5 Ml Syrup) 5 ml PO Q4H PRN PRN Reason: cough Vancomycin HCl 750 mg/ Sodium (Chloride) 265 mls @ 265 mls/hr IV Q8H [facility] Last Infusion: 08/29/22 10:51 Dose: 0 mls/hr Documented By: GUILLE Methadone HCl (Methadone Hcl 20 Mg/2 Ml Oral.Conc) 10 mg PO DAILY PRN PRN Reason: Opiate Withdrawal Last Admin: 08/26/22 15:07 Dose: 10 mg Documented By: COTEMA Methadone HCl (Methadone Hcl 20 Mg/2 Ml Oral.Conc) 50 mg PO DAILY [facility] Last Admin: 08/29/22 08:18 Dose: 50 mg Documented By: GUILLE Methylprednisolone Sodium Succinate (Methylprednisolone Sod Succ 40 Mg/Ml Vial) 20 mg IVPUSH BID [facility] Last Admin: 08/29/22 08:18 Dose: 20 mg Documented By: GUILLE Nicotine (Nicotine 21 Mg Patch.Td24) 21 mg TRANSDERMA DAILY [facility] Last Admin: 08/29/22 08:18 Dose: Not Given Documented By: GUILLE Non-Admin Reason: Patient Refused Ondansetron HCl (Ondansetron Hcl 4 Mg/2 Ml Vial) 4 mg IVPUSH Q8H PRN PRN Reason: Nausea and Vomiting Pharmacy Consult (Consult Rx Perform Med Rec) 1 each MISCELLANE ONCE PRN PRN Reason: Consult order Pharmacy Consult (Consult Rx Vancomycin Dosing) 1 each MISCELLANE DAILY PRN PRN Reason: Consult order Sodium Chloride (0.9 % Sodium Chloride Flush 3 Ml Syringe) 3 ml IVFLUSH QSHIFT [facility] Last Admin: 08/29/22 09:04 Dose: Not Given Documented By: GUILLE Non-Admin Reason: IV Running Tramadol HCl (Tramadol Hcl 50 Mg Tablet) 50 mg PO Q4H PRN PRN Reason: Pain, Severe (Pain Scale 7-10) Last Admin: 08/29/22 03:11 Dose: 50 mg Documented By: WRIGHTS Labs 08/28/22 07:37 08/29/22 06:23 Labs: Laboratory Results - last 24 hr 08/27/22 08/28/22 08/29/22 08:04 14:07 06:23 Estim Creat Clear Calc 96.6 Estimated GFR > 60 Random Vancomycin 18.0 HIV 1&2 Ab/P24 Ag 4thGn Nonreactive Microbiology Microbiology Results: Microbiology 08/24/22 06:19 Blood Culture - Final Blood - Venous Methicillin Res Staph Aureus Bacillus species 08/24/22 21:10 Gram Stain - Final Sputum - Expectorated Sputum Culture - Final Streptococcus pyogenes (Grp A) Assessment and Plan (1) MRSA bacteremia: Status: Acute (2) Pneumonia: Status: Acute (3) Sepsis: Status: Acute Plan 37-year-old female with history of polysubstance abuse, history septic joint who is a current everyday smoker admitted for RLL pneumonia with sepsis. # Sepsis secondary to RLL pneumonia and MRSA bacteremia sepsis resolved WBCs trending down reporting back pain- concerning for Osteomyelitis Blood cultures growing MRSA, Sputum cultures shows strep pyogenes repeat blood cultures continue IV vancomycin DC IV solu-medrol ID consulted - recommending HIV (negative ) and MRI of LS Pending ECHO Follow Vanco trough # Acute respiratory failure with hypoxia 2/2 PNA resolved # Acute toxic metabolic encephalopathy 2/2 Drugs and sepsis resolved # Polysubstance abuse tox screen + for cocaine, fentanyl, optiates h/o +ve HCV, HIV screen -ve seen by addiction medicine, started on methadone # Nicotine dependence NRT replacement smoking cessation advised DVT prophylaxis Lovenox Full code Patient requires inpatient stay overnight for management of bacteremia and need for IV abx Time Spent With Patient Time: Total time managing care of this patient today ____ minutes. Quality Stroke Does the patient have a stroke diagnosis?: No VTE Prior VTE?: No VTE Risk Level:: Medical - moderate - high VTE Device Contraindication: Treatment Not Indicated VTE Drug Contraindication: N/A - Med Ordered
--- NOTE | 2022-08-29 13:25 | MHC.CM.PN ---
EMR REVIEWED, 2ND SET OF BC'S DRAWN THIS AM, PER HOSPITALIST PT TO HAVE MRI AND ANTIC PT WILL NEED 2-4WKS IV ABX PENDING MRI RESULTS, HIGH VIEW INTERESTED AND UPDATED, ANTIC PT WILL BE READY FOR D/C BY THURS, CM WILL CONT TO FOLLOW D/C NEEDS.
[2022-08-29 14:35] LABS: Vancomycin Random 8.9 mcg/mL (15-20)
--- NOTE | 2022-08-29 14:46 | HE.PHANOTE ---
RE: vanco Dose was missed on 08/28; trough came back low at 8.9mg/L. Increased dose to 1000mg Q8H with predicted AUC 417mg/L, trough of 14. Next level to be drawn 08/30 @1400
[2022-08-29 15:13] VITALS: BP 111/59; PULSE 81; RESP 20; TEMP 37.2; O2SAT 97
[2022-08-29] MEDS: vancomycin HCL 1,000 MG in 0.9 % Sodium Chloride 250 ML 270 MG IV ×2 (16:17→23:35)
[2022-08-29] MEDS: 0.9 % Sodium Chloride Flush 3 ML SYRINGE IVFLUSH ×2 (16:20→19:30)
[2022-08-29 19:11] VITALS: BP 112/71; PULSE 93; RESP 20; TEMP 36.8; O2SAT 97
[2022-08-29] MEDS: Docusate Sodium 100 MG CAPSULE PO (19:30)
--- NOTE | 2022-08-29 19:57 | HO.ADDICTPRO ---
Subjective Subjective Date of Service: 08/29/22 Reason For Visit: sepsis, pneumonia Interim History: Patient seen in follow up Brighter affect, awake, alert, engaged in interview Methadone increased to 50mg QD. Denies any withdrawal sx. Appearing comfortable. Review of Systems Constitutional: Reports as per HPI Mental Status Exam Mental Status Exam Patient Appearance: Well Grooomed and Appropriate Level of Consciousness: Awake, Appropriate and Alert Patient Behavior: Cooperative Affect Description: Calm Patient Cognition Impaired: No Diagnostics Vital Signs (24Hr): Vital Signs - 24 hr 08/28/22 23:00 08/29/22 03:36 08/29/22 07:11 Temperature 97.6 F 98.0 F 97.1 F Pulse Rate 55 54 70 Respiratory Rate 18 18 20 Blood Pressure 121/82 108/76 115/76 Pulse Oximetry 96 98 97 Oxygen Delivery Method Room Air Room Air Room Air 08/29/22 11:21 08/29/22 15:13 08/29/22 19:11 Temperature 97.7 F 99.0 F 98.2 F Pulse Rate 64 81 93 Respiratory Rate 20 20 20 Blood Pressure 111/76 111/59 L 112/71 Pulse Oximetry 96 97 97 Oxygen Delivery Method Room Air Room Air Room Air BMI result Body Mass Index 21.0 Labs 08/28/22 07:37 08/29/22 06:23 Labs: Laboratory Results - last 48 hr 08/27/22 08/28/22 08/28/22 08:04 06:39 07:37 WBC 12.9 H RBC 4.45 Hgb 11.7 L Hct 36.1 L MCV 81.1 MCH 26.3 L MCHC 32.4 RDW 14.8 Plt Count 367 D MPV 11.4 Absolute Nucleated RBC 0.000 Nucleated RBC % (auto) 0.0 Creatinine 0.65 Estim Creat Clear Calc 93.7 Estimated GFR > 60 Random Vancomycin HIV 1&2 Ab/P24 Ag 4thGn Nonreactive 08/28/22 08/29/22 08/29/22 14:07 06:23 14:11 WBC RBC Hgb Hct MCV MCH MCHC RDW Plt Count MPV Absolute Nucleated RBC Nucleated RBC % (auto) Creatinine 0.63 Estim Creat Clear Calc 96.6 Estimated GFR > 60 Random Vancomycin 18.0 8.9 L HIV 1&2 Ab/P24 Ag 4thGn Imaging Radiology Impressions: ITS Impressions Chest X-Ray 08/24/22 06:34 IMPRESSION: 1. Mild blunting of right CP angle question pleural effusion versus thickening. 2. Mild increase interstitial markings in bilateral perihilar region, question interstitial pneumonitis. Chest CTA 08/24/22 08:55 IMPRESSION: 1. No evidence of pulmonary emboli. 2. Right lower lobe infiltrate/atelectasis with small right pleural effusion with prominent right infrahilar lymph node, probably reactive. Findings would be compatible with pneumonia. 3. Probable enlarged fatty liver and mild splenomegaly. VTE: negative Lumbar Spine MRI 08/29/22 17:17 IMPRESSION: The patient was unable to tolerate the exam to completion and only sagittal sequences were obtained. No findings to suggest discitis-osteomyelitis. No epidural abscess. No marrow edema associated with the facet joints. No significant spinal canal or neural foraminal stenosis at any level. Medications Medications Current Medications Acetaminophen (Acetaminophen 325 Mg Tablet) 650 mg PO Q6H PRN PRN Reason: Pain, Mild, fever Last Admin: 08/27/22 08:57 Dose: 650 mg Albuterol Sulfate (Albuterol Sulfate (0.083%) 2.5 Mg/3 Ml Vial.Neb) 2.5 mg INHALE Q4H PRN PRN Reason: shortness of breath/wheezing Docusate Sodium (Docusate Sodium 100 Mg Capsule) 100 mg PO BID [facility] Last Admin: 08/29/22 19:30 Dose: 100 mg Enoxaparin Sodium (Enoxaparin Sodium 40 Mg/0.4 Ml Syringe) 40 mg SUBCUT Q24H [facility] Last Admin: 08/29/22 09:16 Dose: Not Given Guaifenesin/Dextromethorphan (Guaifenesin Dm 100/10/5 Ml 5 Ml Syrup) 5 ml PO Q4H PRN PRN Reason: cough Vancomycin HCl 1,000 mg/ (Sodium Chloride) 270 mls @ 270 mls/hr IV Q8H [facility] Last Infusion: 08/29/22 17:40 Dose: Infused Methadone HCl (Methadone Hcl 20 Mg/2 Ml Oral.Conc) 10 mg PO DAILY PRN PRN Reason: Opiate Withdrawal Last Admin: 08/26/22 15:07 Dose: 10 mg Methadone HCl (Methadone Hcl 20 Mg/2 Ml Oral.Conc) 50 mg PO DAILY [facility] Last Admin: 06/26/23 08:18 Dose: 50 mg Nicotine (Nicotine 21 Mg Patch.Td24) 21 mg TRANSDERMA DAILY [facility] Last Admin: 08/29/22 08:18 Dose: Not Given Ondansetron HCl (Ondansetron Hcl 4 Mg/2 Ml Vial) 4 mg IVPUSH Q8H PRN PRN Reason: Nausea and Vomiting Pharmacy Consult (Consult Rx Perform Med Rec) 1 each MISCELLANE ONCE PRN PRN Reason: Consult order Pharmacy Consult (Consult Rx Vancomycin Dosing) 1 each MISCELLANE DAILY PRN PRN Reason: Consult order Sodium Chloride (0.9 % Sodium Chloride Flush 3 Ml Syringe) 3 ml IVFLUSH QSHIFT [facility] Last Admin: 08/29/22 19:30 Dose: 3 ml Tramadol HCl (Tramadol Hcl 50 Mg Tablet) 50 mg PO Q4H PRN PRN Reason: Pain, Severe (Pain Scale 7-10) Last Admin: 08/29/22 19:29 Dose: 50 mg Allergies Allergies Allergy/AdvReac Type Severity Reaction Status Date / Time Penicillins [PENICILLINS] Allergy Mild THROAT Verified 07/29/21 20:45 SWES Assessment & Plan Assessment & Plan (1) Opioid use disorder: Status: Acute Code(s): F11.90 - Opioid use, unspecified, uncomplicated Assessment and Plan: continue methadone at 50mg QD finisher plate coordinating OTP referral as patient is discharging to SNF to complete IV abx Total time managing care of this patient today ____ minutes.
[2022-08-29 23:25] VITALS: BP 110/67; PULSE 72; RESP 16; TEMP 36.4; O2SAT 96
[2022-08-30 03:16] VITALS: BP 109/61; PULSE 65; RESP 16; TEMP 36.3; O2SAT 95
[2022-08-30 07:33] VITALS: BP 115/63; PULSE 66; RESP 16; TEMP 36.7; O2SAT 98
[2022-08-30] MEDS: traMADoL HCL 50 MG TABLET PO ×4 (07:42→20:33)
[2022-08-30] MEDS: methADONE HCl 20 MG/2 ML ORAL.CONC 50 MG PO (07:43)
[2022-08-30] MEDS: vancomycin HCL 1,000 MG in 0.9 % Sodium Chloride 250 ML 270 MG IV ×3 (07:43→23:34)
[2022-08-30 09:51] LABS: Anion Gap 12 (12-20); Blood Urea Nitrogen 13 mg/dL (9-16); Calcium 9.2 mg/dL (8.4-10.2); Carbon Dioxide 28 mmol/L (22-29); Chloride 102 mmol/L (96-108); Creatinine Clr Calc Pharmacy 101.5; Estimated Glomerular Filt Rate > 60; Glucose Random 95 mg/dL (60-115); Potassium 3.9 mmol/L (3.3-5.1); Sodium 138 mmol/L (135-145)
[2022-08-30 11:41] VITALS: BP 117/74; PULSE 90; RESP 18; TEMP 36.5; O2SAT 97
--- NOTE | 2022-08-30 14:02 | HO.PM.IMPN ---
Subjective Subjective Date of Service: 08/30/22 Interval History: Sepsis secondary to RLL pneumonia and MRSA bacteremia Review of Systems Patient says shortness of breath and back pain seems to be improving. Denies any fever or chills Physical Exam Vital Signs: Vital Signs: Last Vital Signs Temp 97.7 F 08/30/22 11:41 Pulse 90 08/30/22 11:41 Resp 18 08/30/22 11:41 BP 117/74 08/30/22 11:41 Pulse Ox 97 08/30/22 11:41 O2 Del Method Room Air 08/30/22 11:41 O2 Flow Rate 2 08/27/22 07:21 BMI result Body Mass Index 21.0 Constitutional : Awake, interactive, not in distress Cvs : RRR, no JVP, no lower extremity edema chest: good bilateral air entry,? no crackles, wheezes or rhonchi Gastrointestinal:? soft, nt, Normal bowel sounds, Non tender Skin : Warm, Dry Neurological : Alert & oriented x3, No focal deficit Objective Data Active Medications Acetaminophen (Acetaminophen 325 Mg Tablet) 650 mg PO Q6H PRN PRN Reason: Pain, Mild, fever Last Admin: 08/27/22 08:57 Dose: 650 mg Documented By: SIDNEY Albuterol Sulfate (Albuterol Sulfate (0.083%) 2.5 Mg/3 Ml Vial.Neb) 2.5 mg INHALE Q4H PRN PRN Reason: shortness of breath/wheezing Docusate Sodium (Docusate Sodium 100 Mg Capsule) 100 mg PO BID [facility] Last Admin: 08/30/22 07:31 Dose: Not Given Documented By: GUILLE Non-Admin Reason: Patient Refused Enoxaparin Sodium (Enoxaparin Sodium 40 Mg/0.4 Ml Syringe) 40 mg SUBCUT Q24H [facility] Last Admin: 08/30/22 10:09 Dose: Not Given Documented By: GUILLE Non-Admin Reason: Patient Refused Guaifenesin/Dextromethorphan (Guaifenesin Dm 100/10/5 Ml 5 Ml Syrup) 5 ml PO Q4H PRN PRN Reason: cough Vancomycin HCl 1,000 mg/ (Sodium Chloride) 270 mls @ 270 mls/hr IV Q8H [facility] Last Infusion: 08/30/22 08:43 Dose: 0 mls/hr Documented By: GUILLE Methadone HCl (Methadone Hcl 20 Mg/2 Ml Oral.Conc) 10 mg PO DAILY PRN PRN Reason: Opiate Withdrawal Last Admin: 08/26/22 15:07 Dose: 10 mg Documented By: COTEMA Methadone HCl (Methadone Hcl 20 Mg/2 Ml Oral.Conc) 50 mg PO DAILY [facility] Last Admin: 08/30/22 07:43 Dose: 50 mg Documented By: GUILLE Nicotine (Nicotine 21 Mg Patch.Td24) 21 mg TRANSDERMA DAILY [facility] Last Admin: 08/30/22 07:31 Dose: Not Given Documented By: GUILLE Non-Admin Reason: Patient Refused Ondansetron HCl (Ondansetron Hcl 4 Mg/2 Ml Vial) 4 mg IVPUSH Q8H PRN PRN Reason: Nausea and Vomiting Pharmacy Consult (Consult Rx Perform Med Rec) 1 each MISCELLANE ONCE PRN PRN Reason: Consult order Pharmacy Consult (Consult Rx Vancomycin Dosing) 1 each MISCELLANE DAILY PRN PRN Reason: Consult order Sodium Chloride (0.9 % Sodium Chloride Flush 3 Ml Syringe) 3 ml IVFLUSH QSHIFT [facility] Last Admin: 08/30/22 08:19 Dose: Not Given Documented By: GUILLE Non-Admin Reason: IV Running Tramadol HCl (Tramadol Hcl 50 Mg Tablet) 50 mg PO Q4H PRN PRN Reason: Pain, Severe (Pain Scale 7-10) Last Admin: 08/30/22 12:21 Dose: 50 mg Documented By: GUILLE Labs 08/28/22 07:37 08/30/22 08:34 Labs: Laboratory Results - last 24 hr 08/29/22 08/30/22 14:11 08:34 Anion Gap 12 Estim Creat Clear Calc 101.5 Estimated GFR > 60 Random Glucose 95 Calcium 9.2 Random Vancomycin 8.9 L Microbiology Microbiology Results: Microbiology 08/29/22 08:06 Blood Culture - Preliminary Blood - Venous No growth after 24 hours. 08/29/22 08:06 Blood Culture - Preliminary Blood - Venous No growth after 24 hours. Assessment and Plan (1) MRSA bacteremia: Status: Acute (2) Pneumonia: Status: Acute (3) Sepsis: Status: Acute Plan 37-year-old female with history of polysubstance abuse, history septic joint who is a current everyday smoker admitted for RLL pneumonia with sepsis. Sepsis secondary to RLL pneumonia and MRSA bacteremia sepsis resolved WBCs trending down reporting back pain- concerning for Osteomyelitis Blood cultures growing MRSA, Sputum cultures shows strep pyogenes repeat blood cultures continue IV vancomycin DC IV solu-medrol ID consulted - recommending HIV (negative ) and MRI of LS -limited ,seems grossly fine. Pending ECHO Follow Vanco trough Acute respiratory failure with hypoxia 2/2 PNA resolved Acute toxic metabolic encephalopathy 2/2 Drugs and sepsis resolved Polysubstance abuse tox screen + for cocaine, fentanyl, optiates h/o +ve HCV, HIV screen -ve seen by addiction medicine, started on methadone Nicotine dependence NRT replacement smoking cessation advised DVT prophylaxis Lovenox Full code ongoing hospitlisation for - Sepsis secondary to RLL pneumonia,mrsa bacteremia - need for IV abx ,repeat blood culture pending Time Spent With Patient Time: Total time managing care of this patient today ____ minutes. Quality Stroke Does the patient have a stroke diagnosis?: No VTE Prior VTE?: No VTE Risk Level:: Medical - moderate - high VTE Device Contraindication: Treatment Not Indicated VTE Drug Contraindication: N/A - Med Ordered
[2022-08-30 14:53] LABS: Vancomycin Trough 14.7 mcg/mL (10.0-20.0)
[2022-08-30 15:05] VITALS: BP 132/91; PULSE 127; RESP 20; TEMP 36.6; O2SAT 98
[2022-08-30 18:54] VITALS: BP 116/73; PULSE 88; RESP 20; TEMP 36.7; O2SAT 95
[2022-08-30] MEDS: Acetaminophen 325 MG TABLET 650 MG PO (20:33)
[2022-08-30 23:28] VITALS: BP 122/65; PULSE 76; RESP 18; TEMP 36.8; O2SAT 96
[2022-08-30] MEDS: 0.9 % Sodium Chloride Flush 3 ML SYRINGE IVFLUSH (23:34)
[2022-08-31] MEDS: traMADoL HCL 50 MG TABLET PO ×4 (01:58→23:38)
[2022-08-31 03:44] VITALS: BP 110/57; PULSE 73; RESP 20; TEMP 36.3; O2SAT 95
[2022-08-31 07:02] LABS: Creatinine Clr Calc Pharmacy 108.7; Estimated Glomerular Filt Rate > 60
[2022-08-31 07:14] VITALS: BP 118/65; PULSE 74; RESP 18; TEMP 36.9; O2SAT 97
--- NOTE | 2022-08-31 08:04 | P.PNIM_ITS ---
Subjective Subjective Date of Service: 08/31/22 Interval History: Sepsis secondary to RLL pneumonia and MRSA bacteremia Review of Systems Patient says shortness of breath and back pain seems to be improving. Denies any fever or chills Physical Exam Vital Signs: Vital Signs: Last Vital Signs Temp 98.5 F 08/31/22 07:14 Pulse 74 08/31/22 07:14 Resp 18 08/31/22 07:14 BP 118/65 08/31/22 07:14 Pulse Ox 97 08/31/22 07:14 O2 Del Method Room Air 08/31/22 07:14 O2 Flow Rate 2 08/27/22 07:21 BMI result Body Mass Index 21.0 Constitutional : Awake, interactive, not in distress Cvs : RRR, no JVP, no lower extremity edema chest: good bilateral air entry,? no crackles, wheezes or rhonchi Gastrointestinal:? soft, nt, Normal bowel sounds, Non tender Skin : Warm, Dry Neurological : Alert & oriented x3, No focal deficit Objective Data Active Medications Acetaminophen (Acetaminophen 325 Mg Tablet) 650 mg PO Q6H PRN PRN Reason: Pain, Mild, fever Last Admin: 08/30/22 20:33 Dose: 650 mg Documented By: GUTIERREZ Albuterol Sulfate (Albuterol Sulfate (0.083%) 2.5 Mg/3 Ml Vial.Neb) 2.5 mg INHALE Q4H PRN PRN Reason: shortness of breath/wheezing Docusate Sodium (Docusate Sodium 100 Mg Capsule) 100 mg PO BID [facility] Last Admin: 08/30/22 19:53 Dose: Not Given Documented By: GUTIERREZ Non-Admin Reason: Patient Refused Enoxaparin Sodium (Enoxaparin Sodium 40 Mg/0.4 Ml Syringe) 40 mg SUBCUT Q24H [facility] Last Admin: 08/30/22 10:09 Dose: Not Given Documented By: GUILLE Non-Admin Reason: Patient Refused Guaifenesin/Dextromethorphan (Guaifenesin Dm 100/10/5 Ml 5 Ml Syrup) 5 ml PO Q4H PRN PRN Reason: cough Vancomycin HCl 1,000 mg/ (Sodium Chloride) 270 mls @ 270 mls/hr IV Q8H [facility] Last Infusion: 08/31/22 00:34 Dose: 0 mls/hr Documented By: SHAYNA Methadone HCl (Methadone Hcl 20 Mg/2 Ml Oral.Conc) 10 mg PO DAILY PRN PRN Reason: Opiate Withdrawal Last Admin: 08/26/22 15:07 Dose: 10 mg Documented By: COTEMA Methadone HCl (Methadone Hcl 20 Mg/2 Ml Oral.Conc) 50 mg PO DAILY [facility] Last Admin: 08/30/22 07:43 Dose: 50 mg Documented By: GUILLE Nicotine (Nicotine 21 Mg Patch.Td24) 21 mg TRANSDERMA DAILY [facility] Last Admin: 08/30/22 07:31 Dose: Not Given Documented By: GUILLE Non-Admin Reason: Patient Refused Ondansetron HCl (Ondansetron Hcl 4 Mg/2 Ml Vial) 4 mg IVPUSH Q8H PRN PRN Reason: Nausea and Vomiting Pharmacy Consult (Consult Rx Perform Med Rec) 1 each MISCELLANE ONCE PRN PRN Reason: Consult order Pharmacy Consult (Consult Rx Vancomycin Dosing) 1 each MISCELLANE DAILY PRN PRN Reason: Consult order Sodium Chloride (0.9 % Sodium Chloride Flush 3 Ml Syringe) [facility] Last Admin: 08/30/22 23:34 Dose: 3 ml Documented By: SHAYNA Tramadol HCl (Tramadol Hcl 50 Mg Tablet) 50 mg PO Q4H PRN PRN Reason: Pain, Severe (Pain Scale 7-10) Last Admin: 08/31/22 01:58 Dose: 50 mg Documented By: SHAYNA Labs 08/28/22 07:37 08/31/22 06:18 Labs: Laboratory Results - last 24 hr 08/30/22 08/30/22 08/31/22 08:34 14:09 06:18 Anion Gap 12 Estim Creat Clear Calc 101.5 108.7 Estimated GFR > 60 > 60 Random Glucose 95 Calcium 9.2 Vancomycin Trough 14.7 Microbiology Microbiology Results: Microbiology 08/29/22 08:06 Blood Culture - Preliminary Blood - Venous No growth after 24 hours. 08/29/22 08:06 Blood Culture - Preliminary Blood - Venous No growth after 24 hours. Assessment and Plan (1) MRSA bacteremia: Status: Acute (2) Pneumonia: Status: Acute (3) Sepsis: Status: Acute Plan 37-year-old female with history of polysubstance abuse, history septic joint who is a current everyday smoker admitted for RLL pneumonia with sepsis. Sepsis secondary to RLL pneumonia and MRSA bacteremia sepsis resolved WBCs trending down reporting back pain- concerning for Osteomyelitis Blood cultures growing MRSA, Sputum cultures shows strep pyogenes repeat blood cultures continue IV vancomycin DC IV solu-medrol Vanco trough 18 ID consulted - recommending HIV (negative ) and MRI of LS -limited ,seems grossly fine. ECHO:The left ventricular systolic function is normal.? The ? calculated ejection fraction is 57% by biplane method. ? - No obvious valvular pathology seen on this study.? ?? Acute respiratory failure with hypoxia 2/2 PNA resolved Acute toxic metabolic encephalopathy 2/2 Drugs and sepsis resolved Polysubstance abuse tox screen + for cocaine, fentanyl, optiates h/o +ve HCV, HIV screen -ve seen by addiction medicine, started on methadone Nicotine dependence NRT replacement smoking cessation advised DVT prophylaxis Lovenox Full code ongoing hospitlisation for - Sepsis secondary to RLL pneumonia,mrsa bacteremia - need for IV abx , Id follow up for antibiotics duration. Time Spent With Patient Time: Total time managing care of this patient today ____ minutes. Quality Stroke Does the patient have a stroke diagnosis?: No VTE Prior VTE?: No VTE Risk Level:: Medical - moderate - high VTE Device Contraindication: Treatment Not Indicated VTE Drug Contraindication: N/A - Med Ordered
[2022-08-31] MEDS: methADONE HCl 20 MG/2 ML ORAL.CONC 50 MG PO (08:38)
[2022-08-31] MEDS: vancomycin HCL 1,000 MG in 0.9 % Sodium Chloride 250 ML 270 MG IV (08:39)
[2022-08-31] MEDS: Docusate Sodium 100 MG CAPSULE PO ×2 (08:39→20:26)
[2022-08-31] MEDS: 0.9 % Sodium Chloride Flush 3 ML SYRINGE IVFLUSH ×3 (08:39→20:27)
--- NOTE | 2022-08-31 10:33 | MHC.CM.PN ---
Per ROUNDS discussion, Patient is not yet medically cleared for dc (needs (-) BC X 48 hours); [facility] for LT IV ABT is the tentative goal and CM will continue to follow.
[2022-08-31 11:23] VITALS: BP 119/70; PULSE 93; RESP 17; TEMP 36.6; O2SAT 95
--- NOTE | 2022-08-31 15:05 | MHC.RECOVRN ---
Met with pt in 471 to follow up and provide support. Pt sitting in bed, awake, alert, easily engages in conversation. Pt reports feeling good with methadone dose, denies withdrawal symptoms. Pt inquiring about methadone taper and transition to Vivitrol as pt does not want to be dependent on something. Educated pt, pt deciding to continue methadone throughout STR and then reassessing. Denies other questions or conerns. Pts referral has been sent to [facility] and [facility]. [facility] has sent letter to [facility] stating pt will be able to initiate care at [facility] upon dc from [facility]. CM aware.
[2022-08-31] MEDS: vancomycin HCL 750 MG in 0.9 % Sodium Chloride 250 ML 265 MG IV ×2 (15:39→23:38)
[2022-08-31 15:53] VITALS: BP 112/56; PULSE 94; RESP 20; TEMP 37.2; O2SAT 95
[2022-08-31 19:54] VITALS: BP 134/70; PULSE 99; RESP 20; TEMP 36.8; O2SAT 94
[2022-08-31 23:40] VITALS: BP 125/76; PULSE 105; RESP 20; TEMP 36.7; O2SAT 94
[2022-09-01] VITALS (9 sets, daily range): BP systolic 106–120; BP diastolic 55–62; PULSE 74–105; RESP 16–20; TEMP 36.1–37.6; O2SAT 93–98
[2022-09-01] MEDS: Ketorolac Tromethamine 30 MG/ML VIAL IVPUSH (00:45)
[2022-09-01 07:27] LABS: Creatinine Clr Calc Pharmacy 108.7; Estimated Glomerular Filt Rate > 60
[2022-09-01] MEDS: methADONE HCl 20 MG/2 ML ORAL.CONC 50 MG PO (08:30)
[2022-09-01] MEDS: Docusate Sodium 100 MG CAPSULE PO ×2 (08:33→20:27)
[2022-09-01] MEDS: 0.9 % Sodium Chloride Flush 3 ML SYRINGE IVFLUSH ×3 (08:34→20:27)
[2022-09-01] MEDS: vancomycin HCL 750 MG in 0.9 % Sodium Chloride 250 ML 265 MG IV (08:34)
[2022-09-01] MEDS: guaiFEN/Codeine SF 200/20/10ML 10 ML LIQUID PO ×5 (09:19→23:52)
[2022-09-01 09:29] LABS: Legionella Ag Urine Not Detected (Not Detected); Strep Pneumo Ag urine Not Detected (Not Detected)
--- NOTE | 2022-09-01 12:14 | MHC.RECOVRN ---
Verified with [facility] pt is all set to dose when transferred to [facility].
--- NOTE | 2022-09-01 14:34 | P.PNIM_ITS ---
Subjective Subjective Date of Service: 09/01/22 Interval History: Sepsis secondary to RLL pneumonia and MRSA bacteremia Review of Systems Patient says shortness of breath and back pain seems to be improving. Denies any fever or chills Physical Exam Vital Signs: Vital Signs: Last Vital Signs Temp 99.1 F 09/01/22 11:38 Pulse 87 09/01/22 11:38 Resp 18 09/01/22 11:38 BP 113/60 09/01/22 11:38 Pulse Ox 95 09/01/22 11:38 O2 Del Method Room Air 09/01/22 11:38 O2 Flow Rate 2 09/01/22 08:00 BMI result Body Mass Index 21.0 Constitutional : Awake, interactive, not in distress Cvs : RRR, no JVP, no lower extremity edema chest: good bilateral air entry,? no crackles, wheezes or rhonchi Gastrointestinal:? soft, nt, Normal bowel sounds, Non tender Skin : Warm, Dry Neurological : Alert & oriented x3, No focal deficit Objective Data Active Medications Acetaminophen (Acetaminophen 325 Mg Tablet) 650 mg PO Q6H PRN PRN Reason: Pain, Mild, fever Last Admin: 08/30/22 20:33 Dose: 650 mg Documented By: GUTIERREZ Docusate Sodium (Docusate Sodium 100 Mg Capsule) 100 mg PO BID [facility] Last Admin: 09/01/22 08:33 Dose: 100 mg Documented By: ERNESTO Enoxaparin Sodium (Enoxaparin Sodium 40 Mg/0.4 Ml Syringe) 40 mg SUBCUT Q24H [facility] Last Admin: 09/01/22 08:40 Dose: Not Given Documented By: ERNESTO Non-Admin Reason: Patient Refused Guaifenesin/Codeine Phosphate (Guaifen/Codeine Sf 200/20/10ml 10 Ml Liquid) 10 ml PO Q4H [facility] Last Admin: 09/01/22 12:45 Dose: 10 ml Documented By: SONAL Guaifenesin/Dextromethorphan (Guaifenesin Dm 100/10/5 Ml 5 Ml Syrup) 5 ml PO Q4H PRN PRN Reason: cough Vancomycin HCl 750 mg/ Sodium (Chloride) 265 mls @ 265 mls/hr IV Q8H [facility] Last Infusion: 09/01/22 09:35 Dose: 0 mls/hr Documented By: SONAL Methadone HCl (Methadone Hcl 20 Mg/2 Ml Oral.Conc) 10 mg PO DAILY PRN PRN Reason: Opiate Withdrawal Last Admin: 08/26/22 15:07 Dose: 10 mg Documented By: COTEMA Methadone HCl (Methadone Hcl 20 Mg/2 Ml Oral.Conc) 50 mg PO DAILY [facility] Last Admin: 09/01/22 08:30 Dose: 50 mg Documented By: ERNESTO Nicotine (Nicotine 21 Mg Patch.Td24) 21 mg TRANSDERMA DAILY [facility] Last Admin: 09/01/22 08:40 Dose: Not Given Documented By: ERNESTO Non-Admin Reason: Patient Refused Ondansetron HCl (Ondansetron Hcl 4 Mg/2 Ml Vial) 4 mg IVPUSH Q8H PRN PRN Reason: Nausea and Vomiting Pharmacy Consult (Consult Rx Perform Med Rec) 1 each MISCELLANE ONCE PRN PRN Reason: Consult order Pharmacy Consult (Consult Rx Vancomycin Dosing) 1 each MISCELLANE DAILY PRN PRN Reason: Consult order Sodium Chloride (0.9 % Sodium Chloride Flush 3 Ml Syringe) 3 ml IVFLUSH QSHIFT [facility] Last Admin: 09/01/22 08:34 Dose: 3 ml Documented By: ERNESTO Tramadol HCl (Tramadol Hcl 50 Mg Tablet) 50 mg PO Q4H PRN PRN Reason: Pain, Severe (Pain Scale 7-10) Last Admin: 08/31/22 23:38 Dose: 50 mg Documented By: ODRISM Labs 08/28/22 07:37 09/01/22 06:37 Labs: Laboratory Results - last 24 hr 08/24/22 08/31/22 09/01/22 22:50 14:07 06:37 Estim Creat Clear Calc 108.7 Estimated GFR > 60 Random Vancomycin 18.0 Ur L.pneumophila Ag Not Detected Ur Strep pneumoniae Ag Not Detected Assessment and Plan (1) MRSA bacteremia: Status: Acute (2) Pneumonia: Status: Acute (3) Sepsis: Status: Acute Plan 37-year-old female with history of polysubstance abuse, history septic joint who is a current everyday smoker admitted for RLL pneumonia with sepsis. Sepsis secondary to RLL pneumonia and MRSA bacteremia sepsis resolved WBCs trending down still has intermitent rib cage pain ,sob reporting back pain- concerning for Osteomyelitis Blood cultures growing MRSA, Sputum cultures shows strep pyogenes repeat blood cultures neg@48 hrs ECHO:The left ventricular systolic function is normal.? The ? calculated ejection fraction is 57% by biplane method. ? - No obvious valvular pathology seen on this study.? cxr -? inceasing pleural effusion ID consulted - recommending HIV (negative ) and MRI of LS -limited ,seems grossly fine. Vanco trough pendin ??continue IV vancomycin,added thoracentesis due to possible occluded pleural effusion. Acute respiratory failure with hypoxia 2/2 PNA resolved Acute toxic metabolic encephalopathy 2/2 Drugs and sepsis resolved Polysubstance abuse tox screen + for cocaine, fentanyl, optiates h/o +ve HCV, HIV screen -ve seen by addiction medicine, started on methadone Nicotine dependence NRT replacement smoking cessation advised DVT prophylaxis Lovenox Full code ongoing hospitlisation for - Sepsis secondary to RLL pneumonia-parapneumonic effusion,mrsa bacteremia - need for IV abx , need a thoracentesis. Time Spent With Patient Time: Total time managing care of this patient today ____ minutes. Quality Stroke Does the patient have a stroke diagnosis?: No VTE Prior VTE?: No VTE Risk Level:: Medical - moderate - high VTE Device Contraindication: Treatment Not Indicated VTE Drug Contraindication: N/A - Med Ordered
[2022-09-01 15:00] LABS: Vancomycin Random 10.2 mcg/mL (15-20)
[2022-09-01] MEDS: Albuterol/Iprat 2.5/0.5MG 3 ML AMPUL.NEB INHALE ×2 (15:09→19:39)
--- NOTE | 2022-09-01 15:33 | HE.PHANOTE ---
Re: vanco level fell to 10.2 after dose reduction. Increased back to 1000 q8 and will recheck trough after 2 more doses. Insight states expected auc 482 with trough 12.1.
[2022-09-01] MEDS: vancomycin HCL 1,000 MG in 0.9 % Sodium Chloride 250 ML 270 MG IV ×2 (15:45→23:52)
[2022-09-01 15:53] LABS: Glucose Random 109 mg/dL (60-115); Lactate Dehydrogenase 151 U/L (122-220)
[2022-09-02] VITALS (8 sets, daily range): BP systolic 99–128; BP diastolic 60–75; PULSE 72–95; RESP 18–24; TEMP 36.7–37.2; O2SAT 91–98
[2022-09-02] MEDS: guaiFEN/Codeine SF 200/20/10ML 10 ML LIQUID PO ×5 (05:26→20:18)
[2022-09-02 06:07] LABS: Hematocrit 33.6 % (37.0-47.0); Hemoglobin 10.8 g/dl (12.0-16.0); Mean Corpuscular HGB Conc 32.1 g/dl (31.0-35.0); Mean Corpuscular Hemoglobin 26.5 pg (27.0-33.0); Mean Corpuscular Volume 82.4 fL (80.0-98.0); Mean Platelet Volume 10.7 fL (9.4-12.3); Platelet Count 302 X10*3/uL (160-400); Red Blood Count 4.08 X10*6/uL (4.20-5.50); White Blood Count 15.3 X10*3/uL (4.8-10.8)
[2022-09-02 06:16] LABS: Vancomycin Random 12.5 mcg/mL (15-20)
[2022-09-02 06:25] LABS: Anion Gap 14 (12-20); Blood Urea Nitrogen 9 mg/dL (9-16); Calcium 9.5 mg/dL (8.4-10.2); Carbon Dioxide 27 mmol/L (22-29); Chloride 99 mmol/L (96-108); Creatinine Clr Calc Pharmacy 96.6; Estimated Glomerular Filt Rate > 60; Glucose Random 124 mg/dL (60-115); Potassium 3.8 mmol/L (3.3-5.1); Sodium 136 mmol/L (135-145)
--- NOTE | 2022-09-02 06:28 | HE.PHANOTE ---
Addendum entered by Jenna Groves RPh 09/02/22 20:47: RETIMED TROUGH TO 09/03 @1030 DUE TO LOSS OF IV ACCESS Original Note: Vancomycin Dosing Level is 12.5 today. SCr had slight increase. Will continue current regimen. Next level 09/03 @ 0600. Maggie Lees, ChristianD
[2022-09-02] MEDS: Albuterol/Iprat 2.5/0.5MG 3 ML AMPUL.NEB INHALE (07:40)
[2022-09-02] MEDS: methADONE HCl 20 MG/2 ML ORAL.CONC 50 MG PO (08:09)
[2022-09-02] MEDS: 0.9 % Sodium Chloride Flush 3 ML SYRINGE IVFLUSH ×2 (08:11→20:26)
[2022-09-02] MEDS: traMADoL HCL 50 MG TABLET PO (08:15)
[2022-09-02] MEDS: vancomycin HCL 1,000 MG in 0.9 % Sodium Chloride 250 ML 270 MG IV ×2 (08:17→20:32)
--- NOTE | 2022-09-02 09:01 | MHC.CM.PN ---
EMR REVIEWED, PT NOW W/PLEURAL EFFUSION, PER HOSPITALIST PT WILL NEED THORACIC AND WILL NEED TO BE DRAINED VS CHEST TUBE, NO PLAN FOR D/C AT THIS TIME, PLAN REMAINS [facility] FOR SHELTER IV ABX, CM WILL CON TO FOLLOW D/C NEEDS.
[2022-09-02 09:13] LABS: INTERNATIONAL NORM RATIO 1.1 (0.9-1.1); Prothrombin Time 12.2 SEC (10.0-13.1)
--- NOTE | 2022-09-02 12:06 | HO.PM.IMPN ---
Subjective Subjective Date of Service: 09/02/22 Interval History: Sepsis secondary to RLL pneumonia and MRSA bacteremia Review of Systems sob intermittent ,has right lower rib cage pain no fevers or chills Physical Exam Vital Signs: Vital Signs: Last Vital Signs Temp 98.9 F 09/02/22 07:11 Pulse 86 09/02/22 07:42 Resp 18 09/02/22 07:42 BP 108/60 09/02/22 07:11 Pulse Ox 98 09/02/22 07:11 O2 Del Method Nasal Cannula 09/02/22 07:11 O2 Flow Rate 2 09/02/22 07:11 BMI result Body Mass Index 21.0 Constitutional : Awake, interactive, not in distress Cvs : RRR, no JVP, no lower extremity edema chest: good bilateral air entry,? no crackles, wheezes or rhonchi Gastrointestinal:? soft, nt, Normal bowel sounds, Non tender Skin : Warm, Dry Neurological : Alert & oriented x3, No focal deficit Objective Data Active Medications Acetaminophen (Acetaminophen 325 Mg Tablet) 650 mg PO Q6H PRN PRN Reason: Pain, Mild, fever Last Admin: 08/30/22 20:33 Dose: 650 mg Documented By: GUTIERREZ Albuterol/Ipratropium (Albuterol/Iprat 2.5/0.5mg 3 Ml Ampul.Neb) 3 ml INHALE RQ4H WHILE AWAKE [facility] Last Admin: 09/02/22 11:29 Dose: Not Given Documented By: WINNIE Non-Admin Reason: Off Unit: Surgery Docusate Sodium (Docusate Sodium 100 Mg Capsule) 100 mg PO BID [facility] Last Admin: 09/02/22 08:10 Dose: Not Given Documented By: SONAL Non-Admin Reason: Patient Refused Enoxaparin Sodium (Enoxaparin Sodium 40 Mg/0.4 Ml Syringe) 40 mg SUBCUT Q24H [facility] Last Admin: 09/01/22 08:40 Dose: Not Given Documented By: ERNESTO Non-Admin Reason: Patient Refused Guaifenesin/Codeine Phosphate (Guaifen/Codeine Sf 200/20/10ml 10 Ml Liquid) 10 ml PO Q4H [facility] Last Admin: 09/02/22 08:09 Dose: 10 ml Documented By: SONAL Guaifenesin/Dextromethorphan (Guaifenesin Dm 100/10/5 Ml 5 Ml Syrup) 5 ml PO Q4H PRN PRN Reason: cough Vancomycin HCl 1,000 mg/ (Sodium Chloride) 270 mls @ 270 mls/hr IV Q8H [facility] Last Infusion: 09/02/22 09:17 Dose: 0 mls/hr Documented By: SONAL Methadone HCl (Methadone Hcl 20 Mg/2 Ml Oral.Conc) 10 mg PO DAILY PRN PRN Reason: Opiate Withdrawal Last Admin: 08/26/22 15:07 Dose: 10 mg Documented By: COTEMA Methadone HCl (Methadone Hcl 20 Mg/2 Ml Oral.Conc) 50 mg PO DAILY [facility] Last Admin: 09/02/22 08:09 Dose: 50 mg Documented By: SONAL Nicotine (Nicotine 21 Mg Patch.Td24) 21 mg TRANSDERMA DAILY [facility] Last Admin: 09/02/22 08:28 Dose: Not Given Documented By: SONAL Non-Admin Reason: Patient Refused Ondansetron HCl (Ondansetron Hcl 4 Mg/2 Ml Vial) 4 mg IVPUSH Q8H PRN PRN Reason: Nausea and Vomiting Pharmacy Consult (Consult Rx Perform Med Rec) 1 each MISCELLANE ONCE PRN PRN Reason: Consult order Pharmacy Consult (Consult Rx Vancomycin Dosing) 1 each MISCELLANE DAILY PRN PRN Reason: Consult order Sodium Chloride (0.9 % Sodium Chloride Flush 3 Ml Syringe) 3 ml IVFLUSH QSHIFT [facility] Last Admin: 09/02/22 08:11 Dose: 3 ml Documented By: SONAL Labs 09/02/22 05:39 09/02/22 05:39 Labs: Laboratory Results - last 24 hr 09/01/22 09/01/22 09/01/22 14:07 15:02 16:58 MCV MCH MCHC RDW Plt Count MPV Absolute Nucleated RBC Nucleated RBC % (auto) PT Cancelled INR Cancelled Anion Gap Estim Creat Clear Calc Estimated GFR Random Glucose 109 Calcium Lactate Dehydrogenase 151 Random Vancomycin 10.2 L 09/02/22 09/02/22 09/02/22 05:39 05:39 05:39 MCV 82.4 MCH 26.5 L MCHC 32.1 RDW 15.0 Plt Count 302 MPV 10.7 Absolute Nucleated RBC 0.000 Nucleated RBC % (auto) 0.0 PT INR Anion Gap 14 Estim Creat Clear Calc 96.6 Estimated GFR > 60 Random Glucose 124 H Calcium 9.5 Lactate Dehydrogenase Random Vancomycin 12.5 L 09/02/22 08:50 MCV MCH MCHC RDW Plt Count MPV Absolute Nucleated RBC Nucleated RBC % (auto) PT 12.2 INR 1.1 Anion Gap Estim Creat Clear Calc Estimated GFR Random Glucose Calcium Lactate Dehydrogenase Random Vancomycin Assessment and Plan (1) MRSA bacteremia: Status: Acute (2) Pneumonia: Status: Acute (3) Sepsis: Status: Acute Plan 37-year-old female with history of polysubstance abuse, history septic joint who is a current everyday smoker admitted for RLL pneumonia with sepsis. Sepsis secondary to RLL pneumonia and MRSA bacteremia sepsis resolved WBCs trending down still has intermitent rib cage pain ,sob reporting back pain- concerning for Osteomyelitis Blood cultures growing MRSA, Sputum cultures shows strep pyogenes repeat blood cultures neg@48 hrs ECHO:The left ventricular systolic function is normal.? The ? calculated ejection fraction is 57% by biplane method. ? - No obvious valvular pathology seen on this study.? cxr -? inceasing pleural effusion ID consulted - recommending HIV (negative ) and MRI of LS -limited ,seems grossly fine. Vanco trough pendin ??continue IV vancomycin,added thoracentesis due to possible occluded pleural effusion. Patient went to get PICC line but so far and successful and she does not want to try right now. She agreeable to get pleural effusion drain. Acute respiratory failure with hypoxia 2/2 PNA resolved Acute toxic metabolic encephalopathy 2/2 Drugs and sepsis resolved Polysubstance abuse tox screen + for cocaine, fentanyl, optiates h/o +ve HCV, HIV screen -ve seen by addiction medicine, started on methadone Nicotine dependence NRT replacement smoking cessation advised DVT prophylaxis Lovenox Full code ongoing hospitlisation for - Sepsis secondary to RLL pneumonia-parapneumonic effusion,mrsa bacteremia - need for IV abx , need a thoracentesis. Time Spent With Patient Time: Total time managing care of this patient today ____ minutes. Quality Stroke Does the patient have a stroke diagnosis?: No VTE Prior VTE?: No VTE Risk Level:: Medical - moderate - high VTE Device Contraindication: Treatment Not Indicated VTE Drug Contraindication: N/A - Med Ordered
--- NOTE | 2022-09-02 12:29 | PC.NURSE ---
Pt arrived to [facility] at 10:50am. PICC procedure was explained in depth to patient. Pt was agreeable to have PICC placed and signed consent. Pt decided she didn't want the PICC placed Mid-Procedure. Dr Crisostomo came to S272 and spoke with patient. Pt still refusing to have PICC line placed at this time. Pt was returned to room 471-1.
[2022-09-02] MEDS: Lactated Ringers 1,000 ML 80 ML IVCONT (13:01)
--- NOTE | 2022-09-02 14:55 | MHC.RECOVRN ---
Met with pt briefly before going for thoracentesis. Pt tearful, frustrated with being so sick. Pt states I know I have to get all of this done, it's just a lot. Pt was unable to have PICC placed today, states they just keep digging and blowing my veins. Pt reports PICC will be reattempted on Monday. Pt nervous about thoracentesis, t/w provided reassurance. Pt denies questions or concerns for recovery team at this time.
--- NOTE | 2022-09-02 16:23 | HO.RADPN ---
RADIOLOGY Narrative Narrative: Large complex multiseptated right effusion. Thorcentesis done using 4 fr catheter and minimal fluid could be aspirated. 10.2 fr chest tube placed. 100 ml slightly serosanguinous fluid removed. Chest tube to wall suction. May need TPA. CT surgery constult requested. Discussed w Dr Crisostomo
[2022-09-02] MEDS: Lidocaine HCl 1 % MPF 5 ML VIAL 10 ML SUBCUT (16:24)
[2022-09-02 16:51] LABS: MN% 35.7 %; PMN% 64.3 %; WBC Pleural Fluid 0.014 X10*3/uL
[2022-09-02 17:19] LABS: RBC Pleural Fluid < 0.002 X10*6/uL
[2022-09-02 17:25] LABS: BF Shift QC OK YES; Basophils Pleural Fluid 1 %; Lymphocytes Pleural Fluid 9 %; Monocytes Pleural Fluid 8 %; Neutrophils Pleural Fluid 82 %
[2022-09-02 17:26] LABS: Man Diluent Bkgrd OK YES
[2022-09-02] MEDS: Acetaminophen 325 MG TABLET 650 MG PO (17:58)
[2022-09-02] MEDS: oxyCODONE HCl Immed Release 5 MG TABLET PO (18:50)
--- NOTE | 2022-09-02 18:51 | PC.NURSE ---
per MD order, R psoterior chest tube was unclamped at 1837. pt c/o R lung pain, squeezing pain, feeling hot. vital was taken as BP 12/66, MAP 88, HR 87, O2 93% on RA. SR on tele. MD sommer. put pt on O2 2L NC now. PRN oxycodone given. continue to monitor.
[2022-09-02] MEDS: Docusate Sodium 100 MG CAPSULE PO (20:19)
[2022-09-02] MEDS: HYDROmorphone HCl 0.5 MG/0.5 ML SYRINGE IVPUSH (20:50)
[2022-09-03] VITALS (9 sets, daily range): BP systolic 107–139; BP diastolic 51–69; PULSE 69–97; RESP 18; TEMP 36.1–37; O2SAT 95–98
[2022-09-03] MEDS: oxyCODONE HCl Immed Release 5 MG TABLET PO ×4 (01:03→22:12)
[2022-09-03] MEDS: Acetaminophen 325 MG TABLET 650 MG PO ×2 (01:04→22:14)
[2022-09-03] MEDS: guaiFEN/Codeine SF 200/20/10ML 10 ML LIQUID PO ×6 (01:04→20:01)
[2022-09-03] MEDS: Lactated Ringers 1,000 ML 80 ML IVCONT ×2 (01:08→10:25)
[2022-09-03 03:48] LABS: pH Pleural Fluid 7.13
[2022-09-03 04:23] LABS: Albumin Pleural Fluid 2.7 GM/DL; Glucose Pleural Fluid 25 MG/DL; LDH Pleural Fluid 1128 U/L; Total Protein Pleural Fluid 5.4 GM/DL
[2022-09-03] MEDS: vancomycin HCL 1,000 MG in 0.9 % Sodium Chloride 250 ML 270 MG IV ×3 (04:36→20:02)
--- NOTE | 2022-09-03 06:23 | PC.NURSE ---
Pt had 630cc of serosang output in right chest tube, @ -20 suction, no air leak or crep.
[2022-09-03 06:42] LABS: Creatinine Clr Calc Pharmacy 98.2; Estimated Glomerular Filt Rate > 60
[2022-09-03] MEDS: methADONE HCl 20 MG/2 ML ORAL.CONC 50 MG PO (08:06)
[2022-09-03] MEDS: 0.9 % Sodium Chloride Flush 3 ML SYRINGE IVFLUSH ×3 (08:07→20:01)
[2022-09-03] MEDS: Docusate Sodium 100 MG CAPSULE PO ×2 (08:07→20:01)
[2022-09-03] MEDS: Albuterol/Iprat 2.5/0.5MG 3 ML AMPUL.NEB INHALE ×3 (08:21→20:23)
[2022-09-03 11:25] LABS: Vancomycin Random 12.3 mcg/mL (15-20)
--- NOTE | 2022-09-03 13:15 | PM.CNGS ---
History of Present Illness Consult details Consult date: 09/03/22 Requesting physician: Bryan Crisostomo Narrative: Patient is a 37 year old female with is a history of polysubstance abuse who presented to the hospital on 08/24/2022 with complaints of shortness of breath, productive cough, fever, and chills. Found to have sepsis due to MRSA bacteremia and pneumonia, as well as a right pleural effusion. Over the course of her hospital stay the right pleural effusion increased and patient was sent for thoracentesis on 09/02/2022. Ultrasound at that time showed a complex collection with multiple loculations, therefore pigtail catheter was placed and thoracic surgery now has been consulted. CXR done overnight due to patient complaint of right sided chest pain showed good reexpansion of the lung and minimal residual fluid. CT chest today (pending radiology review) per my review shows minimal residual right pleural fluid with no significant loculations. Continues to have significant intraparenychmal disease in the right lower lobe/atelectasis. At time of my visit patient states she feels better than when she first got to the hospital. States her breathing has improved, but is still coughing up some green/brown sputum occasionally. Review of Systems Constitutional: Constitutional: Denies chills, Denies fever(s), Denies headache(s), Reports lethargy and Denies weakness Eyes: Eyes: Denies loss of vision ENT: Denies dysphagia, Denies headache(s) and Denies neck pain Cardiovascular: Cardiovascular: Denies chest pain, Denies edema, Denies lightheadedness and Denies dyspnea Respiratory: Respiratory: Reports cough, Denies hemoptysis, Denies dyspnea and Reports other (pain at chest tube insertion site) Gastrointestinal: Gastrointestinal: Denies abdominal pain, Denies dysphagia, Denies nausea and Denies vomiting Musculoskeletal: Musculoskeletal: Denies neck pain Neurologic: Denies headache(s), Denies loss of vision and Denies weakness [facility] Past Medical History Medical History Hepatitis C Opiate dependence Opioid use disorder Tobacco dependence Family History Family history: reviewed and not pertinent Social History Social History Household Members: None Housing: Homeless Do you presently have visiting nurse or other home services: No Alcohol intake: current Alcohol intake frequency: holidays/special occasions only Patient Tobacco Use Status: Current everyday Tobacco user Tobacco use type: Cigarette Cigarette Packs Per Day: 1 Cigarettes Per Day: 20.0 Smoked in Last 30 Days: Yes Patient Interested in Nicotine Replacement: Yes Use of substances other than those prescribed or required for medical reasons: Yes Substance Use Type: Crack/Cocaine and Heroin Substance Use Frequency: Chronic Longstanding Last Used Substance: Just Prior to Admission Currently Displaying Signs/Symptoms of Drug Intoxication Withdrawal: No Any prior treatment program specific to substance use: Yes ([facility]) Have you been hit, kicked, punched, or otherwise hurt by someone within the past year? If so, by whom?: No Do you feel safe in your current relationship?: Yes Is there a partner from a previous relationship who is making you feel unsafe now?: No Are you made to feel afraid or neglected: No Advance Directives: No Advance Directives Information Provided: Yes Do you have thoughts of harming others: None Do you have a plan to hurt others: No Plan Recently lost weight without trying: Yes How much weight loss: 2-13 pounds Eating poorly because of decreased appetite: Yes Nutrition screen score: 4 Patient : No : No Poor oral hygiene: No service: No Current occupational status: unemployed Meds Allergies Allergy/AdvReac Type Severity Reaction Status Date / Time Penicillins [PENICILLINS] Allergy Mild THROAT Verified 07/29/21 20:45 SWELLS Active Medications: Current Medications Acetaminophen (Acetaminophen 325 Mg Tablet) 650 mg PO Q6H PRN PRN Reason: Pain, Mild, fever Last Admin: 09/03/22 01:04 Dose: 650 mg Albuterol/Ipratropium (Albuterol/Iprat 2.5/0.5mg 3 Ml Ampul.Neb) 3 ml INHALE RQ4H WHILE AWAKE [facility] Last Admin: 09/03/22 12:07 Dose: Not Given Docusate Sodium (Docusate Sodium 100 Mg Capsule) 100 mg PO BID [facility] Last Admin: 09/03/22 08:07 Dose: 100 mg Enoxaparin Sodium (Enoxaparin Sodium 40 Mg/0.4 Ml Syringe) 40 mg SUBCUT Q24H [facility] Last Admin: 09/01/22 08:40 Dose: Not Given Guaifenesin/Codeine Phosphate (Guaifen/Codeine Sf 200/20/10ml 10 Ml Liquid) 10 ml PO Q4H [facility] Last Admin: 09/03/22 12:24 Dose: 10 ml Guaifenesin/Dextromethorphan (Guaifenesin Dm 100/10/5 Ml 5 Ml Syrup) 5 ml PO Q4H PRN PRN Reason: cough Lactated Ringer's (Lr) 1,000 mls @ 80 mls/hr IVCONT .[id number] [facility] Last Admin: 09/03/22 10:25 Dose: 80 mls/hr Vancomycin HCl 1,000 mg/ (Sodium Chloride) 270 mls @ 270 mls/hr IV Q8H [facility] Last Admin: 09/03/22 12:24 Dose: 270 mls/hr Methadone HCl (Methadone Hcl 20 Mg/2 Ml Oral.Conc) 10 mg PO DAILY PRN PRN Reason: Opiate Withdrawal Last Admin: 08/26/22 15:07 Dose: 10 mg Methadone HCl (Methadone Hcl 20 Mg/2 Ml Oral.Conc) 50 mg PO DAILY [facility] Last Admin: 09/03/22 08:06 Dose: 50 mg Nicotine (Nicotine 21 Mg Patch.Td24) 21 mg TRANSDERMA DAILY [facility] Last Admin: 09/03/22 08:07 Dose: Not Given Ondansetron HCl (Ondansetron Hcl 4 Mg/2 Ml Vial) 4 mg IVPUSH Q8H PRN PRN Reason: Nausea and Vomiting Oxycodone HCl (Oxycodone Hcl Immed Release 5 Mg Tablet) 5 mg PO Q6H PRN PRN Reason: Pain, Severe (Pain Scale 7-10) Last Admin: 09/03/22 10:27 Dose: 5 mg Pharmacy Consult (Consult Rx Perform Med Rec) 1 each MISCELLANE ONCE PRN PRN Reason: Consult order Pharmacy Consult (Consult Rx Vancomycin Dosing) 1 each MISCELLANE DAILY PRN PRN Reason: Consult order Sodium Chloride (0.9 % Sodium Chloride Flush 3 Ml Syringe) 3 ml IVFLUSH QSHIFT [facility] Last Admin: 09/03/22 08:07 Dose: 3 ml Home Medications Medication Instructions Recorded Confirmed Last Taken Type No Known Home Meds 08/24/22 08/24/22 Unknown History Physical Exam Vital Signs: Vital Signs: Last Vital Signs Temp 97.9 F 09/03/22 11:35 Pulse 84 09/03/22 11:35 Resp 18 09/03/22 11:35 BP 124/67 09/03/22 11:35 Pulse Ox 95 09/03/22 11:35 O2 Del Method Room Air 09/03/22 11:35 O2 Flow Rate 2 09/02/22 07:11 BMI result Body Mass Index 21.0 General: No acute distress, resting comfortably in bed, well developed Head: Normocephalic, atraumatic, symmetric Eyes: Sclera anicteric, eyelids without edema or erythema, +EOMS intact ENT: Oral mucosa and tongue are moist Neck: Soft, supple, symmetric, trachea midline, no crepitus, no mass visualized or palpated Cardiovascular: Regular rate and rhythm, no murmur/rubs/gallops, BUE and BLE without edema, no calf tenderness bilaterally Respiratory: Lungs CTA B but diminished at right base, breathing nonlabored, speaking in full sentences, on room air. No use of accessory muscles. No crepitus. Right pigtail chest tube x 1 to [facility] on -20 suction, cloudy serosang drainage (830 total since placement), no air leak. Gastrointestinal: Soft, non-tender, non-distended, +normoactive bowel sounds. Skin: Warm and dry throughout, no rashes. +track alves BUE. Lymphatic: no cervical, supraclavicular, infraclavicular lymphadenopathy noted Neurological: Alert and oriented x 3, no focal neurological deficit noted Psychiatric: no agitation, appropriate affect Results Labs 09/02/22 05:39 09/03/22 05:32 Labs: Abnormal lab results 09/03/22 Range/Units 10:29 Random Vancomycin 12.3 L (15-20) mcg/mL BMP 09/03/22 05:32 Creatinine 0.62 Urine 08/24/22 08/24/22 Range/Units 22:50 22:50 Urine Color Yellow Urine Appearance Clear Urine pH 6.5 (5.0-9.0) Ur Specific [place] >= 1.030 H (1.005-1.025) Urine Protein Negative (Neg-Trace) mg/dL Urine Glucose (UA) >=1000 H (Negative) mg/dL Urine Test NEGATIVE (NEGATIVE) Laboratory Tests 09/02/22 09/02/22 09/02/22 16:00 16:00 16:00 Pleural pH 7.13 Pleural WBC 0.014 Pleural RBC < 0.002 Pleural Neutrophils 82 Pleural Lymphocytes 9 Pleural Monocytes 8 Pleural Basophils 1 Pleural Total Protein 5.4 Pleural Albumin 2.7 Pleural LDH 1128 Pleural Glucose 25 All other labs normal. Imaging Chest x-ray: report reviewed and image reviewed CT scan - chest: report reviewed and image reviewed Additional studies: Impressions Thoracentesis Ultrasound 09/02/22 16:20 IMPRESSION: Ultrasound-guided right 10.2 [place] chest tube placement. Chest X-Ray 09/02/22 16:35 IMPRESSION: New right lateral pigtail chest tube. Moderate to large right pleural effusion minimally decreased in size from yesterday's exam. Chest X-Ray 09/02/22 19:27 IMPRESSION: 1. Small right hydropneumothorax, previously there was a moderate sized pleural effusion. 2. Right basilar atelectasis. Assessment and Plan (1) MRSA bacteremia: Status: Acute (2) Pneumonia: Status: Acute (3) Sepsis: Status: Acute (4) Pleural effusion: Status: Acute Plan Ms. Rosa is a 37 year old female admitted to the hospital for sepsis secondary to MRSA bacteremia and pneumonia. Found to have a moderate right pleural effusions with loculations per ultrasound. s/p IR pigtail placement 09/02/[address] chest performed this morning shows minimal residual pleural fluid with no significant loculations following pleural drainage. No need for chemical fibrinolysis or decortication. Will continue chest tube until minimal drainage. Continue tube to [facility] on -20 suction for now. Daily CXR while chest tube in place. Continue antibiotics. Pulmonary toilet with IS, flutter valve, and ambulation. Patient should be OOB ambulating at least 3-4 times per day in the hallways. Thank you for the consultation. We will continue to follow for chest tube management. Case discussed with Dr. Louie. Time Spent With Patient Time: Total time managing care of this patient today ____ minutes. Procedures Date of Service Date of Service: 09/03/22
--- NOTE | 2022-09-03 14:13 | MHC.RECOVRN ---
This sports writer met with patient, patient alert, sitting up in bed. Pt states has been feeling fearful and anxious about recent medical procedures and diagnosis. Pt states is feeling exhausted/drained mentally and physically from procedures. Pt reflective and discussed risks/benefits. Pt states has had no cravings since hospitalized. Pt states has purposefully focused on staying at the hospital, engaged in care, despite the first few days wanting to leave. Pt states at times overwhelmed with current health status, also feels hopeful as is feeling better and wants to continue with treatment at the hospital. Pt states has been reflecting on substance use hx and wants to maintain abstinence and focused on health. Pt states this health scare has attributed to ability to maintain abstinence.
--- NOTE | 2022-09-03 16:15 | HO.PM.IMPN ---
Subjective Subjective Date of Service: 09/03/22 Interval History: continues to improve. No respiratory distress. Pain control adequate Review of Systems denies chest pain Denies shortness of breath Denies nausea vomiting diarrhea Denies fever chills Physical Exam Vital Signs: Vital Signs: Last Vital Signs Temp 98 F 09/03/22 14:16 Pulse 81 09/03/22 15:39 Resp 18 09/03/22 15:39 BP 139/65 09/03/22 14:16 Pulse Ox 95 09/03/22 14:16 O2 Del Method Room Air 09/03/22 14:16 O2 Flow Rate 2 09/02/22 07:11 BMI result Body Mass Index 21.0 Const: Other: no acute distress Resp: Other: diminished on right clear on left chest tube in place right-sided Cardio: Other: no S4; positive S1-S2; no S3 murmurs rubs or gallops GI: Other: soft nontender nondistended normoactive bowel sounds Extrem: Other: no edema bilaterally Objective Data Active Medications Acetaminophen (Acetaminophen 325 Mg Tablet) 650 mg PO Q6H PRN PRN Reason: Pain, Mild, fever Last Admin: 09/03/22 01:04 Dose: 650 mg Documented By: ARMANDO Albuterol/Ipratropium (Albuterol/Iprat 2.5/0.5mg 3 Ml Ampul.Neb) 3 ml INHALE RQ4H WHILE AWAKE [facility] Last Admin: 09/03/22 15:38 Dose: 3 ml Documented By: HARRIET Docusate Sodium (Docusate Sodium 100 Mg Capsule) 100 mg PO BID [facility] Last Admin: 09/03/22 08:07 Dose: 100 mg Documented By: ISAK Enoxaparin Sodium (Enoxaparin Sodium 40 Mg/0.4 Ml Syringe) 40 mg SUBCUT Q24H [facility] Last Admin: 09/01/22 08:40 Dose: Not Given Documented By: ERNESTO Non-Admin Reason: Patient Refused Guaifenesin/Codeine Phosphate (Guaifen/Codeine Sf 200/20/10ml 10 Ml Liquid) 10 ml PO Q4H [facility] Last Admin: 09/03/22 16:12 Dose: 10 ml Documented By: ISAK Guaifenesin/Dextromethorphan (Guaifenesin Dm 100/10/5 Ml 5 Ml Syrup) 5 ml PO Q4H PRN PRN Reason: cough Lactated Ringer's (Lr) 1,000 mls @ 80 mls/hr IVCONT .[id number] [facility] Last Admin: 09/03/22 10:25 Dose: 80 mls/hr Documented By: ISAK Vancomycin HCl 1,000 mg/ (Sodium Chloride) 270 mls @ 270 mls/hr IV Q8H [facility] Last Infusion: 09/03/22 13:52 Dose: 0 mls/hr Documented By: ISAK Methadone HCl (Methadone Hcl 20 Mg/2 Ml Oral.Conc) 10 mg PO DAILY PRN PRN Reason: Opiate Withdrawal Last Admin: 08/26/22 15:07 Dose: 10 mg Documented By: COTEMA Methadone HCl (Methadone Hcl 20 Mg/2 Ml Oral.Conc) 50 mg PO DAILY [facility] Last Admin: 09/03/22 08:06 Dose: 50 mg Documented By: ISAK Nicotine (Nicotine 21 Mg Patch.Td24) 21 mg TRANSDERMA DAILY [facility] Last Admin: 09/03/22 08:07 Dose: Not Given Documented By: ISAK Non-Admin Reason: Patient Refused Ondansetron HCl (Ondansetron Hcl 4 Mg/2 Ml Vial) 4 mg IVPUSH Q8H PRN PRN Reason: Nausea and Vomiting Oxycodone HCl (Oxycodone Hcl Immed Release 5 Mg Tablet) 5 mg PO Q6H PRN PRN Reason: Pain, Severe (Pain Scale 7-10) Last Admin: 09/03/22 16:12 Dose: 5 mg Documented By: ISAK Pharmacy Consult (Consult Rx Perform Med Rec) 1 each MISCELLANE ONCE PRN PRN Reason: Consult order Pharmacy Consult (Consult Rx Vancomycin Dosing) 1 each MISCELLANE DAILY PRN PRN Reason: Consult order Sodium Chloride (0.9 % Sodium Chloride Flush 3 Ml Syringe) 3 ml IVFLUSH QSHIFT [facility] Last Admin: 09/03/22 16:13 Dose: 3 ml Documented By: ISAK Labs 09/02/22 05:39 09/03/22 05:32 Labs: Laboratory Results - last 24 hr 09/02/22 09/02/22 09/02/22 16:00 16:00 16:00 Estim Creat Clear Calc Estimated GFR Pleural pH 7.13 Pleural WBC 0.014 Pleural RBC < 0.002 Pleural Neutrophils 82 Pleural Lymphocytes 9 Pleural Monocytes 8 Pleural Basophils 1 Pleural Total Protein 5.4 Pleural Albumin 2.7 Pleural LDH 1128 Pleural Glucose 25 Random Vancomycin 09/03/22 09/03/22 05:32 10:29 Estim Creat Clear Calc 98.2 Estimated GFR > 60 Pleural pH Pleural WBC Pleural RBC Pleural Neutrophils Pleural Lymphocytes Pleural Monocytes Pleural Basophils Pleural Total Protein Pleural Albumin Pleural LDH Pleural Glucose Random Vancomycin 12.3 L Microbiology Microbiology Results: Microbiology 08/29/22 08:06 Blood Culture - Final Blood - Venous No growth after 5 days. 08/29/22 08:06 Blood Culture - Final Blood - Venous No growth after 5 days. 09/02/22 16:00 Gram Stain - Final Pleural Fluid Routine Culture - Preliminary No growth to date. Anaerobic Culture - Preliminary No growth to date. Assessment and Plan (1) Sepsis: Status: Acute (2) MRSA bacteremia: Status: Acute (3) Right lower lobe pneumonia: Status: Acute (4) Pleural effusion: Status: Acute Plan 37-year-old female with history of polysubstance abuse, history septic joint who is a current everyday smoker admitted for RLL pneumonia with sepsis. developed recent loculated effusion for which chest tube was placed 09/02/2022 1.Sepsis secondary to RLL pneumonia/MRSA bacteremia -sepsis resolved -repeat blood cultures neg@48 hrs -chest tube to -20 suction; followed by thoracic surgery - reschedule PICC line - will discuss duration of therapy with ID; will need placement 2.Polysubstance abuse - HIV negative - methadone as per addiction medicine Lovenox Full code requires ongoing hospitalization for IV antibiotics to treat MRSA bacteremia/ pneumonia as well as management of close chest tube drainage Time Spent With Patient Time: Total time managing care of this patient today ____ minutes. Quality Stroke Does the patient have a stroke diagnosis?: No VTE Prior VTE?: No VTE Risk Level:: Medical - moderate - high VTE Device Contraindication: Treatment Not Indicated VTE Drug Contraindication: N/A - Med Ordered
[2022-09-04] VITALS (9 sets, daily range): BP systolic 109–121; BP diastolic 58–66; PULSE 76–92; RESP 16–20; TEMP 36.2–37.1; O2SAT 93–100
[2022-09-04] MEDS: guaiFEN/Codeine SF 200/20/10ML 10 ML LIQUID PO ×6 (01:32→20:20)
[2022-09-04] MEDS: oxyCODONE HCl Immed Release 5 MG TABLET PO ×2 (05:22→19:22)
[2022-09-04] MEDS: vancomycin HCL 1,000 MG in 0.9 % Sodium Chloride 250 ML 270 MG IV ×3 (05:23→20:20)
[2022-09-04 07:15] LABS: MANUAL DIFF FLAG NO
[2022-09-04 07:25] LABS: Basophils Percent Auto 0.3 % (0-2); Eosinophils Absolute Auto 0.2 X10*3/uL (0.0-0.4); Eosinophils Percent Auto 2.6 % (0-4); Hematocrit 31.3 % (37.0-47.0); Hemoglobin 9.7 g/dl (12.0-16.0); Imm Gran Abs Auto 0.04 X10*3/uL (0.00-0.03); Imm Gran Pct Auto 0.4 % (0.0-0.4); Lymphocytes Absolute Auto 2.3 X10*3/uL (1.2-4.9); Lymphocytes Percent Auto 25.8 % (20-40); Mean Corpuscular Hemoglobin 26.8 pg (27.0-33.0); Mean Corpuscular Volume 86.5 fL (80.0-98.0); Mean Platelet Volume 10.9 fL (9.4-12.3); Monocytes Absolute Auto 1.2 X10*3/uL (0.1-1.2); Monocytes Percent Auto 12.9 % (2-11); Neutrophils Absolute Auto 5.2 x10*3/uL (2.0-8.3); Platelet Count 365 X10*3/uL (160-400); Red Blood Count 3.62 X10*6/uL (4.20-5.50)
[2022-09-04] MEDS: Albuterol/Iprat 2.5/0.5MG 3 ML AMPUL.NEB INHALE ×3 (07:52→19:24)
[2022-09-04 08:00] LABS: Alanine Aminotransferase 13 U/L (0-31); Albumin Level 2.6 g/dL (3.5-5.0); Alkaline Phosphatase 93 U/L (39-117); Anion Gap 14 (12-20); Aspartate Amino Transferase 15 U/L (5-31); Bilirubin Total 0.2 mg/dL (0.0-1.0); Blood Urea Nitrogen 12 mg/dL (9-16); Calcium 9.4 mg/dL (8.4-10.2); Carbon Dioxide 28 mmol/L (22-29); Chloride 102 mmol/L (96-108); Estimated Glomerular Filt Rate > 60; Glucose Fasting 120 mg/dL (60-99); Potassium 3.6 mmol/L (3.3-5.1); Sodium 140 mmol/L (135-145); Total Protein 6.8 g/dL (6.5-8.0)
[2022-09-04] MEDS: 0.9 % Sodium Chloride Flush 3 ML SYRINGE IVFLUSH ×3 (09:27→21:23)
[2022-09-04] MEDS: methADONE HCl 20 MG/2 ML ORAL.CONC 50 MG PO (09:28)
[2022-09-04 11:17] LABS: Vancomycin Random 14.8 mcg/mL (15-20)
--- NOTE | 2022-09-04 11:48 | HO.PM.IMPN ---
Subjective Subjective Date of Service: 09/04/22 Interval History: Sepsis secondary to RLL pneumonia and MRSA bacteremia s/p chest tube (09/02/22) Review of Systems sob seems improving feeling somewhat improving Physical Exam Vital Signs: Vital Signs: Last Vital Signs Temp 97.8 F 09/04/22 11:00 Pulse 80 09/04/22 11:37 Resp 16 09/04/22 11:37 BP 109/66 09/04/22 11:00 Pulse Ox 100 09/04/22 11:00 O2 Del Method Room Air 09/04/22 07:00 O2 Flow Rate 2 09/02/22 07:11 BMI result Body Mass Index 21.0 Constitutional : Awake, interactive, not in distress Cvs : RRR, no JVP, no lower extremity edema chest: good bilateral air entry,? no crackles, wheezes or rhonchi Gastrointestinal:? soft, nt, Normal bowel sounds, Non tender Skin : Warm, Dry Neurological : Alert & oriented x3, No focal deficit Objective Data Active Medications Acetaminophen (Acetaminophen 325 Mg Tablet) 650 mg PO Q6H PRN PRN Reason: Pain, Mild, fever Last Admin: 09/03/22 22:14 Dose: 650 mg Documented By: RAMO Albuterol/Ipratropium (Albuterol/Iprat 2.5/0.5mg 3 Ml Ampul.Neb) 3 ml INHALE RQ4H WHILE AWAKE [facility] Last Admin: 09/04/22 11:35 Dose: 3 ml Documented By: LOGAN Docusate Sodium (Docusate Sodium 100 Mg Capsule) 100 mg PO BID [facility] Last Admin: 09/04/22 09:30 Dose: Not Given Documented By: KARI Non-Admin Reason: Patient Refused Enoxaparin Sodium (Enoxaparin Sodium 40 Mg/0.4 Ml Syringe) 40 mg SUBCUT Q24H [facility] Last Admin: 09/04/22 09:36 Dose: Not Given Documented By: KARI Non-Admin Reason: Patient Refused Guaifenesin/Codeine Phosphate (Guaifen/Codeine Sf 200/20/10ml 10 Ml Liquid) 10 ml PO Q4H [facility] Last Admin: 09/04/22 09:27 Dose: 10 ml Documented By: KARI Guaifenesin/Dextromethorphan (Guaifenesin Dm 100/10/5 Ml 5 Ml Syrup) 5 ml PO Q4H PRN PRN Reason: cough Vancomycin HCl 1,000 mg/ (Sodium Chloride) 270 mls @ 270 mls/hr IV Q8H [facility] Last Infusion: 09/04/22 07:01 Dose: 0 mls/hr Documented By: RAMO Methadone HCl (Methadone Hcl 20 Mg/2 Ml Oral.Conc) 10 mg PO DAILY PRN PRN Reason: Opiate Withdrawal Last Admin: 08/26/22 15:07 Dose: 10 mg Documented By: COTEMA Methadone HCl (Methadone Hcl 20 Mg/2 Ml Oral.Conc) 50 mg PO DAILY [facility] Last Admin: 09/04/22 09:28 Dose: 50 mg Documented By: KARI Nicotine (Nicotine 21 Mg Patch.Td24) 21 mg TRANSDERMA DAILY [facility] Last Admin: 09/04/22 09:30 Dose: Not Given Documented By: KARI Non-Admin Reason: Patient Refused Ondansetron HCl (Ondansetron Hcl 4 Mg/2 Ml Vial) 4 mg IVPUSH Q8H PRN PRN Reason: Nausea and Vomiting Oxycodone HCl (Oxycodone Hcl Immed Release 5 Mg Tablet) 5 mg PO Q6H PRN PRN Reason: Pain, Severe (Pain Scale 7-10) Last Admin: 09/04/22 05:22 Dose: 5 mg Documented By: ARMANDO Pharmacy Consult (Consult Rx Perform Med Rec) 1 each MISCELLANE ONCE PRN PRN Reason: Consult order Pharmacy Consult (Consult Rx Vancomycin Dosing) 1 each MISCELLANE DAILY PRN PRN Reason: Consult order Sodium Chloride (0.9 % Sodium Chloride Flush 3 Ml Syringe) 3 ml IVFLUSH QSHIFT [facility] Last Admin: 09/04/22 09:27 Dose: 3 ml Documented By: KARI Labs 09/04/22 05:47 09/04/22 05:47 Labs: Laboratory Results - last 24 hr 09/04/22 09/04/22 09/04/22 05:47 05:47 10:28 MCV 86.5 MCH 26.8 L MCHC 31.0 RDW 15.0 Plt Count 365 MPV 10.9 Immature Gran % (Auto) 0.4 Neut % (Auto) 58.0 Lymph % (Auto) 25.8 Smith % (Auto) 12.9 H Eos % (Auto) 2.6 Baso % (Auto) 0.3 Lymph # (Auto) 2.3 Smith # (Auto) 1.2 Eos # (Auto) 0.2 Baso # (Auto) 0.0 Abs Immat Gran (auto) 0.04 H Absolute Neuts (auto) 5.2 Absolute Nucleated RBC 0.000 Nucleated RBC % (auto) 0.0 Anion Gap 14 Estim Creat Clear Calc 105.0 Estimated GFR > 60 Fasting Glucose 120 H Calcium 9.4 Total Bilirubin 0.2 AST 15 ALT 13 Alkaline Phosphatase 93 Total Protein 6.8 Albumin 2.6 L Random Vancomycin 14.8 L Microbiology Microbiology Results: Microbiology 09/02/22 16:00 Gram Stain - Final Pleural Fluid Routine Culture - Preliminary No growth to date. Anaerobic Culture - Preliminary No growth to date. 08/29/22 08:06 Blood Culture - Final Blood - Venous No growth after 5 days. 08/29/22 08:06 Blood Culture - Final Blood - Venous No growth after 5 days. Assessment and Plan (1) Right lower lobe pneumonia: Status: Acute (2) Pleural effusion: Status: Acute (3) MRSA bacteremia: Status: Acute Plan 37-year-old female with history of polysubstance abuse, history septic joint who is a current everyday smoker admitted for RLL pneumonia with sepsis.Found to have a moderate right pleural effusions with loculations per ultrasound. Sepsis secondary to RLL pneumonia and MRSA bacteremia sepsis resolved WBCs trending down still has intermitent rib cage pain ,sob Blood cultures growing MRSA, Sputum cultures shows strep pyogenes repeat blood cultures neg@48 hrs ECHO:The left ventricular systolic function is normal.? The ? calculated ejection fraction is 57% by biplane method. ? - No obvious valvular pathology seen on this study.? cxr -? inceasing pleural effusion Vanco trough 14.8. ID consulted - recommending HIV (negative ) and MRI of LS -limited ,seems grossly fine.Found to have a moderate right pleural effusions with loculations per ultrasound. s/p IR pigtail placement 09/02/2022.chest tube to -20 suction,minimal drainge today. continue IV vancomycin.Cxr today done -pending results ? ?Acute respiratory failure with hypoxia 2/2 PNA resolved ?Acute toxic metabolic encephalopathy 2/2 Drugs and sepsis resolved Polysubstance abuse tox screen + for cocaine, fentanyl, optiates h/o +ve HCV, HIV screen -ve seen by addiction medicine, started on methadone ?Nicotine dependence ?NRT replacement ?smoking cessation advised DVT prophylaxis Lovenox Full code ongoing? hospitlisation for - Sepsis secondary to RLL pneumonia-parapneumonic effusion,mrsa bacteremia - need for IV abx , has chest tube-to suction . Time Spent With Patient Time: Total time managing care of this patient today ____ minutes. Quality Stroke Does the patient have a stroke diagnosis?: No VTE Prior VTE?: No VTE Risk Level:: Medical - moderate - high VTE Device Contraindication: Treatment Not Indicated VTE Drug Contraindication: N/A - Med Ordered
[2022-09-04] MEDS: Docusate Sodium 100 MG CAPSULE PO (20:20)
[2022-09-05] VITALS (10 sets, daily range): BP systolic 107–138; BP diastolic 59–76; PULSE 70–95; RESP 15–20; TEMP 36.1–37.1; O2SAT 93–100; BMI 22.4
[2022-09-05] MEDS: Acetaminophen 325 MG TABLET 650 MG PO ×2 (00:19→13:21)
[2022-09-05] MEDS: oxyCODONE HCl Immed Release 5 MG TABLET PO ×2 (01:17→13:21)
[2022-09-05] MEDS: guaiFEN/Codeine SF 200/20/10ML 10 ML LIQUID PO ×6 (01:18→20:23)
[2022-09-05] MEDS: vancomycin HCL 1,000 MG in 0.9 % Sodium Chloride 250 ML 270 MG IV (04:11)
[2022-09-05 07:03] LABS: MANUAL DIFF FLAG NO
[2022-09-05 07:21] LABS: Basophils Percent Auto 0.4 % (0-2); Eosinophils Absolute Auto 0.2 X10*3/uL (0.0-0.4); Eosinophils Percent Auto 2.9 % (0-4); Hematocrit 30.8 % (37.0-47.0); Hemoglobin 9.8 g/dl (12.0-16.0); Imm Gran Abs Auto 0.06 X10*3/uL (0.00-0.03); Imm Gran Pct Auto 0.8 % (0.0-0.4); Lymphocytes Percent Auto 26.1 % (20-40); Mean Corpuscular HGB Conc 31.8 g/dl (31.0-35.0); Mean Corpuscular Hemoglobin 26.9 pg (27.0-33.0); Mean Corpuscular Volume 84.6 fL (80.0-98.0); Mean Platelet Volume 11.1 fL (9.4-12.3); Monocytes Absolute Auto 1.1 X10*3/uL (0.1-1.2); Monocytes Percent Auto 14.6 % (2-11); Neutrophils Absolute Auto 4.2 x10*3/uL (2.0-8.3); Neutrophils Percent Auto 55.2 % (45-73); Platelet Count 338 X10*3/uL (160-400); Red Blood Count 3.64 X10*6/uL (4.20-5.50); Red Cell Distribution Width 14.8 % (11.0-16.0); White Blood Count 7.6 X10*3/uL (4.8-10.8)
[2022-09-05 07:26] LABS: Alanine Aminotransferase 13 U/L (0-31); Albumin Level 2.8 g/dL (3.5-5.0); Alkaline Phosphatase 84 U/L (39-117); Anion Gap 13 (12-20); Aspartate Amino Transferase 11 U/L (5-31); Bilirubin Total 0.2 mg/dL (0.0-1.0); Blood Urea Nitrogen 10 mg/dL (9-16); Calcium 10.1 mg/dL (8.4-10.2); Carbon Dioxide 30 mmol/L (22-29); Chloride 100 mmol/L (96-108); Creatinine Clr Calc Pharmacy 99.8; Estimated Glomerular Filt Rate > 60; Glucose Fasting 102 mg/dL (60-99); Potassium 4.1 mmol/L (3.3-5.1); Sodium 139 mmol/L (135-145)
[2022-09-05] MEDS: Albuterol/Iprat 2.5/0.5MG 3 ML AMPUL.NEB INHALE ×4 (07:53→19:57)
[2022-09-05] MEDS: methADONE HCl 20 MG/2 ML ORAL.CONC 50 MG PO (08:21)
[2022-09-05] MEDS: 0.9 % Sodium Chloride Flush 3 ML SYRINGE IVFLUSH ×3 (08:23→21:51)
[2022-09-05 10:34] LABS: Vancomycin Random 16.1 mcg/mL (15-20)
--- NOTE | 2022-09-05 10:43 | HE.PHANOTE ---
Vancomycin Dosing Level 16.1 today. Continue current regimen. next level 09/06 @ 1000. Christian GuthrieD
--- NOTE | 2022-09-05 10:46 | MHC.CM.PN ---
EMR reviewed and per MD rounds, pt is not medically cleared for D/C due to pt chest tube still draining. CM will continue to follow.
--- NOTE | 2022-09-05 12:54 | PM.PNTS ---
Subjective Subjective Date of Service: 09/05/22 Interval history: Patient has no acute respiratory issues or complaints. Minimal chest tube output. No air leak demonstrated. Physical Exam Vital Signs: Vital Signs: Last Vital Signs Temp 96.9 F 09/05/22 12:00 Pulse 86 09/05/22 12:00 Resp 18 09/05/22 12:00 BP 112/67 09/05/22 12:00 Pulse Ox 93 09/05/22 12:00 O2 Del Method Room Air 09/05/22 12:00 O2 Flow Rate 2 09/02/22 07:11 BMI result Body Mass Index 21.0 Chest: Other: Chest tube site clean dry and intact. Procedures Date of Service Date of Service: 09/05/22 Progress Note: A&P Assessment and plan (1) Pleural effusion: Status: Acute (2) Right lower lobe pneumonia: Status: Acute Plan Consider chest tube to water seal and consider DC chest tube tomorrow if output remains minimal. Time Spent With Patient Time: Total time managing care of this patient today ____ minutes. Quality Stroke Does the patient have a stroke diagnosis?: No VTE Prior VTE?: No VTE Risk Level:: Medical - moderate - high VTE Device Contraindication: Treatment Not Indicated VTE Drug Contraindication: N/A - Med Ordered
--- NOTE | 2022-09-05 15:16 | HO.PM.IMPN ---
Subjective Subjective Date of Service: 09/05/22 Interval History: Sepsis secondary to RLL pneumonia and MRSA bacteremia s/p chest tube (09/02/22) Review of Systems sob seems improving,feeling somewhat improving Physical Exam Vital Signs: Vital Signs: Last Vital Signs Temp 96.9 F 09/05/22 12:00 Pulse 86 09/05/22 12:00 Resp 18 09/05/22 12:00 BP 112/67 09/05/22 12:00 Pulse Ox 93 09/05/22 12:00 O2 Del Method Room Air 09/05/22 12:00 O2 Flow Rate 2 09/02/22 07:11 BMI result Body Mass Index 21.0 Constitutional : Awake, interactive, not in distress Cvs : RRR, no JVP, no lower extremity edema chest: good bilateral air entry,? no crackles, wheezes or rhonchi Gastrointestinal:? soft, nt, Normal bowel sounds, Non tender Skin : Warm, Dry Neurological : Alert & oriented x3, No focal deficit Objective Data Active Medications Acetaminophen (Acetaminophen 325 Mg Tablet) 650 mg PO Q6H PRN PRN Reason: Pain, Mild, fever Last Admin: 09/05/22 13:21 Dose: 650 mg Documented By: KARI Albuterol/Ipratropium (Albuterol/Iprat 2.5/0.5mg 3 Ml Ampul.Neb) 3 ml INHALE RQ4H WHILE AWAKE [facility] Last Admin: 09/05/22 11:33 Dose: 3 ml Documented By: WINNIE Docusate Sodium (Docusate Sodium 100 Mg Capsule) 100 mg PO BID [facility] Last Admin: 09/05/22 08:25 Dose: Not Given Documented By: KARI Non-Admin Reason: Patient Refused Enoxaparin Sodium (Enoxaparin Sodium 40 Mg/0.4 Ml Syringe) 40 mg SUBCUT Q24H [facility] Last Admin: 09/05/22 10:14 Dose: Not Given Documented By: KARI Non-Admin Reason: Patient Refused Guaifenesin/Codeine Phosphate (Guaifen/Codeine Sf 200/20/10ml 10 Ml Liquid) 10 ml PO Q4H [facility] Last Admin: 09/05/22 13:21 Dose: 10 ml Documented By: KARI Guaifenesin/Dextromethorphan (Guaifenesin Dm 100/10/5 Ml 5 Ml Syrup) 5 ml PO Q4H PRN PRN Reason: cough Vancomycin HCl 1,000 mg/ (Sodium Chloride) 270 mls @ 270 mls/hr IV Q8H [facility] Last Infusion: 09/05/22 13:22 Dose: 0 mls/hr Documented By: KARI Methadone HCl (Methadone Hcl 20 Mg/2 Ml Oral.Conc) 10 mg PO DAILY PRN PRN Reason: Opiate Withdrawal Last Admin: 08/26/22 15:07 Dose: 10 mg Documented By: COTEMA Methadone HCl (Methadone Hcl 20 Mg/2 Ml Oral.Conc) 50 mg PO DAILY [facility] Last Admin: 09/05/22 08:21 Dose: 50 mg Documented By: KARI Nicotine (Nicotine 21 Mg Patch.Td24) 21 mg TRANSDERMA DAILY [facility] Last Admin: 09/05/22 08:26 Dose: Not Given Documented By: KARI Non-Admin Reason: Patient Refused Ondansetron HCl (Ondansetron Hcl 4 Mg/2 Ml Vial) 4 mg IVPUSH Q8H PRN PRN Reason: Nausea and Vomiting Oxycodone HCl (Oxycodone Hcl Immed Release 5 Mg Tablet) 5 mg PO Q6H PRN PRN Reason: Pain, Severe (Pain Scale 7-10) Last Admin: 09/05/22 13:21 Dose: 5 mg Documented By: KARI Pharmacy Consult (Consult Rx Perform Med Rec) 1 each MISCELLANE ONCE PRN PRN Reason: Consult order Pharmacy Consult (Consult Rx Vancomycin Dosing) 1 each MISCELLANE DAILY PRN PRN Reason: Consult order Sodium Chloride (0.9 % Sodium Chloride Flush 3 Ml Syringe) 3 ml IVFLUSH QSHIFT [facility] Last Admin: 09/05/22 08:23 Dose: 3 ml Documented By: KARI Labs 09/05/22 06:23 09/05/22 06:23 Labs: Laboratory Results - last 24 hr 09/05/22 09/05/22 09/05/22 06:23 06:23 10:06 MCV 84.6 MCH 26.9 L MCHC 31.8 RDW 14.8 Plt Count 338 MPV 11.1 Immature Gran % (Auto) 0.8 H Neut % (Auto) 55.2 Lymph % (Auto) 26.1 [place] % (Auto) 14.6 H Eos % (Auto) 2.9 Baso % (Auto) 0.4 Lymph # (Auto) 2.0 [place] # (Auto) 1.1 Eos # (Auto) 0.2 Baso # (Auto) 0.0 Abs Immat Gran (auto) 0.06 H Absolute Neuts (auto) 4.2 Absolute Nucleated RBC 0.000 Nucleated RBC % (auto) 0.0 Anion Gap 13 Estim Creat Clear Calc 99.8 Estimated GFR > 60 Fasting Glucose 102 H Calcium 10.1 D Total Bilirubin 0.2 AST 11 ALT 13 Alkaline Phosphatase 84 Total Protein 7.0 Albumin 2.8 L Random Vancomycin 16.1 Microbiology Microbiology Results: Microbiology 09/02/22 16:00 Gram Stain - Final Pleural Fluid Routine Culture - Final No growth after 2 days Anaerobic Culture - Preliminary No growth to date. Assessment and Plan (1) Right lower lobe pneumonia: Status: Acute (2) Pleural effusion: Status: Acute (3) MRSA bacteremia: Status: Acute Plan 37-year-old female with history of polysubstance abuse, history septic joint who is a current everyday smoker admitted for RLL pneumonia with sepsis.Found to have a moderate right pleural effusions with loculations per ultrasound. Sepsis secondary to RLL pneumonia and MRSA bacteremia sepsis resolved WBCs trending down still has intermitent rib cage pain ,sob Blood cultures growing MRSA, Sputum cultures shows strep pyogenes repeat blood cultures neg@48 hrs ECHO:The left ventricular systolic function is normal.? The ? calculated ejection fraction is 57% by biplane method. ? - No obvious valvular pathology seen on this study.? cxr -? increasing pleural effusion Vanco trough 16.1 ID consulted - recommending HIV (negative ) and MRI of LS -limited ,seems grossly fine.Found to have a moderate right pleural effusions with loculations per ultrasound. s/p IR pigtail placement 09/02/2022.chest tube to -20 suction,minimal drainge today. continue IV vancomycin.Cxr today-reviewed and also seen by thoracic Consider chest tube to water seal and consider DC chest tube tomorrow if output remains minimal d/w Id -may need 4 weeks of antibiotics ,picc line placed ,Id follow up for antibiotics ? ?Acute respiratory failure with hypoxia 2/2 PNA resolved ?Acute toxic metabolic encephalopathy 2/2 Drugs and sepsis resolved Polysubstance abuse tox screen + for cocaine, fentanyl, optiates h/o +ve HCV, HIV screen -ve seen by addiction medicine, started on methadone ?Nicotine dependence ?NRT replacement ?smoking cessation advised DVT prophylaxis Lovenox Full code ongoing? hospitlisation - Sepsis secondary to RLL pneumonia-parapneumonic effusion,mrsa bacteremia - need for IV abx , has chest tube-to suction . Time Spent With Patient Time: Total time managing care of this patient today ____ minutes. Quality Stroke Does the patient have a stroke diagnosis?: No VTE Prior VTE?: No VTE Risk Level:: Medical - moderate - high VTE Device Contraindication: Treatment Not Indicated VTE Drug Contraindication: N/A - Med Ordered
--- NOTE | 2022-09-05 15:27 | PM.PNTS ---
Subjective Subjective Date of Service: 09/05/22 Interval history: Chest tube catheter uneventfully removed. Sterile dressing applied. Change p.r.n.. Physical Exam Vital Signs: Vital Signs: Last Vital Signs Temp 98 F 09/05/22 15:25 Pulse 78 09/05/22 15:25 Resp 18 09/05/22 15:25 BP 110/59 L 09/05/22 15:25 Pulse Ox 97 09/05/22 15:25 O2 Del Method Room Air 09/05/22 15:25 O2 Flow Rate 2 09/02/22 07:11 BMI result Body Mass Index 21.0 Procedures Date of Service Date of Service: 09/05/22 Progress Note: A&P Assessment and plan (1) Pleural effusion: Status: Acute Plan Status post chest tube removal Time Spent With Patient Time: Total time managing care of this patient today ____ minutes. Quality Stroke Does the patient have a stroke diagnosis?: No VTE Prior VTE?: No VTE Risk Level:: Medical - moderate - high VTE Device Contraindication: Treatment Not Indicated VTE Drug Contraindication: N/A - Med Ordered
--- NOTE | 2022-09-05 16:12 | PM.IDPN ---
Subjective Subjective Date of Service: 09/05/22 Critical Care Time (minutes): 15 Comment: She has chest tube not draining much. She has MRSA bacteremia. She has no complaints Objective Data Labs 09/05/22 06:23 09/05/22 06:23 Labs: Laboratory Results - last 24 hr 09/05/22 09/05/22 09/05/22 06:23 06:23 10:06 WBC 7.6 RBC 3.64 L Hgb 9.8 L Hct 30.8 L MCV 84.6 MCH 26.9 L MCHC 31.8 RDW 14.8 Plt Count 338 MPV 11.1 Immature Gran % (Auto) 0.8 H Neut % (Auto) 55.2 Lymph % (Auto) 26.1 [place] % (Auto) 14.6 H Eos % (Auto) 2.9 Baso % (Auto) 0.4 Lymph # (Auto) 2.0 [place] # (Auto) 1.1 Eos # (Auto) 0.2 Baso # (Auto) 0.0 Abs Immat Gran (auto) 0.06 H Absolute Neuts (auto) 4.2 Absolute Nucleated RBC 0.000 Nucleated RBC % (auto) 0.0 Sodium 139 Potassium 4.1 Chloride 100 Carbon Dioxide 30 H Anion Gap 13 BUN 10 Creatinine 0.61 Estim Creat Clear Calc 99.8 Estimated GFR > 60 Fasting Glucose 102 H Calcium 10.1 D Total Bilirubin 0.2 AST 11 ALT 13 Alkaline Phosphatase 84 Total Protein 7.0 Albumin 2.8 L Random Vancomycin 16.1 Microbiology Microbiology Results: Microbiology 09/02/22 16:00 Pleural Fluid Gram Stain - Final 09/02/22 16:00 Pleural Fluid Routine Culture - Final No growth after 2 days 09/02/22 16:00 Pleural Fluid Anaerobic Culture - Preliminary No growth to date. 08/29/22 08:06 Blood - Venous Blood Culture - Final No growth after 5 days. 08/29/22 08:06 Blood - Venous Blood Culture - Final No growth after 5 days. 08/24/22 06:19 Blood - Venous Blood Culture - Final Methicillin Res Staph Aureus Bacillus species 08/24/22 21:10 Sputum - Expectorated Gram Stain - Final 08/24/22 21:10 Sputum - Expectorated Sputum Culture - Final Streptococcus pyogenes (Grp A) 08/24/22 06:21 Blood - Venous Blood Culture - Final Methicillin Res Staph Aureus Physical Exam Vital Signs: Vital Signs: Last Vital Signs Temp 98 F 09/05/22 15:25 Pulse 76 09/05/22 15:35 Resp 20 09/05/22 15:35 BP 110/59 L 09/05/22 15:25 Pulse Ox 97 09/05/22 15:25 O2 Del Method Room Air 09/05/22 15:25 O2 Flow Rate 2 09/02/22 07:11 BMI result Body Mass Index 21.0 Const: General: cooperative HEENT: Head: Yes normal to inspection Mouth: Normal oral and palatal mucosa present Resp: Effort & Inspection: normal respiratory effort Cardio: Rate: regular rate Rhythm: regular rhythm GI: Palpation (GI): Soft to palpation and nontender Extrem: General: Yes normal to inspection Assessment and Plan Assessment and plan (1) Right lower lobe pneumonia: Problem details: MRSA bacteremia,no metastatic sites seen Status: Acute Assessment and Plan: Line for four weeks and finish 09/28. Weekly creatinine and Vancomycin level. (2) MRSA bacteremia: Status: Acute (3) Opioid use disorder: Status: Acute Time Spent With Patient Time: Total time managing care of this patient today ____ minutes.
[2022-09-05] MEDS: Docusate Sodium 100 MG CAPSULE PO (20:23)
[2022-09-06] VITALS (10 sets, daily range): BP systolic 103–121; BP diastolic 53–72; PULSE 74–95; RESP 16–20; TEMP 36.3–37.3; O2SAT 95–98
[2022-09-06] MEDS: guaiFEN/Codeine SF 200/20/10ML 10 ML LIQUID PO ×2 (01:00→04:41)
[2022-09-06] MEDS: Acetaminophen 325 MG TABLET 650 MG PO ×2 (03:28→20:14)
[2022-09-06] MEDS: oxyCODONE HCl Immed Release 5 MG TABLET PO ×2 (03:28→18:10)
[2022-09-06] MEDS: Albuterol/Iprat 2.5/0.5MG 3 ML AMPUL.NEB INHALE ×4 (08:13→19:44)
[2022-09-06] MEDS: 0.9 % Sodium Chloride Flush 3 ML SYRINGE IVFLUSH ×2 (09:10→15:05)
[2022-09-06] MEDS: methADONE HCl 20 MG/2 ML ORAL.CONC 50 MG PO (09:10)
--- NOTE | 2022-09-06 11:09 | HE.PHANOTE ---
RE: VANCO DOSING Level today 17.8. Continue current dosing. Next level 7/5 @1000.
--- NOTE | 2022-09-06 11:16 | HO.PM.IMPN ---
Subjective Subjective Date of Service: 09/06/22 Interval History: f/u on mrsa sepsis, bacteremia, PNA with effusion interval history: better, no new issues, pain at chest tube site Physical Exam Vital Signs: Vital Signs: Last Vital Signs Temp 97.3 F 09/06/22 07:36 Pulse 74 09/06/22 08:14 Resp 16 09/06/22 08:14 BP 109/66 09/06/22 07:36 Pulse Ox 97 09/06/22 07:36 O2 Del Method Room Air 09/06/22 07:36 O2 Flow Rate 2 09/02/22 07:11 BMI result Body Mass Index 22.4 Const: Other: General: AO X 3, no acute distress Resp: CTA bilateral CVS: S1,S2,RRR--no murmur GI: +BS, NT, no distention Skin: No rash Neuro: motor grossly intact Psych: appropriate affect Objective Data Active Medications Acetaminophen (Acetaminophen 325 Mg Tablet) 650 mg PO Q6H PRN PRN Reason: Pain, Mild, fever Last Admin: 09/06/22 03:28 Dose: 650 mg Documented By: SANTHOSH Albuterol/Ipratropium (Albuterol/Iprat 2.5/0.5mg 3 Ml Ampul.Neb) 3 ml INHALE RQ4H WHILE AWAKE [facility] Last Admin: 09/06/22 08:13 Dose: 3 ml Documented By: WINNIE Docusate Sodium (Docusate Sodium 100 Mg Capsule) 100 mg PO BID [facility] Last Admin: 09/06/22 09:10 Dose: Not Given Documented By: ISAK Non-Admin Reason: Patient Refused Enoxaparin Sodium (Enoxaparin Sodium 40 Mg/0.4 Ml Syringe) 40 mg SUBCUT Q24H [facility] Last Admin: 09/06/22 09:10 Dose: Not Given Documented By: ISAK Non-Admin Reason: Patient Refused Guaifenesin/Dextromethorphan (Guaifenesin Dm 100/10/5 Ml 5 Ml Syrup) 5 ml PO Q4H PRN PRN Reason: cough Vancomycin HCl 1,000 mg/ (Sodium Chloride) 270 mls @ 270 mls/hr IV Q8H [facility] Last Infusion: 09/06/22 04:39 Dose: 0 mls/hr Documented By: SANTHOSH Methadone HCl (Methadone Hcl 20 Mg/2 Ml Oral.Conc) 10 mg PO DAILY PRN PRN Reason: Opiate Withdrawal Last Admin: 08/26/22 15:07 Dose: 10 mg Documented By: COTEMA Methadone HCl (Methadone Hcl 20 Mg/2 Ml Oral.Conc) 50 mg PO DAILY [facility] Last Admin: 09/06/22 09:10 Dose: 50 mg Documented By: ISAK Nicotine (Nicotine 21 Mg Patch.Td24) 21 mg TRANSDERMA DAILY [facility] Last Admin: 09/06/22 09:10 Dose: Not Given Documented By: ISAK Non-Admin Reason: Patient Refused Ondansetron HCl (Ondansetron Hcl 4 Mg/2 Ml Vial) 4 mg IVPUSH Q8H PRN PRN Reason: Nausea and Vomiting Oxycodone HCl (Oxycodone Hcl Immed Release 5 Mg Tablet) 5 mg PO Q6H PRN PRN Reason: Pain, Severe (Pain Scale 7-10) Last Admin: 09/06/22 03:28 Dose: 5 mg Documented By: SANTHOSH Pharmacy Consult (Consult Rx Perform Med Rec) 1 each MISCELLANE ONCE PRN PRN Reason: Consult order Pharmacy Consult (Consult Rx Vancomycin Dosing) 1 each MISCELLANE DAILY PRN PRN Reason: Consult order Sodium Chloride (0.9 % Sodium Chloride Flush 3 Ml Syringe) 3 ml IVFLUSH QSHIFT [facility] Last Admin: 09/06/22 09:10 Dose: 3 ml Documented By: ISAK Sodium Chloride (0.9 % Sodium Chloride Flush 10 Ml Syringe) 5 ml IVFLUSH TID [facility] Last Admin: 09/06/22 09:11 Dose: 5 ml Documented By: ISAK Labs 09/06/22 05:58 09/06/22 05:58 Labs: Laboratory Results - last 24 hr 09/06/22 09/06/22 09/06/22 05:58 05:58 05:58 MCV 84.0 Cancelled MCH 26.3 L Cancelled MCHC 31.3 Cancelled RDW 14.9 Cancelled Plt Count 400 Cancelled MPV 10.3 Cancelled Immature Gran % (Auto) 0.6 H Neut % (Auto) 58.7 Lymph % (Auto) 26.0 [place] % (Auto) 11.1 H Eos % (Auto) 3.0 Baso % (Auto) 0.6 Lymph # (Auto) 2.3 [place] # (Auto) 1.0 Eos # (Auto) 0.3 Baso # (Auto) 0.1 Abs Immat Gran (auto) 0.05 H Absolute Neuts (auto) 5.3 Absolute Nucleated RBC 0.000 Cancelled Nucleated RBC % (auto) 0.0 Cancelled Anion Gap 14 Estim Creat Clear Calc 96.6 Estimated GFR > 60 Random Glucose Fasting Glucose 128 H Calcium 10.1 Total Bilirubin 0.2 AST 15 ALT 13 Alkaline Phosphatase 97 Total Protein 7.4 Albumin 3.0 L Vancomycin Trough 09/06/22 09/06/22 05:58 10:03 MCV MCH MCHC RDW Plt Count MPV Immature Gran % (Auto) Neut % (Auto) Lymph % (Auto) [place] % (Auto) Eos % (Auto) Baso % (Auto) Lymph # (Auto) [place] # (Auto) Eos # (Auto) Baso # (Auto) Abs Immat Gran (auto) Absolute Neuts (auto) Absolute Nucleated RBC Nucleated RBC % (auto) Anion Gap 14 Estim Creat Clear Calc 96.6 Estimated GFR > 60 Random Glucose 132 H Fasting Glucose Calcium 10.0 Total Bilirubin AST ALT Alkaline Phosphatase Total Protein Albumin Vancomycin Trough 17.8 Microbiology Microbiology Results: Microbiology 09/02/22 16:00 Gram Stain - Final Pleural Fluid Routine Culture - Final No growth after 2 days Anaerobic Culture - Preliminary No growth to date. Assessment and Plan (1) Right lower lobe pneumonia: Status: Acute (2) Pleural effusion: Status: Acute (3) MRSA bacteremia: Status: Acute Plan 37-year-old female with history of polysubstance abuse, history septic joint who is a current everyday smoker admitted for RLL pneumonia with sepsis.Found to have a moderate right pleural effusions with loculations per ultrasound. Blood culture MRSA Sepsis secondary to RLL pneumonia and MRSA bacteremia s/p pig tail catheter by IR on 09/02 and removed 09/05, clinically improving. ID recommend Vanco x 4 weeks, has Picc line and awaiting placement. Echo no vegetation.s ?Acute respiratory failure with hypoxia 2/2 PNA resolved ?Acute toxic metabolic encephalopathy 2/2 Drugs and sepsis resolved Polysubstance abuse, opioid use desorder--continue Methadone. +HCV, consider outpatient therapy ?Nicotine dependence ?NRT replacement ?smoking cessation advised DVT prophylaxis Lovenox Full code Need for inpt: Awaiting placement for shelter IV Abx Time Spent With Patient Time: Total time managing care of this patient today ____ minutes. Quality Stroke Does the patient have a stroke diagnosis?: No VTE Prior VTE?: No VTE Risk Level:: Medical - moderate - high VTE Device Contraindication: Treatment Not Indicated VTE Drug Contraindication: N/A - Med Ordered
[2022-09-06] MEDS: Heparin Sodium,Porcine Flush 50 UNITS, 0.9 % Sodium Chloride Flush 5 ML IVFLUSH ×2 (15:05→22:23)
[2022-09-07] VITALS (9 sets, daily range): BP systolic 107–120; BP diastolic 63–70; PULSE 77–99; RESP 15–20; TEMP 36–36.8; O2SAT 95–99
[2022-09-07] MEDS: oxyCODONE HCl Immed Release 5 MG TABLET PO ×2 (07:11→13:05)
[2022-09-07] MEDS: Docusate Sodium 100 MG CAPSULE PO ×2 (07:12→20:23)
[2022-09-07] MEDS: methADONE HCl 20 MG/2 ML ORAL.CONC 50 MG PO (07:12)
[2022-09-07] MEDS: 0.9 % Sodium Chloride Flush 3 ML SYRINGE IVFLUSH (07:13)
[2022-09-07] MEDS: Heparin Sodium,Porcine Flush 50 UNITS, 0.9 % Sodium Chloride Flush 5 ML IVFLUSH ×2 (07:14→17:03)
--- NOTE | 2022-09-07 10:18 | HO.PM.IMPN ---
Subjective Subjective Date of Service: 09/07/22 Interval History: f/u on mrsa sepsis, bacteremia, PNA with effusion interval history:No new issues, awaiting for placement Physical Exam Vital Signs: Vital Signs: Last Vital Signs Temp 97.2 F 09/07/22 07:32 Pulse 83 09/07/22 07:32 Resp 20 09/07/22 07:32 BP 108/64 09/07/22 07:32 Pulse Ox 96 09/07/22 07:32 O2 Del Method Room Air 09/07/22 07:32 O2 Flow Rate 2 09/02/22 07:11 BMI result Body Mass Index 22.4 Const: Other: General: AO X 3, no acute distress Resp: CTA bilateral CVS: S1,S2,RRR--no murmur GI: +BS, NT, no distention Skin: No rash Neuro: motor grossly intact Psych: appropriate affect Objective Data Active Medications Acetaminophen (Acetaminophen 325 Mg Tablet) 650 mg PO Q6H PRN PRN Reason: Pain, Mild, fever Last Admin: 09/06/22 20:14 Dose: 650 mg Documented By: CIERRA Albuterol/Ipratropium (Albuterol/Iprat 2.5/0.5mg 3 Ml Ampul.Neb) 3 ml INHALE RQ4H WHILE AWAKE [facility] Last Admin: 09/07/22 08:55 Dose: Not Given Documented By: WINNIE Non-Admin Reason: Patient Asleep Heparin Sodium (Porcine) 50 (units/ Sodium Chloride 5 ml) 0 units IVFLUSH QSHIFT [facility] Last Admin: 09/07/22 07:14 Dose: 50 unit Documented By: KLARISSA Docusate Sodium (Docusate Sodium 100 Mg Capsule) 100 mg PO BID [facility] Last Admin: 09/07/22 07:12 Dose: 100 mg Documented By: KLARISSA Enoxaparin Sodium (Enoxaparin Sodium 40 Mg/0.4 Ml Syringe) 40 mg SUBCUT Q24H [facility] Last Admin: 09/07/22 07:41 Dose: Not Given Documented By: KLARISSA Non-Admin Reason: Patient Refused Guaifenesin/Dextromethorphan (Guaifenesin Dm 100/10/5 Ml 5 Ml Syrup) 5 ml PO Q4H PRN PRN Reason: cough Vancomycin HCl 1,000 mg/ (Sodium Chloride) 270 mls @ 270 mls/hr IV Q8H [facility] Last Infusion: 09/07/22 05:40 Dose: 0 mls/hr Documented By: LYSRobi Methadone HCl (Methadone Hcl 20 Mg/2 Ml Oral.Conc) 10 mg PO DAILY PRN PRN Reason: Opiate Withdrawal Last Admin: 08/26/22 15:07 Dose: 10 mg Documented By: COTEMA Methadone HCl (Methadone Hcl 20 Mg/2 Ml Oral.Conc) 50 mg PO DAILY [facility] Last Admin: 09/07/22 07:12 Dose: 50 mg Documented By: KLARISSA Nicotine (Nicotine 21 Mg Patch.Td24) 21 mg TRANSDERMA DAILY [facility] Last Admin: 09/07/22 07:12 Dose: Not Given Documented By: KLARISSA Non-Admin Reason: Patient Refused Ondansetron HCl (Ondansetron Hcl 4 Mg/2 Ml Vial) 4 mg IVPUSH Q8H PRN PRN Reason: Nausea and Vomiting Oxycodone HCl (Oxycodone Hcl Immed Release 5 Mg Tablet) 5 mg PO Q6H PRN PRN Reason: Pain, Severe (Pain Scale 7-10) Last Admin: 09/07/22 07:11 Dose: 5 mg Documented By: KLARISSA Pharmacy Consult (Consult Rx Perform Med Rec) 1 each MISCELLANE ONCE PRN PRN Reason: Consult order Pharmacy Consult (Consult Rx Vancomycin Dosing) 1 each MISCELLANE DAILY PRN PRN Reason: Consult order Sodium Chloride (0.9 % Sodium Chloride Flush 3 Ml Syringe) 3 ml IVFLUSH QSHIFT [facility] Last Admin: 09/07/22 07:13 Dose: 3 ml Documented By: KLARISSA Sodium Chloride (0.9 % Sodium Chloride Flush 10 Ml Syringe) 5 ml IVFLUSH TID [facility] Last Admin: 09/07/22 07:21 Dose: Not Given Documented By: KLARISSA Non-Admin Reason: given with heparin flush Labs 09/06/22 05:58 09/07/22 06:19 Labs: Laboratory Results - last 24 hr 09/06/22 09/07/22 10:03 06:19 Estim Creat Clear Calc 95.1 Estimated GFR > 60 Vancomycin Trough 17.8 Microbiology Microbiology Results: Microbiology 09/02/22 16:00 Gram Stain - Final Pleural Fluid Routine Culture - Final No growth after 2 days Anaerobic Culture - Final NO GROWTH AFTER 5 DAYS Assessment and Plan (1) Right lower lobe pneumonia: Status: Acute (2) Pleural effusion: Status: Acute (3) MRSA bacteremia: Status: Acute Plan 37-year-old female with history of polysubstance abuse, history septic joint who is a current everyday smoker admitted for RLL pneumonia with sepsis.Found to have a moderate right pleural effusions with loculations per ultrasound. Blood culture MRSA Sepsis secondary to RLL pneumonia and MRSA bacteremia s/p pig tail catheter by IR on 09/02 and removed 09/05, clinically improving. ID recommend Vanco x 4 weeks, has Picc line and awaiting placement. Echo no vegetation.s Acute respiratory failure with hypoxia 2/2 PNA--resolved Acute toxic metabolic encephalopathy 2/2 Drugs and sepsis--resolved Polysubstance abuse, opioid use desorder--continue Methadone. +HCV, consider outpatient therapy ?Nicotine dependence ?NRT replacement ?smoking cessation advised DVT prophylaxis Lovenox Full code Need for inpt: Awaiting placement for long term IV Abx Time Spent With Patient Time: Total time managing care of this patient today ____ minutes. Quality Stroke Does the patient have a stroke diagnosis?: No VTE Prior VTE?: No VTE Risk Level:: Medical - moderate - high VTE Device Contraindication: Treatment Not Indicated VTE Drug Contraindication: N/A - Med Ordered
--- NOTE | 2022-09-07 10:28 | HE.PHANOTE ---
Vancomycin Dosing Level has steadily been rising. Today level is 19.7. Will decrease dose to vancomyin 750 mg Q8H. Next level 09/08 @ 1000. Sasha Guthrie
--- NOTE | 2022-09-07 10:39 | MHC.CM.PN ---
PER HOSPITALIST PT MEDICALLY CLEARED FOR D/C TO [facility] FOR [facility]PD[facility] AND CM REQUESTED THEY GO FOR [facility], PT WILL TRANSPORT VIA BLS D/T PICC LINE AND IVDU.
[2022-09-07] MEDS: Albuterol/Iprat 2.5/0.5MG 3 ML AMPUL.NEB INHALE ×3 (11:23→19:31)
[2022-09-07] MEDS: Acetaminophen 325 MG TABLET 650 MG PO ×2 (13:05→20:23)
[2022-09-08] VITALS (8 sets, daily range): BP systolic 95–119; BP diastolic 59–71; PULSE 78–95; RESP 16–20; TEMP 36.1–36.8; O2SAT 96–100
[2022-09-08] MEDS: Heparin Sodium,Porcine Flush 50 UNITS, 0.9 % Sodium Chloride Flush 5 ML IVFLUSH ×4 (00:31→23:26)
[2022-09-08] MEDS: 0.9 % Sodium Chloride Flush 3 ML SYRINGE IVFLUSH ×3 (00:31→14:58)
[2022-09-08 08:22] LABS: Vancomycin Random 25.8 mcg/mL (15-20)
--- NOTE | 2022-09-08 08:38 | HE.PHANOTE ---
Re: vanco dosing Trough was drawn 2.5 hours early. Pt is on q8h dosing. Will recheck level before 2000 dose to ensure safety and efficacy in dosing but maintain same dose for now.
[2022-09-08] MEDS: methADONE HCl 20 MG/2 ML ORAL.CONC 50 MG PO (08:45)
--- NOTE | 2022-09-08 09:24 | HO.PM.IMPN ---
Subjective Subjective Date of Service: 09/08/22 Interval History: f/u on mrsa sepsis, bacteremia, PNA with effusion interval history:doing well, no new issues Physical Exam Vital Signs: Vital Signs: Last Vital Signs Temp 97.3 F 09/08/22 08:00 Pulse 78 09/08/22 08:00 Resp 20 09/08/22 08:00 BP 95/59 L 09/08/22 08:00 Pulse Ox 96 09/08/22 08:00 O2 Del Method Room Air 09/08/22 08:00 O2 Flow Rate 2 09/02/22 07:11 BMI result Body Mass Index 22.4 Const: Other: General: AO X 3, no acute distress Resp: CTA bilateral CVS: S1,S2,RRR--no murmur GI: +BS, NT, no distention Skin: No rash Neuro: motor grossly intact Psych: appropriate affect Objective Data Active Medications Acetaminophen (Acetaminophen 325 Mg Tablet) 650 mg PO Q6H PRN PRN Reason: Pain, Mild, fever Last Admin: 09/07/22 20:23 Dose: 650 mg Documented By: ESTELLE Albuterol/Ipratropium (Albuterol/Iprat 2.5/0.5mg 3 Ml Ampul.Neb) 3 ml INHALE RQ4H WHILE AWAKE [facility] Last Admin: 09/08/22 08:10 Dose: Not Given Documented By: LOGAN Non-Admin Reason: Patient Asleep Heparin Sodium (Porcine) 50 (units/ Sodium Chloride 5 ml) 0 units IVFLUSH QSHIFT [facility] Last Admin: 09/08/22 08:45 Dose: 50 unit Documented By: GLORIA Docusate Sodium (Docusate Sodium 100 Mg Capsule) 100 mg PO BID [facility] Last Admin: 09/08/22 08:46 Dose: Not Given Documented By: GLORIA Non-Admin Reason: Patient Refused Enoxaparin Sodium (Enoxaparin Sodium 40 Mg/0.4 Ml Syringe) 40 mg SUBCUT Q24H [facility] Last Admin: 09/08/22 08:46 Dose: Not Given Documented By: GLORIA Non-Admin Reason: Patient Refused Guaifenesin/Dextromethorphan (Guaifenesin Dm 100/10/5 Ml 5 Ml Syrup) 5 ml PO Q4H PRN PRN Reason: cough Vancomycin HCl 750 mg/ Sodium (Chloride) 265 mls @ 265 mls/hr IV Q8H [facility] Last Infusion: 09/08/22 06:17 Dose: 0 mls/hr Documented By: RAJIV Methadone HCl (Methadone Hcl 20 Mg/2 Ml Oral.Conc) 10 mg PO DAILY PRN PRN Reason: Opiate Withdrawal Last Admin: 08/26/22 15:07 Dose: 10 mg Documented By: COTEMA Methadone HCl (Methadone Hcl 20 Mg/2 Ml Oral.Conc) 50 mg PO DAILY [facility] Last Admin: 09/08/22 08:45 Dose: 50 mg Documented By: GLORIA Nicotine (Nicotine 21 Mg Patch.Td24) 21 mg TRANSDERMA DAILY [facility] Last Admin: 09/08/22 08:46 Dose: Not Given Documented By: GLORIA Non-Admin Reason: Patient Refused Ondansetron HCl (Ondansetron Hcl 4 Mg/2 Ml Vial) 4 mg IVPUSH Q8H PRN PRN Reason: Nausea and Vomiting Pharmacy Consult (Consult Rx Perform Med Rec) 1 each MISCELLANE ONCE PRN PRN Reason: Consult order Pharmacy Consult (Consult Rx Vancomycin Dosing) 1 each MISCELLANE DAILY PRN PRN Reason: Consult order Sodium Chloride (0.9 % Sodium Chloride Flush 3 Ml Syringe) 3 ml IVFLUSH QSHIFT [facility] Last Admin: 09/08/22 08:46 Dose: 3 ml Documented By: GLORIA Sodium Chloride (0.9 % Sodium Chloride Flush 10 Ml Syringe) 5 ml IVFLUSH TID [facility] Last Admin: 09/08/22 08:46 Dose: 5 ml Documented By: GLORIA Labs 09/06/22 05:58 09/08/22 07:20 Labs: Laboratory Results - last 24 hr 09/07/22 09/08/22 09/08/22 09:45 07:20 07:20 Estim Creat Clear Calc 92.2 Estimated GFR > 60 Random Vancomycin 19.7 25.8 H* Microbiology Microbiology Results: Microbiology 09/02/22 16:00 Gram Stain - Final Pleural Fluid Routine Culture - Final No growth after 2 days Anaerobic Culture - Final NO GROWTH AFTER 5 DAYS Assessment and Plan (1) MRSA bacteremia: Status: Acute Plan 37-year-old female with history of polysubstance abuse, history septic joint who is a current everyday smoker admitted for RLL pneumonia with sepsis.Found to have a moderate right pleural effusions with loculations per ultrasound. Blood culture MRSA Sepsis secondary to RLL pneumonia and MRSA bacteremia s/p pig tail catheter by IR on 09/02 and removed 09/05, clinically improving. ID recommend Vanco x 4 weeks, has Picc line and awaiting placement. Echo no vegetation Vanco level high, pharmacy to make adjustment Acute respiratory failure with hypoxia 2/2 PNA--resolved Acute toxic metabolic encephalopathy 2/2 Drugs and sepsis--resolved Polysubstance abuse, opioid use desorder--continue Methadone. +HCV, consider outpatient therapy ?Nicotine dependence ?NRT replacement ?smoking cessation advised DVT prophylaxis Lovenox Full code Need for inpt: Awaiting placement for snf IV Abx Time Spent With Patient Time: Total time managing care of this patient today ____ minutes. Quality Stroke Does the patient have a stroke diagnosis?: No VTE Prior VTE?: No VTE Risk Level:: Medical - moderate - high VTE Device Contraindication: Treatment Not Indicated VTE Drug Contraindication: N/A - Med Ordered
[2022-09-08] MEDS: Albuterol/Iprat 2.5/0.5MG 3 ML AMPUL.NEB INHALE ×2 (11:35→15:45)
--- NOTE | 2022-09-08 15:25 | MHC.CM.PN ---
CM MET W/PT TO DISCUSS [facility] [place] DOES NOT HAVE A FEMALE BED, PT AGREEABLE TO [facility] WILL SET UP METHADONE AT [facility] [phone] IN AM AND PENDING AUTH, CM WILL CONT TO FOLLOW D/C NEEDS.
--- NOTE | 2022-09-08 19:58 | HE.PHANOTE ---
RE: VANCO Patients level came back at 18.0. Patients level was 25.8 and a dose was skipped therefore it went down to 18. Still using caution will continue at 750 mg Q8H as q12h is sub therapeutic. Predicted AUC 443 mg/L/hr. Next level rto be drawn at 09/10/22 @1000
[2022-09-08] MEDS: Docusate Sodium 100 MG CAPSULE PO (20:01)
[2022-09-09 03:20] VITALS: BP 115/60; PULSE 82; RESP 15; TEMP 36.4; O2SAT 97
[2022-09-09 07:37] VITALS: BP 97/67; PULSE 73; RESP 20; TEMP 36.1; O2SAT 98
[2022-09-09 09:02] LABS: Creatinine Clr Calc Pharmacy 96.6; Estimated Glomerular Filt Rate > 60
--- NOTE | 2022-09-09 09:12 | HO.PM.IMPN ---
Subjective Subjective Date of Service: 09/09/22 Interval History: f/u on mrsa sepsis, bacteremia, PNA with effusion interval history:No issues Physical Exam Vital Signs: Vital Signs: Last Vital Signs Temp 97.0 F 09/09/22 07:37 Pulse 73 09/09/22 07:37 Resp 20 09/09/22 07:37 BP 97/67 09/09/22 07:37 Pulse Ox 98 09/09/22 07:37 O2 Del Method Room Air 09/09/22 07:37 O2 Flow Rate 2 09/02/22 07:11 BMI result Body Mass Index 22.4 Const: Other: General: AO X 3, no acute distress Resp: CTA bilateral CVS: S1,S2,RRR--no murmur GI: +BS, NT, no distention Skin: No rash Neuro: motor grossly intact Psych: appropriate affect Objective Data Active Medications Acetaminophen (Acetaminophen 325 Mg Tablet) 650 mg PO Q6H PRN PRN Reason: Pain, Mild, fever Last Admin: 09/07/22 20:23 Dose: 650 mg Documented By: ESTELLE Heparin Sodium (Porcine) 50 (units/ Sodium Chloride 5 ml) 0 units IVFLUSH QSHIFT [facility] Last Admin: 09/08/22 23:26 Dose: 50 unit Documented By: AGNES Docusate Sodium (Docusate Sodium 100 Mg Capsule) 100 mg PO BID [facility] Last Admin: 09/08/22 20:01 Dose: 100 mg Documented By: AGNES Enoxaparin Sodium (Enoxaparin Sodium 40 Mg/0.4 Ml Syringe) 40 mg SUBCUT Q24H [facility] Last Admin: 09/08/22 08:46 Dose: Not Given Documented By: GLORIA Non-Admin Reason: Patient Refused Guaifenesin/Dextromethorphan (Guaifenesin Dm 100/10/5 Ml 5 Ml Syrup) 5 ml PO Q4H PRN PRN Reason: cough Vancomycin HCl 750 mg/ Sodium (Chloride) 265 mls @ 265 mls/hr IV Q8H [facility] Last Infusion: 09/09/22 04:33 Dose: 0 mls/hr Documented By: AGNES Methadone HCl (Methadone Hcl 20 Mg/2 Ml Oral.Conc) 10 mg PO DAILY PRN PRN Reason: Opiate Withdrawal Last Admin: 08/26/22 15:07 Dose: 10 mg Documented By: COTEMA Methadone HCl (Methadone Hcl 20 Mg/2 Ml Oral.Conc) 50 mg PO DAILY [facility] Last Admin: 09/08/22 08:45 Dose: 50 mg Documented By: GLORIA Nicotine (Nicotine 21 Mg Patch.Td24) 21 mg TRANSDERMA DAILY [facility] Last Admin: 09/08/22 08:46 Dose: Not Given Documented By: GLORIA Non-Admin Reason: Patient Refused Ondansetron HCl (Ondansetron Hcl 4 Mg/2 Ml Vial) 4 mg IVPUSH Q8H PRN PRN Reason: Nausea and Vomiting Pharmacy Consult (Consult Rx Perform Med Rec) 1 each MISCELLANE ONCE PRN PRN Reason: Consult order Pharmacy Consult (Consult Rx Vancomycin Dosing) 1 each MISCELLANE DAILY PRN PRN Reason: Consult order Sodium Chloride (0.9 % Sodium Chloride Flush 3 Ml Syringe) 3 ml IVFLUSH QSHIFT [facility] Last Admin: 09/09/22 01:00 Dose: Not Given Documented By: AGNES Non-Admin Reason: Previously Administered Sodium Chloride (0.9 % Sodium Chloride Flush 10 Ml Syringe) 5 ml IVFLUSH TID [facility] Last Admin: 09/08/22 20:01 Dose: 5 ml Documented By: AGNES Labs 09/06/22 05:58 09/09/22 06:34 Labs: Laboratory Results - last 24 hr 09/08/22 09/09/22 18:18 06:34 Estim Creat Clear Calc 96.6 Estimated GFR > 60 Random Vancomycin 18.0 Assessment and Plan (1) MRSA bacteremia: Status: Acute Plan 37-year-old female with history of polysubstance abuse, history septic joint who is a current everyday smoker admitted for RLL pneumonia with sepsis.Found to have a moderate right pleural effusions with loculations per ultrasound. Blood culture MRSA Sepsis secondary to RLL pneumonia and MRSA bacteremia s/p pig tail catheter by IR on 09/02 and removed 09/05, clinically improving. ID recommend Vanco x 4 weeks from last negative blood culture which was 09/28, so ending 09/25 has Picc line and awaiting placement. Echo no vegetation. Pharmacy adjusting vanco, last level 18 Acute respiratory failure with hypoxia 2/2 PNA--resolved Acute toxic metabolic encephalopathy 2/2 Drugs and sepsis--resolved Polysubstance abuse, opioid use desorder--continue Methadone. +HCV, consider outpatient therapy ?Nicotine dependence ?NRT replacement ?smoking cessation advised DVT prophylaxis Lovenox Full code Need for inpt: Awaiting placement for intermediate IV Abx, hoping to dc today if bed available. Time Spent With Patient Time: Total time managing care of this patient today ____ minutes. Quality Stroke Does the patient have a stroke diagnosis?: No VTE Prior VTE?: No VTE Risk Level:: Medical - moderate - high VTE Device Contraindication: Treatment Not Indicated VTE Drug Contraindication: N/A - Med Ordered
[2022-09-09] MEDS: Docusate Sodium 100 MG CAPSULE PO (09:26)
[2022-09-09] MEDS: Heparin Sodium,Porcine Flush 50 UNITS, 0.9 % Sodium Chloride Flush 5 ML IVFLUSH ×2 (09:27→18:34)
[2022-09-09] MEDS: 0.9 % Sodium Chloride Flush 3 ML SYRINGE IVFLUSH ×2 (09:27→21:16)
[2022-09-09] MEDS: methADONE HCl 20 MG/2 ML ORAL.CONC 50 MG PO (09:27)
[2022-09-09 11:23] LABS: Vancomycin Random 14.2 mcg/mL (15-20)
--- NOTE | 2022-09-09 11:27 | HE.PHANOTE ---
Vancomycin Dosng level 14.2 today. Continue current regimen. next level 09/10 @ 1000. Maggie Lees, ChristianD
[2022-09-09 11:32] VITALS: BP 101/67; PULSE 80; RESP 20; TEMP 36.4; O2SAT 96
--- NOTE | 2022-09-09 13:47 | MHC.CM.PN ---
EMR REVIEWED, PT MEDICALLY CLEARED FOR D/C TO STR FOR 4WKS IV ABX, PT TO TXFR TO [facility] ONCE METHADONE IS SET UP WHICH WILL LIKELY BE OVER W/E, CM WILL CONT TO FOLLOW D/C NEEDS.
[2022-09-09 15:05] VITALS: BP 114/53; PULSE 88; RESP 18; TEMP 35.8; O2SAT 98
[2022-09-09 19:45] VITALS: BP 113/69; PULSE 83; RESP 20; TEMP 35.9; O2SAT 96
[2022-09-10] VITALS: BP 103/63; PULSE 84; RESP 20; TEMP 36.1; O2SAT 96
[2022-09-10] MEDS: vancomycin HCL 750 MG in 0.9 % Sodium Chloride 250 ML 265 MG IV ×3 (00:51→16:48)
[2022-09-10] MEDS: Heparin Sodium,Porcine Flush 50 UNITS, 0.9 % Sodium Chloride Flush 5 ML IVFLUSH ×4 (00:52→22:26)
[2022-09-10 03:22] VITALS: BP 107/60; PULSE 78; RESP 20; TEMP 36.3; O2SAT 96
[2022-09-10 07:50] VITALS: BP 109/65; PULSE 67; RESP 20; TEMP 36.6; O2SAT 98
[2022-09-10] MEDS: methADONE HCl 20 MG/2 ML ORAL.CONC 50 MG PO (08:52)
--- NOTE | 2022-09-10 08:54 | HO.PM.IMPN ---
Subjective Subjective Date of Service: 09/10/22 Interval History: f/u on mrsa sepsis, bacteremia, PNA with effusion interval history:No issues, awaiting SNF bed Physical Exam Vital Signs: Vital Signs: Last Vital Signs Temp 97.8 F 09/10/22 07:50 Pulse 67 09/10/22 07:50 Resp 20 09/10/22 07:50 BP 109/65 09/10/22 07:50 Pulse Ox 98 09/10/22 07:50 O2 Del Method Room Air 09/10/22 07:50 O2 Flow Rate 2 09/02/22 07:11 BMI result Body Mass Index 22.4 Const: Other: General: AO X 3, no acute distress Resp: CTA bilateral CVS: S1,S2,RRR--no murmur GI: +BS, NT, no distention Skin: No rash Neuro: motor grossly intact Psych: appropriate affect Objective Data Active Medications Acetaminophen (Acetaminophen 325 Mg Tablet) 650 mg PO Q6H PRN PRN Reason: Pain, Mild, fever Last Admin: 09/07/22 20:23 Dose: 650 mg Documented By: ESTELLE Heparin Sodium (Porcine) 50 (units/ Sodium Chloride 5 ml) 0 units IVFLUSH QSHIFT [facility] Last Admin: 09/10/22 00:52 Dose: 50 unit Documented By: HEMANTH Docusate Sodium (Docusate Sodium 100 Mg Capsule) 100 mg PO BID [facility] Last Admin: 09/09/22 21:15 Dose: Not Given Documented By: HEMANTH Non-Admin Reason: Patient Refused Enoxaparin Sodium (Enoxaparin Sodium 40 Mg/0.4 Ml Syringe) 40 mg SUBCUT Q24H [facility] Last Admin: 09/09/22 11:59 Dose: Not Given Documented By: ROBERT Non-Admin Reason: Patient Refused Guaifenesin/Dextromethorphan (Guaifenesin Dm 100/10/5 Ml 5 Ml Syrup) 5 ml PO Q4H PRN PRN Reason: cough Vancomycin HCl 750 mg/ Sodium (Chloride) 265 mls @ 265 mls/hr IV Q8H [facility] Last Infusion: 09/10/22 01:56 Dose: 0 mls/hr Documented By: HEMANTH Methadone HCl (Methadone Hcl 20 Mg/2 Ml Oral.Conc) 10 mg PO DAILY PRN PRN Reason: Opiate Withdrawal Last Admin: 08/26/22 15:07 Dose: 10 mg Documented By: COTCHEYANNE Methadone HCl (Methadone Hcl 20 Mg/2 Ml Oral.Conc) 50 mg PO DAILY [facility] Last Admin: 09/09/22 09:27 Dose: 50 mg Documented By: ROBERT Nicotine (Nicotine 21 Mg Patch.Td24) 21 mg TRANSDERMA DAILY [facility] Last Admin: 09/09/22 11:54 Dose: Not Given Documented By: ROBERT Non-Admin Reason: Patient Refused Ondansetron HCl (Ondansetron Hcl 4 Mg/2 Ml Vial) 4 mg IVPUSH Q8H PRN PRN Reason: Nausea and Vomiting Pharmacy Consult (Consult Rx Perform Med Rec) 1 each MISCELLANE ONCE PRN PRN Reason: Consult order Pharmacy Consult (Consult Rx Vancomycin Dosing) 1 each MISCELLANE DAILY PRN PRN Reason: Consult order Sodium Chloride (0.9 % Sodium Chloride Flush 3 Ml Syringe) 3 ml IVFLUSH QSHIFT [facility] Last Admin: 09/09/22 21:16 Dose: 3 ml Documented By: HEMANTH Sodium Chloride (0.9 % Sodium Chloride Flush 10 Ml Syringe) 5 ml IVFLUSH TID [facility] Last Admin: 09/09/22 21:39 Dose: 5 ml Documented By: HEMANTH Labs 09/06/22 05:58 09/10/22 06:19 Labs: Laboratory Results - last 24 hr 09/09/22 09/09/22 09/10/22 06:34 09:57 06:19 Estim Creat Clear Calc 96.6 95.1 Estimated GFR > 60 > 60 Random Vancomycin 14.2 L Assessment and Plan (1) MRSA bacteremia: Status: Acute Plan 37-year-old female with history of polysubstance abuse, history septic joint who is a current everyday smoker admitted for RLL pneumonia with sepsis.Found to have a moderate right pleural effusions with loculations per ultrasound. Blood culture MRSA Sepsis secondary to RLL pneumonia and MRSA bacteremia s/p pig tail catheter by IR on 09/02 and removed 09/05, clinically improving. ID recommend Vanco x 4 weeks from last negative blood culture which was 09/28, so ending 09/25 has Picc line and awaiting placement. Echo no vegetation. Pharmacy adjusting vanco, last level 18 Acute respiratory failure with hypoxia 2/2 PNA--resolved Acute toxic metabolic encephalopathy 2/2 Drugs and sepsis--resolved Polysubstance abuse, opioid use desorder--continue Methadone. No known history of +HCV, prior documentation incorect.. Hep B, C serogy pending ?Nicotine dependence ?NRT replacement ?smoking cessation advised DVT prophylaxis Lovenox Full code Need for inpt: Awaiting placement for residential IV Abx, hoping to dc today if bed available. Time Spent With Patient Time: Total time managing care of this patient today ____ minutes. Quality Stroke Does the patient have a stroke diagnosis?: No VTE Prior VTE?: No VTE Risk Level:: Medical - moderate - high VTE Device Contraindication: Treatment Not Indicated VTE Drug Contraindication: N/A - Med Ordered
[2022-09-10] MEDS: 0.9 % Sodium Chloride Flush 3 ML SYRINGE IVFLUSH ×2 (08:55→22:26)
[2022-09-10 11:06] VITALS: BP 120/75; PULSE 83; RESP 20; TEMP 36.3; O2SAT 97
[2022-09-10 15:42] VITALS: BP 98/56; PULSE 84; RESP 20; TEMP 36.6; O2SAT 97
[2022-09-10 19:09] VITALS: BP 106/63; PULSE 88; RESP 20; TEMP 36.7; O2SAT 97
[2022-09-11] VITALS (7 sets, daily range): BP systolic 98–109; BP diastolic 59–72; PULSE 72–82; RESP 18–20; TEMP 36.1–36.8; O2SAT 96–99
[2022-09-11] MEDS: vancomycin HCL 750 MG in 0.9 % Sodium Chloride 250 ML 265 MG IV ×3 (02:43→17:15)
[2022-09-11 06:26] LABS: Creatinine Clr Calc Pharmacy 95.1; Estimated Glomerular Filt Rate > 60
--- NOTE | 2022-09-11 08:20 | HE.PHANOTE ---
vancomycin addendum patient has remained steady with levels and renal function, put next level for 2 days since no changes
--- NOTE | 2022-09-11 09:25 | HO.PM.IMPN ---
Subjective Subjective Date of Service: 09/11/22 Interval History: f/u on mrsa sepsis, bacteremia, PNA with effusion interval history:No issues, awaiting SNF bed Physical Exam Vital Signs: Vital Signs: Last Vital Signs Temp 98.2 F 09/11/22 07:55 Pulse 75 09/11/22 07:55 Resp 20 09/11/22 07:55 BP 105/72 09/11/22 07:55 Pulse Ox 99 09/11/22 07:55 O2 Del Method Room Air 09/11/22 07:55 O2 Flow Rate 2 09/02/22 07:11 BMI result Body Mass Index 22.4 Const: Other: General: AO X 3, no acute distress Resp: CTA bilateral CVS: S1,S2,RRR--no murmur GI: +BS, NT, no distention Skin: No rash Neuro: motor grossly intact Psych: appropriate affect Objective Data Active Medications Acetaminophen (Acetaminophen 325 Mg Tablet) 650 mg PO Q6H PRN PRN Reason: Pain, Mild, fever Last Admin: 09/07/22 20:23 Dose: 650 mg Documented By: ESTELLE Heparin Sodium (Porcine) 50 (units/ Sodium Chloride 5 ml) 0 units IVFLUSH QSHIFT [facility] Last Admin: 09/10/22 22:26 Dose: 50 unit Documented By: NICK Docusate Sodium (Docusate Sodium 100 Mg Capsule) 100 mg PO BID [facility] Last Admin: 09/10/22 22:08 Dose: Not Given Documented By: TIERRALA Non-Admin Reason: Patient Refused Enoxaparin Sodium (Enoxaparin Sodium 40 Mg/0.4 Ml Syringe) 40 mg SUBCUT Q24H [facility] Last Admin: 09/10/22 09:04 Dose: Not Given Documented By: TRISTONTEKBrando Non-Admin Reason: Patient Refused Guaifenesin/Dextromethorphan (Guaifenesin Dm 100/10/5 Ml 5 Ml Syrup) 5 ml PO Q4H PRN PRN Reason: cough Vancomycin HCl 750 mg/ Sodium (Chloride) 265 mls @ 265 mls/hr IV Q8H [facility] Last Infusion: 09/11/22 04:08 Dose: 0 mls/hr Documented By: HEMANTH Methadone HCl (Methadone Hcl 20 Mg/2 Ml Oral.Conc) 10 mg PO DAILY PRN PRN Reason: Opiate Withdrawal Last Admin: 08/26/22 15:07 Dose: 10 mg Documented By: COTEMA Methadone HCl (Methadone Hcl 20 Mg/2 Ml Oral.Conc) 50 mg PO DAILY [facility] Last Admin: 09/10/22 08:52 Dose: 50 mg Documented By: TRISTONTEKR Nicotine (Nicotine 21 Mg Patch.Td24) 21 mg TRANSDERMA DAILY [facility] Last Admin: 09/10/22 09:04 Dose: Not Given Documented By: KEMAR Non-Admin Reason: Patient Refused Ondansetron HCl (Ondansetron Hcl 4 Mg/2 Ml Vial) 4 mg IVPUSH Q8H PRN PRN Reason: Nausea and Vomiting Pharmacy Consult (Consult Rx Perform Med Rec) 1 each MISCELLANE ONCE PRN PRN Reason: Consult order Pharmacy Consult (Consult Rx Vancomycin Dosing) 1 each MISCELLANE DAILY PRN PRN Reason: Consult order Sodium Chloride (0.9 % Sodium Chloride Flush 3 Ml Syringe) 3 ml IVFLUSH QSHIFT [facility] Last Admin: 09/10/22 22:26 Dose: 3 ml Documented By: NICK Sodium Chloride (0.9 % Sodium Chloride Flush 10 Ml Syringe) 5 ml IVFLUSH TID [facility] Last Admin: 09/10/22 22:26 Dose: 5 ml Documented By: NICK Labs 09/06/22 05:58 09/11/22 06:00 Labs: Laboratory Results - last 24 hr 09/10/22 09/11/22 15:09 06:00 Estim Creat Clear Calc 95.1 Estimated GFR > 60 Vancomycin Trough 14.5 Assessment and Plan (1) MRSA bacteremia: Status: Acute Plan 37-year-old female with history of polysubstance abuse, history septic joint who is a current everyday smoker admitted for RLL pneumonia with sepsis.Found to have a moderate right pleural effusions with loculations per ultrasound. Blood culture MRSA Sepsis secondary to RLL pneumonia and MRSA bacteremia s/p pig tail catheter by IR on 09/02 and removed 09/05, clinically improving. ID recommend Vanco x 4 weeks from last negative blood culture which was 08/29, so ending 09/25/22 has Picc line and awaiting placement. Echo no vegetation. Pharmacy adjusting vanco, last level 18 Acute respiratory failure with hypoxia 2/2 PNA--resolved Acute toxic metabolic encephalopathy 2/2 Drugs and sepsis--resolved Polysubstance abuse, opioid use desorder--continue Methadone. No known history of +HCV, prior documentation incorect.. Hep B, C serogy pending ?Nicotine dependence ?NRT replacement ?smoking cessation advised DVT prophylaxis Lovenox Full code Need for inpt: Awaiting placement for alf IV Abx, anticipating dc tomorrow if bed available Time Spent With Patient Time: Total time managing care of this patient today ____ minutes. Quality Stroke Does the patient have a stroke diagnosis?: No VTE Prior VTE?: No VTE Risk Level:: Medical - moderate - high VTE Device Contraindication: Treatment Not Indicated VTE Drug Contraindication: N/A - Med Ordered
[2022-09-11] MEDS: methADONE HCl 20 MG/2 ML ORAL.CONC 50 MG PO (09:39)
[2022-09-11] MEDS: Heparin Sodium,Porcine Flush 50 UNITS, 0.9 % Sodium Chloride Flush 5 ML IVFLUSH ×2 (09:39→17:15)
[2022-09-11 11:07] LABS: HBsAGNum1 0.36 S/CO (0.00-0.99); Hepatitis B Core Antibody Nonreactive (Nonreactive); Hepatitis B Surface Antigen Negative (Negative); ~HepC Num1 14.61 S/CO (0.00-0.79); ~Hepatitis B Surface Antibody REACTIVE (Nonreactive); ~Hepatitis C Antibody Reactive (Nonreactive)
--- NOTE | 2022-09-11 13:33 | MHC.RECOVRN ---
CM notified t/w [facility], not [facility]. Referral has been sent to [facility] in [place]. Letter requested from [facility] to be sent to [facility] to notify the [facility] pt can continue methadone at [facility] upon dc from rehab.
[2022-09-11] MEDS: 0.9 % Sodium Chloride Flush 3 ML SYRINGE IVFLUSH (17:15)
[2022-09-11] MEDS: Docusate Sodium 100 MG CAPSULE PO (22:00)
[2022-09-12] MEDS: Heparin Sodium,Porcine Flush 50 UNITS, 0.9 % Sodium Chloride Flush 5 ML IVFLUSH ×3 (01:16→15:38)
[2022-09-12] MEDS: vancomycin HCL 750 MG in 0.9 % Sodium Chloride 250 ML 265 MG IV ×3 (01:16→17:20)
[2022-09-12] MEDS: 0.9 % Sodium Chloride Flush 3 ML SYRINGE IVFLUSH ×3 (01:17→15:38)
[2022-09-12 03:13] VITALS: BP 98/58; PULSE 72; RESP 20; TEMP 36.1; O2SAT 97
[2022-09-12 07:14] VITALS: BP 102/63; PULSE 78; RESP 20; TEMP 36.2; O2SAT 98
[2022-09-12] MEDS: methADONE HCl 20 MG/2 ML ORAL.CONC 50 MG PO (08:57)
--- NOTE | 2022-09-12 10:57 | HO.PM.IMPN ---
Subjective Subjective Date of Service: 09/12/22 Interval History: No new issues, awaiting rehab bed Physical Exam Vital Signs: Vital Signs: Last Vital Signs Temp 97.2 F 09/12/22 07:14 Pulse 78 09/12/22 07:14 Resp 20 09/12/22 07:14 BP 102/63 09/12/22 07:14 Pulse Ox 98 09/12/22 07:14 O2 Del Method Room Air 09/12/22 07:14 O2 Flow Rate 2 09/02/22 07:11 BMI result Body Mass Index 22.4 Const: Other: General: AO X 3, no acute distress Resp: CTA bilateral CVS: S1,S2,RRR GI: +BS, NT, no distention Skin: No rash Neuro: motor grossly intact Psych: appropriate affect Objective Data Active Medications Acetaminophen (Acetaminophen 325 Mg Tablet) 650 mg PO Q6H PRN PRN Reason: Pain, Mild, fever Last Admin: 09/07/22 20:23 Dose: 650 mg Documented By: ESTELLE Heparin Sodium (Porcine) 50 (units/ Sodium Chloride 5 ml) 0 units IVFLUSH QSHIFT [facility] Last Admin: 09/12/22 09:03 Dose: 50 unit Documented By: JAY Docusate Sodium (Docusate Sodium 100 Mg Capsule) 100 mg PO BID [facility] Last Admin: 09/12/22 09:03 Dose: Not Given Documented By: JAY Non-Admin Reason: Patient Refused Enoxaparin Sodium (Enoxaparin Sodium 40 Mg/0.4 Ml Syringe) 40 mg SUBCUT Q24H [facility] Last Admin: 09/11/22 10:36 Dose: Not Given Documented By: KEMAR Non-Admin Reason: Patient Refused Guaifenesin/Dextromethorphan (Guaifenesin Dm 100/10/5 Ml 5 Ml Syrup) 5 ml PO Q4H PRN PRN Reason: cough Vancomycin HCl 750 mg/ Sodium (Chloride) 265 mls @ 265 mls/hr IV Q8H [facility] Last Infusion: 09/12/22 10:20 Dose: 0 mls/hr Documented By: JAY Methadone HCl (Methadone Hcl 20 Mg/2 Ml Oral.Conc) 10 mg PO DAILY PRN PRN Reason: Opiate Withdrawal Last Admin: 08/26/22 15:07 Dose: 10 mg Documented By: SANTIAGO Methadone HCl (Methadone Hcl 20 Mg/2 Ml Oral.Conc) 50 mg PO DAILY [facility] Last Admin: 09/12/22 08:57 Dose: 50 mg Documented By: JAY Nicotine (Nicotine 21 Mg Patch.Td24) 21 mg TRANSDERMA DAILY [facility] Last Admin: 09/12/22 09:03 Dose: Not Given Documented By: JAY Non-Admin Reason: Patient Refused Ondansetron HCl (Ondansetron Hcl 4 Mg/2 Ml Vial) 4 mg IVPUSH Q8H PRN PRN Reason: Nausea and Vomiting Pharmacy Consult (Consult Rx Perform Med Rec) 1 each MISCELLANE ONCE PRN PRN Reason: Consult order Pharmacy Consult (Consult Rx Vancomycin Dosing) 1 each MISCELLANE DAILY PRN PRN Reason: Consult order Sodium Chloride (0.9 % Sodium Chloride Flush 3 Ml Syringe) 3 ml IVFLUSH QSHIFT [facility] Last Admin: 09/12/22 09:03 Dose: 3 ml Documented By: JAY Sodium Chloride (0.9 % Sodium Chloride Flush 10 Ml Syringe) 5 ml IVFLUSH TID [facility] Last Admin: 09/12/22 09:03 Dose: 5 ml Documented By: JAY Labs 09/06/22 05:58 09/12/22 06:50 Labs: Laboratory Results - last 24 hr 09/09/22 09/12/22 10:42 06:50 Estim Creat Clear Calc 98.2 Estimated GFR > 60 Hep Bs Antigen Negative Hep Bs Antibody REACTIVE Hep B Core Total Ab Nonreactive Hepatitis C Ab (EIA) Reactive H Assessment and Plan (1) MRSA bacteremia: Status: Acute Plan 37-year-old female with history of polysubstance abuse, history septic joint who is a current everyday smoker admitted for RLL pneumonia with sepsis.Found to have a moderate right pleural effusions with loculations per ultrasound. Blood culture MRSA Sepsis secondary to RLL pneumonia and MRSA bacteremia s/p pig tail catheter by IR on 09/02 and removed 09/05, clinically improving. ID recommend Vanco x 4 weeks from last negative blood culture which was 08/29, so ending 09/25/22 has Picc line and awaiting placement. Echo no vegetation. Pharmacy adjusting vanco, last level 18 Acute respiratory failure with hypoxia 2/2 PNA--resolved Acute toxic metabolic encephalopathy 2/2 Drugs and sepsis--resolved Polysubstance abuse, opioid use desorder--continue Methadone. No known history of +HCV, prior documentation incorect.. Hep B, C serology pending ?Nicotine dependence ?NRT replacement ?smoking cessation advised DVT prophylaxis Lovenox Full code Need for inpt: Awaiting placement for residential IV Abx, anticipating dc tomorrow if bed available Time Spent With Patient Time: Total time managing care of this patient today ____ minutes. Quality Stroke Does the patient have a stroke diagnosis?: No VTE Prior VTE?: No VTE Risk Level:: Medical - moderate - high VTE Device Contraindication: Treatment Not Indicated VTE Drug Contraindication: N/A - Med Ordered
[2022-09-12 11:10] VITALS: BP 103/64; PULSE 91; RESP 20; TEMP 36.1; O2SAT 97
--- NOTE | 2022-09-12 12:11 | MHC.CM.PN ---
Addendum entered by Kelli Nguyen 09/12/22 15:15: This CM updated by cable dispatcher Gladis that the methadone likely won't be set up for the pt today. [facility] is still waiting on a letter from [facility] and they haven't sent it. MD aware. Original Note: EMR reviewed and per MD rounds, pt is medically cleared for discharge to [facility] for STR. This CM spoke with Danelle from [facility] and she stated she has been in contact with Kaleigh from [email or web address], they are waiting on MD to review for the final dosing. Danelle stated they will contact us when things are finalized with [facility]. Pt will likely D/C today if dosing finalized with [facility], if not tomorrow. Transport via [facility]. CM will continue to follow for D/C.
[2022-09-12 15:41] VITALS: BP 109/65; PULSE 70; RESP 18; TEMP 36.2; O2SAT 98
[2022-09-12 19:21] VITALS: BP 125/67; PULSE 82; RESP 18; TEMP 36.1; O2SAT 97
[2022-09-12 23:51] VITALS: BP 111/67; PULSE 76; RESP 17; TEMP 36.1; O2SAT 97
[2022-09-13] MEDS: vancomycin HCL 750 MG in 0.9 % Sodium Chloride 250 ML 265 MG IV ×2 (00:54→08:50)
[2022-09-13] MEDS: Heparin Sodium,Porcine Flush 50 UNITS, 0.9 % Sodium Chloride Flush 5 ML IVFLUSH ×2 (00:54→08:55)
[2022-09-13] MEDS: 0.9 % Sodium Chloride Flush 3 ML SYRINGE IVFLUSH ×2 (00:54→08:56)
[2022-09-13 03:40] VITALS: BP 105/60; PULSE 82; RESP 16; TEMP 36.7; O2SAT 97
[2022-09-13 07:18] LABS: Creatinine Clr Calc Pharmacy 95.1; Estimated Glomerular Filt Rate > 60
[2022-09-13 07:22] VITALS: BP 102/55; PULSE 75; RESP 17; TEMP 37; O2SAT 98
[2022-09-13] MEDS: methADONE HCl 20 MG/2 ML ORAL.CONC 50 MG PO (08:50)
--- NOTE | 2022-09-13 11:30 | MHC.CM.PN ---
Pt is medically cleared for D/C to [facility] today for STR, transportation booked for 2pm via [facility].
--- NOTE | 2022-09-13 11:51 | P.DS_ITS ---
DS: Providers Provider Date of Service: 09/13/22 Date of admission: 08/24/22 10:25 Date of discharge: 09/13/22 Primary care physician: Unknown Physician Consults: 08/24/22 10:30 Addiction Medicine Routine Consulting Provider: Addiction Covering Reason for consultation: IV heroin and cocaine 08/25/22 11:16 Consult to Infectious Diseases Routine Consulting [place] [facility] Reason for consultation: bacteremia, IVDU, pneumonia Has provider been notified: No 09/02/22 15:44 Consult to Thoracic Surgery Routine Consulting Provider[place] [facility] Reason for consultation: loculated complex right-sided pleural effusion in the setting of pneumonia. Has provider been notified: No Attending physician on discharge: Odin Crisostomo Discharging clinician: Odin Crisostomo DS: Diagnosis Discharge Diagnosis (1) MRSA bacteremia: Status: Acute (2) Right lower lobe pneumonia: Status: Acute (3) Pleural effusion: Status: Acute (4) Back pain: Status: Acute (5) Bacteremia: Status: Acute (6) Pneumonia: Status: Acute (7) Sepsis: Status: Acute (8) Tobacco dependence: Status: Acute (9) Opioid use disorder: Status: Acute (10) Leukocytosis: Status: Acute DS: Summary Hospital Course Hospital Course: 37-year-old female with history of polysubstance abuse, history septic joint who is a current everyday smoker presented to the ED earlier today for evaluation of shortness of breath and productive cough ongoing for 2 days.? She also reports subjective fevers and chills.? She has limited historian at the time of my inte rview and history is obtained from ED staff and note.? Her last IV heroin use was early this morning prior to arrival, patient febrile to 100.7, tachycardic to 110, and tachypneic to 28 on exam.? Blood pressure is soft but no hypotension.? There is no hypoxia.? There is a leukocytosis of 20.5.? Renal function normal, electrolyte levels normal except for mild hyponatremia of 134.? Glucose 196.? Lactic acid normal at 1.8.? Hepatic function normal.? CXR shows mild blunting of the right costophrenic angle question pleural effusion versus thickening and there are also mild increased interstitial markings in bilateral perihilar region with question of interstitial pneumonitis.? CTA chest was negative for any PE but did show right lower lobe infiltrate versus atelectasis with small right pleural effusion with prominent right infrahilar lymph node likely reactive.? In the ED, treated with IV cefepime and vancomycin as well as 1 L IVF, 1 mg Ativan, 30 mg ketorolac, and initiated on 20 mg methadone.? Patient is desiring detox. Hospital course: Patient was initially admitted for shortness of breath and pleuritic cough: Initially admitted for new sepsis secondary to pneumonia, The patient has a history of Polysubstance, including intravenous drug use, and presented with shortness of breath and cough, fever, tachycardia, WBC of 20.5K, and elevated lactic acid of 1.8. CXR shows mild blunting of the right costophrenic angle question pleural effusion versus thickening and mild increased interstitial markings in bilateral perihilar region with question of interstitial pneumonitis.? CTA chest was negative for any PE but did show right lower lobe infiltrate versus atelectasis with small right pleural effusion with prominent right infra hilar lymph node likely reactive. She was admitted for treatment of sepsis due to pneumonia, and blood cultures from 08/24 later grew MRSA, and sputum culture from the same day grew Strep Pyogenese. She was initially treated with cefepime and Vancomycin, and once culture was evident for MRSA and strep, Cefepime was discontinued, and Vancomycin continued. An Echocardiogram from 08/29 showed no vegations to suggest endocarditis. Repeat blood cultures from 08/29 have been negative. On 09/02/22, and repeat CXR on 09/01 showed Moderate right pleural effusion representing a significant interval increase from the previous study; on 09/02/22, IR inserted a pigtail catheter to drain fluid, which was removed on 09/05/[address] Savage. Repeated CXR showed a stable trapped lung appearance status post right thoracostomy tube removal. She is doing well clinically. She had a PICC line inserted on 09/05/22, and ID (Dr. Vargas) recommends 4 weeks of IV antibiotics from the last negative blood culture (08/29/22) end date of IV antibiotics is 09/25/22. She is doing well clinically. Addiction med has started her on Methadone for opioid use disorder. Other issues: Acute respiratory failure with hypoxia due to pneumonia PNA--resolved Acute toxic metabolic encephalopathy due to Drugs and sepsis--resolved Polysubstance abuse, opioid use disorder--continue Methadone as recommended by addiction med ?Nicotine dependence ?NRT replacement ?smoking cessation advised. +positive hepatitis C: Further workup and management out patiently. Final Diagnoses: MRSA sepsis and bacteremia Strep Pyogenese Pneumonia Acute respiratory failure due to pneumonia Opioid use disorder Pleural effusion Acute toxic encephalopathy +positive hepatitis C. Plan: Please complete the course of antibiotics vancomycin until 09/25/2022 Consider Monitor CBC, BMP, LFTs Q weekly while on antibiotics. Further workup and management for hepatitis C positive outpatient. Above management discussed with the patient at length she understand and in agreement with above plan. Time spent 50 minute. Time Spent with Patient Time attestation: Total time managing care of this patient today ____ minutes. Discharge coordination time: Greater than 30 minutes Quality: Safe Use of Opioids Does Pt have an Active Cancer Diagnosis on the Problem List?: No Quality: Stroke Does the patient have a stroke diagnosis?: No Physical Exam Vital Signs: Vital Signs: Last Vital Signs Temp 98.6 F 09/13/22 07:22 Pulse 75 09/13/22 07:22 Resp 17 09/13/22 07:22 BP 102/55 L 09/13/22 07:22 Pulse Ox 98 09/13/22 07:22 O2 Del Method Room Air 09/13/22 07:22 O2 Flow Rate 2 09/02/22 07:11 BMI result Body Mass Index 22.4 General: AO X 3, no acute distress Resp:? CTA bilateral CVS: S1,S2,RRR GI: +BS, NT, no distention Skin: No rash Neuro:? motor grossly intact Psych: appropriate affect DS: Data Data Completed and Pending Completed studies during hospitalization [Text1]: Pending at discharge 09/01/22 14:38 Cytology [PTH] Stat Procedures Drainage of Right Knee Joint, Percutaneous Approach (12/12/20) Irrigation of Joints using Irrigating Substance, Percutaneous Endoscopic Approach (12/12/20) Labs on day of discharge: Laboratory Results - last 24 hr 09/12/22 09/13/22 16:04 06:04 Creatinine 0.64 Estim Creat Clear Calc 95.1 Estimated GFR > 60 Vancomycin Trough 15.3 Imaging Chest x-ray: Radiologist's impression: ITS Impressions Chest X-Ray 08/24/22 06:34 IMPRESSION: 1. Mild blunting of right CP angle question pleural effusion versus thickening. 2. Mild increase interstitial markings in bilateral perihilar region, question interstitial pneumonitis. Chest CTA 08/24/22 08:55 IMPRESSION: 1. No evidence of pulmonary emboli. 2. Right lower lobe infiltrate/atelectasis with small right pleural effusion with prominent right infrahilar lymph node, probably reactive. Findings would be compatible with pneumonia. 3. Probable enlarged fatty liver and mild splenomegaly. VTE: negative Lumbar Spine MRI 08/29/22 17:17 IMPRESSION: The patient was unable to tolerate the exam to completion and only sagittal sequences were obtained. No findings to suggest discitis-osteomyelitis. No epidural abscess. No marrow edema associated with the facet joints. No significant spinal canal or neural foraminal stenosis at any level. Chest X-Ray 09/01/22 09:20 IMPRESSION: Moderate right pleural effusion representing significant interval increase from the previous study. Thoracentesis Ultrasound 09/02/22 16:20 IMPRESSION: Ultrasound-guided right 10.2 [place] chest tube placement. Chest X-Ray 09/02/22 16:35 IMPRESSION: New right lateral pigtail chest tube. Moderate to large right pleural effusion minimally decreased in size from yesterday's exam. Chest X-Ray 09/02/22 19:27 IMPRESSION: 1. Small right hydropneumothorax, previously there was a moderate sized pleural effusion. 2. Right basilar atelectasis. Chest CT 09/03/22 11:23 IMPRESSION: Stable small right hydropneumothorax with presumed pleural thickening and lateral loculation. Pigtail catheter in appropriate position. Probable trapped right lower lobe and right middle lobe with no expansion compared with recent studies. Fleischner guidelines were followed. Chest X-Ray 09/04/22 10:44 IMPRESSION: A right base pigtail catheter is noted. No right pleural effusion is seen, and there is a stable trapped lung appearance noted at the right base. Chest X-Ray 09/05/22 07:29 IMPRESSION: Stable position of right chest tube. Minimal partial trapping of the right lung at the right lung base adjacent to the chest tube. Atelectasis/small infiltrate at the right base unchanged. Chest X-Ray 09/05/22 09:56 IMPRESSION: Similar right basilar findings as detailed above with right chest tube in place. PICC Line Insertion 09/05/22 17:20 IMPRESSION: Right upper extremity PICC line placement. Chest X-Ray 09/05/22 17:28 IMPRESSION: There is a stable trapped lung appearance status-post right thoracostomy tube removal. There is right base plate-like atelectasis. Discharge Plan Discharge Anticipated Discharge Date/Time: 09/13/22 11:38 Patient Disposition: Home, Self-Care Discharge Diagnosis: MRSA bacteremia, right lower lobe pneumonia, opioid use disorder. Referrals: [facility] [Outside] - 1 Day (SHORT TERM REHAB ) Physician,Unknown J [Primary Care Provider] - 1 Week Discharge Medications: New nicotine 21 mg/24 hr Patch 24 Hour 21 mg transdermal DAILY Qty: 1 0RF docusate sodium 100 mg Capsule 100 mg PO BID Qty: 1 0RF methadone [Methadose] 10 mg/mL Concentrate 50 mg PO DAILY Qty: 1 0RF Rx Instructions: Partial Fill upon patient request. methadone [Methadose] 10 mg/mL Concentrate 10 mg PO DAILY PRN (Reason: Opiate Withdrawal) Qty: 1 0RF Rx Instructions: Partial Fill upon patient request. vancomycin 750 mg recon soln 750 mg IV Q8H Qty: 36 0RF Rx Instructions: end date is 09/25/22 Discharge Orders: Discharge Order (Routine); Ordered 09/13/22 Ordered By: Odin Crisostomo Diet: Advance to usual diet Activity on Discharge: As tolerated Stand Alone Forms: Patient Portal Discharge page Care Plan Goals: Patient presented to the hospital because of shortness of breath and cough found to have pneumonia in addition patient has history of IV drug use: Patient was admitted for sepsis and pneumonia, blood cultures sent-patient was started on IV antibiotics-subsequently patient blood culture came out to be MRSA, seen by infectious disease and started on IV vancomycin and PICC line placed since blood cultures are cleared now. Patient also had pleural effusion for that required chest tube placement and subsequent removal after patient improved. Patient has hepatitis C serology positive-further workup and management out antonio ently. Patient is to complete the course of IV antibiotics and date is 09/25/2022. Please consider checking CBC, BMP, LFTs Q weekly while patient is on antibiotics. Above management discussed with the patient in detail length she understand and in agreement with above plan. Health Concerns: As above. Plan of Treatment: As above. Assessment: As above.
[2022-09-13 12:00] VITALS: BP 112/74; PULSE 79; RESP 20; TEMP 36.6; O2SAT 96
== END 2022-09-13 13:15 | disposition skilled nursing facility (03) | DRG 720 ==
LOC: HO.ED 07:37 → HO.EDOVER 10:55 → HO.IMC 12:54
PROVIDERS: Hospitalist; Internal Medicine; Nurse Practitioner Family; Physician Assistant Medical; Radiology Diagnostic Radiology; Student in an Organized Health Care Education/Training Program; Admitting Provider Physician Assistant; Emergency Provider Emergency Medicine; Visit Provider Internal Medicine
PROC: 0W9930Z Drainage of Right Pleural Cavity with Drainage Device, Percutaneous Approach (ICD-10-PCS; principal; 2022-09-02 13:00)
PROC: 02HV33Z Insertion of Infusion Device into Superior Vena Cava, Percutaneous Approach (ICD-10-PCS; principal; 2022-09-05 17:00)
DX: A41.02 Sepsis due to Methicillin resistant Staphylococcus aureus (principal); J96.01 Acute respiratory failure with hypoxia; G92.8 Other toxic encephalopathy; J91.8 Pleural effusion in other conditions classified elsewhere; J18.9 Pneumonia, unspecified organism; E87.1 Hypo-osmolality and hyponatremia; J98.11 Atelectasis; B19.20 Unspecified viral hepatitis C without hepatic coma; F19.10 Other psychoactive substance abuse, uncomplicated; F11.20 Opioid dependence, uncomplicated; Z59.02 Unsheltered homelessness; Z20.822 Contact with and (suspected) exposure to COVID-19
CPT/HCPCS: 32557; 36415; 36573; 71045; 71250; 71275; 72148; 76937; 80048; 80053; 80202; 80307; 81001; 81025; 82042; 82550; 82565; 82945; 82947; 83605; 83615; 83690; 83986; 84157; 84484; 84702; 85025; 85027; 85610; 86704; 86706; 86803; 87040; 87070; 87073; 87077; 87147; 87186; 87205; 87340; 87389; 87449; 87635; 87899; 88112; 88305; 89051; 93005; 93306; 93356; 94640; 99285; C1751; C1894; J0692; J1170; J1642; J1650; J1885; J2060; J2270; J2920; J3370; J3371; Q4186; Q9967

== ENCOUNTER → 2022-08-24 10:25 | Outpatient (BNV) | payer MEDICAID, SELFPAY | PROVIDERS: Admitting Provider Physician Assistant; Emergency Provider Emergency Medicine; Visit Provider Physician Assistant | DX: A41.02 Sepsis due to Methicillin resistant Staphylococcus aureus (principal); J18.9 Pneumonia, unspecified organism; J90 Pleural effusion, not elsewhere classified; F17.200 Nicotine dependence, unspecified, uncomplicated; M54.9 Dorsalgia, unspecified; F11.90 Opioid use, unspecified, uncomplicated; D72.829 Elevated white blood cell count, unspecified | CPT/HCPCS: 99223; 99232; 99233; 99239 ==

== ENCOUNTER 2022-10-03 14:58 | Outpatient (AMB) | payer MEDICAID, SELFPAY ==
--- NOTE | 2022-10-03 15:23 | MHC.OFFVIS ---
Intake Vital Signs 10/03/22 15:24 BP 122/70 Pulse 94 Pulse Oximetry (%) 98 Intake Visit Reasons: Hospital f/u bacteremia/end iv picc Allergies Penicillins [PENICILLINS] Allergy (Mild, Verified 10/03/22 15:25) THROAT SWELLS [facility] Hospital f/u bacteremia/end iv picc HPI Details She has finished IV antibiotics. She feels well. [facility] Medical History Hepatitis C Opiate dependence Opioid use disorder Tobacco dependence Social History Household Members: None Housing: Homeless Do you presently have visiting nurse or other home services: No Alcohol intake: current Alcohol intake frequency: holidays/special occasions only Patient Tobacco Use Status: Current everyday Tobacco user Tobacco use type: Cigarette Cigarette Packs Per Day: 1 Cigarettes Per Day: 20.0 Substance Use Type: Crack/Cocaine and Heroin service: No Current occupational status: unemployed Review of Systems Const All systems reviewed & are unremarkable except as noted in HPI and below Physical Exam Vital Signs: Last Vital Signs Pulse 94 10/03/22 15:24 BP 122/70 10/03/22 15:24 Pulse Ox 98 10/03/22 15:24 Const General: cooperative Orientation/consciousness: patient oriented x3 HEENT Head: Yes normal to inspection Mouth: Normal oral and palatal mucosa present Eyes General: appearance normal, both eyes and all related structures Pupils: Equal, round and reactive pupils present Resp Effort & Inspection: normal respiratory effort Cardio Rate: regular rate Rhythm: regular rhythm GI Palpation (GI): Soft to palpation and nontender General: Yes no CVA tenderness Back/Spine/Pelvis Back: no CVA tenderness Skin General skin exam: no rashes or lesions noted Neuro General: patient oriented x3 Cranial nerves: Yes CN's II-XII intact bilaterally and Yes Equal, round and reactive pupils present Extrem General: Yes normal to inspection Psych Appearance: grossly normal Assessment & Plan Assessment & Plan (1) MRSA bacteremia: Comment: She has no complaints Code(s): R78.81 - Bacteremia; B95.62 - Methicillin resistant Staphylococcus aureus infection as the cause of diseases classified elsewhere Plan: Finish antibiotics and pull line. Orders: Orders XR chest w decubitus 10/03/22 J18.9 - Pneumonia, unspecified organism IR cvc remove any age Today B95.62 - Methicillin resistant Staphylococcus aureus infection as the cause of diseases classified elsewhere, R78.81 - Bacteremia Coding Level of Care Code Est Pt Level 3 (61226) Diagnoses MRSA bacteremia R78.81; B95.62
[2022-10-03 15:24] VITALS: BP 122/70; PULSE 94; O2SAT 98
== END 2022-10-03 16:07 | disposition home or self-care (01) ==
LOC: HO.HID 14:59
PROVIDERS: Visit Provider Internal Medicine
DX: R78.81 Bacteremia (principal); B95.62 Methicillin resistant Staphylococcus aureus infection as the cause of diseases classified elsewhere
CPT/HCPCS: 99213

== ENCOUNTER 2022-10-03 14:58 | Outpatient (REF) | payer MEDICAID, SELFPAY ==
--- NOTE | ~2022-10-03 | XR_ITS ---
EXAMINATION: XR CHEST CLINICAL INFORMATION: Pneumonia, unspecified organism COMPARISON: Portable chest 09/05/2022 TECHNIQUE: 2 views of the chest were obtained. Right and left lateral decubitus views were obtained. FINDINGS: PICC catheter is unchanged in position. There is better aeration of the lungs compared to the prior study. There is hazy appearance of the lower lungs without a focal consolidation, interstitial pulmonary edema or pneumothorax. The cardiomediastinal silhouette is within normal limits. There is no evidence of pleural effusion on the decubitus views. No acute osseous abnormality. XR/XR chest w decubitus IMPRESSION: No pneumonia or pleural effusion.
== END 2022-10-03 14:59 | disposition home or self-care (01) ==
LOC: HO.XRAY 14:58
PROVIDERS: Visit Provider Internal Medicine
DX: J18.9 Pneumonia, unspecified organism (principal); R78.81 Bacteremia; B95.62 Methicillin resistant Staphylococcus aureus infection as the cause of diseases classified elsewhere
CPT/HCPCS: 71048; 99212

== ENCOUNTER 2024-05-18 19:27 | Emergency (ER) | payer MEDICAID, SELFPAY ==
--- NOTE | ~2024-05-18 | XR_ITS ---
CLINICAL HISTORY: possible FB in right middle finger 3 view right hand Comparison: None Findings: No fractures or dislocations. No significant loss of joint space or osteophytes. No erosions. No radiopaque foreign body. IMPRESSION: 1. No radiopaque foreign body identified. This document has been electronically signed by: Jennifer Ferreira MD on 05/18/2024 20:22:47
--- NOTE | 2024-05-18 19:33 | ED.GENADULT ---
HPI - General Adult General Chief complaint: Extremity Injury, Upper Stated complaint: Middle R finger infection Time Seen by Provider: 05/18/24 20:07 Source: patient, RN notes reviewed and old records reviewed Mode of arrival: ambulatory History of Present Illness ED Provider: Imelda Mejia PA-C [facility] narrative: 38-year-old female with a past medical history of opiate use disorder, hepatitis-C, IVDA, presenting to the ED complaining of right middle finger infection with swelling, pain and pus drainage x few days. Admits area was draining yesterday. Denies fever, chills, injury. Denies injecting into finger. Related Data Previous Rx's ?Medication ?Instructions ?Recorded docusate sodium 100 mg capsule 100 mg PO BID #1 cap 09/13/22 methadone 10 mg/mL oral 10 mg PO DAILY PRN Opiate 09/13/22 concentrate (Methadose) Withdrawal #1 mL methadone 10 mg/mL oral 50 mg (5 mL) PO DAILY #1 mL 09/13/22 concentrate (Methadose) nicotine 21 mg/24 hr daily 21 mg transdermal DAILY #1 ea 09/13/22 transdermal patch vancomycin 750 mg intravenous 750 mg IV Q8H #36 ea 09/13/22 solution doxycycline hyclate 100 mg tablet 100 mg PO BID 7 days #14 tabs 05/18/24 Allergies Allergy/AdvReac Type Severity Reaction Status Date / Time Penicillins [PENICILLINS] Allergy Mild THROAT Verified 05/18/24 19:44 LOUISELLS Review of Systems Review of Systems: Yes all other systems are reviewed and are negative Constitutional: Constitutional: Reports as per [facility] Past Medical History Attestation statement: The following information was validated with the patient. Source: old records reviewed Medical History Opioid use disorder Tobacco dependence Opiate dependence Hepatitis C Social History Social History Household Members: None Housing: Homeless Do you presently have visiting nurse or other home services: No Alcohol intake: current Alcohol intake frequency: does not drink Comment: PT REFUSING CAMERA AND BED ALARM; AGREE TO BRACELET AND SOCKS Patient Tobacco Use Status: Current everyday Tobacco user Tobacco use type: Cigarette Cigarette Packs Per Day: 1 Cigarettes Per Day: 20.0 Use of substances other than those prescribed or required for medical reasons: Yes Substance Use Type: Heroin Advance Directives: No Advance Directives Information Provided: No Do you have a plan to hurt others: No Plan service: No Current occupational status: unemployed Physical Exam ED Vital Signs: Vital Signs - 24 hr 05/18/24 19:43 05/18/24 21:35 05/18/24 22:14 Temperature 97.7 F 98.4 F 98.4 F Pulse Rate 107 H 100 100 Respiratory Rate 16 16 16 Blood Pressure 148/104 H 148/100 H 148/100 H Pulse Oximetry 98 97 97 Oxygen Delivery Method Room Air Room Air Room Air BMI result Body Mass Index 23.2 Const General: cooperative, healthy appearing and no acute distress Orientation/consciousness: patient oriented x3 Limitations: no limitations HENMT Head: Yes normal to inspection and Yes atraumatic Ears: hearing grossly normal bilaterally General nose exam: Normal external nose present Face and sinus: Yes normal facial exam Eyes General: appearance normal, both eyes and all related structures EOM: EOMs intact bilaterally Neck Neck: Yes normal visual inspection and Yes no meningeal signs Resp Effort & Inspection: normal respiratory effort and no respiratory distress Cardio Rate: regular rate Skin Rashes: no rashes Wounds: no wounds Neuro General: patient oriented x3, tone normal and no meningeal signs Cranial nerves: Yes CN's II-XII intact bilaterally Gait exam (Neuro): Normal gait present Extrem Other: Please refer to images above. Open wound noted to palmar aspect of right 3rd digit. No surrounding erythema, no warmth, nontender. No fluctuance/induration or expressible drainage/blood. Third digit with diffuse appreciable swelling. Full range of motion intact. No axial loading discomfort. Neurovascularly intact. Course Course Course Narrative: RME performed by Linda Mcpherson PA-C. Patient is a 38 year old assigned female at presenting to the emergency department with right middle finger swelling / infection. Patient states over the last few days she has had swelling in her right hand, specifically right middle finger, and is progressively getting more swollen. Detailed physical exam and review of systems are deferred to the auto parts delivery driver. Labs and imaging ordered. Patient placed back in the waiting room pending room availability and results. -2142--no leukocytosis. ESR 36. CRP 0.55 XR hand RT min 3V IMPRESSION: 1. No radiopaque foreign body identified. Admission discussed and offered however patient declined, states would like to trial p.o. antibiotics outpatient. > discussed case with orthopedic MARY Rodriguez to ensure patient can have close follow-up outpatient. Demographic sent. Patient does not currently have cell phone however was instructed to show up at orthopedic office 09:00AM on Monday to make an appointment -Will prescribe patient doxycycline. Recommended close orthopedic hand follow-up. Strict return precautions and worrisome signs and symptoms discussed Results discussed with patient including worrisome signs and symptoms and strict return precautions, and when to return to the emergency department. They verbalized understanding and feel safe for discharge at this time. Medical Decision Making Medical Decision Making MDM Narrative: 38-year-old female with a past medical history of opiate use disorder, hepatitis-C, IVDA, presenting to the ED complaining of right middle finger infection with swelling, pain and pus drainage x few days. On exam hypertensive, tachycardic, NAD, nontoxic appearing, physical exam as noted above. Please refer to images. Concern for abscess drained, cellulitis, osteomyelitis, retained foreign body. Low suspicion for severe sepsis at this time Plan: Labs, x-ray Please refer to course for remaining clinical decision making, interpretation of labs/imaging results, and discussions with consultants and/or family members. Differential Diagnosis Differential Diagnoses: The differential diagnosis associated with the presentation includes As above Admission/Observation Consideration of admission/observation: Escalation of care including admission/observation considered Lab Data [facility] Lab Attestation statement: I reviewed the patient's lab results. 05/18/24 20:27 05/18/24 20:27 Labs: Lab Results 05/18/24 Range/Units 20:27 WBC 9.2 (4.8-10.8) X10*3/uL RBC 4.55 D (4.20-5.50) X10*6/uL Hgb 13.2 D (12.0-16.0) g/dl Hct 38.1 D (37.0-47.0) % MCV 83.7 (80.0-98.0) fL MCH 29.0 (27.0-33.0) pg MCHC 34.6 (31.0-35.0) g/dl RDW 13.0 (11.0-16.0) % Plt Count 273 D (160-400) X10*3/uL MPV 10.8 (9.4-12.3) fL Immature Gran % (Auto) 0.3 (0.0-0.4) % Neut % (Auto) 56.4 (45-73) % Lymph % (Auto) 32.1 (20-40) % [place] % (Auto) 9.8 (2-11) % Eos % (Auto) 1.1 (0-4) % Baso % (Auto) 0.3 (0-2) % Lymph # (Auto) 3.0 (1.2-4.9) X10*3/uL [place] # (Auto) 0.9 (0.1-1.2) X10*3/uL Eos # (Auto) 0.1 (0.0-0.4) X10*3/uL Baso # (Auto) 0.0 (0.0-0.2) X10*3/uL Abs Immat Gran (auto) 0.03 (0.00-0.03) X10*3/uL Absolute Neuts (auto) 5.2 (2.0-8.3) x10*3/uL Absolute Nucleated RBC 0.000 (0.0-0.012) X10*3/uL Nucleated RBC % (auto) 0.0 (0.0-0.2) /100WBC ESR 36 H (0-20) MM/HR Sodium 139 (135-145) mmol/L Potassium 3.7 (3.3-5.1) mmol/L Chloride 103 (96-108) mmol/L Carbon Dioxide 26 (22-29) mmol/L Anion Gap 14 (12-20) BUN 16 (9-16) mg/dL Creatinine 0.75 (0.5-1.4) mg/dL Estim Creat Clear Calc 80.4 Estimated GFR > 60 Random Glucose 109 (60-115) mg/dL Calcium 9.4 (8.4-10.2) mg/dL Total Bilirubin 0.3 (0.0-1.0) mg/dL AST 54 H (5-31) U/L ALT 70 H (0-31) U/L Alkaline Phosphatase 75 (39-117) U/L C-Reactive Protein 0.55 H (< or = 0.50) mg/dL Total Protein 8.3 H (6.5-8.0) g/dL Albumin 3.9 (3.5-5.0) g/dL Independent Interpretation I performed an independent interpretation of an: Plain X-Ray Radiology Impression Discussion of test interpretation with radiology: I have reviewed the radiologist's reading. External Record Review External record reviewed: Inpatient record, Office record, Outpatient record, Prior outpatient labs, Prior outpatient radiology, Primary care record and Outside ED record Tests considered The following testing was considered but not selected: As above Prescription Management I considered prescription management with: Pain Medication and Antibiotic Chronic Conditions Patient?s care impacted by: Other Social Determinants Patient?s care significantly limited by Social Determinants of Health including: Inadequate housing, Low income, Alcoholism and drug addiction in family, Problems related to primary support group and Unemployment Discharge Plan Discharge Clinical Impression: Cellulitis Patient Disposition: Home, Self-Care Instructions: Cellulitis (DC), Warm Compress or Soak (ED) Additional Instructions: Your blood work and x-ray are reassuring, however your finger looks infected. Doxycycline is an antibiotic please take as prescribed until completion DO NOT INJECT INTO HER HANDS/FINGERS IS VERY IMPORTANT FOR YOU TO FOLLOW UP WITH ORTHOPEDIC HAND SPECIALIST. CALL ON MONDAY TO MAKE AN APPOINTMENT. THEY MAY CONTACT YOU. IF AREA BECOMES INCREASINGLY RED, SWOLLEN, THERE IS PUS DRAINAGE OR YOU HAVE FEVER RETURN TO THE ED IMMEDIATELY You expressed interest in long term care administrator suboxone use rather than continuing IV opiate use. Please call or walk into our outpatient Addiction Treatment office: [facility] (M-F 9am-5p) [address] [place] [address], [address] [phone] You may have been provided with safer injection?items, please take time to take care of YOU and your health. Use new supplies whenever possible to lessen the chances of infections and other illnesses.? If you need more supplies, please go [facility],?[address], [place] you can call or text to coordinate delivery of safer supplies. You were also provided a list of several treatment providers in the area.? If you experience any worsening symptoms you cannot control please return to the ED or call 911. Things to look out for are fevers, chest pain, shortness of breath, severe pain, dizziness, fainting or any other concerns. Prescriptions: New doxycycline hyclate 100 mg tablet 100 mg PO BID 7 Days Qty: 14 0RF No Action nicotine 21 mg/24 hr Patch 24 Hour 21 mg transdermal DAILY Qty: 1 0RF docusate sodium 100 mg Capsule 100 mg PO BID Qty: 1 0RF methadone [Methadose] 10 mg/mL Concentrate 50 mg PO DAILY Qty: 1 0RF Rx Instructions: Partial Fill upon patient request. methadone [Methadose] 10 mg/mL Concentrate 10 mg PO DAILY PRN (Reason: Opiate Withdrawal) Qty: 1 0RF Rx Instructions: Partial Fill upon patient request. vancomycin 750 mg recon soln 750 mg IV Q8H Qty: 36 0RF Rx Instructions: end date is 09/25/22 Referrals: [facility] [place] Orthopedic Surgeons [Provider Group] - 2 days Interventions: ED Discharge Assessment Last Done: 05/18/24 22:14 Discharge Date/Time: 05/18/24 22:14 Print Language: Polish
[2024-05-18 19:43] VITALS: BP 148/104; PULSE 107; RESP 16; TEMP 36.5; O2SAT 98; BMI 23.2
[2024-05-18 20:34] LABS: MANUAL DIFF FLAG NO
[2024-05-18 20:41] LABS: Basophils Percent Auto 0.3 % (0-2); Eosinophils Absolute Auto 0.1 X10*3/uL (0.0-0.4); Eosinophils Percent Auto 1.1 % (0-4); Hematocrit 38.1 % (37.0-47.0); Hemoglobin 13.2 g/dl (12.0-16.0); Imm Gran Abs Auto 0.03 X10*3/uL (0.00-0.03); Imm Gran Pct Auto 0.3 % (0.0-0.4); Lymphocytes Percent Auto 32.1 % (20-40); Mean Corpuscular HGB Conc 34.6 g/dl (31.0-35.0); Mean Corpuscular Volume 83.7 fL (80.0-98.0); Mean Platelet Volume 10.8 fL (9.4-12.3); Monocytes Absolute Auto 0.9 X10*3/uL (0.1-1.2); Monocytes Percent Auto 9.8 % (2-11); Neutrophils Absolute Auto 5.2 x10*3/uL (2.0-8.3); Neutrophils Percent Auto 56.4 % (45-73); Platelet Count 273 X10*3/uL (160-400); Red Blood Count 4.55 X10*6/uL (4.20-5.50); White Blood Count 9.2 X10*3/uL (4.8-10.8)
[2024-05-18 20:51] LABS: Alanine Aminotransferase 70 U/L (0-31); Albumin Level 3.9 g/dL (3.5-5.0); Alkaline Phosphatase 75 U/L (39-117); Anion Gap 14 (12-20); Aspartate Amino Transferase 54 U/L (5-31); Bilirubin Total 0.3 mg/dL (0.0-1.0); Blood Urea Nitrogen 16 mg/dL (9-16); C Reactive Protein 0.55 mg/dL (< or = 0.50); Calcium 9.4 mg/dL (8.4-10.2); Carbon Dioxide 26 mmol/L (22-29); Chloride 103 mmol/L (96-108); Creatinine Clr Calc Pharmacy 80.4; Estimated Glomerular Filt Rate > 60; Glucose Random 109 mg/dL (60-115); Potassium 3.7 mmol/L (3.3-5.1); Sodium 139 mmol/L (135-145); Total Protein 8.3 g/dL (6.5-8.0)
[2024-05-18 21:35] VITALS: BP 148/100; PULSE 100; RESP 16; TEMP 36.9; O2SAT 97
[2024-05-18 21:35] LABS: Erythrocyte Sedimentation Rate 36 MM/HR (0-20)
--- NOTE | 2024-05-18 22:13 | PC.NURSE ---
provider into assess pt, reviewed discharge instructions with pt. pt verbalized understanding, notified Nurse Boykin.
[2024-05-18 22:14] VITALS: BP 148/100; PULSE 100; RESP 16; TEMP 36.9; O2SAT 97
== END 2024-05-18 22:14 | disposition home or self-care (01) ==
PROVIDERS: Physician Assistant Medical; Emergency Provider Emergency Medicine
DX: L03.011 Cellulitis of right finger (principal); M79.644 Pain in right finger(s); B19.20 Unspecified viral hepatitis C without hepatic coma; F19.10 Other psychoactive substance abuse, uncomplicated; F17.210 Nicotine dependence, cigarettes, uncomplicated
CPT/HCPCS: 36415; 73130; 80053; 85025; 85652; 86140; 99283; 99284

== ENCOUNTER → 2024-05-18 19:43 | Outpatient (BNV) | payer MEDICAID, SELFPAY | PROVIDERS: Emergency Provider Emergency Medicine; Visit Provider Radiology Diagnostic Radiology | DX: L03.011 Cellulitis of right finger (principal) | CPT/HCPCS: 73130 ==